=== PATIENT | male | born 1940 | race Caucasian/White ===

== ENCOUNTER → 2016-11-21 | Outpatient (CLI) | payer MEDICARE ==
--- NOTE | 2016-11-21 15:37 | NM ---
EXAMINATION TYPE: NM DatScan Brain SPECT DATE OF EXAM: 11/21/2016 2:51 PM COMPARISON: NONE HISTORY: 76-year-old male with tremors TECHNIQUE: 10 drops of Lugol's solution was administered 1 hour prior to injection as a thyroid bloc terri agent. After the administration of 4.57 mCi I-123 Ioflupane DaTscan. Images obtained 3 hours p ost injection. SPECT images of the brain were acquired with axial and coronal reconstructions. FINDINGS: The axial SPECT images show symmetrical striatal uptake and no significant increase in background act ivity. IMPRESSION: Normal appearance which argues against idiopathic Parkinson's disease or a parkinsonian syndrome.
== END | disposition home or self-care (01) ==
LOC: RADNMMAIN 09:45
PROVIDERS: ATTEND Psychiatry & Neurology Neurology
DX: R25.1 Tremor, unspecified (principal)
CPT/HCPCS: 78607; A9584

== ENCOUNTER 2017-03-24 00:17 | Emergency (ER) | payer MEDICARE ==
[2017-03-24 00:28] VITALS: RESP 18; TEMP 97.4
[2017-03-24] MEDS ORDERED: cloNIDine HCL 0.1 MG TAB PO STA (00:44)
--- NOTE | 2017-03-24 01:10 | ED ---
Recheck HPI - General Chief Complaint: Recheck/Abnormal Lab/Rx Stated Complaint: chest pain Time Seen by Provider: 03/24/17 00:31 Source: patient Mode of arrival: wheelchair Limitations: no limitations - History of Present Illness Initial Comments: This patient is a 77-year-old man with history of hypertension who presents because his blood pressure has been 170/110. The patient states that he was feeling a little shaky at home this evening so he took his blood pressure was 140/95. He states that he took 12.5 mg of metoprolol, and then began rechecking his blood pressure. He checked a number of times and had gone up to 170/110 so he comes in to be evaluated. Patient denies any other symptoms. He is not having chest pain, dyspnea, abdominal pain, back pain, nausea or vomiting , change in urination or bowel movements. MD Complaint: other (Hypertension) -: hour(s) Symptoms Since Prior Visit: no new symptoms Associated Symptoms: none Treatments Prior to Arrival: other medications - Related Data Home Medications Medication Instructions Recorded Confirmed Atenolol [Tenormin] 25 mg PO DAILY 06/04/14 02/04/17 Atorvastatin [Lipitor] 80 mg PO DAILY 06/04/14 02/04/17 Butalb/Acetaminophen/Caffeine 1 each PO Q6HR PRN 06/04/14 02/04/17 [Fioricet 50-325-40] Cyclobenzaprine [Flexeril] 10 mg PO TID 06/04/14 02/04/17 Finasteride [Proscar] 5 mg PO DAILY 06/04/14 02/04/17 Gabapentin [Neurontin] 300 mg PO TID 06/04/14 02/04/17 Halfprin 162 mg PO DAILY 06/04/14 02/04/17 Loratadine [Claritin] 10 mg PO DAILY PRN 06/04/14 02/04/17 Baggs-3 Fatty Acids/Fish Oil [Fish 1 each PO DAILY 06/04/14 02/04/17 Oil 1,000 mg Softgel] Terazosin [Hytrin] 10 mg PO HS 06/04/14 02/04/17 clonazePAM [KlonoPIN] 0.5 mg PO HS PRN 06/04/14 02/04/17 oxyCODONE HCL/ACETAMINOPHEN 1 each PO Q6HR PRN 06/04/14 02/04/17 [Endocet 10-325 mg] Albuterol Sulfate [Proair Hfa] 1 - 2 puff INHALATION Q6HR PRN 10/28/14 02/04/17 Furosemide [Lasix] 20 mg PO DAILY 10/28/14 02/04/17 Mometasone/Formoterol [Dulera 200 2 puff INHALATION BID 10/28/14 02/04/17 Mcg/5 Mcg Inhaler] Aspirin [Adult Low Dose Aspirin EC] 2 tab PO DAILY 01/30/17 02/04/17 Budesonide-Formot 160-4.5 Mcg 2 puff INHALATION BID 01/30/17 02/04/17 [Symbicort 160-4.5 Mcg Inhaler] Lisinopril [Prinivil] 5 mg PO DAILY 01/30/17 02/04/17 Meloxicam 15 mg PO DAILY 01/30/17 02/04/17 Metoprolol Succinate [Toprol XL] 25 mg PO DAILY 01/30/17 02/04/17 Potassium Gluconate 99 mg PO HS 01/30/17 02/04/17 Primidone [Mysoline] 50 mg PO DAILY 01/30/17 02/04/17 Sertraline [Zoloft] 100 mg PO DAILY 01/30/17 02/04/17 Terazosin [Hytrin] 10 mg PO HS 01/30/17 02/04/17 fentaNYL 25MCG/HR PATCH [Duragesic 25 mcg TRANSDERM Q72H 01/30/17 02/04/17 25MCG/HR] predniSONE 0 mg PO DIRECTED 01/30/17 02/04/17 Allergies Allergy/AdvReac Type Severity Reaction Status Date / Time morphine Allergy Rash/Hives Verified 03/24/17 00:27 Review of Systems ROS Statement: Those systems with pertinent positive or pertinent negative responses have been documented in the HPI. ROS Other: All systems not noted in ROS Statement are negative. Respiratory: Denies: cough, dyspnea Cardiovascular: Denies: chest pain, palpitations, dyspnea on exertion, orthopnea , edema, syncope Gastrointestinal: Denies: abdominal pain, vomiting, diarrhea Genitourinary: Denies: dysuria Musculoskeletal: Denies: back pain Neurological: Denies: headache Psychiatric: Reports: anxiety Past Medical History Past Medical History: Chest Pain / Angina, Hyperlipidemia, Hypertension, Prostate Disorder History of Any Multi-Drug Resistant Organisms: None Reported Past Surgical History: Coronary Bypass/CABG Past Anesthesia/Blood Transfusion Reactions: No Reported Reaction Past Psychological History: No Psychological Hx Reported, Depression Smoking Status: Never smoker - Past Family History Mother Family Medical History: No Reported History Father Family Medical History: No Reported History General Exam Limitations: no limitations General appearance: alert, in no apparent distress Eye exam: Present: normal appearance. Absent: scleral icterus, conjunctival injection ENT exam: Present: normal oropharynx Neck exam: Present: normal inspection Respiratory exam: Present: normal lung sounds bilaterally. Absent: respiratory distress, wheezes, rales, rhonchi, stridor Cardiovascular Exam: Present: regular rate, normal rhythm, normal heart sounds. Absent: systolic murmur, diastolic murmur, rubs, gallop GI/Abdominal exam: Present: soft. Absent: distended, tenderness, guarding, rebound, mass Extremities exam: Present: normal inspection, normal capillary refill. Absent: pedal edema, calf tenderness Back exam: Present: normal inspection. Absent: CVA tenderness (R), CVA tenderness (L) Neurological exam: Present: alert Psychiatric exam: Present: anxious Skin exam: Present: warm, dry, intact, normal color. Absent: rash Course Vital Signs 03/24/17 03/24/17 03/24/17 00:25 01:00 01:32 Temperature 97.4 F L Pulse Rate 66 96 68 Respiratory 18 18 Rate Blood Pressure 177/105 176/111 150/98 O2 Sat by Pulse 98 Oximetry Medical Decision Making - EKG Data -: EKG Interpreted by Sc EKG shows normal: sinus rhythm (Rate 70 bpm), axis (Right axis), intervals (The MD interval is prolonged at 228 ms, the QTC is prolonged at 505 ms QRS duration is normal at 96 months), QRS complexes (There is an incomplete right bundle branch block pattern.) Rate: normal When compared to previous EKG there are: no significant change (Comparison EKG 10/28/2014) Interpretation: nonspecific ST-T wave changes, other Disposition Clinical Impression: HTN (hypertension) Disposition: HOME SELF-CARE Condition: Good Instructions: Hypertension (ED) Referrals: Burke Dubois MD [Primary Care Provider] - 1-2 days
[2017-03-24 02:37] VITALS: BP 121/81; PULSE 60
== END 2017-03-24 02:00 | disposition home or self-care (01) ==
LOC: EC 00:17
DX: I10 Essential (primary) hypertension (principal); E78.5 Hyperlipidemia, unspecified; N42.9 Disorder of prostate, unspecified; F32.9 Major depressive disorder, single episode, unspecified; Z95.5 Presence of coronary angioplasty implant and graft; Z79.51 Long term (current) use of inhaled steroids; Z79.52 Long term (current) use of systemic steroids; Z79.891 Long term (current) use of opiate analgesic; Z79.899 Other long term (current) drug therapy; Z88.5 Allergy status to narcotic agent
CPT/HCPCS: 93005; 99284

== ENCOUNTER 2017-03-24 12:45 | Emergency (ER) | payer MEDICARE ==
[2017-03-24] MEDS ORDERED: SODIUM CHLORIDE 0.9% 500 ML IV STA (13:30)
--- NOTE | 2017-03-24 13:48 | ED ---
General Adult HPI - General Chief complaint: Recheck/Abnormal Lab/Rx Stated complaint: Low BP Time Seen by Provider: 03/24/17 12:52 Source: patient, RN notes reviewed Mode of arrival: wheelchair Limitations: no limitations - History of Present Illness Initial comments: Patient 77-year-old male who presents emergency room today with chief complaint of low blood pressure. He does admit that he's felt a little lightheaded and dizzy today he checked his blood pressure noticed that it was low. States still feeling lightheaded at this time. Patient does note that he was seen here in the emergency room last night given 2 pills. He states he does not note today were. He states he was here because his blood pressure was elevated time. He currently denies any other complaints or associated symptoms. Patient denies any recent fever, chills, shortness of breath, chest pain, back pain, abdominal pain, nausea or vomiting, numbness or tingling, dysuria or hematuria, constipation or diarrhea, headaches or visual changes, or any other complaints. - Related Data Home Medications Medication Instructions Recorded Confirmed Atorvastatin [Lipitor] 80 mg PO DAILY 06/04/14 03/24/17 Finasteride [Proscar] 5 mg PO DAILY 06/04/14 03/24/17 Gabapentin [Neurontin] 300 mg PO TID 06/04/14 03/24/17 Loratadine [Claritin] 10 mg PO DAILY PRN 06/04/14 03/24/17 clonazePAM [KlonoPIN] 0.5 mg PO HS PRN 06/04/14 03/24/17 Furosemide [Lasix] 20 mg PO DAILY 10/28/14 03/24/17 Aspirin [Adult Low Dose Aspirin EC] 2 tab PO DAILY 01/30/17 03/24/17 Budesonide-Formot 160-4.5 Mcg 2 puff INHALATION BID 01/30/17 03/24/17 [Symbicort 160-4.5 Mcg Inhaler] Lisinopril [Prinivil] 5 mg PO DAILY 01/30/17 03/24/17 Meloxicam 15 mg PO DAILY 01/30/17 03/24/17 Metoprolol Succinate [Toprol XL] 12.5 mg PO DAILY 01/30/17 03/24/17 Potassium Gluconate 99 mg PO HS 01/30/17 03/24/17 Primidone [Mysoline] 50 mg PO HS 01/30/17 03/24/17 Sertraline [Zoloft] 100 mg PO DAILY 01/30/17 03/24/17 Terazosin [Hytrin] 10 mg PO DAILY 01/30/17 03/24/17 fentaNYL 25MCG/HR PATCH [Duragesic 25 mcg TRANSDERM Q72H 01/30/17 03/24/17 25MCG/HR] Albuterol Sulfate [Proventil Hfa] 2 puff INHALATION RT-QID PRN 03/24/17 03/24/17 Allergies Allergy/AdvReac Type Severity Reaction Status Date / Time morphine Allergy Rash/Hives Verified 03/24/17 14:09 Review of Systems ROS Statement: Those systems with pertinent positive or pertinent negative responses have been documented in the HPI. ROS Other: All systems not noted in ROS Statement are negative. Past Medical History Past Medical History: Chest Pain / Angina, Hyperlipidemia, Hypertension, Prostate Disorder History of Any Multi-Drug Resistant Organisms: None Reported Past Surgical History: Coronary Bypass/CABG Past Anesthesia/Blood Transfusion Reactions: No Reported Reaction Past Psychological History: No Psychological Hx Reported, Depression Smoking Status: Never smoker Past Alcohol Use History: None Reported Past Drug Use History: None Reported - Past Family History Mother Family Medical History: No Reported History Father Family Medical History: No Reported History General Exam - General Exam Comments Initial Comments: General: The patient is awake and alert, in no distress, and does not appear acutely ill. Eye: Pupils are equal, round and reactive to light, extra-ocular movements are intact. No nystagmus. There is normal conjunctiva bilaterally. No signs of icterus. Ears, nose, mouth and throat: There are moist mucous membranes and no oral lesions. Neck: The neck is supple, there is no tenderness or JVD. Cardiovascular: There is a regular rate and rhythm. No murmur, rub or gallop is appreciated. Respiratory: Lungs are clear to auscultation, respirations are non-labored, breath sounds are equal. No wheezes, stridor, rales, or rhonchi. Gastrointestinal: Soft, non-distended, non-tender abdomen without masses or organomegaly noted. There is no rebound or guarding present. No CVA tenderness. Bowel sounds are unremarkable. Musculoskeletal: Normal ROM, no tenderness. Strength 5/5. Sensation intact. Pulses equal bilaterally 2+. Neurological: A&O x 3. CN II-XII intact, There are no obvious motor or sensory deficits. Coordination appears grossly intact. Speech is normal. Skin: Skin is warm and dry and no rashes or lesions are noted. Psychiatric: Cooperative, appropriate mood & affect, normal judgment. Limitations: no limitations Course Vital Signs 03/24/17 03/24/17 03/24/17 12:48 14:11 15:13 Temperature 97.8 F Pulse Rate 54 L 53 L 51 L Respiratory 20 20 18 Rate Blood Pressure 94/65 111/73 103/69 O2 Sat by Pulse 99 98 95 Oximetry 03/24/17 15:38 Temperature 97 F L Pulse Rate 58 L Respiratory 16 Rate Blood Pressure 106/67 O2 Sat by Pulse 98 Oximetry Medical Decision Making - Medical Decision Making Case discussed in detail with attending physician Patient reexamined at this time shows no signs of distress resting comfortably. patient's labs been reviewed. Patient was given Catapres approximate 1 AM this morning. He is given 0.2 mg. There is a 6010 hour duration. I believe that he is Still working this morning when he woke up and had a low blood pressure. At this times blood pressures returned normal as been greater than 10 hours since receiving this medication. He is feeling better. He denies any lightheadedness dizziness. He's been walked up and down the hallway with no problems and no complaints. Patient's labs been reviewed. EKG reviewed. Results were discussed with this patient. At this time he feels comfortable being discharged home. He states he will keep an eye on his blood pressure. He states he plans follow-up the family doctor in the next 1-2 days. Patient is advised return to emergency room if any symptoms increase or worsen or for any other concerns. - Lab Data Result diagrams: 03/24/17 14:15 03/24/17 14:15 Lab Results 03/24/17 03/24/17 03/24/17 Range/Units 14:15 14:15 14:15 WBC 3.6 L (3.8-10.6) k/uL RBC 4.02 L (4.30-5.90) m/uL Hgb 13.0 (13.0-17.5) gm/dL Hct 38.9 L (39.0-53.0) % MCV 96.7 (80.0-100.0) fL MCH 32.4 (25.0-35.0) pg MCHC 33.5 (31.0-37.0) g/dL RDW 13.4 (11.5-15.5) % Plt Count 89 L (150-450) k/uL Neutrophils % 64 % Lymphocytes % 21 % Monocytes % 9 % Eosinophils % 3 % Basophils % 1 % Neutrophils # 2.3 (1.3-7.7) k/uL Lymphocytes # 0.7 L (1.0-4.8) k/uL Monocytes # 0.3 (0-1.0) k/uL Eosinophils # 0.1 (0-0.7) k/uL Basophils # 0.0 (0-0.2) k/uL PT (9.0-12.0) sec INR (<1.2) APTT (22.0-30.0) sec Sodium 139 (137-145) mmol/L Potassium 4.0 (3.5-5.1) mmol/L Chloride 105 (98-107) mmol/L Carbon Dioxide 25 (22-30) mmol/L Anion Gap 9 mmol/L BUN 27 H (9-20) mg/dL Creatinine 0.95 (0.66-1.25) mg/dL Est GFR (MDRD) Af Amer >60 (>60 ml/min/1.73 sqM) Est GFR (MDRD) Non-Af >60 (>60 ml/min/1.73 sqM) Glucose 74 (74-99) mg/dL Calcium 8.9 (8.4-10.2) mg/dL Total Bilirubin 0.8 (0.2-1.3) mg/dL AST 25 (17-59) U/L ALT 33 (21-72) U/L Alkaline Phosphatase 62 (38-126) U/L Total Creatine Kinase 146 (55-170) U/L CK-MB (CK-2) 3.0 H* (0.0-2.4) ng/mL CK-MB (CK-2) Rel Index 2.1 Troponin I <0.012 (0.000-0.034) ng/mL Total Protein 6.4 (6.3-8.2) g/dL Albumin 4.1 (3.5-5.0) g/dL Urine Color Urine Appearance (Clear) Urine pH (5.0-8.0) Ur Specific [place] (1.001-1.035) Urine Protein (Negative) Urine Glucose (UA) (Negative) Urine Ketones (Negative) Urine Blood (Negative) Urine Nitrite (Negative) Urine Bilirubin (Negative) Urine Urobilinogen (<2.0) mg/dL Ur Leukocyte Esterase (Negative) 03/24/17 03/24/17 Range/Units 14:15 15:37 WBC (3.8-10.6) k/uL RBC (4.30-5.90) m/uL Hgb (13.0-17.5) gm/dL Hct (39.0-53.0) % MCV (80.0-100.0) fL MCH (25.0-35.0) pg MCHC (31.0-37.0) g/dL RDW (11.5-15.5) % Plt Count (150-450) k/uL Neutrophils % % Lymphocytes % % Monocytes % % Eosinophils % % Basophils % % Neutrophils # (1.3-7.7) k/uL Lymphocytes # (1.0-4.8) k/uL Monocytes # (0-1.0) k/uL Eosinophils # (0-0.7) k/uL Basophils # (0-0.2) k/uL PT 12.2 H (9.0-12.0) sec INR 1.2 H (<1.2) APTT 25.9 (22.0-30.0) sec Sodium (137-145) mmol/L Potassium (3.5-5.1) mmol/L Chloride (98-107) mmol/L Carbon Dioxide (22-30) mmol/L Anion Gap mmol/L BUN (9-20) mg/dL Creatinine (0.66-1.25) mg/dL Est GFR (MDRD) Af Amer (>60 ml/min/1.73 sqM) Est GFR (MDRD) Non-Af (>60 ml/min/1.73 sqM) Glucose (74-99) mg/dL Calcium (8.4-10.2) mg/dL Total Bilirubin (0.2-1.3) mg/dL AST (17-59) U/L ALT (21-72) U/L Alkaline Phosphatase (38-126) U/L Total Creatine Kinase (55-170) U/L CK-MB (CK-2) (0.0-2.4) ng/mL CK-MB (CK-2) Rel Index Troponin I (0.000-0.034) ng/mL Total Protein (6.3-8.2) g/dL Albumin (3.5-5.0) g/dL Urine Color Yellow Urine Appearance Clear (Clear) Urine pH 5.5 (5.0-8.0) Ur Specific [place] 1.017 (1.001-1.035) Urine Protein Trace H (Negative) Urine Glucose (UA) Negative (Negative) Urine Ketones Negative (Negative) Urine Blood Negative (Negative) Urine Nitrite Negative (Negative) Urine Bilirubin Negative (Negative) Urine Urobilinogen <2.0 (<2.0) mg/dL Ur Leukocyte Esterase Negative (Negative) Disposition Clinical Impression: Lightheaded Disposition: HOME SELF-CARE Condition: Good Instructions: Lightheadedness (ED) Additional Instructions: Please follow-up with family doctor in the next 2 days. Please return to emergency room if the symptoms increase or worsen or for any other concerns. Referrals: Burke Dubois MD [Primary Care Provider] - 1-2 days Time of Disposition: 16:00
[2017-03-24 14:29] LABS: Basophils % (A) 1 %; CHCM 33.3; Eosinophils # (A) 0.1 k/uL (0-0.7); Eosinophils % (A) 3 %; HCT 38.9 % (39.0-53.0); HDW 2.22; Luc % (Auto) 3; Lymphocytes # (A) 0.7 k/uL (1.0-4.8); Lymphocytes % (A) 21 %; MCH 32.4 pg (25.0-35.0); MCHC 33.5 g/dL (31.0-37.0); MCV 96.7 fL (80.0-100.0); Mean Platelet Volume 8.3; Monocytes # (A) 0.3 k/uL (0-1.0); Monocytes % (A) 9 %; Neutrophils # (A) 2.3 k/uL (1.3-7.7); Neutrophils % (A) 64 %; RBC 4.02 m/uL (4.30-5.90); RDW 13.4 % (11.5-15.5); WBC 3.6 k/uL (3.8-10.6); WBC (Perox) 3.62
[2017-03-24 14:42] LABS: ALT 33 U/L (21-72); AST 25 U/L (17-59); Alkaline Phosphatase 62 U/L (38-126); Anion Gap 9 mmol/L; Blood Urea Nitrogen 27 mg/dL (9-20); Calcium 8.9 mg/dL (8.4-10.2); Carbon Dioxide 25 mmol/L (22-30); Chloride 105 mmol/L (98-107); Glucose 74 mg/dL (74-99); Non-African American GFR(MDRD) >60 (>60 ml/min/1.73 sqM); Sodium 139 mmol/L (137-145); Total Bilirubin 0.8 mg/dL (0.2-1.3); Total Protein 6.4 g/dL (6.3-8.2)
[2017-03-24 14:54] LABS: INR 1.2 (<1.2)
[2017-03-24 14:55] LABS: Partial Thromboplastin Time 25.9 sec (22.0-30.0); Prothrombin Time 12.2 sec (9.0-12.0)
[2017-03-24 14:57] LABS: Creatine Kinase 146 U/L (55-170)
[2017-03-24 15:10] LABS: Troponin I <0.012 ng/mL (0.000-0.034)
--- NOTE | 2017-03-24 15:15 | XR ---
EXAMINATION TYPE: XR chest 2V DATE OF EXAM: 03/24/2017 COMPARISON: October 27, 2015 HISTORY: Shortness of breath TECHNIQUE: Frontal and lateral views of the chest are obtained. FINDINGS: There is no focal air space opacity, pleural effusion, or pneumothorax seen. The cardiac silhouette size is within normal limits. The osseous structures are intact. Postoperative changes f rom sternotomy and likely CABG procedure again noted. IMPRESSION: No acute cardiopulmonary process.
[2017-03-24 15:39] VITALS: RESP 16; TEMP 97
[2017-03-24 15:45] LABS: Appearance,Urine Clear (Clear); Bilirubin,Urine Negative (Negative); Glucose,Urine (UA) Negative (Negative); Ketones,Urine Negative (Negative); Leukocyte Esterase,Urine Negative (Negative); Nitrite,Urine Negative (Negative); PH, Urine 5.5 (5.0-8.0); Protein,Urine Trace (Negative); Specific Gravity,Urine 1.017 (1.001-1.035); UA Billing (MACRO vs. MICRO) CHEM; Urobilinogen,Urine <2.0 mg/dL (<2.0)
[2017-03-24 16:45] VITALS: BP 104/68; PULSE 55
== END 2017-03-24 16:44 | disposition home or self-care (01) ==
LOC: EC 12:45
DX: R42 Dizziness and giddiness (principal); R00.1 Bradycardia, unspecified; E78.5 Hyperlipidemia, unspecified; I10 Essential (primary) hypertension; N42.9 Disorder of prostate, unspecified; F32.9 Major depressive disorder, single episode, unspecified; Z79.1 Long term (current) use of non-steroidal anti-inflammatories (NSAID); Z79.82 Long term (current) use of aspirin; Z79.51 Long term (current) use of inhaled steroids; Z79.899 Other long term (current) drug therapy; Z88.5 Allergy status to narcotic agent; Z95.1 Presence of aortocoronary bypass graft
CPT/HCPCS: 36415; 71020; 80053; 81003; 82550; 82553; 84484; 85025; 85610; 85730; 93005; 99284; 99285

== ENCOUNTER → 2017-05-11 | Outpatient (CLI) | payer MEDICARE ==
[2017-05-11 14:08] LABS: Non-African American GFR(MDRD) >60 (>60 ml/min/1.73 sqM)
[2017-05-12 07:29] LABS: Blood Urea Nitrogen 26 mg/dL (9-20)
--- NOTE | 2017-05-12 12:43 | MR ---
EXAMINATION TYPE: MR brain wo con DATE OF EXAM: 05/11/2017 COMPARISON: NONE HISTORY: TIA CONTRAST: Performed utilizing 0 mL intravenous Gadavist gadolinium contrast. IV access could not be obtained at this time. TECHNIQUE: Multiplanar, multiecho imaging on a 3.0 Carina magnet is performed through the brain. Stud y is performed within 24 hours of arrival to the hospital. The craniovertebral junction is normal. The pituitary is normal. Diffusion-weighted imaging is performed. No abnormal hyperintensity is present to suggest an acute i ntracranial infarct or acute ischemic change. Periventricular white matter hyperintensity is present, likely on the basis of chronic white matter i schemic change. There appears to be a lacunar infarct within the subcortical parietal occipital junct ion white matter. Ventricles and sulci are prominent for the patient age. Temporal lobes appear symmetrical. IMPRESSIONS: 1. Periventricular white matter ischemic type changes and atrophy.
== END | disposition home or self-care (01) ==
LOC: RADMRIMAIN 13:35
PROVIDERS: ATTEND Psychiatry & Neurology Pain Medicine
DX: G31.9 Degenerative disease of nervous system, unspecified (principal); I67.82 Cerebral ischemia; R90.82 White matter disease, unspecified
CPT/HCPCS: 70551; 82565; 84520

== ENCOUNTER → 2018-06-03 | Outpatient (CLI) | payer MEDICARE ==
--- NOTE | 2018-06-03 13:30 | US ---
EXAMINATION TYPE: US kidneys/renal and bladder DATE OF EXAM: 06/03/2018 COMPARISON: NONE CLINICAL HISTORY: N28.1 Cyst of the Kidney; per patient history; left flank pain in LLD position EXAM MEASUREMENTS: Right Kidney: 12.0 x 5.8 x 6.0 cm Left Kidney: 10.9 x 5.3 x 5.4 cm Post Void Residual Volume: 6.9 mL Right Kidney: multiple, simple renal cysts with largest at inferior pole = 4.8 x 5.8 x 5.9cm Left Kidney: oval simple fluid area inferior pole may be renal cyst; posterior mid pole renal cyst se en = 0.5 x 0.6 x 0.6cm Bladder: wnl; prominent prostate noted inferiorly Bilateral Jets seen: Yes Normal Post Void Residual: Yes There is bilateral cortical renal thinning. There is no evidence for hydronephrosis at this point in time. No nephrolithiasis is seen. The urinary bladder is anechoic. Bilateral ureteral jets are seen . IMPRESSION: Sonographic sequela of medical renal disease with multiple bilateral benign-appearing simple renal cy sts.
== END | disposition home or self-care (01) ==
LOC: RADUSWWP 12:08
PROVIDERS: ATTEND Family Medicine
DX: N28.1 Cyst of kidney, acquired (principal); N28.89 Other specified disorders of kidney and ureter; Z88.5 Allergy status to narcotic agent
CPT/HCPCS: 76770

== ENCOUNTER → 2018-08-22 | Outpatient (CLI) | payer MEDICARE ==
[2018-08-22 16:49] LABS: T4, Free (Free Thyroxine) 1.1 ng/dL (0.80-1.80)
[2018-08-22 17:38] LABS: Iron Saturation 24.28 (15.00-50.00)
[2018-08-22 18:36] LABS: Folate, Serum >24.0 ng/mL
[2018-08-26 10:04] LABS: Vitamin B1 97 ug/L (38-122)
== END | disposition home or self-care (01) ==
LOC: LABWHC1 11:27
PROVIDERS: ATTEND Psychiatry & Neurology Pain Medicine
DX: R53.83 Other fatigue (principal)
CPT/HCPCS: 36415; 82607; 82728; 82746; 83540; 83550; 84207; 84425; 84439; 84443; 84466; 84481; 84591

== ENCOUNTER 2018-12-01 18:10 | Emergency (ER) | payer MEDICARE ==
[2018-12-01] MEDS ORDERED: FAMOTIDINE 20 MG TAB PO STA (19:27)
--- NOTE | 2018-12-01 19:31 | ED ---
Male Urogenital HPI - General Chief complaint: Urogenital Stated complaint: male gu, swollen testicles, hematuria Time Seen by Provider: 12/01/18 18:56 Source: patient Mode of arrival: ambulatory Limitations: no limitations - History of Present Illness Initial comments: 78-year-old male patient presents to the emergency department today for evaluation of scrotal swelling, redness, and itching. Patient states symptoms started about a month ago with urinary incontinence and hematuria. Patient states he was seen by his primary care physician and started on Flomax. Patient states he did a trial of one month which did not improve his symptoms is going to see a urologist on December 17. Patient states that over the last couple of days as well and the redness and itching started. Patient states he noticed swelling of the scrotum today. He denies any rash to the area. Denies any wounds. Denies any abdominal pain, shortness of breath, or leg swelling. Denies any fever or chills. Denies any dysuria. He is wearing depends briefs since the incontinence started. Patient denies any recent rash, chest pain, nausea, vomiting, diarrhea, constipation, back pain, numbness, tingling, dizziness, weakness, headache, visual changes, or any other complaints. - Related Data Home Medications Medication Instructions Recorded Confirmed Atorvastatin [Lipitor] 80 mg PO DAILY 06/04/14 12/01/18 Gabapentin [Neurontin] 300 mg PO TID 06/04/14 12/01/18 Furosemide [Lasix] 20 mg PO DAILY 10/28/14 12/01/18 Budesonide-Formot 160-4.5 Mcg 2 puff INHALATION RT-BID 01/30/17 12/01/18 [Symbicort 160-4.5 Mcg Inhaler] Lisinopril [Prinivil] 5 mg PO DAILY 01/30/17 12/01/18 Meloxicam 15 mg PO DAILY 01/30/17 12/01/18 Metoprolol Succinate [Toprol XL] 12.5 mg PO DAILY 01/30/17 12/01/18 Sertraline [Zoloft] 100 mg PO DAILY 01/30/17 12/01/18 fentaNYL 25MCG/HR PATCH [Duragesic 25 mcg TRANSDERM Q72H 01/30/17 12/01/18 25MCG/HR] Albuterol Sulfate [Proventil Hfa] 2 puff INHALATION RT-QID PRN 03/24/17 12/01/18 Nitroglycerin Sl Tabs [Nitrostat] 0.4 tab SL Q5M 12/01/18 12/01/18 Oxybutynin [Oxytrol Patch] 3.9 mg TRANSDERM Q72H 12/01/18 12/01/18 Primidone [Mysoline] 150 mg PO HS 12/01/18 12/01/18 Tamsulosin HCl [Flomax] 0.4 mg PO DAILY 12/01/18 12/01/18 clonazePAM [KlonoPIN] 1 mg PO TID 12/01/18 12/01/18 Previous Rx's Medication Instructions Recorded Nystatin 100,000Unit/gm Cream 1 applic TOPICAL BID #15 gm 12/01/18 [Mycostatin Cream] Allergies Allergy/AdvReac Type Severity Reaction Status Date / Time morphine Allergy Rash/Hives Verified 12/01/18 19:07 Review of Systems ROS Statement: Those systems with pertinent positive or pertinent negative responses have been documented in the HPI. ROS Other: All systems not noted in ROS Statement are negative. Past Medical History Past Medical History: Chest Pain / Angina, Hyperlipidemia, Hypertension, Prostate Disorder History of Any Multi-Drug Resistant Organisms: None Reported Past Surgical History: Coronary Bypass/CABG Past Anesthesia/Blood Transfusion Reactions: No Reported Reaction Past Psychological History: No Psychological Hx Reported, Depression Smoking Status: Never smoker Past Alcohol Use History: None Reported Past Drug Use History: None Reported - Past Family History Mother Family Medical History: No Reported History Father Family Medical History: No Reported History General Exam Limitations: no limitations General appearance: alert, in no apparent distress, other (Physical well- developed, well-nourished elderly male patient in no acute distress. Vital signs upon presentation are temperature 98.3F, pulse 77, respirations 18, blood pressure 125/80, pulse ox 96% on room air.) Eye exam: Present: normal appearance, PERRL, EOMI. Absent: scleral icterus, conjunctival injection, periorbital swelling ENT exam: Present: normal exam, normal oropharynx, mucous membranes moist Respiratory exam: Present: normal lung sounds bilaterally. Absent: respiratory distress, wheezes, rales, rhonchi, stridor Cardiovascular Exam: Present: regular rate, normal rhythm, normal heart sounds. Absent: systolic murmur, diastolic murmur, rubs, gallop, clicks GI/Abdominal exam: Present: soft, normal bowel sounds. Absent: distended, tenderness, guarding, rebound, rigid exam: Present: scrotal swelling, other (Generalized erythema). Absent: testicular tenderness Neurological exam: Present: alert, oriented X3, CN II-XII intact Psychiatric exam: Present: normal affect, normal mood Skin exam: Present: warm, dry, intact, normal color. Absent: rash Course Vital Signs 12/01/18 12/01/18 18:22 21:30 Temperature 98.3 F 97.9 F Pulse Rate 77 67 Respiratory 18 16 Rate Blood Pressure 125/80 144/93 O2 Sat by Pulse 96 96 Oximetry Medical Decision Making - Medical Decision Making 78-year-old male patient presented to the emergency department today for evaluation of scrotal swelling, redness, and itching. Physical examination did reveal some erythema to the scrotum. No significant swelling noted. No tenderness. Ultrasound was obtained and showed scrotal wall thickening but no other abnormalities. Patient will be given prescription for nystatin cream for cutaneous candidiasis. He did recently start wearing depends briefs which I feel could be causing irritation. He is instructed to follow-up with his primary care physician for a recheck in 1-2 days. He does have an appointment with his urologist on December 17, he is urged to keep this appointment. Return parameters were discussed in detail. He verbalizes understanding and agrees with this plan for - Lab Data Lab Results 12/01/18 Range/Units 19:21 Urine Color Yellow Urine Appearance Clear (Clear) Urine pH 7.0 (5.0-8.0) Ur Specific [place] 1.024 (1.001-1.035) Urine Protein Negative (Negative) Urine Glucose (UA) Negative (Negative) Urine Ketones Negative (Negative) Urine Blood Negative (Negative) Urine Nitrite Negative (Negative) Urine Bilirubin Negative (Negative) Urine Urobilinogen <2.0 (<2.0) mg/dL Ur Leukocyte Esterase Negative (Negative) - Radiology Data Radiology results: report reviewed Ultrasound of the scrotum with Doppler was obtained. Report was reviewed in its entirety. Impression by Dr. Chaves shows no testicular torsion or mass. No free fluid. There is mild wall thickening. To 1.2 cm. Disposition Clinical Impression: Cutaneous candidiasis Disposition: HOME SELF-CARE Condition: Good Instructions (If sedation given, give patient instructions): Yeast Infection (ED) Additional Instructions: Apply nystatin cream twice daily as directed. Follow-up with your primary care physician for recheck in 1-2 days. Follow-up with the urologist for recheck on December 17 as you have planned. Return to the emergency department immediately for any new, worsening, or concerning symptoms. Prescriptions: Nystatin 100,000Unit/gm Cream [Mycostatin Cream] 1 applic TOPICAL BID #15 gm Is patient prescribed a controlled substance at d/c from ED?: No Referrals: Cullen Castellanos MD [Primary Care Provider] - 1-2 days Time of Disposition: 21:31
[2018-12-01 19:57] LABS: Appearance,Urine Clear (Clear); Bilirubin,Urine Negative (Negative); Blood,Urine Negative (Negative); Color,Urine Yellow; Glucose,Urine (UA) Negative (Negative); Ketones,Urine Negative (Negative); Leukocyte Esterase,Urine Negative (Negative); Nitrite,Urine Negative (Negative); Protein,Urine Negative (Negative); Specific Gravity,Urine 1.024 (1.001-1.035); Urobilinogen,Urine <2.0 mg/dL (<2.0)
--- NOTE | 2018-12-01 20:59 | US ---
EXAMINATION TYPE: US scrotum with doppler. Grayscale and color Doppler Duplex imaging performed of shar valdez scrotum. DATE OF EXAM: 12/01/2018 COMPARISON: NONE CLINICAL HISTORY: Pain. Swelling. EXAM MEASUREMENTS: TESTICLES: Right Testicle: 4.5 x 3.1 x 2.9 cm Left Testicle: 4.5 x 2.7 x 2.8 cm EPIDIDYMIS HEAD: Right Epididymis: .9 x .7 x 1.5 cm Left Epididymis: 1.1 x .7 x 1.1 cm Doppler performed to assess for testicular vascularity; good bilateral color flow and waveforms are s een. There is no evidence of testicular torsion. Presence of hydroceles: No Presence of varicoceles: No Scrotal wall thickening 1.2cm. IMPRESSION: No testicular torsion or mass. No free fluid. Mild scrotal wall thickening.
[2018-12-01 21:42] VITALS: BP 144/93; PULSE 67; RESP 16; TEMP 97.9
== END 2018-12-01 21:30 | disposition home or self-care (01) ==
LOC: EC 18:10
DX: B37.2 Candidiasis of skin and nail (principal); N50.89 Other specified disorders of the male genital organs; R31.9 Hematuria, unspecified; E78.5 Hyperlipidemia, unspecified; I10 Essential (primary) hypertension; N42.9 Disorder of prostate, unspecified; F32.9 Major depressive disorder, single episode, unspecified; Z79.51 Long term (current) use of inhaled steroids; Z79.891 Long term (current) use of opiate analgesic; Z79.1 Long term (current) use of non-steroidal anti-inflammatories (NSAID); Z79.899 Other long term (current) drug therapy; Z88.5 Allergy status to narcotic agent; Z95.1 Presence of aortocoronary bypass graft
CPT/HCPCS: 76870; 81003; 93975; 99284

== ENCOUNTER 2019-01-06 06:14 | Emergency (ER) | payer MEDICARE ==
[2019-01-06 06:34] VITALS: RESP 20
[2019-01-06] MEDS ORDERED: methylPREDNISolone SOD SUCCI 125 MG/2 ML VIAL IV STA (07:10)
[2019-01-06] MEDS ORDERED: IPRATROPIUM-ALBUTEROL 3 ML NEB INHALATION STA (07:10)
--- NOTE | 2019-01-06 07:19 | ED ---
SOB HPI - General Chief Complaint: Shortness of Breath Stated Complaint: SOB/COPD Time Seen by Provider: 01/06/19 07:00 Source: patient, family, RN notes reviewed Mode of arrival: wheelchair Limitations: no limitations - History of Present Illness Initial Comments: 78-year-old male presents emergency Department chief complaint of shortness breath for last 3-4 days. Patient states she seen at [facility] was given oral steroids. Patient states that he 7-50 with a COPD and ALLERGIES. Patient is requesting albuterol treatment and steroids. Patient CT does not want any house this time. Patient denies any chest pain, leg edema, bladder pain, fever, chills, nausea, vomiting diarrhea constipation. Patient states that his escort car driver is Dr. London. Patient has not taken any recent oral steroids, no albuterol treatment at home. - Related Data Previous Rx's Medication Instructions Recorded Albuterol Nebulized [Ventolin 2.5 mg INHALATION Q4H PRN #25 nebu 01/06/19 Nebulized] predniSONE 50 mg PO DAILY #4 tab 01/06/19 Allergies Allergy/AdvReac Type Severity Reaction Status Date / Time morphine Allergy Rash/Hives Verified 01/06/19 06:23 Review of Systems ROS Statement: Those systems with pertinent positive or pertinent negative responses have been documented in the HPI. ROS Other: All systems not noted in ROS Statement are negative. Past Medical History Past Medical History: COPD, Hypertension History of Any Multi-Drug Resistant Organisms: None Reported Past Surgical History: Back Surgery, Coronary Bypass/CABG, Joint Replacement, Orthopedic Surgery Past Psychological History: No Psychological Hx Reported Smoking Status: Never smoker Past Alcohol Use History: None Reported Past Drug Use History: None Reported General Exam Limitations: no limitations General appearance: alert, in no apparent distress Head exam: Present: atraumatic, normocephalic, normal inspection Eye exam: Present: normal appearance, PERRL, EOMI. Absent: scleral icterus, conjunctival injection, periorbital swelling ENT exam: Present: mucous membranes moist, TM's normal bilaterally, normal external ear exam. Absent: normal oropharynx (Postnasal drainage) Neck exam: Present: normal inspection. Absent: tenderness, meningismus, lymphadenopathy Respiratory exam: Present: wheezes (minimal expiratory). Absent: respiratory distress, rales, rhonchi, stridor Cardiovascular Exam: Present: regular rate, normal rhythm, normal heart sounds. Absent: systolic murmur, diastolic murmur, rubs, gallop, clicks Neurological exam: Present: alert, oriented X3, CN II-XII intact Skin exam: Present: warm, dry, intact, normal color. Absent: rash Course Vital Signs 01/06/19 01/06/19 01/06/19 06:18 06:32 07:27 Temperature 98.2 F Pulse Rate 60 63 Respiratory 24 20 Rate Blood Pressure 150/91 O2 Sat by Pulse 98 Oximetry 01/06/19 07:39 Temperature Pulse Rate 58 L Respiratory Rate Blood Pressure O2 Sat by Pulse Oximetry - Reevaluation(s) Reevaluation #1: 01/06/19 07:19 Patient is refusing multiple tests, patient was commenced at form one view chest x-ray as he did not want any x-ray at all. Medical Decision Making - Medical Decision Making 78-year-old male presented for ALLERGIES, COPD issues. Patient is improved after albuterol treatment labs, EKG and chest x-ray unremarkable. Patient be discharged with prednisone and albuterol. Patient will follow-up PCP tomorrow return for any worsening symptoms. Patient is stable - Lab Data Result diagrams: 01/06/19 06:35 01/06/19 06:35 Lab Results 01/06/19 01/06/19 01/06/19 Range/Units 06:35 06:35 06:35 WBC 6.2 (3.8-10.6) k/uL RBC 4.63 (4.30-5.90) m/uL Hgb 14.3 (13.0-17.5) gm/dL Hct 44.0 (39.0-53.0) % MCV 95.2 (80.0-100.0) fL MCH 30.9 (25.0-35.0) pg MCHC 32.5 (31.0-37.0) g/dL RDW 13.6 (11.5-15.5) % Plt Count 179 (150-450) k/uL Neutrophils % 58 % Lymphocytes % 23 % Monocytes % 7 % Eosinophils % 9 % Basophils % 1 % Neutrophils # 3.6 (1.3-7.7) k/uL Lymphocytes # 1.4 (1.0-4.8) k/uL Monocytes # 0.4 (0-1.0) k/uL Eosinophils # 0.6 (0-0.7) k/uL Basophils # 0.1 (0-0.2) k/uL PT 10.8 (9.0-12.0) sec INR 1.0 (<1.2) APTT 26.5 (22.0-30.0) sec Sodium 139 (137-145) mmol/L Potassium 4.7 (3.5-5.1) mmol/L Chloride 101 (98-107) mmol/L Carbon Dioxide 29 (22-30) mmol/L Anion Gap 9 mmol/L BUN 26 H (9-20) mg/dL Creatinine 0.81 (0.66-1.25) mg/dL Est GFR (CKD-EPI)AfAm >90 (>60 ml/min/1.73 sqM) Est GFR (CKD-EPI)NonAf 85 (>60 ml/min/1.73 sqM) Glucose 91 (74-99) mg/dL Calcium 9.3 (8.4-10.2) mg/dL Magnesium 1.9 (1.6-2.3) mg/dL Total Bilirubin 0.9 (0.2-1.3) mg/dL AST 41 (17-59) U/L ALT 22 (21-72) U/L Alkaline Phosphatase 57 (38-126) U/L Troponin I (0.000-0.034) ng/mL Total Protein 7.4 (6.3-8.2) g/dL Albumin 4.5 (3.5-5.0) g/dL 01/06/19 Range/Units 06:35 WBC (3.8-10.6) k/uL RBC (4.30-5.90) m/uL Hgb (13.0-17.5) gm/dL Hct (39.0-53.0) % MCV (80.0-100.0) fL MCH (25.0-35.0) pg MCHC (31.0-37.0) g/dL RDW (11.5-15.5) % Plt Count (150-450) k/uL Neutrophils % % Lymphocytes % % Monocytes % % Eosinophils % % Basophils % % Neutrophils # (1.3-7.7) k/uL Lymphocytes # (1.0-4.8) k/uL Monocytes # (0-1.0) k/uL Eosinophils # (0-0.7) k/uL Basophils # (0-0.2) k/uL PT (9.0-12.0) sec INR (<1.2) APTT (22.0-30.0) sec Sodium (137-145) mmol/L Potassium (3.5-5.1) mmol/L Chloride (98-107) mmol/L Carbon Dioxide (22-30) mmol/L Anion Gap mmol/L BUN (9-20) mg/dL Creatinine (0.66-1.25) mg/dL Est GFR (CKD-EPI)AfAm (>60 ml/min/1.73 sqM) Est GFR (CKD-EPI)NonAf (>60 ml/min/1.73 sqM) Glucose (74-99) mg/dL Calcium (8.4-10.2) mg/dL Magnesium (1.6-2.3) mg/dL Total Bilirubin (0.2-1.3) mg/dL AST (17-59) U/L ALT (21-72) U/L Alkaline Phosphatase (38-126) U/L Troponin I <0.012 (0.000-0.034) ng/mL Total Protein (6.3-8.2) g/dL Albumin (3.5-5.0) g/dL - EKG Data EKG Comments: EKG performed at 6:32 normal sinus rhythm with left anterior fascicular block with a rate of 61 IN 192 QRS 100 QTC is QTC 422/420 4T elevation or depression. Nonspecific T-wave abnormality Disposition Clinical Impression: COPD exacerbation, Seasonal allergies Disposition: HOME SELF-CARE Condition: Stable Instructions (If sedation given, give patient instructions): Bronchospasm (ED) Additional Instructions: Please return to the Emergency Department if symptoms worsen or any other concerns. Prescriptions: predniSONE 50 mg PO DAILY #4 tab Albuterol Nebulized [Ventolin Nebulized] 2.5 mg INHALATION Q4H PRN #25 nebu PRN Reason: difficulty in breathing Is patient prescribed a controlled substance at d/c from ED?: No Referrals: Cullen Castellanos MD [Primary Care Provider] - 1-2 days Time of Disposition: 08:59
[2019-01-06 08:03] LABS: Basophils # (A) 0.1 k/uL (0-0.2); Basophils % (A) 1 %; Eosinophils # (A) 0.6 k/uL (0-0.7); Eosinophils % (A) 9 %; HGB 14.3 gm/dL (13.0-17.5); Lymphocytes # (A) 1.4 k/uL (1.0-4.8); Lymphocytes % (A) 23 %; MCH 30.9 pg (25.0-35.0); MCHC 32.5 g/dL (31.0-37.0); MCV 95.2 fL (80.0-100.0); Mean Platelet Volume 7.6; Monocytes # (A) 0.4 k/uL (0-1.0); Monocytes % (A) 7 %; Neutrophils # (A) 3.6 k/uL (1.3-7.7); Neutrophils % (A) 58 %; Platelet Count 179 k/uL (150-450); RBC 4.63 m/uL (4.30-5.90); RDW 13.6 % (11.5-15.5); WBC 6.2 k/uL (3.8-10.6)
--- NOTE | 2019-01-06 08:07 | XR ---
EXAMINATION TYPE: XR chest 1V portable DATE OF EXAM: 01/06/2019 COMPARISON: Prior chest x-ray 03/24/2017 HISTORY: Shortness of breath and dyspnea TECHNIQUE: Single frontal view of the chest is obtained. FINDINGS: There is no focal air space opacity, pleural effusion, or pneumothorax seen. The cardiac silhouette size is stable, enlarged. Patient is post median sternotomy and there are overlying cardia c leads. Patient is rotated. The osseous structures are intact. IMPRESSION: No acute process.
[2019-01-06 08:11] LABS: Partial Thromboplastin Time 26.5 sec (22.0-30.0); Prothrombin Time 10.8 sec (9.0-12.0)
[2019-01-06 08:25] LABS: Anion Gap 9 mmol/L; Blood Urea Nitrogen 26 mg/dL (9-20); Calcium 9.3 mg/dL (8.4-10.2); Carbon Dioxide 29 mmol/L (22-30); Chloride 101 mmol/L (98-107); Glucose 91 mg/dL (74-99); Sodium 139 mmol/L (137-145); Total Bilirubin 0.9 mg/dL (0.2-1.3)
[2019-01-06 08:29] LABS: Potassium 4.7 mmol/L (3.5-5.1)
[2019-01-06 08:30] LABS: Albumin 4.5 g/dL (3.5-5.0); Magnesium 1.9 mg/dL (1.6-2.3); Total Protein 7.4 g/dL (6.3-8.2)
[2019-01-06 08:31] LABS: ALT 22 U/L (21-72); AST 41 U/L (17-59); Alkaline Phosphatase 57 U/L (38-126)
[2019-01-06 09:49] VITALS: BP 138/81; PULSE 61; TEMP 97.7
== END 2019-01-06 09:25 | disposition home or self-care (01) ==
LOC: MERGE 06:14 → EC 06:14
DX: J44.1 Chronic obstructive pulmonary disease with (acute) exacerbation (principal); J30.2 Other seasonal allergic rhinitis; Z95.1 Presence of aortocoronary bypass graft; Z88.5 Allergy status to narcotic agent
CPT/HCPCS: 36415; 94640; 80053; 83735; 84484; 85025; 85610; 85730; 71045; 99285; 96374; J2930

== ENCOUNTER 2019-02-24 05:36 | Inpatient (IN) | payer MEDICARE ==
[2019-02-24] MEDS ORDERED: IPRATROPIUM-ALBUTEROL 3 ML NEB INHALATION STA (05:51)
[2019-02-24] MEDS ORDERED: methylPREDNISolone SOD SUCCI 125 MG/2 ML VIAL IV STA (05:51)
--- NOTE | 2019-02-24 06:20 | XR ---
EXAM: XR Chest, 2 Views CLINICAL HISTORY: ITS.REASON XR Reason: cough, COPD TECHNIQUE: Frontal and lateral views of the chest. COMPARISON: 01/06/2019. FINDINGS: Lungs: Mild basilar atelectasis or developing infiltrate. Pleural space: No significant pleural effusion or pneumothorax. Heart: Stable cardiomediastinal silhouette. Mediastinum: See above. Bones/joints: No acute fracture. IMPRESSION: Mild basilar atelectasis or developing infiltrate.
[2019-02-24 06:24] LABS: Basophils % (A) 1 %; Eosinophils # (A) 0.4 k/uL (0-0.7); Eosinophils % (A) 6 %; HCT 44.8 % (39.0-53.0); HGB 14.4 gm/dL (13.0-17.5); Lymphocytes # (A) 1.7 k/uL (1.0-4.8); Lymphocytes % (A) 27 %; MCH 30.7 pg (25.0-35.0); MCHC 32.1 g/dL (31.0-37.0); MCV 95.6 fL (80.0-100.0); Mean Platelet Volume 7.1; Monocytes # (A) 0.5 k/uL (0-1.0); Monocytes % (A) 7 %; Neutrophils # (A) 3.6 k/uL (1.3-7.7); Neutrophils % (A) 57 %; Platelet Count 192 k/uL (150-450); RBC 4.69 m/uL (4.30-5.90); RDW 12.6 % (11.5-15.5); WBC 6.3 k/uL (3.8-10.6)
[2019-02-24 06:39] LABS: ALT 27 U/L (21-72); AST 31 U/L (17-59); African American GFR (CKD) >90 (>60 ml/min/1.73 sqM); Albumin 4.3 g/dL (3.5-5.0); Alkaline Phosphatase 63 U/L (38-126); Anion Gap 9 mmol/L; Blood Urea Nitrogen 25 mg/dL (9-20); Calcium 9.2 mg/dL (8.4-10.2); Carbon Dioxide 28 mmol/L (22-30); Chloride 102 mmol/L (98-107); Glucose 116 mg/dL (74-99); Potassium 3.8 mmol/L (3.5-5.1); Sodium 139 mmol/L (137-145); Total Bilirubin 0.4 mg/dL (0.2-1.3); Total Protein 7.1 g/dL (6.3-8.2)
[2019-02-24] MEDS ORDERED: cefTRIAXone IN SWFI 1,000 MG/10 ML SYRINGE IVP STA (07:10)
[2019-02-24] MEDS ORDERED: AZITHROMYCIN 500 MG in SODIUM CHLORIDE 0.9% 250 ML IVPB STA (07:10)
--- NOTE | 2019-02-24 07:19 | ED ---
SOB HPI - General Chief Complaint: Shortness of Breath Stated Complaint: GEORGES Time Seen by Provider: 02/24/19 05:50 Source: patient Mode of arrival: ambulatory Limitations: no limitations - History of Present Illness Initial Comments: Latrell is a 78-year-old man with a history of COPD who presents the emergency department today for evaluation of aggressively worsening shortness of breath. Patient reports that over the past week he feels that his shortness of breath has been worsening, he was evaluated by urgent care earlier in the week where he reports he was given a breathing treatment as well as a shot and was prescribed 2 different medications one which she takes 5 days and one which she takes for 10 days he is not sure what the medications are. Patient reports he has been compliant with these medications. Patient states that tonight he felt like he couldn't catch his breath at all which prompted him coming to the ER for evaluation. Patient reports he has a minimally productive cough, denies fevers chest pain palpitations. - Related Data Home Medications Medication Instructions Recorded Confirmed Atorvastatin [Lipitor] 80 mg PO DAILY 06/04/14 12/01/18 Gabapentin [Neurontin] 300 mg PO TID 06/04/14 12/01/18 Furosemide [Lasix] 20 mg PO DAILY 10/28/14 12/01/18 Budesonide-Formot 160-4.5 Mcg 2 puff INHALATION RT-BID 01/30/17 12/01/18 [Symbicort 160-4.5 Mcg Inhaler] Lisinopril [Prinivil] 5 mg PO DAILY 01/30/17 12/01/18 Meloxicam 15 mg PO DAILY 01/30/17 12/01/18 Metoprolol Succinate [Toprol XL] 12.5 mg PO DAILY 01/30/17 12/01/18 Sertraline [Zoloft] 100 mg PO DAILY 01/30/17 12/01/18 fentaNYL 25MCG/HR PATCH [Duragesic 25 mcg TRANSDERM Q72H 01/30/17 12/01/18 25MCG/HR] Albuterol Sulfate [Proventil Hfa] 2 puff INHALATION RT-QID PRN 03/24/17 12/01/18 Nitroglycerin Sl Tabs [Nitrostat] 0.4 tab SL Q5M 12/01/18 12/01/18 Oxybutynin [Oxytrol Patch] 3.9 mg TRANSDERM Q72H 12/01/18 12/01/18 Primidone [Mysoline] 150 mg PO HS 12/01/18 12/01/18 Tamsulosin HCl [Flomax] 0.4 mg PO DAILY 12/01/18 12/01/18 clonazePAM [KlonoPIN] 1 mg PO TID 12/01/18 12/01/18 ALPRAZolam [Xanax] 0.5 mg PO Q8H PRN 01/06/19 01/06/19 Aspirin EC [Ecotrin Low Dose] 81 mg PO DAILY 01/06/19 01/06/19 Atorvastatin Calcium [Lipitor] 80 mg PO DAILY 01/06/19 01/06/19 Budesonide/Formoterol Fumarate 2 puff INHALATION RT-BID 01/06/19 01/06/19 [Symbicort 160-4.5 Mcg Inhaler] Ferrous Sulfate [Feosol] 325 mg PO DAILY 01/06/19 01/06/19 Furosemide [Lasix] 20 mg PO DAILY 01/06/19 01/06/19 Gabapentin [Neurontin] 300 mg PO TID 01/06/19 01/06/19 Loratadine [Claritin] 10 mg PO DAILY 01/06/19 01/06/19 Meloxicam [Mobic] 15 mg PO DAILY 01/06/19 01/06/19 Metoprolol Succinate [Toprol XL] 25 mg PO DAILY 01/06/19 01/06/19 Oxybutynin Chloride [Ditropan] 5 mg PO BID 01/06/19 01/06/19 Potassium 99 mg PO DAILY 01/06/19 01/06/19 Primidone [Mysoline] 50 mg PO DAILY 01/06/19 01/06/19 Sertraline [Zoloft] 100 mg PO DAILY 01/06/19 01/06/19 Tamsulosin HCl [Flomax] 0.4 mg PO DAILY 01/06/19 01/06/19 clonazePAM [KlonoPIN] 1 mg PO DAILY 01/06/19 01/06/19 fentaNYL 25MCG/HR PATCH [Duragesic 1 patch TRANSDERM Q72H 01/06/19 01/06/19 25MCG/HR] Previous Rx's Medication Instructions Recorded Nystatin 100,000Unit/gm Cream 1 applic TOPICAL BID #15 gm 12/01/18 [Mycostatin Cream] Albuterol Nebulized [Ventolin 2.5 mg INHALATION Q4H PRN #25 nebu 01/06/19 Nebulized] predniSONE 50 mg PO DAILY #4 tab 01/06/19 Allergies Allergy/AdvReac Type Severity Reaction Status Date / Time morphine Allergy Rash/Hives Verified 01/06/19 14:14 Review of Systems ROS Statement: Those systems with pertinent positive or pertinent negative responses have been documented in the HPI. ROS Other: All systems not noted in ROS Statement are negative. Past Medical History Past Medical History: Chest Pain / Angina, COPD, Hyperlipidemia, Hypertension, Prostate Disorder History of Any Multi-Drug Resistant Organisms: None Reported Past Surgical History: Back Surgery, Coronary Bypass/CABG, Joint Replacement, Orthopedic Surgery Past Anesthesia/Blood Transfusion Reactions: No Reported Reaction Past Psychological History: Depression, No Psychological Hx Reported Smoking Status: Never smoker Past Alcohol Use History: None Reported Past Drug Use History: None Reported - Past Family History Mother Family Medical History: No Reported History Father Family Medical History: No Reported History General Exam - General Exam Comments Initial Comments: Physical Exam GENERAL: Chronically ill appearing HENT: Normocephalic, Atraumatic. Poor dentition EYES: PERRL, EOMI PULMONARY: Expiratory wheezing in all lung meeks Crackles at bases CARDIOVASCULAR: RRR ABDOMEN: Soft and nontender with normal bowel sounds. SKIN: Skin is clear with no lesions or rashes and otherwise unremarkable. : Deferred NEUROLOGIC: Patient is alert and oriented x3. Moving all extremities spontaneously Poor pediatrician/medical doctor MUSCULOSKELETAL: Normal extremities with adequate strength and full range of motion. No lower extremity swelling or edema. No calf tenderness. PSYCHIATRIC: Normal psychiatric evaluation Limitations: no limitations Course Vital Signs 02/24/19 02/24/19 02/24/19 05:41 06:17 06:18 Temperature 98.0 F Pulse Rate 63 63 Respiratory 16 20 Rate Blood Pressure 145/91 O2 Sat by Pulse 97 Oximetry 02/24/19 02/24/19 06:24 06:50 Temperature Pulse Rate 63 92 Respiratory 18 Rate Blood Pressure 142/96 O2 Sat by Pulse 98 Oximetry Medical Decision Making - Medical Decision Making The patient was seen and evaluated, history was obtained from the patient and signed patient with a history of COPD which seems to be exacerbated by the hot humid weather sign patient was arty seen in urgent care earlier in the week where he received breathing treatment, a shot which I believe to be steroids as well as prescription for 2 medications patient is uncertain what the medications are based on his description I suspect he is taking azithromycin and steroids On arrival patient's having wheezing in all lung meeks with increased work of breathing Labs imaging, DuoNeb and Solu-Medrol were ordered Chest x-ray is concerning for bilateral lower lobe infiltrate, given that the patient is arty on azithromycin presumably I will treat with Rocephin and IV azithromycin Patient care was discussed with the patient's primary care physician Dr. Castellanos who is familiar with the patient agrees with plan for admission for COPD exacerbation, possible pneumonia. Recommends consult to patient's ceramic design engineer Dr. London - Lab Data Result diagrams: 02/24/19 06:06 02/24/19 06:06 Lab Results 02/24/19 02/24/19 Range/Units 06:06 06:06 WBC 6.3 (3.8-10.6) k/uL RBC 4.69 (4.30-5.90) m/uL Hgb 14.4 (13.0-17.5) gm/dL Hct 44.8 (39.0-53.0) % MCV 95.6 (80.0-100.0) fL MCH 30.7 (25.0-35.0) pg MCHC 32.1 (31.0-37.0) g/dL RDW 12.6 (11.5-15.5) % Plt Count 192 (150-450) k/uL Neutrophils % 57 % Lymphocytes % 27 % Monocytes % 7 % Eosinophils % 6 % Basophils % 1 % Neutrophils # 3.6 (1.3-7.7) k/uL Lymphocytes # 1.7 (1.0-4.8) k/uL Monocytes # 0.5 (0-1.0) k/uL Eosinophils # 0.4 (0-0.7) k/uL Basophils # 0.0 (0-0.2) k/uL Sodium 139 (137-145) mmol/L Potassium 3.8 (3.5-5.1) mmol/L Chloride 102 (98-107) mmol/L Carbon Dioxide 28 (22-30) mmol/L Anion Gap 9 mmol/L BUN 25 H (9-20) mg/dL Creatinine 0.85 (0.66-1.25) mg/dL Est GFR (CKD-EPI)AfAm >90 (>60 ml/min/1.73 sqM) Est GFR (CKD-EPI)NonAf 83 (>60 ml/min/1.73 sqM) Glucose 116 H (74-99) mg/dL Calcium 9.2 (8.4-10.2) mg/dL Magnesium 2.0 (1.6-2.3) mg/dL Total Bilirubin 0.4 (0.2-1.3) mg/dL AST 31 (17-59) U/L ALT 27 (21-72) U/L Alkaline Phosphatase 63 (38-126) U/L Total Protein 7.1 (6.3-8.2) g/dL Albumin 4.3 (3.5-5.0) g/dL Disposition Clinical Impression: Acute exacerbation of chronic obstructive airways disease, Pneumonia Disposition: ADMITTED IP TO THIS HOSP Condition: Stable Referrals: Cullen Castellanos MD [Primary Care Provider] - 1-2 days
[2019-02-24] MEDS ORDERED: ALPRAZolam 0.5 MG TAB PO PRN (09:11)
[2019-02-24] MEDS ORDERED: NITROGLYCERIN SL TABS 0.4 MG TAB SUBLINGUAL PRN (09:30)
[2019-02-24] MEDS ORDERED: GABAPENTIN 300 MG CAP PO SCH (09:45)
[2019-02-24] MEDS ORDERED: clonazePAM 1 MG TAB PO SCH (09:45)
[2019-02-24] MEDS ORDERED: MELOXICAM 7.5 MG TAB PO SCH (09:45)
[2019-02-24] MEDS: ASPIRIN 81 MG PO SCH (10:19)
[2019-02-24] MEDS: FUROSEMIDE 20 MG TAB PO SCH (10:21)
[2019-02-24] MEDS: LISINOPRIL 5 MG TAB PO SCH (10:22)
[2019-02-24] MEDS: METOPROLOL SUCCINATE (ER) 25 MG TAB.ER.24H PO SCH (10:22)
[2019-02-24] MEDS: OXYBUTYNIN CHLORIDE 5 MG TAB PO SCH ×2 (10:23→21:11)
[2019-02-24] MEDS: SERTRALINE 100 MG TAB PO SCH (10:23)
[2019-02-24] MEDS: TAMSULOSIN 0.4 MG CAP.ER.24H PO SCH (10:23)
[2019-02-24] MEDS ORDERED: GABAPENTIN 300 MG CAP PO PRN (10:28)
[2019-02-24] MEDS: IPRATROPIUM-ALBUTEROL 3 ML NEB INHALATION SCH ×3 (10:40→20:01)
[2019-02-24 11:05] VITALS: BMI 27.2
--- NOTE | 2019-02-24 11:48 | CONS ---
CONSULTATION PULMONARY/CRITICAL CARE CONSULTATION: DATE OF SERVICE: 02/24/2019 This is a 78-year-old male known to me. He has a history of underlying COPD/asthma. For the last couple of days, he has been complaining of shortness of breath. The shortness of breath has been getting worse over the last number of days and probably 3 or 4 at least and maybe a bit longer. In addition, he was coughing and producing some phlegm. He had chest tightness and wheezing, lots of chest congestion. [facility] and was given various treatments, but on the third time, they were not interested in seeing him and they directed him to the emergency room. His chest x-ray really does not look too bad. Maybe some very minimal atelectasis or early infiltrate at the bases. The patient is not feeling much better today than yesterday when he first came into the hospital. The patient denies any fever, chills. There is no chest pain. No nausea, vomiting or diarrhea. No GI or genitourinary complaints. HOME MEDICATIONS: Include Lipitor, Neurontin, Lasix, Symbicort, lisinopril, meloxicam, Toprol, Zoloft, fentanyl patch, albuterol inhaler, nitroglycerin tablets, oxybutynin, primidone, Flomax, Klonopin, Xanax, and aspirin. Other medications included albuterol updrafts, prednisone with a burst and taper recently given his to him by the [facility] and nystatin cream. ALLERGIES: MORPHINE. MEDICAL HISTORY: Angina pectoris, COPD, hyperlipidemia, hypertension, and BPH. SURGICAL HISTORY: Back surgery, bypass grafting, joint replacement and some other orthopedic procedures. SOCIAL HISTORY: Negative for tobacco use. He denies any alcohol use or illicit drug use. FAMILY HISTORY: Unremarkable. Mother and father were both relatively healthy. His COPD actually is most consistent with chronic bronchial asthma. REVIEW OF SYSTEMS: CONSTITUTIONAL: Negative. NEUROLOGIC: Negative. HEENT: Negative. CARDIOVASCULAR: Negative. PULMONARY: Shortness of breath, chest tightness, wheezing, cough, minimal phlegm production, chest congestion. GI: Negative. : Negative. RHEUMATOLOGIC: Negative. IMMUNOLOGIC: Negative. ENDOCRINOLOGIC: Negative. DERMATOLOGIC: Negative. PHYSICAL EXAMINATION: Current vital signs are reviewed, temperature is 97.6, heart rate 72, respiratory rate 16, blood pressure 137/94 mean 108, room-air saturation 96%. He does not appear to be in any distress, whatsoever. HEENT: Examination is grossly unremarkable. Mucous membranes are moist. No oral lesions. Not receiving any supplemental oxygen. NECK: Supple. Full range of motion. No adenopathy, thyromegaly or neck vein distention. CARDIOVASCULAR: Examination reveals regular rhythm and rate. Heart rate 72 beats per minute. S1, S2 normal. There is no murmur. Heart sounds are distant. LUNGS: Reveal coarse inspiratory and expiratory wheezes and rhonchi. There is prolongation on forced maneuver. The patient coughs and wheezes on forced maneuver. Adventitious lung sounds are more prominent on forced maneuver. There are no crackles. ABDOMEN: Soft. Bowel sounds are heard. No masses or tenderness. EXTREMITIES: Intact. No cyanosis, clubbing, or edema. SKIN: Without rash. NEUROLOGIC: Examination is brief but nonfocal. LABS: Reviewed. White count 6.3, hemoglobin 14.4, hematocrit 44.8, platelet count normal. Sodium, potassium, chloride, CO2 all normal. Anion gap is 9. BUN and creatinine were 25 and 0.85. The rest of the labs look good. Chest x-ray in my opinion showed primarily normal chest x-ray with lower lobe atelectasis. This could represent a developing infiltrate, but it does not look like that at this point. MEDICATIONS: Reviewed. Currently, the patient is on Xanax, aspirin, Lipitor, Zithromax, Symbicort, Rocephin, Klonopin, fentanyl patch, Lasix, gabapentin, insulin, DuoNeb updrafts, lisinopril, meloxicam, Solu-Medrol, nitroglycerin tablets, Ditropan, Mysoline, Zoloft, and Flomax. ASSESSMENT: 1. Chronic obstructive pulmonary disease/asthma exacerbation, probably complicated by purulent tracheobronchitis and possible developing lower lobe pneumonia, community- acquired, a bit improved. 2. History of hyperlipidemia. 3. History of hypertension. 4. History of benign prostatic hypertrophy. 5. Angina pectoris. 6. Coronary artery disease, status post bypass grafting. 7. Multiple orthopedic procedures. PLAN: The patient is on appropriate medications including updrafts, Symbicort, steroids and antibiotics. The antibiotics could likely be deescalated. Additional recommendations and suggestions are forthcoming. Prognosis is guarded. The Zithromax could certainly be given orally. Additional recommendations and suggestions forthcoming. Will need to follow until discharge and will follow up with him in the office. MMODL / IJN: [id number] /
[2019-02-24] MEDS: methylPREDNISolone SOD SUCCI 125 MG/2 ML VIAL IV SCH ×2 (12:03→17:20)
[2019-02-24] MEDS: INSULIN ASPART (NovoLOG) 100 UNIT/ML VIAL SQ SCH ×3 (12:09→21:12)
[2019-02-24 12:10] LABS: Glucose,Whole Blood 108 mg/dL (75-99)
[2019-02-24 17:18] LABS: Glucose,Whole Blood 206 mg/dL (75-99)
[2019-02-24] MEDS: SYMBICORT 160-4.5 MCG INHALER INHALATION SCH (20:01)
[2019-02-24] MEDS: clonazePAM 1 MG TAB PO SCH (21:10)
[2019-02-24] MEDS: PRIMIDONE 50 MG TAB PO SCH (21:10)
[2019-02-24] MEDS: ATORVASTATIN 80 MG TAB PO SCH (21:11)
[2019-02-24] MEDS: MELOXICAM 7.5 MG TAB PO SCH (21:11)
[2019-02-24 21:18] LABS: Glucose,Whole Blood 129 mg/dL (75-99)
[2019-02-25] MEDS: methylPREDNISolone SOD SUCCI 125 MG/2 ML VIAL IV SCH ×4 (00:01→17:48)
[2019-02-25] MEDS: AZITHROMYCIN 500 MG TAB PO SCH (07:21)
[2019-02-25] MEDS: METOPROLOL SUCCINATE (ER) 25 MG TAB.ER.24H PO SCH (07:22)
[2019-02-25] MEDS: TAMSULOSIN 0.4 MG CAP.ER.24H PO SCH (07:22)
[2019-02-25] MEDS: LISINOPRIL 5 MG TAB PO SCH (07:22)
[2019-02-25] MEDS: SERTRALINE 100 MG TAB PO SCH (07:22)
[2019-02-25] MEDS: ASPIRIN 81 MG PO SCH (07:22)
[2019-02-25] MEDS: FUROSEMIDE 20 MG TAB PO SCH (07:22)
[2019-02-25] MEDS: OXYBUTYNIN CHLORIDE 5 MG TAB PO SCH ×2 (07:22→20:07)
[2019-02-25 07:23] LABS: Glucose,Whole Blood 120 mg/dL (75-99)
[2019-02-25] MEDS: INSULIN ASPART (NovoLOG) 100 UNIT/ML VIAL SQ SCH ×4 (07:25→20:18)
[2019-02-25] MEDS: SYMBICORT 160-4.5 MCG INHALER INHALATION SCH ×2 (07:29→21:14)
[2019-02-25] MEDS: IPRATROPIUM-ALBUTEROL 3 ML NEB INHALATION SCH ×4 (07:30→21:15)
[2019-02-25 12:31] LABS: Glucose,Whole Blood 91 mg/dL (75-99)
--- NOTE | 2019-02-25 12:58 | P.PN ---
Subjective Progress Note Date: 02/25/19 Principal diagnosis: Dyspnea cough and congestion On 02/25/2019 patient seen in follow-up on medical surgical floor. He states his breathing easier today, but still has significant exertional dyspnea, chest congestion and coughing, room air pulse ox is 93%, patient is afebrile, hemodynamically stable, lung sounds reveal diffuse rhonchi throughout the lung meeks, no new labs today, no new chest x-rays. No fever or chills. No hemoptysis, no chest pain, patient is on a combination of Zithromax and Rocephin, nebulized bronchodilators, and IV steroids Objective - Vital Signs Vital signs: Vital Signs Temp 97.9 F 02/25/19 06:21 Pulse 80 02/25/19 12:06 Resp 15 02/25/19 06:21 BP 119/76 02/25/19 06:21 Pulse Ox 119 H 02/25/19 06:21 Intake & Output 02/24/19 02/25/19 02/25/19 18:59 06:59 18:59 Intake Total 300 Balance 300 Weight 78.925 kg Intake: Oral 300 Other: # Voids 3 2 - Exam GENERAL EXAM: Alert, pleasant, 78-year-old white male, on room air, with pulse ox of 93%, comfortable in no apparent distress. HEAD: Normocephalic/atraumatic. EYES: Normal reaction of pupils, equal size. Conjunctiva pink, sclera white. NOSE: Clear with pink turbinates. THROAT: No erythema or exudates. NECK: No masses, no JVD, no thyroid enlargement, no adenopathy. CHEST: No chest wall deformity. Symmetrical expansion. LUNGS: Equal air entry with diffuse rhonchi CVS: Regular rate and rhythm, normal S1 and S2, no gallops, no murmurs, no rubs ABDOMEN: Soft, nontender. No hepatosplenomegaly, normal bowel sounds, no guardi ng or rigidity. EXTREMITIES: No clubbing, no edema, no cyanosis, 2+ pulses and upper and lower extremities. MUSCULOSKELETAL: Muscle strength and tone normal. SPINE: No scoliosis or deformity SKIN: No rashes CENTRAL NERVOUS SYSTEM: Alert and oriented -3. No focal deficits, tone is normal in all 4 extremities. PSYCHIATRIC: Alert and oriented -3. Appropriate affect. Intact judgment and insight. - Labs CBC & Chem 7: 02/24/19 06:06 02/24/19 06:06 Labs: Abnormal Lab Results - Last 24 Hours (Table) 02/24/19 02/24/19 02/25/19 Range/Units 17:16 20:58 07:21 POC Glucose (mg/dL) 206 H 129 H 120 H (75-99) mg/dL Assessment and Plan Plan: Assessment: #1. Acute exacerbation of chronic obstructive pulmonary disease/asthma, complicated by purulent tracheobronchitis, and possibly of lower lobe pneumonia is not excluded #2. History of hyperlipidemia #3. Hypertension #4. History of benign prostatic hypertrophy, #5. Coronary artery disease status post bypass grafting #6. Multiple orthopedic procedures Plan: We'll continue current antibiotic coverage, send the sputum for culture, continue nebulized bronchodilators and IV steroids, patient is improving, not quite back to baseline, probably will need another 48 hours of inpatient treatment, vital signs are stable. I performed a history & physical examination of the patient and discussed their management with my nurse practitioner, Hiwot Carrasquillo. I reviewed the nurse practitioner's note and agree with the documented findings and plan of care. Lung sounds are positive for diffuse rhonchi throughout the lung meeks. The findings and the impression was discussed with the patient. I attest to the documentation by the nurse practitioner. Time with Patient: Less than 30
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
[2019-02-25 17:24] LABS: Glucose,Whole Blood 129 mg/dL (75-99)
[2019-02-25] MEDS: clonazePAM 1 MG TAB PO SCH (20:06)
[2019-02-25] MEDS: PRIMIDONE 50 MG TAB PO SCH (20:07)
[2019-02-25] MEDS: ATORVASTATIN 80 MG TAB PO SCH (20:07)
[2019-02-25] MEDS: MELOXICAM 7.5 MG TAB PO SCH (20:08)
[2019-02-25 20:23] LABS: Glucose,Whole Blood 179 mg/dL (75-99)
[2019-02-26] MEDS: methylPREDNISolone SOD SUCCI 125 MG/2 ML VIAL IV SCH ×2 (00:04→05:17)
[2019-02-26] MEDS: IPRATROPIUM-ALBUTEROL 3 ML NEB INHALATION PRN (04:37)
[2019-02-26 07:06] LABS: Glucose,Whole Blood 124 mg/dL (75-99)
[2019-02-26] MEDS: ASPIRIN 81 MG PO SCH (07:25)
[2019-02-26] MEDS: FUROSEMIDE 20 MG TAB PO SCH (07:25)
[2019-02-26] MEDS: OXYBUTYNIN CHLORIDE 5 MG TAB PO SCH ×2 (07:25→20:15)
[2019-02-26] MEDS: LISINOPRIL 5 MG TAB PO SCH (07:25)
[2019-02-26] MEDS: INSULIN ASPART (NovoLOG) 100 UNIT/ML VIAL SQ SCH ×4 (07:25→20:28)
[2019-02-26] MEDS: METOPROLOL SUCCINATE (ER) 25 MG TAB.ER.24H PO SCH (07:25)
[2019-02-26] MEDS: SERTRALINE 100 MG TAB PO SCH (07:25)
[2019-02-26] MEDS: AZITHROMYCIN 500 MG TAB PO SCH (07:25)
[2019-02-26] MEDS: TAMSULOSIN 0.4 MG CAP.ER.24H PO SCH (07:25)
[2019-02-26] MEDS ORDERED: ALPRAZolam 0.5 MG TAB PO PRN (07:46)
--- NOTE | 2019-02-26 07:46 | P.PN ---
Subjective Progress Note Date: 02/26/19 Principal diagnosis: This is a continue present on a 78-year-old white male essentially admitted for exacerbation of COPD. The patient complains of insomnia. We will give him ext ra Xanax to take at night as requested. Otherwise restaurant status seems to improving with productive cough. No voiding symptoms. No overt fever stated. Insomnia as his primary complaint today. Objective - Vital Signs Vital signs: Vital Signs Temp 97.5 F L 02/26/19 05:00 Pulse 78 02/26/19 05:00 Resp 18 02/26/19 05:00 BP 145/87 02/26/19 05:00 Pulse Ox 96 02/26/19 05:00 Intake & Output 02/25/19 02/26/19 02/26/19 18:59 06:59 18:59 Intake Total 200 875 Balance 200 875 Intake: Oral 200 875 Other: # Voids 2 2 # Bowel Movements 0 - Constitutional General appearance: Present: average body habitus - EENT Eyes: Absent: abnormal pupil, anicteric sclerae - Neck Neck: Absent: lymphadenopathy - Respiratory Respiratory: bilateral: CTA - Cardiovascular Rhythm: regular Heart sounds: normal: S1, S2 Abnormal Heart Sounds: Absent: S3 Gallop - Gastrointestinal General gastrointestinal: Present: soft. Absent: tenderness - Integumentary Integumentary: Present: cellulitis - Neurologic Neurologic: Absent: CNII-XII intact, focal deficits - Labs CBC & Chem 7: 02/24/19 06:06 02/24/19 06:06 Labs: Abnormal Lab Results - Last 24 Hours (Table) 02/25/19 02/25/19 02/26/19 Range/Units 17:11 20:13 07:05 POC Glucose (mg/dL) 129 H 179 H 124 H (75-99) mg/dL Assessment and Plan (1) Acute exacerbation of chronic obstructive airways disease Current Visit: Yes Status: Acute Code(s): J44.1 - CHRONIC OBSTRUCTIVE PULMONARY DISEASE W (ACUTE) EXACERBATION SNOMED Code(s): 083588288 (2) Pneumonia Current Visit: Yes Status: Acute Code(s): J18.9 - PNEUMONIA, UNSPECIFIED ORGANISM SNOMED Code(s): 571365386 (3) Hyperlipemia Current Visit: No Status: Acute Code(s): E78.5 - HYPERLIPIDEMIA, UNSPECIFIED SNOMED Code(s): 74838922 Plan: Continue current regimen of treatment with slow reduction of steroid treatment. Check CMP in a.m. Anticipate discharge in next 24-48 hours. Time with Patient: Less than 30
[2019-02-26] MEDS: methylPREDNISolone SOD SUCCI 40 MG/ML 1 ML VIAL IV SCH ×2 (08:03→15:22)
[2019-02-26] MEDS: SYMBICORT 160-4.5 MCG INHALER INHALATION SCH ×3 (08:12→19:49)
[2019-02-26] MEDS: IPRATROPIUM-ALBUTEROL 3 ML NEB INHALATION SCH ×4 (08:14→19:49)
[2019-02-26 08:34] LABS: Creatine Kinase 64 U/L (55-170)
[2019-02-26 08:46] LABS: Creatine Kinase MB 1.4 ng/mL (0.0-2.4); Troponin I <0.012 ng/mL (0.000-0.034)
--- NOTE | 2019-02-26 11:21 | P.PN ---
Subjective Progress Note Date: 02/26/19 Principal diagnosis: Dyspnea cough and congestion On 02/25/2019 patient seen in follow-up on medical surgical floor. He states his breathing easier today, but still has significant exertional dyspnea, chest congestion and coughing, room air pulse ox is 93%, patient is afebrile, hemodynamically stable, lung sounds reveal diffuse rhonchi throughout the lung meeks, no new labs today, no new chest x-rays. No fever or chills. No hemoptysis, no chest pain, patient is on a combination of Zithromax and Rocephin, nebulized bronchodilators, and IV steroids On 02/26/2019 patient seen in follow-up on medical surgical floor. Doing better, breathing easier, still has some congestion and wheezing, but overall improving, he is ambulating in the room, no complaints of exertional dyspnea, vital signs are stable, room air pulse ox is 96%, afebrile, he is on Zithromax and Rocephin, IV steroids are being weaned. No acute events overnight, no sputum culture was sent, patient is receiving nebulized bronchodilators. Occasional cough, without phlegm production. Objective - Vital Signs Vital signs: Vital Signs Temp 97.5 F L 02/26/19 05:00 Pulse 78 02/26/19 05:00 Resp 18 02/26/19 05:00 BP 145/87 02/26/19 05:00 Pulse Ox 96 02/26/19 05:00 Intake & Output 02/25/19 02/26/19 02/26/19 18:59 06:59 18:59 Intake Total 200 875 Balance 200 875 Weight 78.925 kg Intake: Oral 200 875 Other: # Voids 2 2 3 # Bowel Movements 0 - Exam GENERAL EXAM: Alert, pleasant, 78-year-old white male, on room air, with pulse ox of 93%, comfortable in no apparent distress. HEAD: Normocephalic/atraumatic. EYES: Normal reaction of pupils, equal size. Conjunctiva pink, sclera white. NOSE: Clear with pink turbinates. THROAT: No erythema or exudates. NECK: No masses, no JVD, no thyroid enlargement, no adenopathy. CHEST: No chest wall deformity. Symmetrical expansion. LUNGS: Equal air entry with diffuse rhonchi CVS: Regular rate and rhythm, normal S1 and S2, no gallops, no murmurs, no rubs ABDOMEN: Soft, nontender. No hepatosplenomegaly, normal bowel sounds, no guarding or rigidity. EXTREMITIES: No clubbing, no edema, no cyanosis, 2+ pulses and upper and lower extremities. MUSCULOSKELETAL: Muscle strength and tone normal. SPINE: No scoliosis or deformity SKIN: No rashes CENTRAL NERVOUS SYSTEM: Alert and oriented -3. No focal deficits, tone is normal in all 4 extremities. PSYCHIATRIC: Alert and oriented -3. Appropriate affect. Intact judgment and insight. - Labs CBC & Chem 7: 02/24/19 06:06 02/24/19 06:06 Labs: Abnormal Lab Results - Last 24 Hours (Table) 02/25/19 02/25/19 02/26/19 Range/Units 17:11 20:13 07:05 POC Glucose (mg/dL) 129 H 179 H 124 H (75-99) mg/dL Assessment and Plan Plan: Assessment: #1. Acute exacerbation of chronic obstructive pulmonary disease/asthma, com plicated by purulent tracheobronchitis, and possibly of lower lobe pneumonia is not excluded #2. History of hyperlipidemia #3. Hypertension #4. History of benign prostatic hypertrophy, #5. Coronary artery disease status post bypass grafting #6. Multiple orthopedic procedures Plan: Continue current medical treatment, IV steroids, nebulized broncho-diagnosed, empiric antibiotics, vital signs are stable, patient is on room air, tolerating ambulation, no acute events overnight, still has some congestion and wheezing, but overall improving, anticipate further improvement, and possible discharge in the next 24 hours I performed a history & physical examination of the patient and discussed their management with my nurse practitioner, Hiwot Carrasquillo. I reviewed the nurse practitioner's note and agree with the documented findings and plan of care. Lung sounds are positive for diffuse rhonchi throughout the lung meeks. The findings and the impression was discussed with the patient. I attest to the documentation by the nurse practitioner. Time with Patient: Less than 30
[2019-02-26 11:57] LABS: Glucose,Whole Blood 104 mg/dL (75-99)
[2019-02-26 17:24] LABS: Glucose,Whole Blood 153 mg/dL (75-99)
[2019-02-26] MEDS: PRIMIDONE 50 MG TAB PO SCH (20:15)
[2019-02-26] MEDS: clonazePAM 1 MG TAB PO SCH (20:15)
[2019-02-26] MEDS: ATORVASTATIN 80 MG TAB PO SCH (20:16)
[2019-02-26] MEDS: MELOXICAM 7.5 MG TAB PO SCH (20:16)
[2019-02-26 20:33] LABS: Glucose,Whole Blood 168 mg/dL (75-99)
[2019-02-26 23:37] VITALS: RESP 18
[2019-02-27] MEDS: methylPREDNISolone SOD SUCCI 40 MG/ML 1 ML VIAL IV SCH ×2 (01:11→08:13)
[2019-02-27] MEDS: IPRATROPIUM-ALBUTEROL 3 ML NEB INHALATION PRN (04:40)
[2019-02-27 05:59] VITALS: BP 123/79; PULSE 71; TEMP 97
[2019-02-27 07:21] LABS: Glucose,Whole Blood 119 mg/dL (75-99)
[2019-02-27] MEDS: SYMBICORT 160-4.5 MCG INHALER INHALATION SCH (07:21)
[2019-02-27] MEDS: IPRATROPIUM-ALBUTEROL 3 ML NEB INHALATION SCH (07:25)
[2019-02-27] MEDS: INSULIN ASPART (NovoLOG) 100 UNIT/ML VIAL SQ SCH (07:43)
[2019-02-27] MEDS: OXYBUTYNIN CHLORIDE 5 MG TAB PO SCH (08:12)
[2019-02-27] MEDS: AZITHROMYCIN 500 MG TAB PO SCH (08:12)
[2019-02-27] MEDS: FUROSEMIDE 20 MG TAB PO SCH (08:13)
[2019-02-27] MEDS: SERTRALINE 100 MG TAB PO SCH (08:13)
[2019-02-27] MEDS: TAMSULOSIN 0.4 MG CAP.ER.24H PO SCH (08:13)
[2019-02-27] MEDS: METOPROLOL SUCCINATE (ER) 25 MG TAB.ER.24H PO SCH (08:13)
[2019-02-27] MEDS: LISINOPRIL 5 MG TAB PO SCH (08:13)
[2019-02-27] MEDS: ASPIRIN 81 MG PO SCH (08:13)
--- NOTE | 2019-02-27 08:18 | P.DS ---
Providers Date of admission: 02/24/19 07:19 Attending physician: Cullen Castellanos Consults: 02/24/19 07:19 Consult Physician Routine Consulting Provider: Manan London Reason/Comments: establsihed patient, COPD exacerbation Do you want consulting provider notified?: Yes, Notify in am Primary care physician: Cullen Castellanos - Discharge Diagnosis(es) (1) Acute exacerbation of chronic obstructive airways disease Current Visit: Yes Status: Acute (2) Pneumonia Current Visit: Yes Status: Acute (3) Hyperlipemia Current Visit: No Status: Acute Hospital Course: This discharge summary 78-year-old white male essentially admitted for pneumonia with COPD exacerbation. The patient was empirically treated with appropriate antibiotics and IV steroids. The patient stabilized walking halls tolerating diet and voiding without difficulty. Patient Condition at Discharge: Stable Plan - Discharge Summary Discharge Rx Participant: No New Discharge Prescriptions: New Azithromycin [Zithromax] 500 mg PO DAILY #3 tab Continue Metoprolol Succinate [Toprol XL] 12.5 mg PO DAILY Lisinopril [Prinivil] 5 mg PO DAILY Albuterol Sulfate [Proventil Hfa] 2 puff INHALATION RT-QID PRN PRN Reason: Shortness Of Breath Nitroglycerin Sl Tabs [Nitrostat] 0.4 mg SUBLINGUAL Q5M Primidone [Mysoline] 150 mg PO HS clonazePAM [KlonoPIN] 1 mg PO TID Albuterol Nebulized [Ventolin Nebulized] 2.5 mg INHALATION Q4H PRN #25 nebu PRN Reason: difficulty in breathing Budesonide/Formoterol Fumarate [Symbicort 160-4.5 Mcg Inhaler] 2 puff INHALATION RT-BID ALPRAZolam [Xanax] 0.5 mg PO Q8H PRN PRN Reason: Anxiety Sertraline [Zoloft] 100 mg PO DAILY Oxybutynin Chloride [Ditropan] 5 mg PO BID Meloxicam [Mobic] 15 mg PO DAILY Gabapentin [Neurontin] 300 mg PO TID fentaNYL 25MCG/HR PATCH [Duragesic 25MCG/HR] 1 patch TRANSDERM Q72H Tamsulosin HCl [Flomax] 0.4 mg PO DAILY Furosemide [Lasix] 20 mg PO DAILY Atorvastatin Calcium [Lipitor] 80 mg PO DAILY Aspirin EC [Ecotrin Low Dose] 81 mg PO DAILY Amoxicillin/Potassium Clav [Augmentin 875-125 Tablet] 1 tab PO Q12HR predniSONE 10 mg PO BID #0 Discharge Medication List Lisinopril [Prinivil] 5 mg PO DAILY 01/30/17 [History] Metoprolol Succinate [Toprol XL] 12.5 mg PO DAILY 01/30/17 [History] Albuterol Sulfate [Proventil Hfa] 2 puff INHALATION RT-QID PRN 03/24/17 [History] Nitroglycerin Sl Tabs [Nitrostat] 0.4 mg SUBLINGUAL Q5M 12/01/18 [History] Primidone [Mysoline] 150 mg PO HS 12/01/18 [History] clonazePAM [KlonoPIN] 1 mg PO TID 12/01/18 [History] ALPRAZolam [Xanax] 0.5 mg PO Q8H PRN 01/06/19 [History] Albuterol Nebulized [Ventolin Nebulized] 2.5 mg INHALATION Q4H PRN #25 nebu 01/06/19 [Rx] Aspirin EC [Ecotrin Low Dose] 81 mg PO DAILY 01/06/19 [History] Atorvastatin Calcium [Lipitor] 80 mg PO DAILY 01/06/19 [History] Budesonide/Formoterol Fumarate [Symbicort 160-4.5 Mcg Inhaler] 2 puff INHALATION RT-BID 01/06/19 [History] Furosemide [Lasix] 20 mg PO DAILY 01/06/19 [History] Gabapentin [Neurontin] 300 mg PO TID 01/06/19 [History] Meloxicam [Mobic] 15 mg PO DAILY 01/06/19 [History] Oxybutynin Chloride [Ditropan] 5 mg PO BID 01/06/19 [History] Sertraline [Zoloft] 100 mg PO DAILY 01/06/19 [History] Tamsulosin HCl [Flomax] 0.4 mg PO DAILY 01/06/19 [History] fentaNYL 25MCG/HR PATCH [Duragesic 25MCG/HR] 1 patch TRANSDERM Q72H 01/06/19 [History] Amoxicillin/Potassium Clav [Augmentin 875-125 Tablet] 1 tab PO Q12HR 02/24/19 [History] Azithromycin [Zithromax] 500 mg PO DAILY #3 tab 02/27/19 [Rx] predniSONE 10 mg PO BID #0 07/19/19 [Rx] Follow up Appointment(s)/Referral(s): Cullen Castellnaos MD [Primary Care Provider] - 3 Days
--- NOTE | 2019-02-27 10:56 | P.PN ---
Subjective Progress Note Date: 02/27/19 Principal diagnosis: Dyspnea cough and congestion On 02/25/2019 patient seen in follow-up on medical surgical floor. He states his breathing easier today, but still has significant exertional dyspnea, chest congestion and coughing, room air pulse ox is 93%, patient is afebrile, hemodynamically stable, lung sounds reveal diffuse rhonchi throughout the lung meeks, no new labs today, no new chest x-rays. No fever or chills. No hemoptysis, no chest pain, patient is on a combination of Zithromax and Rocephin, nebulized bronchodilators, and IV steroids On 02/26/2019 patient seen in follow-up on medical surgical floor. Doing better, breathing easier, still has some congestion and wheezing, but overall improving, he is ambulating in the room, no complaints of exertional dyspnea, vital signs are stable, room air pulse ox is 96%, afebrile, he is on Zithromax and Rocephin, IV steroids are being weaned. No acute events overnight, no sputum culture was sent, patient is receiving nebulized bronchodilators. Occasional cough, without phlegm production. On 02/27/2019 patient seen in follow-up on medical surgical floor. Patient is doing well in acute distress, patient is on room air, he has been ambulating in the hallway in the room, reading activity well, he is afebrile, pulse ox is 95% on room air, lung sounds reveal a few scattered rhonchi, overall less dyspneic and bronchospastic. Patient can be considered for discharge home today Objective - Vital Signs Vital signs: Vital Signs Temp 97.0 F L 02/27/19 05:00 Pulse 71 02/27/19 05:00 Resp 18 02/27/19 05:00 BP 123/79 02/27/19 05:00 Pulse Ox 95 02/27/19 05:00 Intake & Output 02/26/19 02/27/19 02/27/19 18:59 06:59 18:59 Intake Total 700 Balance 700 Weight 78.925 kg Intake: Oral 700 Other: # Voids 3 2 # Bowel Movements 0 - Exam GENERAL EXAM: Alert, pleasant, 78-year-old white male, on room air, with pulse ox of 93%, comfortable in no apparent distress. HEAD: Normocephalic/atraumatic. EYES: Normal reaction of pupils, equal size. Conjunctiva pink, sclera white. NOSE: Clear with pink turbinates. THROAT: No erythema or exudates. NECK: No masses, no JVD, no thyroid enlargement, no adenopathy. CHEST: No chest wall deformity. Symmetrical expansion. LUNGS: Equal air entry with diffuse rhonchi CVS: Regular rate and rhythm, normal S1 and S2, no gallops, no murmurs, no rubs ABDOMEN: Soft, nontender. No hepatosplenomegaly, normal bowel sounds, no guarding or rigidity. EXTREMITIES: No clubbing, no edema, no cyanosis, 2+ pulses and upper and lower extremities. MUSCULOSKELETAL: Muscle strength and tone normal. SPINE: No scoliosis or deformity SKIN: No rashes CENTRAL NERVOUS SYSTEM: Alert and oriented -3. No focal deficits, tone is normal in all 4 extremities. PSYCHIATRIC: Alert and oriented -3. Appropriate affect. Intact judgment and insight. - Labs CBC & Chem 7: 02/24/19 06:06 02/24/19 06:06 Labs: Abnormal Lab Results - Last 24 Hours (Table) 02/26/19 02/26/19 02/26/19 Range/Units 11:56 17:21 20:19 POC Glucose (mg/dL) 104 H 153 H 168 H (75-99) mg/dL 02/27/19 Range/Units 07:19 POC Glucose (mg/dL) 119 H (75-99) mg/dL Assessment and Plan Plan: Assessment: #1. Acute exacerbation of chronic obstructive pulmonary disease/asthma, complicated by purulent tracheobronchitis, and possibly of lower lobe pneumonia is not excluded #2. History of hyperlipidemia #3. Hypertension #4. History of benign prostatic hypertrophy, #5. Coronary artery disease status post bypass grafting #6. Multiple orthopedic procedures Plan: Patient continues to improve, clinically stable, tolerating ambulation, he is on room air, able for discharge home today, follow up with Dr. London in the office in one week. I performed a history & physical examination of the patient and discussed their management with my nurse practitioner, Hiwot Carrasquillo. I reviewed the nurse practitioner's note and agree with the documented findings and plan of care. Lung sounds are positive for diffuse rhonchi throughout the lung meeks. The findings and the impression was discussed with the patient. I attest to the documentation by the nurse practitioner. Time with Patient: Less than 30
== END 2019-02-27 10:58 | disposition home or self-care (01) | DRG 190 ==
LOC: EC 05:36 → 4MS4W 07:19
PROVIDERS: ADMIT Family Medicine; ATTEND Family Medicine
DX: J44.1 Chronic obstructive pulmonary disease with (acute) exacerbation (principal); J18.9 Pneumonia, unspecified organism; J45.901 Unspecified asthma with (acute) exacerbation; E78.5 Hyperlipidemia, unspecified; J44.0 Chronic obstructive pulmonary disease with (acute) lower respiratory infection; G47.33 Obstructive sleep apnea (adult) (pediatric); K21.9 Gastro-esophageal reflux disease without esophagitis; I50.9 Heart failure, unspecified; I11.0 Hypertensive heart disease with heart failure; J20.9 Acute bronchitis, unspecified; N40.0 Benign prostatic hyperplasia without lower urinary tract symptoms; I25.10 Atherosclerotic heart disease of native coronary artery without angina pectoris; Z96.1 Presence of intraocular lens; G47.00 Insomnia, unspecified; Z95.1 Presence of aortocoronary bypass graft; Z79.899 Other long term (current) drug therapy; Z79.51 Long term (current) use of inhaled steroids; Z79.1 Long term (current) use of non-steroidal anti-inflammatories (NSAID); Z88.5 Allergy status to narcotic agent; Z79.82 Long term (current) use of aspirin; Z82.5 Family history of asthma and other chronic lower respiratory diseases; Z86.73 Personal history of transient ischemic attack (TIA), and cerebral infarction without residual deficits; Z90.89 Acquired absence of other organs; Z98.42 Cataract extraction status, left eye; Z98.41 Cataract extraction status, right eye; Z98.890 Other specified postprocedural states; Z99.89 Dependence on other enabling machines and devices
CPT/HCPCS: 36415; 71046; 80053; 82550; 82553; 83735; 84484; 85025; 93005; 94640; 94760; 96365; 96375; 99285

== ENCOUNTER → 2019-04-11 | Outpatient (CLI) | payer MEDICARE ==
[2019-04-11 17:19] LABS: ALT 36 U/L (10-49); AST 40 U/L (14-35); African American GFR (CKD) 93.2 (60.0-200.0); BUN/Creat Ratio 26.67 Ratio (12.00-20.00); Calcium 9.3 mg/dL (8.7-10.3); Carbon Dioxide 31.3 mmol/L (21.6-31.8); Chloride 106 mmol/L (96-109); Chol/HDL Ratio 1.95; Cholesterol 125 mg/dL (0-200); Creatine Kinase 358 U/L (35-257); Glucose 97 mg/dL (70-110); Potassium 4.6 mmol/L (3.5-5.5); Sodium 144 mmol/L (135-145); Triglycerides <50.0 mg/dL (0.0-149.0); VLDL Calculation 9.98 mg/dL (5.00-40.00)
== END | disposition home or self-care (01) ==
LOC: LABWHC1 08:05
PROVIDERS: ATTEND Nurse Practitioner Adult Health
DX: E78.2 Mixed hyperlipidemia (principal)
CPT/HCPCS: 36415; 80048; 80061; 82550; 84450; 84460

== ENCOUNTER 2019-05-10 17:57 | Emergency (ER) | payer MEDICARE ==
[2019-05-10 18:20] VITALS: RESP 18; TEMP 99.9
[2019-05-10] MEDS ORDERED: ONDANSETRON 4 MG/2 ML VIAL IVP STA (18:37)
[2019-05-10] MEDS ORDERED: HYDROmorphone 0.5 MG/0.5 ML SYRINGE IVP STA (18:37)
[2019-05-10] MEDS ORDERED: DIPH,PERTUS(ACELL)TETVAC-LF 0.5 ML VIAL IM ONE (19:00)
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
[2019-05-10] MEDS ORDERED: KETOROLAC 30 MG/ML 1 ML VIAL IVP STA (19:17)
[2019-05-10] MEDS ORDERED: HYDROmorphone 1 MG/ML 1 ML SYRINGE IVP STA (19:17)
--- NOTE | 2019-05-10 19:39 | XR ---
EXAMINATION TYPE: XR knee complete LT DATE OF EXAM: 05/10/2019 COMPARISON: NONE HISTORY: Pain TECHNIQUE: 3 views FINDINGS: There is moderate narrowing of the medial joint space. There is soft tissue swelling anteri or to the patella. There is no sign of joint effusion. There is spurring of the patella. I see no fra cture. IMPRESSION: Hypertrophic osteoarthritis in the medial joint space. Prepatellar soft tissue swelling c onsistent with patella bursitis. No fracture.
--- NOTE | 2019-05-10 20:47 | CT ---
EXAMINATION TYPE: CT knee LT wo con DATE OF EXAM: 05/10/2019 COMPARISON: None HISTORY: Injury and pain CT DLP: mGycm Automated exposure control for dose reduction was used. FINDINGS: There is hypertrophic spurring at the patellofemoral femoral joint. There is hypertrophic osteoarthri tic changes in the medial and lateral joint spaces with some narrowing of the medial joint space. There is extensive subcutaneous edema around the knee. There is prepatellar soft tissue swelling. The re is anterior subcutaneous fluid collection that measures 5.5 x 2.5 cm. This has relatively high att enuation and is probably a hematoma. There is no definite knee joint effusion. IMPRESSION: Hypertrophic osteoarthritic changes. No fracture. Subcutaneous edema around the knee. There is prepatellar mass consistent with hematoma. IMPRESSION:
[2019-05-11 01:21] VITALS: BP 136/74; PULSE 70
== END 2019-05-10 22:16 | disposition home or self-care (01) ==
LOC: EC 17:57
DX: S80.02XA Contusion of left knee, initial encounter (principal); M54.5 Low back pain; I25.119 Atherosclerotic heart disease of native coronary artery with unspecified angina pectoris; I11.0 Hypertensive heart disease with heart failure; I50.9 Heart failure, unspecified; J44.9 Chronic obstructive pulmonary disease, unspecified; E78.5 Hyperlipidemia, unspecified; M19.90 Unspecified osteoarthritis, unspecified site; N40.0 Benign prostatic hyperplasia without lower urinary tract symptoms; F32.9 Major depressive disorder, single episode, unspecified; F41.9 Anxiety disorder, unspecified; Z88.5 Allergy status to narcotic agent; Z79.1 Long term (current) use of non-steroidal anti-inflammatories (NSAID); Z79.51 Long term (current) use of inhaled steroids; Z79.82 Long term (current) use of aspirin; Z79.891 Long term (current) use of opiate analgesic; Z79.899 Other long term (current) drug therapy; Z95.1 Presence of aortocoronary bypass graft; Z96.651 Presence of right artificial knee joint; W01.0XXA Fall on same level from slipping, tripping and stumbling without subsequent striking against object, initial encounter; Y93.89 Activity, other specified; Y92.511 Restaurant or cafe as the place of occurrence of the external cause
CPT/HCPCS: 73562; 73700; 99284; 96374; 96375 ×2; 96376; J2405; J1885; J1170 ×2

== ENCOUNTER → 2019-07-11 | Outpatient (CLI) | payer MEDICARE ==
[2019-07-11 17:14] LABS: Chol/HDL Ratio 2.3; LDL Cholesterol,Calculated 54.6 mg/dL (0.0-131.0); VLDL Calculation 14.4 mg/dL (5.00-40.00)
== END | disposition home or self-care (01) ==
LOC: LABWHC1 09:24
PROVIDERS: ATTEND Nurse Practitioner Adult Health
DX: E78.2 Mixed hyperlipidemia (principal)
CPT/HCPCS: 36415; 80061; 84450; 84460

== ENCOUNTER 2019-08-15 15:50 | Emergency (ER) | payer MEDICARE ==
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
[2019-08-15 17:05] LABS: Basophils % (A) 0 %; Eosinophils # (A) 0.1 k/uL (0-0.7); Eosinophils % (A) 0 %; HCT 42.5 % (39.0-53.0); Lymphocytes # (A) 0.5 k/uL (1.0-4.8); Lymphocytes % (A) 4 %; MCH 31.5 pg (25.0-35.0); MCV 95.4 fL (80.0-100.0); Mean Platelet Volume 7.8; Monocytes # (A) 0.7 k/uL (0-1.0); Monocytes % (A) 6 %; Neutrophils # (A) 10.5 k/uL (1.3-7.7); Neutrophils % (A) 89 %; Platelet Count 146 k/uL (150-450); RBC 4.46 m/uL (4.30-5.90); RDW 11.6 % (11.5-15.5); WBC 11.8 k/uL (3.8-10.6)
[2019-08-15] MEDS ORDERED: SODIUM CHLORIDE 0.9% 1,000 ML IV STA ×2 (17:20)
[2019-08-15 17:33] LABS: ALT 20 U/L (4-49); AST 37 U/L (17-59); African American GFR (CKD) >90 (>60 ml/min/1.73 sqM); Albumin 4.1 g/dL (3.5-5.0); Alkaline Phosphatase 66 U/L (38-126); Anion Gap 10 mmol/L; Blood Urea Nitrogen 19 mg/dL (9-20); Calcium 9.1 mg/dL (8.4-10.2); Carbon Dioxide 26 mmol/L (22-30); Chloride 102 mmol/L (98-107); Creatine Kinase 142 U/L (55-170); Glucose 126 mg/dL (74-99); Magnesium 1.7 mg/dL (1.6-2.3); Non-African American GFR(CKD) 87 (>60 ml/min/1.73 sqM); Sodium 138 mmol/L (137-145); Total Bilirubin 0.9 mg/dL (0.2-1.3)
--- NOTE | 2019-08-15 17:33 | CT ---
EXAMINATION TYPE: CT brain cspine wo con DATE OF EXAM: 08/15/2019 COMPARISON: MR scan 06/12/2011 HISTORY: Fall injury today CT DLP: 1430.5 mGycm Automated exposure control for dose reduction was used. Exam performed without contrast. There is diffuse cerebral cortical atrophy. There is no mass effect nor midline shift. There is no si gn of intracranial hemorrhage. Calvarium is intact. There is no evidence of cerebral edema. There is mild cervical thoracic kyphotic curvature. There is degenerative disc space narrowing the lo wer cervical spine. Posterior elements are intact. There is multilevel cervical facet arthropathy. Th e skull base is intact. IMPRESSION: Cerebral atrophy. No acute intracranial abnormality. Atrophy unchanged compared to previous exam. Cervical multilevel spondylotic changes. No fracture.
[2019-08-15 17:40] LABS: Potassium 4.1 mmol/L (3.5-5.1)
--- NOTE | 2019-08-15 17:41 | XR ---
EXAMINATION TYPE: XR lumbosacral spine min 4V DATE OF EXAM: 08/15/2019 COMPARISON: NONE HISTORY: Back pain TECHNIQUE: 5 views FINDINGS: There is 1 cm anterior subluxation of L5 in relation S1. There is bilateral L5 spondylolysi s. There is disc space narrowing throughout the lumbar spine. There is no compression fracture. Sacro iliac joints appear intact. IMPRESSION: No acute bony abnormality. Spondylotic changes. Spondylolysis of L5 with first-degree L5- S1 spondylolisthesis.
--- NOTE | 2019-08-15 17:46 | XR ---
EXAMINATION TYPE: XR KUB DATE OF EXAM: 08/15/2019 COMPARISON: NONE HISTORY: Flank pain TECHNIQUE: 2 views FINDINGS: 2 views supine were obtained and show no sign of intestinal obstruction or pneumoperitoneum . Fecal pattern is normal. There is no evidence of a mass. Lung bases are clear. There are no patholo gic calcifications over the kidneys. IMPRESSION: Nonacute abdomen.
--- NOTE | 2019-08-15 17:49 | XR ---
EXAMINATION TYPE: XR chest 2V DATE OF EXAM: 08/15/2019 COMPARISON: 02/24/2019 HISTORY: Fever TECHNIQUE: FINDINGS: Heart and mediastinum are normal. There are sternal wires. Costophrenic angles are clear. T here are no hilar masses. There is no heart failure. There are chest leads. Bony thorax appears intac t IMPRESSION: No active cardiopulmonary disease. No change.
[2019-08-15 18:21] LABS: Appearance,Urine Clear (Clear); Bacteria,Urine Rare /hpf; Bilirubin,Urine Negative (Negative); Blood,Urine Negative (Negative); Color,Urine Yellow; Glucose,Urine (UA) Negative (Negative); Ketones,Urine Negative (Negative); Leukocyte Esterase,Urine Small (Negative); Mucus,Urine Many /hpf; Nitrite,Urine Negative (Negative); PH, Urine 8.5 (5.0-8.0); Protein,Urine Trace (Negative); RBC,Urine 2 /hpf (0-5); Specific Gravity,Urine 1.019 (1.001-1.035); Squamous Epithelial Cell,Urine 2 /hpf (0-4); Urobilinogen,Urine <2.0 mg/dL (<2.0); WBC,Urine 3 /hpf (0-5)
[2019-08-15] MEDS ORDERED: KETOROLAC 30 MG/ML 1 ML VIAL IVP STA (18:33)
[2019-08-15] MEDS ORDERED: CEPHALEXIN 500 MG CAP PO STA (19:47)
[2019-08-15 20:14] VITALS: BP 128/89; PULSE 87; RESP 16; TEMP 97.5
== END 2019-08-15 20:14 | disposition home or self-care (01) ==
LOC: EC 15:50
DX: N39.0 Urinary tract infection, site not specified (principal); S30.0XXA Contusion of lower back and pelvis, initial encounter; I25.119 Atherosclerotic heart disease of native coronary artery with unspecified angina pectoris; I11.0 Hypertensive heart disease with heart failure; I50.9 Heart failure, unspecified; J44.9 Chronic obstructive pulmonary disease, unspecified; E78.5 Hyperlipidemia, unspecified; M19.90 Unspecified osteoarthritis, unspecified site; N40.0 Benign prostatic hyperplasia without lower urinary tract symptoms; G20 Parkinson's disease; F32.9 Major depressive disorder, single episode, unspecified; F41.9 Anxiety disorder, unspecified; Z88.5 Allergy status to narcotic agent; Z79.1 Long term (current) use of non-steroidal anti-inflammatories (NSAID); Z79.51 Long term (current) use of inhaled steroids; Z79.82 Long term (current) use of aspirin; Z79.891 Long term (current) use of opiate analgesic; Z79.899 Other long term (current) drug therapy; Z86.73 Personal history of transient ischemic attack (TIA), and cerebral infarction without residual deficits; Z95.1 Presence of aortocoronary bypass graft; Z96.651 Presence of right artificial knee joint; Z98.890 Other specified postprocedural states; W01.0XXA Fall on same level from slipping, tripping and stumbling without subsequent striking against object, initial encounter; Y93.89 Activity, other specified; Y92.009 Unspecified place in unspecified non-institutional (private) residence as the place of occurrence of the external cause
CPT/HCPCS: 36415; 93005; 80053; 82550; 83690; 83735; 84484; 85025; 81001; 87040; 72110; 71046; 74018; 72125; 70450; 99284; 96374; 96361 ×2; J1885

== ENCOUNTER 2019-09-26 17:47 | Inpatient (IN) | payer MEDICARE ==
[2019-09-26] MEDS ORDERED: ACETAMINOPHEN TAB 325 MG TAB PO STA (18:08)
[2019-09-26] MEDS ORDERED: IPRATROPIUM-ALBUTEROL 3 ML NEB INHALATION STA ×2 (18:08→19:52)
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
--- NOTE | 2019-09-26 19:21 | XR ---
EXAMINATION TYPE: XR chest 2V DATE OF EXAM: 09/26/2019 COMPARISON: 08/15/2019 HISTORY: Difficulty breathing TECHNIQUE: FINDINGS: There is some patchy airspace consolidation in the left lower lobe. The right lung is clear . There is no heart failure. There are sternal wires. Costophrenic angles are clear. IMPRESSION: There is left lower lobe pneumonia that is new compared to last exam. No heart failure.
[2019-09-26] MEDS ORDERED: cefTRIAXone IN SWFI 1,000 MG/10 ML SYRINGE IVP STA (19:52)
[2019-09-26] MEDS ORDERED: AZITHROMYCIN 500 MG in SODIUM CHLORIDE 0.9% 250 ML IVPB STA (19:52)
[2019-09-26 20:52] LABS: ALT 23 U/L (4-49); AST 38 U/L (17-59); African American GFR (CKD) >90 (>60 ml/min/1.73 sqM); Albumin 4.2 g/dL (3.5-5.0); Alkaline Phosphatase 65 U/L (38-126); Anion Gap 11 mmol/L; Blood Urea Nitrogen 21 mg/dL (9-20); Calcium 9.1 mg/dL (8.4-10.2); Carbon Dioxide 27 mmol/L (22-30); Chloride 101 mmol/L (98-107); Glucose 151 mg/dL (74-99); Magnesium 1.7 mg/dL (1.6-2.3); Non-African American GFR(CKD) >90 (>60 ml/min/1.73 sqM); Potassium 3.4 mmol/L (3.5-5.1); Sodium 139 mmol/L (137-145)
[2019-09-26] MEDS ORDERED: SODIUM CHLORIDE 0.9% 1,000 ML IV STA (21:19)
[2019-09-26 21:23] LABS: INR 1.1 (<1.2); Prothrombin Time 11.3 sec (9.0-12.0)
[2019-09-26 21:26] LABS: Basophils % (A) 0 %; Eosinophils # (A) 0.1 k/uL (0-0.7); Eosinophils % (A) 2 %; HCT 40.7 % (39.0-53.0); HGB 13.5 gm/dL (13.0-17.5); Lymphocytes # (A) 0.5 k/uL (1.0-4.8); Lymphocytes % (A) 8 %; MCH 31.5 pg (25.0-35.0); MCHC 33.1 g/dL (31.0-37.0); MCV 95.2 fL (80.0-100.0); Mean Platelet Volume 7.6; Monocytes # (A) 0.5 k/uL (0-1.0); Monocytes % (A) 7 %; Neutrophils % (A) 82 %; Platelet Count 133 k/uL (150-450); RBC 4.28 m/uL (4.30-5.90); RDW 12.2 % (11.5-15.5); WBC 6.1 k/uL (3.8-10.6)
[2019-09-26 21:27] LABS: Partial Thromboplastin Time 21.2 sec (22.0-30.0)
[2019-09-26] MEDS ORDERED: PNEUMONIA PROTOCOL UTILIZED 1 EACH MISC PO PRN (21:37)
[2019-09-26] MEDS: SODIUM CHLORIDE 0.9% 1,000 ML IV SCH (23:02)
[2019-09-26] MEDS ORDERED: ASPIRIN 81 MG PO SCH (23:45)
[2019-09-26] MEDS ORDERED: clonazePAM 0.5 MG TAB PO STA (23:46)
[2019-09-27] MEDS: NITROGLYCERIN SL TABS 0.4 MG TAB SUBLINGUAL SCH ×4 (01:55→02:00)
[2019-09-27 06:02] LABS: Basophils # (A) 0.1 k/uL (0-0.2); Basophils % (A) 2 %; Eosinophils # (A) 0.2 k/uL (0-0.7); Eosinophils % (A) 2 %; HCT 39.9 % (39.0-53.0); HGB 13.1 gm/dL (13.0-17.5); Lymphocytes # (A) 0.6 k/uL (1.0-4.8); Lymphocytes % (A) 6 %; MCH 31.5 pg (25.0-35.0); MCHC 32.9 g/dL (31.0-37.0); MCV 95.6 fL (80.0-100.0); Mean Platelet Volume 7.6; Monocytes # (A) 0.5 k/uL (0-1.0); Monocytes % (A) 5 %; Neutrophils % (A) 85 %; Platelet Count 154 k/uL (150-450); RBC 4.17 m/uL (4.30-5.90); RDW 12.1 % (11.5-15.5); WBC 9.4 k/uL (3.8-10.6)
[2019-09-27] MEDS: IPRATROPIUM-ALBUTEROL 3 ML NEB INHALATION PRN ×2 (06:03→11:38)
[2019-09-27 06:09] LABS: African American GFR (CKD) >90 (>60 ml/min/1.73 sqM); Anion Gap 7 mmol/L; Blood Urea Nitrogen 20 mg/dL (9-20); Calcium 8.2 mg/dL (8.4-10.2); Carbon Dioxide 27 mmol/L (22-30); Chloride 103 mmol/L (98-107); Glucose 117 mg/dL (74-99); Non-African American GFR(CKD) >90 (>60 ml/min/1.73 sqM); Potassium 3.6 mmol/L (3.5-5.1); Sodium 137 mmol/L (137-145)
--- NOTE | 2019-09-27 06:25 | XR ---
EXAMINATION TYPE: XR chest 2V DATE OF EXAM: 09/27/2019 HISTORY: pneumonia. REFERENCE: Previous study dated 09/26/2019. FINDINGS: There has been a midline sternotomy. The heart is enlarged. There is left-sided airspace disease likely representing pneumonia. This is im proved from previous. There is a small, associated left effusion IMPRESSION: IMPROVED AERATION, LEFT LUNG.
[2019-09-27] MEDS ORDERED: POTASSIUM CHLORIDE ER 20 MEQ TAB.ER PO STA (09:53)
[2019-09-27] MEDS ORDERED: ALPRAZolam 1 MG TAB PO PRN (09:54)
[2019-09-27] MEDS ORDERED: ALBUTEROL NEBULIZED 2.5 MG/3 ML INHALATION PRN (09:54)
[2019-09-27] MEDS: IBUPROFEN 600 MG TAB PO PRN (10:44)
[2019-09-27] MEDS: ATORVASTATIN 80 MG TAB PO SCH (10:45)
[2019-09-27] MEDS: GABAPENTIN 300 MG CAP PO SCH ×3 (10:45→19:42)
[2019-09-27] MEDS: LISINOPRIL 5 MG TAB PO SCH (10:45)
[2019-09-27] MEDS: FUROSEMIDE 20 MG TAB PO SCH (10:45)
[2019-09-27] MEDS: PRIMIDONE 50 MG TAB PO SCH ×2 (10:46→19:42)
[2019-09-27] MEDS: METOPROLOL SUCCINATE (ER) 25 MG TAB.ER.24H PO SCH (10:46)
[2019-09-27] MEDS: OXYBUTYNIN CHLORIDE 5 MG TAB PO SCH ×2 (10:46→19:42)
[2019-09-27] MEDS: MELOXICAM 7.5 MG TAB PO SCH (10:46)
[2019-09-27] MEDS ORDERED: guaiFENesin SYRUP 100MG/5ML 200 MG/10 ML CUP PO PRN (12:34)
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
--- NOTE | 2019-09-27 12:38 | CONS ---
CONSULTATION PULMONARY/CRITICAL CARE CONSULTATION: DATE OF SERVICE: September 27, 2019 REASON FOR CONSULTATION: Shortness of breath HISTORY OF PRESENT ILLNESS: 79-year-old gentleman with a history of underlying COPD, CAD, heart failure, hypertension, and other medical problems who presents to the emergency department with complaints of cough, shortness of breath, chest tightness, wheezing and phlegm production. The patient has also had possible chills and maybe fever. His breathing has worsened over the last couple of days and for that reason, he came in to be evaluated. His primary care physician is Dr. Castellanos. I also see him in the office for his COPD. He denies any chest pain or chest pressure. No palpitations. No nausea, vomiting or diarrhea. No genitourinary complaints. His chest x-ray showed what appears to be a left-sided pneumonia. Currently, the patient is lying flat in bed. Nasal O2 in place. The patient has a chest x-ray on repeat actually looks a bit better than his initial chest x-ray. CURRENT HOME MEDICATIONS: Include lisinopril, metoprolol albuterol nitroglycerin, Mysoline, Klonopin, Xanax, aspirin, Lipitor, Symbicort, Lasix, Neurontin, Mobic, Ditropan, Zoloft, Flomax, fentanyl patch, and Augmentin. His other medications are listed. ALLERGIES: MORPHINE. PAST MEDICAL HISTORY: CAD, angina, heart failure, COPD, CVA, gastroesophageal reflux disease, hyperlipidemia, hypertension, neuropathy, osteoarthritis, BPH, and sleep apnea syndrome. He does have a history of pericardial effusion, and Parkinson disease. SURGICAL HISTORY: Includes back surgery, bypass grafting, heart catheterization, joint replacement, tonsillectomy, left knee arthroscopy, right total knee replacement, cervical laminectomy, bilateral cataract surgery with lens implant, and colonoscopy. SOCIAL HISTORY: Positive for occasional and social alcohol use. He denies previous tobacco use. Denies any illicit drug use. FAMILY HISTORY: Positive for a mother with alcohol abuse and a father with a history of dying at a young age from an accident. REVIEW OF SYSTEMS: CONSTITUTIONAL: No chills. No fever. NEUROLOGIC negative. HEENT negative. CARDIOVASCULAR negative. PULMONARY shortness of breath, chest tightness, wheezing, cough, chest congestion, phlegm production. GI negative. negative. RHEUMATOLOGIC negative. IMMUNOLOGIC negative. ENDOCRINOLOGIC negative. DERMATOLOGIC negative. PHYSICAL EXAMINATION: VITAL SIGNS: Current vital signs are reviewed. Temperature is 98.7, heart rate 80, respiratory rate 18, blood pressure 108/55, mean 72, 2 L saturation is 95%. T-max is 100.8. GENERAL: He appears in no acute distress. There is no audible wheezing, use of accessory muscles or conversational dyspnea. He does have a very wet and congested cough and actually his cough sounds like somebody with tracheobronchomalacia. HEENT: Examination is grossly unremarkable. Nasal O2 noted. NECK: Supple. Full range of motion. No adenopathy. Neck veins are flat. CARDIOVASCULAR: Examination reveals regular rhythm and rate. Heart rate 88 beats per minute. S1, S2 normal. LUNGS: Reveal diffuse coarse bilateral rhonchi and wheezes. Breath sounds are equal. There is prolongation. No crackles. ABDOMEN: Soft. Bowel sounds are heard. EXTREMITIES are intact. No cyanosis, clubbing, or edema. SKIN: Without rash. NEUROLOGIC: Examination is nonfocal. CHEST X-RAY: From the shows a left lower lobe pneumonia. A subsequent chest x-ray on the shows improved left lower lobe pneumonia. Microbiologic studies are thus far negative. LABS: Reviewed. White count 9.4, hemoglobin 13.1, hematocrit 39.9, platelet count 154,000. PT/INR and PTT all normal. Electrolytes look good. Sodium 137, potassium 3.6, chloride 103, CO2 is 27, anion gap is 7. BUN and creatinine were 20 and 0.67. Troponins were 0.037 0.049. N-terminal proBNP 757. Influenza studies were negative. Lactic acid was 2.8 and came down to 1.1. MEDICATIONS: Current medications are reviewed. He is on albuterol updrafts, Xanax, aspirin, Lipitor, Zithromax, Symbicort, Rocephin, Klonopin, Aricept, fentanyl patch, Lasix, gabapentin, Motrin, albuterol and Atrovent updrafts, lisinopril, Mobic, metoprolol, oxybutynin, potassium, Mysoline, Zoloft, and a basic IV. ASSESSMENT: 1. Chronic obstructive pulmonary disease exacerbation/asthma, complicated by left lower lobe pneumonia. 2. History of coronary artery disease, status post bypass grafting. 3. History of angina. 4. Congestive heart failure by history. 5. History of cerebrovascular accident. 6. History of gastroesophageal reflux disease. 7. Hyperlipidemia. 8. Benign essential hypertension. 9. Parkinson disease. 10.Osteoarthritis. 11.Benign prostatic hypertrophy. 12.Sleep apnea syndrome, not maintained on CPAP. 13.History of pericardial effusion. 14.Multiple previous surgeries as listed. PLAN: Please see my orders. Additional recommendations and suggestions are forthcoming. The patient is on appropriate medications. He is on good antibiotics. He does not need any steroids at this time. The patient's albuterol will be DC'd in favor of the [facility]erol [facility]. Additional recommendations and suggestions are forthcoming. Prognosis is guarded. MMODL / IJN: [id number] /
[2019-09-27] MEDS: SODIUM CHLORIDE 0.9% 1,000 ML IV SCH ×2 (12:44→12:48)
[2019-09-27] MEDS: IPRATROPIUM-ALBUTEROL 3 ML NEB INHALATION SCH ×2 (16:32→19:30)
[2019-09-27] MEDS ORDERED: AZITHROMYCIN 500 MG in SODIUM CHLORIDE 0.9% 250 ML IVPB SCH (19:00)
[2019-09-27] MEDS: SYMBICORT 160-4.5 MCG INHALER INHALATION SCH (19:30)
[2019-09-27] MEDS: DONEPEZIL 10 MG TAB PO SCH (19:42)
[2019-09-27] MEDS: clonazePAM 1 MG TAB PO SCH (19:42)
[2019-09-27] MEDS: SERTRALINE 50 MG TAB PO SCH (19:42)
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
[2019-09-28] MEDS: IPRATROPIUM-ALBUTEROL 3 ML NEB INHALATION SCH ×5 (00:54→20:04)
[2019-09-28] MEDS: IBUPROFEN 600 MG TAB PO PRN ×2 (04:30→12:45)
[2019-09-28] MEDS: SODIUM CHLORIDE 0.9% 1,000 ML IV SCH ×2 (05:26→19:37)
[2019-09-28 06:48] LABS: Basophils % (A) 0 %; Eosinophils # (A) 0.2 k/uL (0-0.7); Eosinophils % (A) 3 %; HCT 37.6 % (39.0-53.0); HGB 12.3 gm/dL (13.0-17.5); Lymphocytes # (A) 0.7 k/uL (1.0-4.8); Lymphocytes % (A) 11 %; MCH 31.7 pg (25.0-35.0); MCHC 32.7 g/dL (31.0-37.0); MCV 97.1 fL (80.0-100.0); Mean Platelet Volume 7.7; Monocytes # (A) 0.4 k/uL (0-1.0); Monocytes % (A) 6 %; Neutrophils # (A) 4.6 k/uL (1.3-7.7); Neutrophils % (A) 77 %; Platelet Count 131 k/uL (150-450); RBC 3.87 m/uL (4.30-5.90); RDW 12.3 % (11.5-15.5)
[2019-09-28 07:02] LABS: African American GFR (CKD) >90 (>60 ml/min/1.73 sqM); Anion Gap 6 mmol/L; Blood Urea Nitrogen 21 mg/dL (9-20); Calcium 8.2 mg/dL (8.4-10.2); Carbon Dioxide 26 mmol/L (22-30); Chloride 106 mmol/L (98-107); Glucose 110 mg/dL (74-99); Non-African American GFR(CKD) 90 (>60 ml/min/1.73 sqM); Potassium 3.6 mmol/L (3.5-5.1); Sodium 138 mmol/L (137-145)
[2019-09-28] MEDS: SYMBICORT 160-4.5 MCG INHALER INHALATION SCH ×2 (08:36→20:06)
[2019-09-28] MEDS: OXYBUTYNIN CHLORIDE 5 MG TAB PO SCH ×2 (09:25→19:34)
[2019-09-28] MEDS: PRIMIDONE 50 MG TAB PO SCH ×2 (09:25→19:34)
[2019-09-28] MEDS: ATORVASTATIN 80 MG TAB PO SCH (09:25)
[2019-09-28] MEDS: MELOXICAM 7.5 MG TAB PO SCH (09:26)
[2019-09-28] MEDS: FUROSEMIDE 20 MG TAB PO SCH (09:26)
[2019-09-28] MEDS: ASPIRIN 81 MG PO SCH (09:26)
[2019-09-28] MEDS: GABAPENTIN 300 MG CAP PO SCH ×3 (09:27→19:34)
[2019-09-28] MEDS: METOPROLOL SUCCINATE (ER) 25 MG TAB.ER.24H PO SCH (09:27)
--- NOTE | 2019-09-28 11:01 | ECHOF ---
Referral Reason:hx of chf MEASUREMENTS -------- HEIGHT: 167.6 cm WEIGHT: 76.7 kg BP: 130/62 RVIDd: 3.5 cm (< 3.3) IVSd: 1.1 cm (0.6 - 1.1) LVIDd: 5.1 cm (3.9 - 5.3) LVPWd: 1.2 cm (0.6 - 1.1) IVSs: 1.2 cm LVIDs: 3.8 cm LVPWs: 1.8 cm LA Diam: 4.4 cm (2.7 - 3.8) LAESV Index (A-L): 28.56 ml/m Ao Diam: 3.3 cm (2.0 - 3.7) AV Cusp: 1.6 cm (1.5 - 2.6) MV EXCURSION: 26.030 mm (> 18.000) MV EF SLOPE: 132 mm/s (70 - 150) EPSS: 0.8 cm MV E Eric: 0.62 m/s MV DecT: 134 ms MV A Eric: 0.67 m/s MV E/A Ratio: 0.92 RAP: 15.00 mmHg RVSP: 46.66 mmHg FINDINGS -------- Sinus rhythm. This was a technically adequate study. The left ventricular size is normal. There is borderline concentric left ventricular hypertrophy. Overall left ventricular systolic function is normal with, an EF between 55 - 60 %. The right ventricle is mildly enlarged. The left atrium is mildly dilated. The right atrium is normal in size. Interatrial and interventricular septum intact. There is mild aortic valve sclerosis. The mitral valve leaflets are mildly thickened. Mild mitral annular calcification present. Mild m itral regurgitation is present. Mild tricuspid regurgitation present. There is mild to moderate pulmonary hypertension. The right ventricular systolic pressure, as measured by Doppler, is 46.66mmHg. Trace/mild (physiologic) pulmonic regurgitation. The aortic root size is normal. The inferior vena cava is dilated with poor inspiratory collapse which is consistent with estimated r ight atrial pressure of 15 mmHg. There is no pericardial effusion. CONCLUSIONS -------- 1. Sinus rhythm. 2. This was a technically adequate study. 3. The left ventricular size is normal. 4. There is borderline concentric left ventricular hypertrophy. 5. Overall left ventricular systolic function is normal with, an EF between 55 - 60 %. 6. The right ventricle is mildly enlarged. 7. The left atrium is mildly dilated. 8. The right atrium is normal in size. 9. Interatrial and interventricular septum intact. 10. There is mild aortic valve sclerosis. 11. The mitral valve leaflets are mildly thickened. 12. Mild mitral annular calcification present. 13. Mild mitral regurgitation is present. 14. Mild tricuspid regurgitation present. 15. There is mild to moderate pulmonary hypertension. 16. The right ventricular systolic pressure, as measured by Doppler, is 46.66mmHg. 17. Trace/mild (physiologic) pulmonic regurgitation. 18. The aortic root size is normal. 19. The inferior vena cava is dilated with poor inspiratory collapse which is consistent with estimat ed right atrial pressure of 15 mmHg. 20. There is no pericardial effusion. MEDICAL STAFF COORDINATOR: Molly Armas RDCS
[2019-09-28] MEDS: LISINOPRIL 5 MG TAB PO SCH (12:45)
--- NOTE | 2019-09-28 15:21 | P.PN ---
Subjective Progress Note Date: 09/28/19 This is a 79-year-old male with history of asthma, COPD, CVA/TIA, GERD, hyperlipidemia, hypertension, sleep apnea with CPAP, CAD s/p CABG and chronic diastolic congestive heart failure, presented to the hospital with symptoms of progressively worsening shortness of breath. Is currently receiving treatment for pneumonia as well as exacerbation of COPD. Patient was seen and examined today, he states that today he actually feels somewhat worse than yesterday, his cough seems to be more persistent today, still feel short of breath. Blood pressure 124/80 with a heart rate in the 80s, 92% on room air. White blood cell count 6.0, hemoglobin 12.3, platelet count 131. Sodium 138, potassium 3.6, BUN 21, creatinine 0.6. Objective - Vital Signs Vital signs: Vital Signs Temp 97.5 F L 09/28/19 12:00 Pulse 80 09/28/19 12:08 Resp 20 09/28/19 12:00 BP 124/80 09/28/19 12:00 Pulse Ox 92 L 09/28/19 12:00 Intake & Output 09/27/19 09/28/19 09/28/19 18:59 06:59 18:59 Intake Total 480 Output Total 200 Balance -200 480 Weight 77 kg Intake: Oral 480 Output: Urine 200 Other: # Voids 3 1 - Exam GENERAL: Well developed, in mild distress. HEENT: Head is atraumatic, normocephalic. Pupils are equal, round. Extra ocular movements intact. Mucous membranes moist. Neck supple. No JVD. No carotid bruit. No thyromegaly. LUNGS: Bilateral course rhonchi and wheeze. No chest wall tenderness on palpation or with deep breathing. HEART: Regular rate and rhythm, no rubs or gallops. S1 and S2 heard. No murmur. ABDOMEN: Abdominal exam, WNL. Bowel sounds x4 quads. Soft, non-tender, without masses, organomegaly, or abdominal aorta enlargement. EXTREMITIES/VASCULAR: Extremities have easily palpable radial, femoral, dorsalis pedis and posterior tibial pulses. No cyanosis, calf tenderness. No BLE edema. NEUROLOGIC: Patient is awake, alert and oriented x3. No focal neurologic abnormalities. - Labs CBC & Chem 7: 09/28/19 06:17 09/28/19 06:17 Labs: Abnormal Lab Results - Last 24 Hours (Table) 09/28/19 09/28/19 Range/Units 06:17 06:17 RBC 3.87 L (4.30-5.90) m/uL Hgb 12.3 L (13.0-17.5) gm/dL Hct 37.6 L (39.0-53.0) % Plt Count 131 L (150-450) k/uL Lymphocytes # 0.7 L (1.0-4.8) k/uL BUN 21 H (9-20) mg/dL Glucose 110 H (74-99) mg/dL Calcium 8.2 L (8.4-10.2) mg/dL Microbiology - Last 24 Hours (Table) 09/26/19 20:15 Blood Culture - Preliminary Blood No Growth after 24 hours Assessment and Plan Plan: Assessment and plan #1 exacerbation of COPD complicated by left lower lobe pneumonia #2 coronary artery disease with prior bypass surgery #3 chronic diastolic congestive heart failure #4 GERD #5 history of CVA #6 hyperlipidemia #7 hypertension #8 Parkinson's #9 sleep apnea Plan Echocardiogram with Doppler study revealed a normal left ventricular systolic function. From cardiology's perspective, we'll follow this patient along with you now on an as-needed basis only, please don't hesitate to call with any questions. DNP note has been reviewed, I agree with a documented findings and plan of care. Patient was seen and examined.
[2019-09-28] MEDS ORDERED: IPRATROPIUM-ALBUTEROL 3 ML NEB INHALATION PRN (16:01)
--- NOTE | 2019-09-28 16:02 | P.PN ---
Subjective 79-year-old male patient with known history of COPD, CAD, along with previous history of coronary artery bypass surgery, came in to ED because of worsening shortness of breath and chest tightness and wheezing. The patient was seen by my partner yesterday and I'm seeing him today in follow-up. Patient was diagnosed having an acute COPD exacerbation and a left lower lobe pneumonia. He has previous history of CVA also along with GERD and acid reflux. The patient is on the commerce of [employer]. Chest x-ray was reviewed from the time of admission showed a left lower lobe/possible lingular pulmonary infiltration. The echocardiogram was done yesterday was within normal limits. The patient was febrile with a temperature 100.8 at a time of admission. His influenza screen was negative. On today's evaluation he remains congested bronchospastic and wheezy and he has diffuse rhonchi bilaterally. Unable to collect a sputum sample yet. Blood cultures been negative. His fever has broke. Objective - Vital Signs Vital signs: Vital Signs Temp 97.5 F L 09/28/19 12:00 Pulse 80 09/28/19 12:08 Resp 20 09/28/19 12:00 BP 124/80 09/28/19 12:00 Pulse Ox 92 L 09/28/19 12:00 Intake & Output 09/27/19 09/28/19 09/28/19 18:59 06:59 18:59 Intake Total 640 Output Total 200 Balance -200 640 Weight 77 kg Intake: IV 160 Sodium Chloride 0.9% 1, 160 000 ml @ 75 mls/hr IV . [id number] [facility] Rx#:[id number] Oral 480 Output: Urine 200 Other: Voiding Method Toilet Urinal # Voids 3 1 - Exam GENERAL: Well developed, in mild distress. And the patient is having frequent coughing spells Head exam was generally normal. There was no scleral icterus or corneal arcus. Mucous membranes were moist. Neck was supple and without jugular venous distension, thyromegaly, or carotid bruits. Carotids were easily palpable bilaterally. There was no adenopathy LUNGS: Bilateral course rhonchi and wheeze. No chest wall tenderness on palpation or with deep breathing. HEART: Regular rate and rhythm, no rubs or gallops. S1 and S2 heard. No murmur. The patient has a sternotomy scar over the anterior chest area which is dry clean and intact ABDOMEN: Abdominal exam, WNL. Bowel sounds x4 quads. Soft, non-tender, without masses, organomegaly, or abdominal aorta enlargement. EXTREMITIES/VASCULAR: Extremities have easily palpable radial, femoral, dorsalis pedis and posterior tibial pulses. No cyanosis, calf tenderness. No BLE edema. NEUROLOGIC: Patient is awake, alert and oriented x3. No focal neurologic abnormalities. - Labs CBC & Chem 7: 09/28/19 06:17 09/28/19 06:17 Labs: Abnormal Lab Results - Last 24 Hours (Table) 09/28/19 09/28/19 Range/Units 06:17 06:17 RBC 3.87 L (4.30-5.90) m/uL Hgb 12.3 L (13.0-17.5) gm/dL Hct 37.6 L (39.0-53.0) % Plt Count 131 L (150-450) k/uL Lymphocytes # 0.7 L (1.0-4.8) k/uL BUN 21 H (9-20) mg/dL Glucose 110 H (74-99) mg/dL Calcium 8.2 L (8.4-10.2) mg/dL Microbiology - Last 24 Hours (Table) 09/26/19 20:15 Blood Culture - Preliminary Blood No Growth after 24 hours Assessment and Plan Plan: #1 exacerbation of COPD complicated by left lower lobe pneumonia. On today's evaluation the patient remains symptomatic. He still has a cough and congestion unable to bring up much sputum. Nevertheless he is hemodynamically stable and afebrile. He is on a combination of Rocephin and Zithromax. Echo has been within normal limits. #2 coronary artery disease with prior bypass surgery #3 chronic diastolic congestive heart failure #4 GERD #5 history of CVA #6 hyperlipidemia #7 hypertension #8 Parkinson's #9 sleep apnea Plan Continue Rocephin and Zithromax Repeat chest x-ray in the morning Add IV Solu-Medrol 60 mg every 6 hours Admission history and twice a day for cough and congestion Continue the bronchodilators [id number] Echo was noted Cardiology follow-up We'll continue to follow
[2019-09-28] MEDS: AZITHROMYCIN 500 MG TAB PO SCH (17:11)
[2019-09-28] MEDS: SODIUM CHLORIDE 0.9% 500 ML 500 ML IV SCH (17:12)
[2019-09-28] MEDS: methylPREDNISolone SOD SUCCI 125 MG/2 ML VIAL IV SCH ×2 (17:37→22:52)
[2019-09-28] MEDS: SERTRALINE 50 MG TAB PO SCH (19:34)
[2019-09-28] MEDS: clonazePAM 1 MG TAB PO SCH (19:34)
[2019-09-28] MEDS: DONEPEZIL 10 MG TAB PO SCH (19:34)
[2019-09-28] MEDS: guaiFENesin-DM 600/30MG 1 EACH TAB.ER.12H PO SCH (19:39)
[2019-09-28 19:43] LABS: Glucose,Whole Blood 150 mg/dL (75-99)
--- NOTE | 2019-09-28 20:28 | P.PN ---
Subjective Progress Note Date: 09/28/19 Principal diagnosis: Pneumonia. The patient is here essentially for pneumonia. The patient states feeling much better today. Although significantly tired. We had a long discussion regarding the family stress of him wanting to move to [place] but his not really wanting to. Objective - Vital Signs Vital signs: Vital Signs Temp 98.5 F 09/28/19 16:30 Pulse 80 09/28/19 20:14 Resp 20 09/28/19 19:36 BP 114/72 09/28/19 16:30 Pulse Ox 95 09/28/19 20:06 Intake & Output 09/28/19 09/28/19 09/29/19 06:59 18:59 06:59 Intake Total 880 Output Total 200 Balance -200 880 Weight 77 kg Intake: IV 160 Sodium Chloride 0.9% 1, 160 000 ml @ 75 mls/hr IV . [id number] [facility] Rx#:[id number] Oral 720 Output: Urine 200 Other: Voiding Method Toilet Urinal # Voids 1 2 - Constitutional General appearance: Present: average body habitus - EENT Eyes: Absent: abnormal pupil - Neck Neck: Present: lymphadenopathy - Respiratory Respiratory: bilateral: diminished - Cardiovascular Rhythm: regular - Gastrointestinal General gastrointestinal: Present: soft. Absent: tenderness - Integumentary Integumentary: Present: normal. Absent: calor, cellulitis - Psychiatric Psychiatric: Present: A&O x's 3 - Labs CBC & Chem 7: 09/28/19 06:17 09/28/19 06:17 Labs: Abnormal Lab Results - Last 24 Hours (Table) 09/28/19 09/28/19 09/28/19 Range/Units 06:17 06:17 19:31 RBC 3.87 L (4.30-5.90) m/uL Hgb 12.3 L (13.0-17.5) gm/dL Hct 37.6 L (39.0-53.0) % Plt Count 131 L (150-450) k/uL Lymphocytes # 0.7 L (1.0-4.8) k/uL BUN 21 H (9-20) mg/dL Glucose 110 H (74-99) mg/dL POC Glucose (mg/dL) 150 H (75-99) mg/dL Calcium 8.2 L (8.4-10.2) mg/dL Microbiology - Last 24 Hours (Table) 09/26/19 20:15 Blood Culture - Preliminary Blood No Growth after 24 hours Assessment and Plan (1) Pneumonia Current Visit: Yes Status: Acute Code(s): J18.9 - PNEUMONIA, UNSPECIFIED ORGANISM SNOMED Code(s): 833673065 (2) CAD (coronary artery disease) Current Visit: No Status: Acute Code(s): I25.10 - ATHSCL HEART DISEASE OF [place] CORONARY ARTERY W/O ANG PCTRS SNOMED Code(s): 99643156 (3) Chest pain Current Visit: No Status: Acute Code(s): R07.9 - CHEST PAIN, UNSPECIFIED SNOMED Code(s): 83610802 Time with Patient: Less than 30
[2019-09-28] MEDS: NITROGLYCERIN SL TABS 0.4 MG TAB SUBLINGUAL SCH (21:43)
[2019-09-29 06:19] LABS: Glucose,Whole Blood 137 mg/dL (75-99)
[2019-09-29] MEDS: methylPREDNISolone SOD SUCCI 125 MG/2 ML VIAL IV SCH ×2 (06:24→12:43)
[2019-09-29] MEDS: INSULIN ASPART (NovoLOG) 100 UNIT/ML VIAL SQ SCH ×4 (06:24→20:22)
[2019-09-29] MEDS: SYMBICORT 160-4.5 MCG INHALER INHALATION SCH ×2 (07:59→19:43)
[2019-09-29] MEDS: IPRATROPIUM-ALBUTEROL 3 ML NEB INHALATION SCH ×4 (07:59→19:43)
[2019-09-29] MEDS: FUROSEMIDE 20 MG TAB PO SCH (09:29)
[2019-09-29] MEDS: ATORVASTATIN 80 MG TAB PO SCH (09:29)
[2019-09-29] MEDS: OXYBUTYNIN CHLORIDE 5 MG TAB PO SCH ×2 (09:29→20:32)
[2019-09-29] MEDS: METOPROLOL SUCCINATE (ER) 25 MG TAB.ER.24H PO SCH (09:29)
[2019-09-29] MEDS: PRIMIDONE 50 MG TAB PO SCH ×2 (09:29→20:31)
[2019-09-29] MEDS: GABAPENTIN 300 MG CAP PO SCH ×3 (09:29→20:31)
[2019-09-29] MEDS: guaiFENesin-DM 600/30MG 1 EACH TAB.ER.12H PO SCH ×2 (09:29→20:31)
[2019-09-29] MEDS: MELOXICAM 7.5 MG TAB PO SCH (09:30)
[2019-09-29] MEDS: LISINOPRIL 5 MG TAB PO SCH (09:30)
[2019-09-29] MEDS: ASPIRIN 81 MG PO SCH (09:30)
--- NOTE | 2019-09-29 10:22 | XR ---
EXAMINATION TYPE: XR chest 2V DATE OF EXAM: 09/29/2019 COMPARISON: 09/27/2019 HISTORY: 79-year-old male follow-up lingular pneumonia TECHNIQUE: PA and lateral views FINDINGS: Median sternotomy wires are present with post-CABG clips in the mediastinum. Heart remains upper limi ts of normal in size. There is residual patchy opacity within the lingula though improved from 020. No pleural effusion. IMPRESSION: Some residual lingular infiltrate, improving from 09/27/2019.
[2019-09-29 11:56] LABS: Glucose,Whole Blood 116 mg/dL (75-99)
--- NOTE | 2019-09-29 12:35 | P.PN ---
Subjective Progress Note Date: 09/29/19 Principal diagnosis: lingular pneumonia On 09/29/2019 patient seen in follow-up on selective care unit, he is awake and alert, oriented 3, he is currently on 2 L of oxygen the pulse ox 93%, his been afebrile, he is being treated with combination of Rocephin and Zithromax, IV st eroids and breathing treatments, today's chest x-ray shows improvement in the appearance of lingular pneumonia with some residual infiltration. No fever or chills, no chest pain, no hemoptysis, lung sounds reveal some diffuse rhonchi. Objective - Vital Signs Vital signs: Vital Signs Temp 97.3 F L 09/29/19 11:30 Pulse 84 09/29/19 11:30 Resp 20 09/29/19 11:30 BP 113/71 09/29/19 11:30 Pulse Ox 93 L 09/29/19 11:30 Intake & Output 09/28/19 09/29/19 09/29/19 18:59 06:59 18:59 Intake Total 880 240 Balance 880 240 Weight 76.9 kg Intake: IV 160 Sodium Chloride 0.9% 1, 160 000 ml @ 75 mls/hr IV . [id number] [facility] Rx#:[id number] Oral 720 240 Other: Voiding Method Toilet Toilet Urinal Urinal # Voids 2 1 - Exam GENERAL EXAM: Alert, very pleasant, 79-year-old white male, and 2 L of oxygen the pulse ox of 93%comfortable in no apparent distress. HEAD: Normocephalic/atraumatic. EYES: Normal reaction of pupils, equal size. Conjunctiva pink, sclera white. NOSE: Clear with pink turbinates. THROAT: No erythema or exudates. NECK: No masses, no JVD, no thyroid enlargement, no adenopathy. CHEST: No chest wall deformity. Symmetrical expansion. LUNGS: Equal air entry with diffuse rhonchi, but no wheeze, rhonchi or dullness. CVS: Regular rate and rhythm, normal S1 and S2, no gallops, no murmurs, no rubs ABDOMEN: Soft, nontender. No hepatosplenomegaly, normal bowel sounds, no guarding or rigidity. EXTREMITIES: No clubbing, no edema, no cyanosis, 2+ pulses and upper and lower extremities. MUSCULOSKELETAL: Muscle strength and tone normal. SPINE: No scoliosis or deformity SKIN: No rashes CENTRAL NERVOUS SYSTEM: Alert and oriented -3. No focal deficits, tone is normal in all 4 extremities. PSYCHIATRIC: Alert and oriented -3. Appropriate affect. Intact judgment and insight. - Labs CBC & Chem 7: 09/28/19 06:17 09/28/19 06:17 Labs: Abnormal Lab Results - Last 24 Hours (Table) 09/28/19 09/29/19 09/29/19 Range/Units 19:31 06:18 11:43 POC Glucose (mg/dL) 150 H 137 H 116 H (75-99) mg/dL Microbiology - Last 24 Hours (Table) 09/26/19 20:15 Blood Culture - Preliminary Blood No Growth after 48 hours Assessment and Plan Plan: Assessment: #1 exacerbation of COPD complicated by left lower lobe pneumonia. On today's evaluation the patient remains symptomatic. He still has a cough and congestion unable to bring up much sputum. Nevertheless he is hemodynamically stable and afebrile. He is on a combination of Rocephin and Zithromax. Echo has been within normal limits. Today's chest x-ray on 09/29/2019 shows improvement in the appearance of lingular pneumonia with some residual infiltration left upper lobe #2 coronary artery disease with prior bypass surgery #3 chronic diastolic congestive heart failure #4 GERD #5 history of CVA #6 hyperlipidemia #7 hypertension #8 Parkinson's #9 sleep apnea Plan: Continue current antibiotics, clinically and radiographically patient is improving, vital signs are stable, no acute events overnight, no fever or chills, continue nebulized bronchodilators, IV steroids, still has some chest congestion. Increase activity as tolerated. We'll continue to follow I performed a history & physical examination of the patient and discussed their management with my nurse practitioner, Hiwot Carrasquillo. I reviewed the nurse practitioner's note and agree with the documented findings and plan of care. Lung sounds are positive for bibasilar crackles. The findings and the impression was discussed with the patient. I attest to the documentation by the nurse practitioner. Time with Patient: Less than 30
--- NOTE | 2019-09-29 12:45 | P.PN ---
Subjective Principal diagnosis: Pneumonia. The patient is here essentially for pneumonia. The patient states feeling much better today. Although significantly tired. We had a long discussion regarding the family stress of him wanting to move to [place] but his not really wanting to. Symptomatically improved. We will wean steroids today. Objective - Vital Signs Vital signs: Vital Signs Temp 97.3 F L 09/29/19 11:30 Pulse 84 09/29/19 11:30 Resp 20 09/29/19 11:30 BP 113/71 09/29/19 11:30 Pulse Ox 93 L 09/29/19 11:30 Intake & Output 09/28/19 09/29/19 09/29/19 18:59 06:59 18:59 Intake Total 880 240 Balance 880 240 Weight 76.9 kg Intake: IV 160 Sodium Chloride 0.9% 1, 160 000 ml @ 75 mls/hr IV . [id number] [facility] Rx#:[id number] Oral 720 240 Other: Voiding Method Toilet Toilet Urinal Urinal # Voids 2 1 - Constitutional General appearance: Present: average body habitus - EENT Eyes: Absent: abnormal pupil - Neck Neck: Absent: lymphadenopathy - Respiratory Respiratory: bilateral: diminished - Cardiovascular Rhythm: regular Heart sounds: normal: S1, S2 Abnormal Heart Sounds: Absent: S3 Gallop - Gastrointestinal General gastrointestinal: Present: soft. Absent: tenderness - Integumentary Integumentary: Absent: cellulitis, rash - Labs CBC & Chem 7: 09/28/19 06:17 09/28/19 06:17 Labs: Abnormal Lab Results - Last 24 Hours (Table) 09/28/19 09/29/19 09/29/19 Range/Units 19:31 06:18 11:43 POC Glucose (mg/dL) 150 H 137 H 116 H (75-99) mg/dL Microbiology - Last 24 Hours (Table) 09/26/19 20:15 Blood Culture - Preliminary Blood No Growth after 48 hours Assessment and Plan (1) Pneumonia Current Visit: Yes Status: Acute Code(s): J18.9 - PNEUMONIA, UNSPECIFIED ORGANISM SNOMED Code(s): 282407380 (2) CAD (coronary artery disease) Current Visit: No Status: Acute Code(s): I25.10 - ATHSCL HEART DISEASE OF [place] CORONARY ARTERY W/O ANG PCTRS SNOMED Code(s): 73590371 (3) Chest pain Current Visit: No Status: Acute Code(s): R07.9 - CHEST PAIN, UNSPECIFIED SNOMED Code(s): 44438363 Plan: Otherwise, continue current regimen of treatment. Check CBC and CMP in a.m. Anticipate discharge in next 24-48 hours
--- NOTE | 2019-09-29 13:26 | CDI ---
Documentation Clarification Form Date: 09/29/2019 12:59:59 PM From: Elysia Sen RN, CCDS Admit Date: 09/26/2019 10:34:00 PM Patient Name: Latrell Gallo Visit Number: [id number] Discharge Date: ATTENTION: The Clinical Documentation Specialists (CDI) and [facility] Coding Staff appreciate your assistance in clarifying documentation. Please respond to the clarification below the line at the bottom and electronically sign. The CDI & [facility] Coding staff will review the response and follow-up if needed. Please note: Queries are made part of the Legal Health Record. If you have any questions, please contact the author of this message via ITS. Dr. Cullen Castellanos The diagnosis sepsis secondary to left lower lobe pneumonia was documented in the H&P on 09/27/ by Dr. Curtis, but is not noted in subsequent documentation. History/Risk Factors: COPD, Pneumonia, Chronic CHF, Diastolic, Clinical Indicators: 88-year-old male came to ER with complaints of worsening shortness of breath, cough and generalized weakness. Chest x-ray on 09/27 showed left lower lobe pneumonia and left-sided pleural effusion 09/27 Labs: Lactic acid 2.8, WBC 6.1 09/26 per H/P VS: 131/78 102 18 100.8 88 % RA Treatment: Rocephin 1 gm IV Q 24 HRS Azithromycin 500mg IV Q 24 HRS Solu-medrol 40 mg IV Q 8 HRS (titrate per orders) Duoneb 0.5 mg-gmg/3ms solution Q2 prn Monitor CBC Please clarify if the sepsis was Present/active this admission-this is the correct choice for this patient Treated and resolved this admission Ruled out Other, please specify Clinically unable to determine (Last Query Form Revision: April 2019) MTDD
[2019-09-29 17:09] LABS: Glucose,Whole Blood 205 mg/dL (75-99)
[2019-09-29] MEDS: AZITHROMYCIN 500 MG TAB PO SCH (17:16)
[2019-09-29] MEDS: SODIUM CHLORIDE 0.9% 500 ML 500 ML IV SCH (17:18)
[2019-09-29] MEDS: methylPREDNISolone SOD SUCCI 40 MG/ML 1 ML VIAL IV SCH ×2 (17:19→22:55)
[2019-09-29 20:04] LABS: Glucose,Whole Blood 131 mg/dL (75-99)
[2019-09-29] MEDS: clonazePAM 1 MG TAB PO SCH (20:31)
[2019-09-29] MEDS: SERTRALINE 50 MG TAB PO SCH (20:31)
[2019-09-29] MEDS: DONEPEZIL 10 MG TAB PO SCH (20:32)
[2019-09-30] MEDS: INSULIN ASPART (NovoLOG) 100 UNIT/ML VIAL SQ SCH ×4 (06:10→21:42)
[2019-09-30 06:11] LABS: Glucose,Whole Blood 127 mg/dL (75-99)
[2019-09-30 06:48] LABS: HCT 37.3 % (39.0-53.0); HGB 12.3 gm/dL (13.0-17.5); MCH 31.6 pg (25.0-35.0); MCHC 32.9 g/dL (31.0-37.0); MCV 95.9 fL (80.0-100.0); Platelet Count 164 k/uL (150-450); RBC 3.89 m/uL (4.30-5.90); RDW 12.2 % (11.5-15.5); WBC 12.3 k/uL (3.8-10.6)
[2019-09-30 06:57] LABS: ALT 20 U/L (4-49); AST 25 U/L (17-59); African American GFR (CKD) >90 (>60 ml/min/1.73 sqM); Albumin 3.7 g/dL (3.5-5.0); Alkaline Phosphatase 57 U/L (38-126); Anion Gap 5 mmol/L; Blood Urea Nitrogen 25 mg/dL (9-20); Carbon Dioxide 29 mmol/L (22-30); Chloride 102 mmol/L (98-107); Glucose 129 mg/dL (74-99); Non-African American GFR(CKD) 88 (>60 ml/min/1.73 sqM); Potassium 4.9 mmol/L (3.5-5.1); Sodium 136 mmol/L (137-145); Total Bilirubin 0.5 mg/dL (0.2-1.3); Total Protein 6.4 g/dL (6.3-8.2)
[2019-09-30] MEDS: ATORVASTATIN 80 MG TAB PO SCH (08:08)
[2019-09-30] MEDS: GABAPENTIN 300 MG CAP PO SCH ×3 (08:08→21:22)
[2019-09-30] MEDS: OXYBUTYNIN CHLORIDE 5 MG TAB PO SCH ×2 (08:08→21:22)
[2019-09-30] MEDS: LISINOPRIL 5 MG TAB PO SCH (08:08)
[2019-09-30] MEDS: FUROSEMIDE 20 MG TAB PO SCH (08:08)
[2019-09-30] MEDS: MELOXICAM 7.5 MG TAB PO SCH (08:08)
[2019-09-30] MEDS: PRIMIDONE 50 MG TAB PO SCH ×2 (08:09→21:22)
[2019-09-30] MEDS: METOPROLOL SUCCINATE (ER) 25 MG TAB.ER.24H PO SCH (08:09)
[2019-09-30] MEDS: methylPREDNISolone SOD SUCCI 40 MG/ML 1 ML VIAL IV SCH (08:10)
[2019-09-30] MEDS: ASPIRIN 81 MG PO SCH (08:10)
[2019-09-30] MEDS: guaiFENesin-DM 600/30MG 1 EACH TAB.ER.12H PO SCH ×2 (08:13→22:28)
--- NOTE | 2019-09-30 08:14 | P.PN ---
Subjective Principal diagnosis: Pneumonia. The patient is here essentially for pneumonia. The patient states feeling much better today. Although significantly tired. We had a long discussion regarding the family stress of him wanting to move to [place] but his not really wanting to. Symptomatically improved. Continue Solumedrol Objective - Vital Signs Vital signs: Vital Signs Temp 97.5 F L 09/29/19 20:00 Pulse 88 09/29/19 20:00 Resp 20 09/29/19 20:00 BP 122/74 09/30/19 00:00 Pulse Ox 94 L 09/29/19 20:00 Intake & Output 09/29/19 09/30/19 09/30/19 18:59 06:59 18:59 Intake Total 730 Balance 730 Weight 77.4 kg Intake: Intake, IV Titration 50 Amount cefTRIAXone 1 gm In 50 Sodium Chloride 0.9% 50 ml @ 100 mls/hr IVPB Q24H [facility] Rx#:[id number] Oral 680 Other: Voiding Method Toilet Toilet Urinal Urinal # Voids 2 - Constitutional General appearance: Present: average body habitus - EENT Eyes: Absent: abnormal pupil Ears: bilateral: normal - Respiratory Respiratory: left: wheezing - Cardiovascular Rhythm: regular Heart sounds: normal: S1, S2 Abnormal Heart Sounds: Absent: S3 Gallop - Gastrointestinal General gastrointestinal: Present: soft. Absent: tenderness, umbilical hernia - Integumentary Integumentary: Absent: cellulitis - Neurologic Neurologic: Present: CNII-XII intact - Labs CBC & Chem 7: 09/30/19 05:52 09/30/19 05:52 Labs: Abnormal Lab Results - Last 24 Hours (Table) 09/29/19 09/29/19 09/29/19 Range/Units 11:43 17:02 20:02 WBC (3.8-10.6) k/uL RBC (4.30-5.90) m/uL Hgb (13.0-17.5) gm/dL Hct (39.0-53.0) % Sodium (137-145) mmol/L BUN (9-20) mg/dL Glucose (74-99) mg/dL POC Glucose (mg/dL) 116 H 205 H 131 H (75-99) mg/dL 02/19/20 02/19/20 02/19/20 Range/Units 05:52 05:52 06:09 WBC 12.3 H (3.8-10.6) k/uL RBC 3.89 L (4.30-5.90) m/uL Hgb 12.3 L (13.0-17.5) gm/dL Hct 37.3 L (39.0-53.0) % Sodium 136 L (137-145) mmol/L BUN 25 H (9-20) mg/dL Glucose 129 H (74-99) mg/dL POC Glucose (mg/dL) 127 H (75-99) mg/dL Microbiology - Last 24 Hours (Table) 09/26/19 20:15 Blood Culture - Preliminary Blood No Growth after 72 hours Assessment and Plan (1) Pneumonia Current Visit: Yes Status: Acute Code(s): J18.9 - PNEUMONIA, UNSPECIFIED ORGANISM SNOMED Code(s): 903683097 (2) CAD (coronary artery disease) Current Visit: No Status: Acute Code(s): I25.10 - ATHSCL HEART DISEASE OF [place] CORONARY ARTERY W/O ANG PCTRS SNOMED Code(s): 72106041 (3) Chest pain Current Visit: No Status: Acute Code(s): R07.9 - CHEST PAIN, UNSPECIFIED SNOMED Code(s): 66754092 Plan: Otherwise, continue current regimen of treatment. Check CBC and CMP in a.m. Anticipate discharge in next 24-48 hours
[2019-09-30] MEDS: SYMBICORT 160-4.5 MCG INHALER INHALATION SCH (08:58)
[2019-09-30] MEDS: NITROGLYCERIN SL TABS 0.4 MG TAB SUBLINGUAL SCH ×3 (08:58→22:47)
[2019-09-30] MEDS: IPRATROPIUM-ALBUTEROL 3 ML NEB INHALATION SCH ×4 (08:58→21:41)
[2019-09-30 11:44] LABS: Glucose,Whole Blood 117 mg/dL (75-99)
[2019-09-30] MEDS ORDERED: guaiFENesin-DM 100-10MG/5ML 10 ML CUP PO PRN (14:47)
--- NOTE | 2019-09-30 14:58 | P.PN ---
Subjective Progress Note Date: 09/30/19 Principal diagnosis: lingular pneumonia On 09/29/2019 patient seen in follow-up on selective care unit, he is awake and alert, oriented 3, he is currently on 2 L of oxygen the pulse ox 93%, his been afebrile, he is being treated with combination of Rocephin and Zithromax, IV st eroids and breathing treatments, today's chest x-ray shows improvement in the appearance of lingular pneumonia with some residual infiltration. No fever or chills, no chest pain, no hemoptysis, lung sounds reveal some diffuse rhonchi. On 09/30/2019 patient is seen in follow-up on selective care unit, today she states she is having more trouble breathing, and coughing his cough is dry and nonproductive. On sounds reveal diffuse expiratory wheezes, she has been afebrile, he has been treated with the empiric antibiotics, IV steroids, his latest chest x-ray was showing improvement in the appearance of lingular pneumonia. Blood cultures Show no growth, patient has been unable to give us a sputum culture, his lab work has been reviewed showing white blood cell count of 12.3, hemoglobin of 12.3, electrolytes and renal profile were unremarkable. Objective - Vital Signs Vital signs: Vital Signs Temp 97.8 F 09/30/19 12:52 Pulse 79 09/30/19 12:52 Resp 16 09/30/19 12:52 BP 128/71 09/30/19 12:52 Pulse Ox 99 09/30/19 12:52 Intake & Output 09/29/19 09/30/19 09/30/19 18:59 06:59 18:59 Intake Total 730 598 Balance 730 598 Weight 77.4 kg Intake: Intake, IV Titration 50 Amount cefTRIAXone 1 gm In 50 Sodium Chloride 0.9% 50 ml @ 100 mls/hr IVPB Q24H [facility] Rx#:[id number] Oral 680 598 Other: Voiding Method Toilet Toilet Toilet Urinal Urinal Urinal # Voids 2 - Exam GENERAL EXAM: Alert, very pleasant, 79-year-old white male, and 2 L of oxygen the pulse ox of 93% frequent episodes of dry and nonproductive coughing HEAD: Normocephalic/atraumatic. EYES: Normal reaction of pupils, equal size. Conjunctiva pink, sclera white. NOSE: Clear with pink turbinates. THROAT: No erythema or exudates. NECK: No masses, no JVD, no thyroid enlargement, no adenopathy. CHEST: No chest wall deformity. Symmetrical expansion. LUNGS: Equal air entry with diffuse wheeze, no rhonchi or dullness. CVS: Regular rate and rhythm, normal S1 and S2, no gallops, no murmurs, no rubs ABDOMEN: Soft, nontender. No hepatosplenomegaly, normal bowel sounds, no guarding or rigidity. EXTREMITIES: No clubbing, no edema, no cyanosis, 2+ pulses and upper and lower extremities. MUSCULOSKELETAL: Muscle strength and tone normal. SPINE: No scoliosis or deformity SKIN: No rashes CENTRAL NERVOUS SYSTEM: Alert and oriented -3. No focal deficits, tone is normal in all 4 extremities. PSYCHIATRIC: Alert and oriented -3. Appropriate affect. Intact judgment and insight. - Labs CBC & Chem 7: 09/30/19 05:52 09/30/19 05:52 Labs: Abnormal Lab Results - Last 24 Hours (Table) 09/29/19 09/29/19 09/30/19 Range/Units 17:02 20:02 05:52 WBC 12.3 H (3.8-10.6) k/uL RBC 3.89 L (4.30-5.90) m/uL Hgb 12.3 L (13.0-17.5) gm/dL Hct 37.3 L (39.0-53.0) % Sodium (137-145) mmol/L BUN (9-20) mg/dL Glucose (74-99) mg/dL POC Glucose (mg/dL) 205 H 131 H (75-99) mg/dL 09/30/19 09/30/19 09/30/19 Range/Units 05:52 06:09 11:42 WBC (3.8-10.6) k/uL RBC (4.30-5.90) m/uL Hgb (13.0-17.5) gm/dL Hct (39.0-53.0) % Sodium 136 L (137-145) mmol/L BUN 25 H (9-20) mg/dL Glucose 129 H (74-99) mg/dL POC Glucose (mg/dL) 127 H 117 H (75-99) mg/dL Microbiology - Last 24 Hours (Table) 09/26/19 20:15 Blood Culture - Preliminary Blood No Growth after 72 hours Assessment and Plan Plan: Assessment: #1 exacerbation of COPD complicated by left lower lobe pneumonia. On today's evaluation the patient remains symptomatic. He still has a cough and congestion unable to bring up much sputum. Nevertheless he is hemodynamically stable and afebrile. He is on a combination of Rocephin and Zithromax. Echo has been within normal limits. Today's chest x-ray on 09/29/2019 shows improvement in the appearance of lingular pneumonia with some residual infiltration left upper lobe #2 coronary artery disease with prior bypass surgery #3 chronic diastolic congestive heart failure #4 GERD #5 history of CVA #6 hyperlipidemia #7 hypertension #8 Parkinson's #9 sleep apnea Plan: Continue current antibiotics, patient COPD is active, we will increase the IV steroids, we'll give the patient cough syrup [id number], we will stop the Symbicort. We will continue to follow, patient's lingular pneumonia has shown improvement based on the latest chest x-ray. I performed a history & physical examination of the patient and discussed their management with my nurse practitioner, Hiwot Carrasquillo. I reviewed the nurse practitioner's note and agree with the documented findings and plan of care. Lung sounds are positive for bibasilar crackles. The findings and the impr ession was discussed with the patient. I attest to the documentation by the nurse practitioner. Time with Patient: Less than 30
[2019-09-30] MEDS: SODIUM CHLORIDE 0.9% 500 ML 500 ML IV SCH (16:42)
[2019-09-30 17:06] LABS: Glucose,Whole Blood 207 mg/dL (75-99)
[2019-09-30] MEDS: AZITHROMYCIN 500 MG TAB PO SCH (17:11)
[2019-09-30] MEDS: methylPREDNISolone SOD SUCCI 125 MG/2 ML VIAL IV SCH ×2 (17:11→23:13)
[2019-09-30] MEDS: DONEPEZIL 10 MG TAB PO SCH (21:22)
[2019-09-30] MEDS: clonazePAM 1 MG TAB PO SCH (21:22)
[2019-09-30] MEDS: SERTRALINE 50 MG TAB PO SCH (21:22)
[2019-09-30 21:33] LABS: Glucose,Whole Blood 112 mg/dL (75-99)
[2019-10-01] MEDS: NITROGLYCERIN SL TABS 0.4 MG TAB SUBLINGUAL SCH ×6 (01:10→01:15)
[2019-10-01] MEDS: methylPREDNISolone SOD SUCCI 125 MG/2 ML VIAL IV SCH ×3 (06:04→17:44)
[2019-10-01 07:02] LABS: Glucose,Whole Blood 141 mg/dL (75-99)
--- NOTE | 2019-10-01 07:41 | P.PN ---
Subjective Principal diagnosis: Pneumonia. The patient is here essentially for pneumonia. The patient states feeling much better today. Although significantly tired. We had a long discussion regarding the family stress of him wanting to move to [place] but his not really wanting to. Symptomatically improved. Continue Solumedrol, Wean O2 today. Increase ambulation Objective - Vital Signs Vital signs: Vital Signs Temp 97.4 F L 10/01/19 05:00 Pulse 59 L 10/01/19 05:00 Resp 20 10/01/19 05:00 BP 129/90 10/01/19 05:00 Pulse Ox 96 10/01/19 05:00 Intake & Output 09/30/19 10/01/19 10/01/19 18:59 06:59 18:59 Intake Total 598 300 Balance 598 300 Intake: Oral 598 300 Other: Voiding Method Toilet Urinal # Voids 2 - Constitutional General appearance: Present: average body habitus - EENT Eyes: Absent: abnormal pupil - Neck Neck: Absent: lymphadenopathy - Respiratory Respiratory: left: rhonchi - Cardiovascular Rhythm: regular Heart sounds: normal: S1, S2 Abnormal Heart Sounds: Absent: S3 Gallop - Gastrointestinal General gastrointestinal: Present: soft. Absent: tenderness - Integumentary Integumentary: Absent: cellulitis - Neurologic Neurologic: Present: CNII-XII intact - Labs CBC & Chem 7: 09/30/19 05:52 09/30/19 05:52 Labs: Abnormal Lab Results - Last 24 Hours (Table) 09/30/19 09/30/19 09/30/19 Range/Units 11:42 17:01 21:30 POC Glucose (mg/dL) 117 H 207 H 112 H (75-99) mg/dL 10/01/19 Range/Units 06:59 POC Glucose (mg/dL) 141 H (75-99) mg/dL Microbiology - Last 24 Hours (Table) 09/26/19 20:15 Blood Culture - Preliminary Blood No Growth after 96 hours Assessment and Plan (1) Pneumonia Current Visit: Yes Status: Acute Code(s): J18.9 - PNEUMONIA, UNSPECIFIED ORGANISM SNOMED Code(s): 732444790 (2) CAD (coronary artery disease) Current Visit: No Status: Acute Code(s): I25.10 - ATHSCL HEART DISEASE OF [place] CORONARY ARTERY W/O ANG PCTRS SNOMED Code(s): 65964227 (3) Chest pain Current Visit: No Status: Acute Code(s): R07.9 - CHEST PAIN, UNSPECIFIED SNOMED Code(s): 52108926 Plan: Otherwise, continue current regimen of treatment. Hopefully discharge in a.m. Appreciate pulmonology input. Increase ambulation. And wean off O2
[2019-10-01] MEDS: ATORVASTATIN 80 MG TAB PO SCH (08:03)
[2019-10-01] MEDS: FUROSEMIDE 20 MG TAB PO SCH (08:03)
[2019-10-01] MEDS: METOPROLOL SUCCINATE (ER) 25 MG TAB.ER.24H PO SCH (08:03)
[2019-10-01] MEDS: LISINOPRIL 5 MG TAB PO SCH (08:03)
[2019-10-01] MEDS: OXYBUTYNIN CHLORIDE 5 MG TAB PO SCH ×2 (08:03→22:00)
[2019-10-01] MEDS: PRIMIDONE 50 MG TAB PO SCH ×2 (08:03→22:00)
[2019-10-01] MEDS: MELOXICAM 7.5 MG TAB PO SCH (08:03)
[2019-10-01] MEDS: ASPIRIN 81 MG PO SCH (08:03)
[2019-10-01] MEDS: guaiFENesin-DM 600/30MG 1 EACH TAB.ER.12H PO SCH ×2 (08:04→22:00)
[2019-10-01] MEDS: GABAPENTIN 300 MG CAP PO SCH ×3 (08:09→22:00)
[2019-10-01] MEDS: INSULIN ASPART (NovoLOG) 100 UNIT/ML VIAL SQ SCH ×4 (08:09→22:00)
[2019-10-01] MEDS: IPRATROPIUM-ALBUTEROL 3 ML NEB INHALATION SCH ×4 (08:22→21:07)
[2019-10-01 08:48] LABS: HCT 41.4 % (39.0-53.0); HGB 13.4 gm/dL (13.0-17.5); MCH 31.2 pg (25.0-35.0); MCHC 32.4 g/dL (31.0-37.0); MCV 96.1 fL (80.0-100.0); Mean Platelet Volume 8.3; Platelet Count 166 k/uL (150-450); RBC 4.31 m/uL (4.30-5.90); RDW 12.3 % (11.5-15.5); WBC 9.5 k/uL (3.8-10.6)
[2019-10-01 08:49] LABS: ALT 48 U/L (4-49); African American GFR (CKD) >90 (>60 ml/min/1.73 sqM); Albumin 3.9 g/dL (3.5-5.0); Anion Gap 12 mmol/L; Blood Urea Nitrogen 28 mg/dL (9-20); Calcium 8.9 mg/dL (8.4-10.2); Carbon Dioxide 22 mmol/L (22-30); Chloride 102 mmol/L (98-107); Glucose 121 mg/dL (74-99); Non-African American GFR(CKD) >90 (>60 ml/min/1.73 sqM); Sodium 136 mmol/L (137-145); Total Bilirubin 0.7 mg/dL (0.2-1.3); Total Protein 6.9 g/dL (6.3-8.2)
[2019-10-01 08:50] LABS: AST 56 U/L (17-59); Alkaline Phosphatase 44 U/L (38-126); Potassium 4.6 mmol/L (3.5-5.1)
[2019-10-01 12:20] LABS: Glucose,Whole Blood 91 mg/dL (75-99)
--- NOTE | 2019-10-01 12:26 | P.PN ---
Subjective Progress Note Date: 10/01/19 Principal diagnosis: lingular pneumonia On 09/29/2019 patient seen in follow-up on selective care unit, he is awake and alert, oriented 3, he is currently on 2 L of oxygen the pulse ox 93%, his been afebrile, he is being treated with combination of Rocephin and Zithromax, IV st eroids and breathing treatments, today's chest x-ray shows improvement in the appearance of lingular pneumonia with some residual infiltration. No fever or chills, no chest pain, no hemoptysis, lung sounds reveal some diffuse rhonchi. On 09/30/2019 patient is seen in follow-up on selective care unit, today she states she is having more trouble breathing, and coughing his cough is dry and nonproductive. On sounds reveal diffuse expiratory wheezes, she has been afebrile, he has been treated with the empiric antibiotics, IV steroids, his latest chest x-ray was showing improvement in the appearance of lingular pneumonia. Blood cultures Show no growth, patient has been unable to give us a sputum culture, his lab work has been reviewed showing white blood cell count of 12.3, hemoglobin of 12.3, electrolytes and renal profile were unremarkable. On 10/01/2019 patient seen in follow-up on the general medical surgical floor. Doing well, still coughing but less congestion, no wheezing on today's exam, lung sounds reveal some scattered rhonchi, which is to have improved since yesterday, yesterday we increased patient's IV steroids, she remains on Rocephin and Zithromax for a lingular pneumonia which has been improving. The patient is on room air pulse ox of 93%, afebrile, tolerating ambulation. His labs have been reviewed, CBC is within normal limits, electrolytes and renal profile are unremarkable. Objective - Vital Signs Vital signs: Vital Signs Temp 97.4 F L 10/01/19 05:00 Pulse 68 10/01/19 12:02 Resp 20 10/01/19 05:00 BP 129/90 10/01/19 05:00 Pulse Ox 93 L 10/01/19 08:22 Intake & Output 09/30/19 10/01/19 10/01/19 18:59 06:59 18:59 Intake Total 598 300 300 Balance 598 300 300 Intake: Oral 598 300 300 Other: Voiding Method Toilet Toilet Urinal Urinal # Voids 2 - Exam GENERAL EXAM: Alert, very pleasant, 79-year-old white male on room air HEAD: Normocephalic/atraumatic. EYES: Normal reaction of pupils, equal size. Conjunctiva pink, sclera white. NOSE: Clear with pink turbinates. THROAT: No erythema or exudates. NECK: No masses, no JVD, no thyroid enlargement, no adenopathy. CHEST: No chest wall deformity. Symmetrical expansion. LUNGS: Equal air entry with diffuse wheeze, no rhonchi or dullness. CVS: Regular rate and rhythm, normal S1 and S2, no gallops, no murmurs, no rubs ABDOMEN: Soft, nontender. No hepatosplenomegaly, normal bowel sounds, no guarding or rigidity. EXTREMITIES: No clubbing, no edema, no cyanosis, 2+ pulses and upper and lower extremities. MUSCULOSKELETAL: Muscle strength and tone normal. SPINE: No scoliosis or deformity SKIN: No rashes CENTRAL NERVOUS SYSTEM: Alert and oriented -3. No focal deficits, tone is normal in all 4 extremities. PSYCHIATRIC: Alert and oriented -3. Appropriate affect. Intact judgment and insight. - Labs CBC & Chem 7: 10/01/19 07:49 10/01/19 07:49 Labs: Abnormal Lab Results - Last 24 Hours (Table) 09/30/19 09/30/19 10/01/19 Range/Units 17:01 21:30 06:59 Sodium (137-145) mmol/L BUN (9-20) mg/dL Creatinine (0.66-1.25) mg/dL Glucose (74-99) mg/dL POC Glucose (mg/dL) 207 H 112 H 141 H (75-99) mg/dL 10/01/19 Range/Units 07:49 Sodium 136 L (137-145) mmol/L BUN 28 H (9-20) mg/dL Creatinine 0.57 L (0.66-1.25) mg/dL Glucose 121 H (74-99) mg/dL POC Glucose (mg/dL) (75-99) mg/dL Microbiology - Last 24 Hours (Table) 09/26/19 20:15 Blood Culture - Preliminary Blood No Growth after 96 hours Assessment and Plan Plan: Assessment: #1 exacerbation of COPD complicated by left lower lobe pneumonia. On today's ev aluation the patient remains symptomatic. He still has a cough and congestion unable to bring up much sputum. Nevertheless he is hemodynamically stable and afebrile. He is on a combination of Rocephin and Zithromax. Echo has been within normal limits. Today's chest x-ray on 09/29/2019 shows improvement in the appearance of lingular pneumonia with some residual infiltration left upper lobe #2 coronary artery disease with prior bypass surgery #3 chronic diastolic congestive heart failure #4 GERD #5 history of CVA #6 hyperlipidemia #7 hypertension #8 Parkinson's #9 sleep apnea Plan: Patient is less congested and breathing easier today, he is on room air, his pulse ox is 93%, he is tolerating ambulation, no fever or chills, continue same antibiotics for lingular pneumonia. Continue same medical treatment, anticipate further improvements and discharged home in the next 24 hours will need outpatient follow-up in regards to the lingular pneumonia I performed a history & physical examination of the patient and discussed their management with my nurse practitioner, Hiwot Carrasquillo. I reviewed the nurse practitioner's note and agree with the documented findings and plan of care. Lung sounds are positive for bibasilar crackles. The findings and the impression was discussed with the patient. I attest to the documentation by the nurse practitioner. Time with Patient: Less than 30
[2019-10-01] MEDS: SODIUM CHLORIDE 0.9% 500 ML 500 ML IV SCH (17:09)
[2019-10-01] MEDS: AZITHROMYCIN 500 MG TAB PO SCH (17:23)
[2019-10-01 17:25] LABS: Glucose,Whole Blood 126 mg/dL (75-99)
[2019-10-01 20:06] LABS: Glucose,Whole Blood 155 mg/dL (75-99)
[2019-10-01] MEDS: clonazePAM 1 MG TAB PO SCH (22:00)
[2019-10-01] MEDS: DONEPEZIL 10 MG TAB PO SCH (22:00)
[2019-10-01] MEDS: SERTRALINE 50 MG TAB PO SCH (22:16)
[2019-10-02] MEDS: methylPREDNISolone SOD SUCCI 125 MG/2 ML VIAL IV SCH ×3 (00:19→11:07)
[2019-10-02 05:12] VITALS: RESP 18; TEMP 97.6
[2019-10-02 07:16] LABS: Glucose,Whole Blood 119 mg/dL (75-99)
[2019-10-02 07:20] VITALS: BP 125/79
[2019-10-02] MEDS: INSULIN ASPART (NovoLOG) 100 UNIT/ML VIAL SQ SCH (07:43)
--- NOTE | 2019-10-02 07:48 | P.DS ---
Providers Date of admission: 09/26/19 22:34 Attending physician: Cullen Castellanos Consults: 09/26/19 21:37 Consult Physician Routine Consulting Provider: [facility] Consult Reason/Comments: elevated troponin, h/o HF Do you want consulting provider notified?: Yes 09/26/19 23:47 Consult Physician Routine Consulting Provider: Manan London Reason/Comments: pna Do you want consulting provider notified?: Yes Primary care physician: Cullen Castellanos - Discharge Diagnosis(es) (1) Pneumonia Current Visit: Yes Status: Acute (2) CAD (coronary artery disease) Current Visit: No Status: Acute (3) Chest pain Current Visit: No Status: Acute Hospital Course: This is a discharge summary an 79-year-old white male centimeter for pneumonia and restaurant distress. The patient also had atypical chest pain. Myocardial infraction was ruled out. The patient did quite well with appropriate medication management. Significant personality could be starting. A long discussion with his . The patient ruminates on moving to [place] for some reason. The patient will be discharged in stable but guarded condition to follow-up with me in about 3 days. Patient Condition at Discharge: Good Plan - Discharge Summary Discharge Rx Participant: Yes New Discharge Prescriptions: New predniSONE [Deltasone] 0 mg PO DIRECTED #15 tab Azithromycin [Zithromax Tri-Osmin] 500 mg PO DAILY 3 Days #3 tab Continue Metoprolol Succinate [Toprol XL] 12.5 mg PO DAILY Lisinopril [Prinivil] 5 mg PO DAILY Albuterol Sulfate [Proventil Hfa] 2 puff INHALATION RT-QID PRN PRN Reason: Shortness Of Breath Nitroglycerin Sl Tabs [Nitrostat] 0.4 mg SUBLINGUAL Q5M Primidone [Mysoline] 100 mg PO BID clonazePAM [KlonoPIN] 1 mg PO HS Budesonide/Formoterol Fumarate [Symbicort 160-4.5 Mcg Inhaler] 2 puff INHALATION RT-BID Sertraline [Zoloft] 50 mg PO HS Oxybutynin Chloride [Ditropan] 5 mg PO BID Meloxicam [Mobic] 15 mg PO DAILY Gabapentin [Neurontin] 300 mg PO TID fentaNYL 25MCG/HR PATCH [Duragesic 25MCG/HR] 1 patch TRANSDERM Q72H Furosemide [Lasix] 20 mg PO DAILY Atorvastatin Calcium [Lipitor] 80 mg PO DAILY Aspirin EC [Ecotrin Low Dose] 162 mg PO HS ALPRAZolam [Xanax] 1 mg PO BID PRN PRN Reason: Anxiety Donepezil [Aricept] 10 mg PO HS Albuterol Nebulized [Ventolin Nebulized] 2.5 mg INHALATION RT-QID PRN PRN Reason: Shortness Of Breath Ibuprofen [Motrin] 600 mg PO TID PRN PRN Reason: Pain buPROPion [Wellbutrin] 100 mg PO DAILY Discharge Medication List Lisinopril [Prinivil] 5 mg PO DAILY 01/30/17 [History] Metoprolol Succinate [Toprol XL] 12.5 mg PO DAILY 01/30/17 [History] Albuterol Sulfate [Proventil Hfa] 2 puff INHALATION RT-QID PRN 03/24/17 [History] Nitroglycerin Sl Tabs [Nitrostat] 0.4 mg SUBLINGUAL Q5M 12/01/18 [History] Primidone [Mysoline] 100 mg PO BID 12/01/18 [History] clonazePAM [KlonoPIN] 1 mg PO HS 12/01/18 [History] Aspirin EC [Ecotrin Low Dose] 162 mg PO HS 01/06/19 [History] Atorvastatin Calcium [Lipitor] 80 mg PO DAILY 01/06/19 [History] Budesonide/Formoterol Fumarate [Symbicort 160-4.5 Mcg Inhaler] 2 puff INHALATION RT-BID 01/06/19 [History] Furosemide [Lasix] 20 mg PO DAILY 01/06/19 [History] Gabapentin [Neurontin] 300 mg PO TID 01/06/19 [History] Meloxicam [Mobic] 15 mg PO DAILY 01/06/19 [History] Oxybutynin Chloride [Ditropan] 5 mg PO BID 01/06/19 [History] Sertraline [Zoloft] 50 mg PO HS 01/06/19 [History] fentaNYL 25MCG/HR PATCH [Duragesic 25MCG/HR] 1 patch TRANSDERM Q72H 01/06/19 [History] ALPRAZolam [Xanax] 1 mg PO BID PRN 09/26/19 [History] Albuterol Nebulized [Ventolin Nebulized] 2.5 mg INHALATION RT-QID PRN 09/26/19 [History] Donepezil [Aricept] 10 mg PO HS 09/26/19 [History] Ibuprofen [Motrin] 600 mg PO TID PRN 09/26/19 [History] buPROPion [Wellbutrin] 100 mg PO DAILY 09/27/19 [History] Azithromycin [Zithromax Tri-Osmin] 500 mg PO DAILY 3 Days #3 tab 10/02/19 [Rx] predniSONE [Deltasone] 0 mg PO DIRECTED #15 tab 10/02/19 [Rx] Follow up Appointment(s)/Referral(s): Cullen Castellanos MD [Primary Care Provider] - 1-2 days Discharge Disposition: HOME SELF-CARE
[2019-10-02] MEDS: IPRATROPIUM-ALBUTEROL 3 ML NEB INHALATION SCH (08:45)
[2019-10-02] MEDS: guaiFENesin-DM 600/30MG 1 EACH TAB.ER.12H PO SCH (09:08)
[2019-10-02] MEDS: MELOXICAM 7.5 MG TAB PO SCH (09:08)
[2019-10-02] MEDS: METOPROLOL SUCCINATE (ER) 25 MG TAB.ER.24H PO SCH (09:09)
[2019-10-02] MEDS: ATORVASTATIN 80 MG TAB PO SCH (09:09)
[2019-10-02] MEDS: GABAPENTIN 300 MG CAP PO SCH (09:10)
[2019-10-02] MEDS: PRIMIDONE 50 MG TAB PO SCH (09:11)
[2019-10-02] MEDS: ASPIRIN 81 MG PO SCH (09:12)
[2019-10-02] MEDS: LISINOPRIL 5 MG TAB PO SCH (09:12)
[2019-10-02] MEDS: FUROSEMIDE 20 MG TAB PO SCH (09:12)
[2019-10-02] MEDS: OXYBUTYNIN CHLORIDE 5 MG TAB PO SCH (09:12)
[2019-10-02 09:32] VITALS: PULSE 81
--- NOTE | 2019-10-02 11:50 | P.PN ---
Subjective Progress Note Date: 10/02/19 On today's evaluation of 10/02/2019 the patient is feeling better. The patient is on room air oxygen. No significant cough sputum production chest tightness or wheezing. He has a lingular pneumonia which ultimately recovered and the patient will be discharged home today. He is afebrile. His not bronchospastic or wheezing. He is on IV Solu-Medrol. No chest pain. No pleurisy. He is known to have COPD and he has been maintained on Symbicort on outpatient basis. He also has a home nebulizer. Other comorbidities include coronary artery disease, previous bypass surgery. Objective - Vital Signs Vital signs: Vital Signs Temp 97.6 F 10/02/19 05:09 Pulse 81 10/02/19 09:20 Resp 18 10/02/19 09:20 BP 125/79 10/02/19 07:18 Pulse Ox 95 10/02/19 07:18 Intake & Output 10/01/19 10/02/19 10/02/19 18:59 06:59 18:59 Intake Total 500 Output Total 200 Balance 300 Intake: Oral 500 Output: Urine 200 Other: Voiding Method Toilet Toilet Toilet Urinal Urinal Urinal # Voids 2 2 1 - Exam GENERAL: Well developed, in mild distress. And the patient is having frequent coughing spells Head exam was generally normal. There was no scleral icterus or corneal arcus. Mucous membranes were moist. Neck was supple and without jugular venous distension, thyromegaly, or carotid bruits. Carotids were easily palpable bilaterally. There was no adenopathy LUNGS: No significant rhonchi early wheeze. No chest wall tenderness on palpatio n or with deep breathing. HEART: Regular rate and rhythm, no rubs or gallops. S1 and S2 heard. No murmur. The patient has a sternotomy scar over the anterior chest area which is dry clean and intact ABDOMEN: Abdominal exam, WNL. Bowel sounds x4 quads. Soft, non-tender, without masses, organomegaly, or abdominal aorta enlargement. EXTREMITIES/VASCULAR: Extremities have easily palpable radial, femoral, dorsalis pedis and posterior tibial pulses. No cyanosis, calf tenderness. No BLE edema. NEUROLOGIC: Patient is awake, alert and oriented x3. No focal neurologic abnormalities. - Labs CBC & Chem 7: 10/01/19 07:49 02/20/20 07:49 Labs: Abnormal Lab Results - Last 24 Hours (Table) 10/01/19 10/01/19 10/02/19 Range/Units 17:12 19:49 07:11 POC Glucose (mg/dL) 126 H 155 H 119 H (75-99) mg/dL Microbiology - Last 24 Hours (Table) 09/26/19 20:15 Blood Culture - Preliminary Blood No Growth after 120 hours Assessment and Plan Plan: #1 exacerbation of COPD complicated by left lower lobe pneumonia. This subsequent chest x-ray showed improvement and clearing of the left lung pneumonia maintaining left upper lobe/lingular segment. The patient is hemodynamically stable and afebrile. He is on a combination of Rocephin and Zithromax. Echo has been within normal limits. Furthermore, and COPD exacerbation is recovered. Clinically much improved. #2 coronary artery disease with prior bypass surgery #3 chronic diastolic congestive heart failure #4 GERD #5 history of CVA #6 hyperlipidemia #7 hypertension #8 Parkinson's #9 sleep apnea Plan The patient can be discharged home on oral antibiotics probably combination of Vantin and Zithromax in addition to a prednisone burst taper. The patient will continue using his Symbicort at home. Outpatient medication will resume. Follow-up in our office regarding his pneumonia and COPD.
== END 2019-10-02 12:13 | disposition home health service (06) | DRG 871 ==
LOC: EC 17:47 → 3SCARD 22:34 → 6NMEDSUR 09-30 19:59
PROVIDERS: ADMIT Family Medicine; ATTEND Family Medicine
PROC: 05HD33Z Insertion of Infusion Device into Right Cephalic Vein, Percutaneous Approach (ICD-10-PCS; principal; 2019-10-01 09:00)
DX: A41.9 Sepsis, unspecified organism (principal); J18.9 Pneumonia, unspecified organism; I50.32 Chronic diastolic (congestive) heart failure; J44.0 Chronic obstructive pulmonary disease with (acute) lower respiratory infection; J44.1 Chronic obstructive pulmonary disease with (acute) exacerbation; E87.2 Acidosis; E78.5 Hyperlipidemia, unspecified; E86.0 Dehydration; F32.9 Major depressive disorder, single episode, unspecified; F41.9 Anxiety disorder, unspecified; G20 Parkinson's disease; G47.33 Obstructive sleep apnea (adult) (pediatric); I11.0 Hypertensive heart disease with heart failure; I25.10 Atherosclerotic heart disease of native coronary artery without angina pectoris; K21.9 Gastro-esophageal reflux disease without esophagitis; M19.90 Unspecified osteoarthritis, unspecified site; N40.0 Benign prostatic hyperplasia without lower urinary tract symptoms; R79.89 Other specified abnormal findings of blood chemistry; Z79.82 Long term (current) use of aspirin; Z79.891 Long term (current) use of opiate analgesic; Z79.899 Other long term (current) drug therapy; Z88.5 Allergy status to narcotic agent; Z98.42 Cataract extraction status, left eye; Z98.41 Cataract extraction status, right eye; Z96.1 Presence of intraocular lens; Z79.1 Long term (current) use of non-steroidal anti-inflammatories (NSAID); Z79.51 Long term (current) use of inhaled steroids; Z86.73 Personal history of transient ischemic attack (TIA), and cerebral infarction without residual deficits; Z87.01 Personal history of pneumonia (recurrent); Z95.1 Presence of aortocoronary bypass graft; Z96.651 Presence of right artificial knee joint
CPT/HCPCS: 36410; 36415; 71046; 76937; 80048; 80053; 83605; 83735; 83880; 84484; 85025; 85027; 85610; 85730; 87040; 87502; 93005; 93306; 94640; 94760; 96361; 96374; 96375; 99285

== ENCOUNTER 2020-01-11 09:53 | Emergency (ER) | payer MEDICARE ==
[2020-01-11] MEDS ORDERED: SODIUM CHLORIDE 0.9% 500 ML 500 ML IV ONE (11:10)
--- NOTE | 2020-01-11 12:09 | XR ---
EXAMINATION TYPE: XR chest 2V DATE OF EXAM: 01/11/2020 COMPARISON: Chest x-ray September 29, 2019. CTA chest June 05, 2014 HISTORY: Drug withdrawal with weakness and altered mental status. History of pneumonia. TECHNIQUE: Frontal and lateral views of the chest are obtained. FINDINGS: Overlying sternal wires and mediastinal clips redemonstrated. There is chronic parenchymal fibrotic change left mid lung. No new focal airspace opacity, pleural effusion, or pneumothorax seen bilaterally. The cardiac silhouette size is is stable and upper limits of normal. The osseous stru ctures are demineralized. Underlying scoliotic curvature is present. IMPRESSION: Chronic changes without new acute pulmonary process.
[2020-01-11 12:15] LABS: Appearance,Urine Clear (Clear); Bilirubin,Urine Negative (Negative); Blood,Urine Negative (Negative); Color,Urine Yellow; Glucose,Urine (UA) Negative (Negative); Ketones,Urine Negative (Negative); Leukocyte Esterase,Urine Negative (Negative); Nitrite,Urine Negative (Negative); PH, Urine 6.5 (5.0-8.0); Protein,Urine Negative (Negative); Specific Gravity,Urine 1.015 (1.001-1.035); Urobilinogen,Urine <2.0 mg/dL (<2.0)
[2020-01-11 12:32] LABS: Amphetamine Screen,Urine Not Detected (NotDetected); Benzodiazepines Screen,Urine Detected (NotDetected); Cocaine Screen,Urine Not Detected (NotDetected); Methadone Screen, Urine Not Detected (NotDetected); Opiate Screen,Urine Not Detected (NotDetected); Phencyclidine Screen,Urine Not Detected (NotDetected); Tricyclic Antidepressant,Urine Not Detected (NotDetected); Urn Cannabinoid Scrn Not Detected (NotDetected)
[2020-01-11 12:33] LABS: Barbiturate Screen,Urine Detected (NotDetected); Oxycodone Screen, Urine Not Detected (NotDetected)
[2020-01-11 12:33] LABS: ALT 21 U/L (4-49); African American GFR (CKD) >90 (>60 ml/min/1.73 sqM); Anion Gap 12 mmol/L; Blood Urea Nitrogen 10 mg/dL (9-20); Calcium 9.7 mg/dL (8.4-10.2); Carbon Dioxide 27 mmol/L (22-30); Chloride 99 mmol/L (98-107); Glucose 102 mg/dL (74-99); Non-African American GFR(CKD) >90 (>60 ml/min/1.73 sqM); Sodium 138 mmol/L (137-145); Total Bilirubin 1.1 mg/dL (0.2-1.3)
[2020-01-11 12:42] LABS: Potassium 4.7 mmol/L (3.5-5.1)
[2020-01-11 12:43] LABS: AST 42 U/L (17-59); Albumin 4.8 g/dL (3.5-5.0); Alkaline Phosphatase 67 U/L (38-126); Total Protein 8.1 g/dL (6.3-8.2)
--- NOTE | 2020-01-11 13:03 | CT ---
EXAMINATION TYPE: CT brain wo con DATE OF EXAM: 01/11/2020 COMPARISON: 08/15/2019 HISTORY: 79-year-old male confusion, Altered mental status TECHNIQUE: Examination was done in axial plane without intravenous contrast. Coronal and sagittal r econstructions performed. CT DLP: 1217.4 mGycm Automated exposure control for dose reduction was used. FINDINGS: There is no evidence of acute intracranial hemorrhage, acute ischemic changes, mass, mass-effect, or extra-axial fluid collection. There is no effacement of cerebral sulci or basal subarachnoid cister ns. There is no hydrocephalus. There is no midline shift. Torres-white matter distinction is preserv ed. Moderate cerebral cortical atrophy. Moderate patchy and confluent white matter hypodensities in both cerebral hemispheres, unchanged. Asymmetric larger left lateral ventricle likely congenital variation. Nodular prominence of the tip of the basilar artery at 7 mm. Prior scleral banding left globe. Paranasal sinuses and mastoid air cells are pneumatized. IMPRESSION: 1. Moderate cerebral atrophy and changes of chronic small vessel ischemic disease. 2. 7 mm nodular prominence to the tip of the basilar artery. MR angiography of the [place] c an exclude underlying aneurysm of the [place]. 3. Otherwise, no acute intracranial abnormality seen.
[2020-01-11 13:23] LABS: Basophils # (A) 0.1 k/uL (0-0.2); Basophils % (A) 1 %; Eosinophils # (A) 0.6 k/uL (0-0.7); Eosinophils % (A) 10 %; HCT 47.3 % (39.0-53.0); HGB 15.5 gm/dL (13.0-17.5); Lymphocytes # (A) 0.9 k/uL (1.0-4.8); Lymphocytes % (A) 14 %; MCH 31.2 pg (25.0-35.0); MCHC 32.8 g/dL (31.0-37.0); MCV 95.2 fL (80.0-100.0); Mean Platelet Volume 7.6; Monocytes # (A) 0.5 k/uL (0-1.0); Monocytes % (A) 8 %; Neutrophils # (A) 4.2 k/uL (1.3-7.7); Neutrophils % (A) 66 %; Platelet Count 221 k/uL (150-450); RBC 4.97 m/uL (4.30-5.90); RDW 11.7 % (11.5-15.5); WBC 6.4 k/uL (3.8-10.6)
[2020-01-11 13:41] LABS: INR 1.1 (<1.2); Partial Thromboplastin Time 23.5 sec (22.0-30.0); Prothrombin Time 11.6 sec (9.0-12.0)
--- NOTE | 2020-01-11 15:08 | CT ---
EXAMINATION TYPE: CT angio [place] DATE OF EXAM: 01/11/2020 2:50 PM COMPARISON: CT brain 01/11/2020, MRA 07/19/2011 HISTORY: R/O aneurysm CT DLP: 1033.6 mGycm Automated exposure control for dose reduction was used. TECHNIQUE: Performed with IV Contrast, patient injected with 100 mL of Isovue 370. . FINDINGS: Right vertebral artery is dominant. Visualized posterior cerebral, anterior cerebral, and middle cere bral arteries are patent. There remains mild saccular dilation of the tip of the basilar artery without evidence of discrete fu siform aneurysm. Retrospectively findings are stable dating back to 2010 M[facility] [place]. Remaining vascular structures demonstrate no evidence of sizable aneurysm. There is moderate generalized degenerative change. There is low-attenuation the white matter most typ ical remote microvascular ischemia. IMPRESSION: 1. There is saccular prominence of the tip of the basilar artery without evidence of discrete fusifor m aneurysm. Finding is retrospectively stable dating back to the M[facility] [place] dated 07/19/2011 .
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
[2020-01-11 16:44] VITALS: BP 162/101; PULSE 82; RESP 17; TEMP 98
== END 2020-01-11 16:55 | disposition home or self-care (01) ==
LOC: EC 09:53
DX: R44.1 Visual hallucinations (principal); R53.1 Weakness; G47.8 Other sleep disorders; I25.119 Atherosclerotic heart disease of native coronary artery with unspecified angina pectoris; I11.0 Hypertensive heart disease with heart failure; I50.9 Heart failure, unspecified; J44.9 Chronic obstructive pulmonary disease, unspecified; E78.5 Hyperlipidemia, unspecified; M19.90 Unspecified osteoarthritis, unspecified site; N40.0 Benign prostatic hyperplasia without lower urinary tract symptoms; G89.29 Other chronic pain; F41.9 Anxiety disorder, unspecified; F32.9 Major depressive disorder, single episode, unspecified; Z79.1 Long term (current) use of non-steroidal anti-inflammatories (NSAID); Z79.51 Long term (current) use of inhaled steroids; Z79.82 Long term (current) use of aspirin; Z88.5 Allergy status to narcotic agent; Z95.1 Presence of aortocoronary bypass graft; Z86.73 Personal history of transient ischemic attack (TIA), and cerebral infarction without residual deficits; Z79.899 Other long term (current) drug therapy; Z95.5 Presence of coronary angioplasty implant and graft; Z96.651 Presence of right artificial knee joint
CPT/HCPCS: 36415; 93005; 80053; 82140; 84484; 85025; 85610; 85730; 81003; 80306; 71046; 70496; 70450; 99285; Q9967

== ENCOUNTER 2020-01-12 10:39 | Emergency (ER) | payer MEDICARE ==
[2020-01-12 10:48] VITALS: BP 144/91; PULSE 70; RESP 18; TEMP 98
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
== END 2020-01-12 14:22 | disposition home or self-care (01) ==
LOC: EC 10:39
DX: F32.9 Major depressive disorder, single episode, unspecified (principal); F41.9 Anxiety disorder, unspecified; I25.119 Atherosclerotic heart disease of native coronary artery with unspecified angina pectoris; I11.0 Hypertensive heart disease with heart failure; I50.9 Heart failure, unspecified; J44.9 Chronic obstructive pulmonary disease, unspecified; K21.9 Gastro-esophageal reflux disease without esophagitis; E78.5 Hyperlipidemia, unspecified; M19.90 Unspecified osteoarthritis, unspecified site; N40.0 Benign prostatic hyperplasia without lower urinary tract symptoms; G89.29 Other chronic pain; G20 Parkinson's disease; Z79.1 Long term (current) use of non-steroidal anti-inflammatories (NSAID); Z79.51 Long term (current) use of inhaled steroids; Z79.82 Long term (current) use of aspirin; Z79.899 Other long term (current) drug therapy; Z88.5 Allergy status to narcotic agent; Z95.1 Presence of aortocoronary bypass graft; Z95.5 Presence of coronary angioplasty implant and graft; Z86.73 Personal history of transient ischemic attack (TIA), and cerebral infarction without residual deficits
CPT/HCPCS: 82075; 99285

== ENCOUNTER → 2020-03-01 | Outpatient (CLI) | payer MEDICARE | END | disposition home or self-care (01) | LOC: LABWHC1 11:49 | PROVIDERS: ATTEND Internal Medicine Critical Care Medicine | DX: R05 Cough (principal); R06.02 Shortness of breath | CPT/HCPCS: 36415; 86769 ==

== ENCOUNTER 2020-05-03 11:38 | Emergency (ER) | payer MEDICARE ==
[2020-05-03 11:47] VITALS: BP 116/75; PULSE 66; RESP 18; TEMP 97.8
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
--- NOTE | 2020-05-03 13:01 | CT ---
EXAMINATION TYPE: CT brain santinoine wo con DATE OF EXAM: 05/03/2020 COMPARISON: 01/11/2020 HISTORY: Fall, pain, head injury CT DLP: 1434.4 mGycm Automated exposure control for dose reduction was used. TECHNIQUE: CT scan of the head and cervical spine are performed without contrast. FINDINGS: Moderate generalized degenerative change. Low-attenuation the white matters not most typi alex remote ischemic change. 7 mm prominence of the basilar tip is stable. Low-attenuation the white m atter is most typical remote microvascular ischemia. Craniocervical junction maintained. Sella turcic a has a normal appearance. Stable calcifications of the globe correlate for previous cataract surgery . Assessment spinal canal limited due to resolution artifact. There is multilevel degenerative disc dis ease with facet arthropathy. No compression deformities. Multilevel foraminal encroachment suspected. Canal stenosis not excluded. IMPRESSION: 1. There is no acute fracture or dislocation evident in the cervical spine. Severe multilevel degener ative disc disease and facet arthropathy with foraminal encroachment. 2. No acute intracranial hemorrhage, mass effect, or midline shift is seen. 3. Again noted is prominence of the basilar tip suspicious for a 7 mm aneurysm. Findings stable.
== END 2020-05-03 13:26 | disposition home or self-care (01) ==
LOC: EC 11:38
DX: S00.03XA Contusion of scalp, initial encounter (principal); E78.5 Hyperlipidemia, unspecified; I11.0 Hypertensive heart disease with heart failure; I50.9 Heart failure, unspecified; I25.119 Atherosclerotic heart disease of native coronary artery with unspecified angina pectoris; J44.9 Chronic obstructive pulmonary disease, unspecified; M19.90 Unspecified osteoarthritis, unspecified site; N40.0 Benign prostatic hyperplasia without lower urinary tract symptoms; G89.29 Other chronic pain; G20 Parkinson's disease; F41.9 Anxiety disorder, unspecified; F32.9 Major depressive disorder, single episode, unspecified; Z79.899 Other long term (current) drug therapy; Z79.1 Long term (current) use of non-steroidal anti-inflammatories (NSAID); Z79.51 Long term (current) use of inhaled steroids; Z79.82 Long term (current) use of aspirin; Z86.73 Personal history of transient ischemic attack (TIA), and cerebral infarction without residual deficits; Z95.1 Presence of aortocoronary bypass graft; Z88.5 Allergy status to narcotic agent; W18.39XA Other fall on same level, initial encounter; Y93.A3 Activity, aerobic and step exercise; Y92.89 Other specified places as the place of occurrence of the external cause
CPT/HCPCS: 70450; 72125; 99284

== ENCOUNTER 2021-08-17 13:18 | Emergency (ER) | payer MEDICARE ==
[2021-08-17 13:28] VITALS: TEMP 97.5
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
--- NOTE | 2021-08-17 14:55 | CT ---
EXAMINATION TYPE: CT brain cspine wo con DATE OF EXAM: 08/17/2021 COMPARISON: CT 05/03/2020 HISTORY: fall, trauma and pain CT DLP: combined DLP 1107.9 mGycm Automated exposure control for dose reduction was used. TECHNIQUE: CT scan of the head and cervical spine are performed without contrast. FINDINGS: There is no acute intracranial hemorrhage, mass effect, or midline shift identified. The ventricles and sulci are within normal limits in size. The globes are intact and the visualized sin uses are clear. There is cortical atrophy, white matter low-attenuation suggestive of chronic small v essel ischemic change similar to prior exam Cervical spine is visualized in its entirety from C1 through upper thoracic levels and shows stable s atisfactory alignment without evidence of acute fracture or dislocation. There is multilevel spondylo sis present. Loss of disc height is present especially at C5-6, C6-7, C7-T1 and at the upper thoracic levels similar to prior exam, there is multilevel facet arthropathy, foraminal encroachment as on pr ior Prevertebral soft tissue appears within normal limits. The C1-C2 articulation is unremarkable. IMPRESSION: 1. There is no acute fracture or dislocation evident in the cervical spine. 2. No acute intracranial hemorrhage, mass effect, or midline shift is seen.
--- NOTE | 2021-08-17 14:58 | XR ---
EXAMINATION TYPE: XR chest 2V DATE OF EXAM: 08/17/2021 COMPARISON: Chest x-ray January 11, 2020 HISTORY: Fall injury with pain TECHNIQUE: Frontal and lateral views of the chest are obtained. FINDINGS: Overlying Sternal wires and mediastinal clips redemonstrated. There is no suspicious new fo alex air space opacity, pleural effusion, or pneumothorax seen. The cardiac silhouette size remains w ithin normal limits. The osseous structures are intact. IMPRESSION: No acute process. No significant change from prior.
--- NOTE | 2021-08-17 15:00 | CT ---
EXAMINATION TYPE: CT facial bones wo con DATE OF EXAM: 08/17/2021 COMPARISON: NONE HISTORY: fall injury with facial pain. CT DLP: combined DLP 1107.9 mGycm. Automated Exposure Control for Dose Reduction was Utilized. TECHNIQUE: CT scan of the facial bones is performed without contrast, axial images are obtained, natali nal reformatted images are also reviewed. FINDINGS: Mandible is intact. The temporomandibular joints are maintained bilaterally. Nasal bones ar e intact. Nasal septum remains midline. Orbital floors and sterling are intact. There is left-sided marycruz ical buckle. There is some high dense material probable calcification of the bilateral lens. Intracon al fat is preserved bilaterally. Zygomatic arches are intact. The pterygoid plates are intact. The ma xilla is grossly intact. Paranasal sinuses are grossly clear. No suspicious opacification of the mastoid air cells. Small foca l soft tissue swelling and hematoma over the bilateral frontal region and frontal sinuses. IMPRESSION: Small scalp hematoma supraorbital level anteriorly over the bilateral frontal sinuses. No acute displaced facial bone fracture.
--- NOTE | 2021-08-17 15:10 | XR ---
EXAMINATION TYPE: XR lumbar spine 3 views DATE OF EXAM: 08/17/2021 Comparison: 08/15/2019 Clinical History: 81-year-old male fall 2 days ago, pain Findings: Severe hypertrophic facet arthropathy. Grade 2 anterolisthesis L5-S1. Grade 1 retrolisthesis T12-L1, L1-L2, L2-L3, and L3-L4. Moderate multilevel degenerative disc disease. Disc space narrowing shows sl ight progression compared to 08/15/2019. Degenerative disc disease and more advanced at T12-L1 and L5-S 1, both of these are similar to prior exam. Vertebral body heights are preserved. Impression: 1. Severe hypertrophic facet arthropathy with similar grade 2 anterolisthesis at L5-S1. Additional de generative grade 1 retrolisthesis from T12 down through L4 levels. 2. Moderate multilevel degenerative disc disease shows overall slight progression from 08/15/2019. More advanced degenerative disc disease at T12-L1 and L5-S1 is similar. No vertebral compression collapse .
[2021-08-17] MEDS ORDERED: LOPERAMIDE 2 MG CAP PO STA (15:54)
[2021-08-17 16:56] VITALS: BP 123/86; PULSE 64; RESP 18
== END 2021-08-17 16:28 | disposition home or self-care (01) ==
LOC: EC 13:18
DX: S00.83XA Contusion of other part of head, initial encounter (principal); S20.222A Contusion of left back wall of thorax, initial encounter; I11.0 Hypertensive heart disease with heart failure; I50.9 Heart failure, unspecified; E78.5 Hyperlipidemia, unspecified; J44.9 Chronic obstructive pulmonary disease, unspecified; I25.10 Atherosclerotic heart disease of native coronary artery without angina pectoris; M19.90 Unspecified osteoarthritis, unspecified site; Z86.73 Personal history of transient ischemic attack (TIA), and cerebral infarction without residual deficits; Z88.5 Allergy status to narcotic agent; Z79.899 Other long term (current) drug therapy; Z79.82 Long term (current) use of aspirin; Z79.51 Long term (current) use of inhaled steroids; W18.2XXA Fall in (into) shower or empty bathtub, initial encounter; Y92.009 Unspecified place in unspecified non-institutional (private) residence as the place of occurrence of the external cause
CPT/HCPCS: 70450; 70486; 71046; 72100; 72125; 99284

== ENCOUNTER → 2021-10-20 | Outpatient (CLI) | payer MEDICARE ==
--- NOTE | 2021-10-20 12:34 | XR ---
EXAMINATION TYPE: XR knee complete LT DATE OF EXAM: 10/20/2021 CLINICAL HISTORY: pain TECHNIQUE: Three views of the left knee are obtained. COMPARISON: 05/10/2019 FINDINGS: There is no acute fracture/dislocation. The tri-compartment joint spaces demonstrate mode rate narrowing medially and at the patellar femoral joint space. Prepatellar edema could reflect post traumatic change or prepatellar bursitis although much improved from prior study. IMPRESSION: There is no acute fracture or dislocation ICD 10 NO FRACTURE, INITIAL EVALUATION
== END | disposition home or self-care (01) ==
LOC: RADXRMAIN 12:03
PROVIDERS: ATTEND Psychiatry & Neurology Neurology
DX: M25.562 Pain in left knee (principal)

== ENCOUNTER → 2023-08-20 | Outpatient (CLI) | payer MEDICARE | END | disposition home or self-care (01) | LOC: LABWHC1 12:43 | PROVIDERS: ATTEND Psychiatry & Neurology Neurology | DX: G62.9 Polyneuropathy, unspecified (principal); Z79.899 Other long term (current) drug therapy | CPT/HCPCS: 36415; 82607; 83036 ==

== ENCOUNTER → 2023-10-17 | Outpatient (CLI) | payer MEDICARE ==
[2023-10-17 11:08] LABS: BUN/Creat Ratio 30.62 Ratio (12.00-20.00); Blood Urea Nitrogen 24.5 mg/dL (9.0-27.0); Chloride 104 mmol/L (96-109); Chol/HDL Ratio 2.19 Ratio; Glucose 97 mg/dL (70-110); LDL Cholesterol,Calculated 61.4 mg/dL (0.0-131.0); Potassium 4.1 mmol/L (3.5-5.5); Sodium 144 mmol/L (135-145); VLDL Calculation 16.76 mg/dL (5.00-40.00)
[2023-10-17 11:09] LABS: ALT 18 U/L (10-49); AST 23 U/L (14-35); Albumin 4.5 g/dL (3.8-4.9); Albumin/Globulin Ratio 1.73 Ratio (1.60-3.17); Alkaline Phosphatase 72 U/L (41-126); Calcium 9.5 mg/dL (8.7-10.3); Carbon Dioxide 29.7 mmol/L (21.6-31.8); Globulin 2.6 g/dL (1.6-3.3); Total Bilirubin 0.5 mg/dL (0.3-1.2); Total Protein 7.1 g/dL (6.2-8.2)
== END | disposition home or self-care (01) ==
LOC: LABWHC1 07:45
PROVIDERS: ATTEND Internal Medicine Interventional Cardiology
DX: I10 Essential (primary) hypertension (principal); E78.2 Mixed hyperlipidemia
CPT/HCPCS: 36415; 80053; 80061

== ENCOUNTER 2023-11-21 03:58 | Inpatient (IN) | payer MEDICARE ==
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
[2023-11-21] MEDS: ACETAMINOPHEN IV (For NPO) 1,000 MG in EMPTY BAG 1 BAG IVPB STA (04:46)
[2023-11-21] MEDS: SODIUM CHLORIDE 0.9% 500 ML 500 ML IV STA (04:50)
[2023-11-21 04:52] LABS: Basophils # (A) 0.1 k/uL (0-0.2); Basophils % (A) 1 %; Eosinophils # (A) 0.2 k/uL (0-0.7); Eosinophils % (A) 3 %; HCT 46.5 % (39.0-53.0); HGB 15.7 gm/dL (13.0-17.5); Lymphocytes # (A) 1.6 k/uL (1.0-4.8); Lymphocytes % (A) 20 %; MCH 32.7 pg (25.0-35.0); MCHC 33.7 g/dL (31.0-37.0); Mean Platelet Volume 8.1; Monocytes # (A) 0.1 k/uL (0-1.0); Monocytes % (A) 2 %; Neutrophils # (A) 5.6 k/uL (1.3-7.7); Neutrophils % (A) 73 %; Platelet Count 167 k/uL (150-450); RDW 11.9 % (11.5-15.5); WBC 7.7 k/uL (3.8-10.6)
[2023-11-21 05:11] LABS: AST 29 U/L (17-59); African American GFR (CKD) >90 (>60 ml/min/1.73 sqM); Albumin 4.6 g/dL (3.5-5.0); Alkaline Phosphatase 85 U/L (38-126); Anion Gap 11 mmol/L; Blood Urea Nitrogen 24 mg/dL (9-20); Carbon Dioxide 27 mmol/L (22-30); Chloride 102 mmol/L (98-107); Non-African American GFR(CKD) 84 (>60 ml/min/1.73 sqM); Potassium 4.2 mmol/L (3.5-5.1); Sodium 140 mmol/L (137-145); Total Bilirubin 0.9 mg/dL (0.2-1.3); Total Protein 7.5 g/dL (6.3-8.2)
[2023-11-21 05:16] LABS: ALT 22 U/L (4-49)
[2023-11-21 05:17] LABS: Glucose 131 mg/dL (74-99)
[2023-11-21] MEDS ORDERED: PNEUMONIA PROTOCOL UTILIZED 1 EACH MISC PO PRN (06:06)
[2023-11-21] MEDS: SODIUM CHLORIDE 0.9% 1,000 ML IV SCH (06:44)
[2023-11-21] MEDS: AZITHROMYCIN 500 MG in SODIUM CHLORIDE 0.9% 250 ML IVPB STA (07:22)
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
--- NOTE | 2023-11-21 07:49 | XR ---
EXAMINATION TYPE: XR chest 2V DATE OF EXAM: 11/21/2023 COMPARISON: 08/17/2021 HISTORY: Shortness of breath TECHNIQUE: Frontal and lateral views of the chest are obtained. FINDINGS: Scattered senescent parenchymal changes noted. Hyperinflation compatible with COPD. Patchy density left midlung zone felt to reflect left lower lobe infiltrate. Correlate clinically and progress studies are advised. Heart size is stable. Mediastinal structures are stable and grossly unremarkable. No evidence for hilar prominence. Degenerative changes dorsal spine. IMPRESSION: 1. Patchy density left midlung zone felt to reflect left lower lobe infiltrate. Correlate clinically and progress studies are advised.
[2023-11-21] MEDS ORDERED: IBUPROFEN 600 MG TAB PO PRN (08:04)
[2023-11-21] MEDS: IPRATROPIUM-ALBUTEROL 3 ML NEB INHALATION SCH (08:09)
[2023-11-21] MEDS: SYMBICORT 160-4.5 MCG INHALER INHALATION SCH (08:09)
[2023-11-21] MEDS ORDERED: NITROGLYCERIN SL TABS 0.4 MG TAB SUBLINGUAL SCH (08:15)
[2023-11-21] MEDS: predniSONE 50 MG TAB PO SCH (08:17)
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
[2023-11-21] MEDS ORDERED: buPROPion 100 MG TAB PO SCH (09:00)
[2023-11-21] MEDS: ACETAMINOPHEN TAB 325 MG TAB PO PRN (09:02)
[2023-11-21] MEDS: FUROSEMIDE 20 MG TAB PO SCH (10:13)
[2023-11-21] MEDS: oxyBUTYnin chloride 5 MG TAB PO SCH (10:14)
[2023-11-21] MEDS: lisinopriL 5 MG TAB PO SCH (10:14)
[2023-11-21] MEDS: GABAPENTIN 100 MG CAP PO SCH (10:14)
[2023-11-21] MEDS: METOPROLOL SUCCINATE (ER) 25 MG TAB.ER.24H PO SCH (10:14)
[2023-11-21] MEDS: PRIMIDONE 50 MG TAB PO SCH (10:14)
[2023-11-21 10:33] LABS: Appearance,Urine Clear (Clear); Bilirubin,Urine Negative (Negative); Blood,Urine Trace (Negative); Color,Urine Light Yellow; Glucose,Urine (UA) Negative (Negative); Ketones,Urine 1+ (Negative); Leukocyte Esterase,Urine Negative (Negative); Mucus,Urine Rare /hpf; Nitrite,Urine Negative (Negative); Protein,Urine Negative (Negative); RBC,Urine 2 /hpf (0-5); Specific Gravity,Urine 1.024 (1.001-1.035); Squamous Epithelial Cell,Urine 2 /hpf (0-4); Urobilinogen,Urine <2.0 mg/dL (<2.0); WBC,Urine 1 /hpf (0-5)
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
[2023-11-21] MEDS: SERTRALINE 50 MG TAB PO SCH (20:34)
[2023-11-21] MEDS ORDERED: DONEPEZIL 10 MG TAB PO SCH (21:00)
[2023-11-21] MEDS: clonazePAM 1 MG TAB PO SCH (23:28)
--- NOTE | 2023-11-22 00:20 | CT ---
EXAM: CT Abdomen and Pelvis Without Intravenous Contrast CLINICAL HISTORY: ITS.REASON CT Reason: sudden abdominal pain TECHNIQUE: Axial computed tomography images of the abdomen and pelvis without intravenous contrast. CTDI is 9.6 mGy and DLP is 577 mGy-cm. This CT exam was performed using one or more of the following dose reduction techniques: automated exposure control, adjustment of the mA and/or kV according to patient size, and/or use of iterative reconstruction technique. COMPARISON: 06/05/2014 FINDINGS: Lung bases: There is some groundglass opacification left lower lobe. Pleural space: Minimal left pleural effusion. ABDOMEN: Liver: No acute findings. Gallbladder and bile ducts: Unremarkable. No calcified stones. No ductal dilation. Pancreas: Unremarkable. No ductal dilation. Spleen: Unremarkable. No splenomegaly. Adrenals: Unremarkable. No mass. Kidneys and ureters: Renal cysts. No obstructing stones. No hydronephrosis. Stomach and bowel: Umbilical hernia containing nondilated small bowel. Colonic diverticulosis. No mucosal thickening. PELVIS: Appendix: No findings to suggest acute appendicitis. Bladder: Unremarkable. No stones. Reproductive: Unremarkable as visualized. ABDOMEN and PELVIS: Intraperitoneal space: Unremarkable. No free air. No significant fluid collection. Bones/joints: Degenerative disc disease and facet arthropathy. Spondylolysis at L5. Grade 2 anterolisthesis L5 on S1. Grade 1 retrolisthesis T12 on L1, L1 on L2 and L2 on L3. No acute fracture. No dislocation. Soft tissues: Moderate type 3 paraesophageal hernia. Inguinal hernias containing fat, greater on the left. The umbilical hernia neck measures 2.6 cm. Vasculature: Mild calcified plaque abdominal aorta and iliac arteries. No abdominal aortic aneurysm. Lymph nodes: Unremarkable. No enlarged lymph nodes. IMPRESSION: 1. Moderate type 3 paraesophageal hernia. 2. Mild groundglass airspace disease left lower lobe. 3. Umbilical hernia containing nondilated small bowel. No bowel obstruction. 4. Colonic diverticulosis.
--- NOTE | 2023-11-22 07:40 | XR ---
EXAMINATION TYPE: XR chest 1V portable DATE OF EXAM: 11/22/2023 HISTORY: Shortness of breath. COMPARISON: 11/21/2023 TECHNIQUE: Single view of the chest is submitted. FINDINGS: Demonstrated are scattered senescent parenchymal change. There is no evidence for focal infiltrate. Chronic pleural-parenchymal density left lung. The heart is stable. Hilar and mediastinal structures are within normal limits. Degenerative changes are seen of the dorsal spine. IMPRESSION: 1. Chronic changes without evidence for acute pulmonary disease.
[2023-11-22] MEDS ORDERED: LORATADINE 10 MG TAB PO PRN (08:37)
--- NOTE | 2023-11-22 08:39 | P.PN ---
Subjective Progress Note Date: 11/22/23 Principal diagnosis: Left lower lobe pneumonia Patient is an 83-year-old white male essentially admitted for left lower lobe pneumonia. The patient is doing quite well this morning and has improved since yesterday. He is asking for his medications to be completely reconciled. No voiding difficulties. No fever or chills since yesterday. Objective - Vital Signs Vital signs: Vital Signs Temp 98.4 F 11/22/23 07:12 Pulse 81 11/22/23 07:12 Resp 16 11/22/23 07:12 BP 95/59 11/22/23 07:12 Pulse Ox 99 11/22/23 07:12 FiO2 Intake & Output 11/21/23 11/22/23 11/22/23 18:59 06:59 18:59 Intake Total 480 Balance 480 Weight 78.925 kg Intake: Oral 480 Other: Voiding Method Diaper Diaper Diaper # Voids 2 # Bowel Movements 1 1 - EENT Eyes: Absent: abnormal pupil - Neck Neck: Absent: lymphadenopathy - Respiratory Respiratory: left: rales, rhonchi - Cardiovascular Rhythm: regular Heart sounds: normal: S1, S2 Abnormal Heart Sounds: Absent: S3 Gallop - Gastrointestinal General gastrointestinal: Present: soft. Absent: tenderness - Neurologic Neurologic: Present: CNII-XII intact - Labs CBC & Chem 7: 11/21/23 04:38 11/21/23 04:38 Labs: Abnormal Lab Results - Last 24 Hours (Table) 11/21/23 Range/Units 10:05 Urine Ketones 1+ H (Negative) Urine Blood Trace H (Negative) Urine Mucus Rare H (None) /hpf Assessment and Plan (1) Fever Current Visit: Yes Status: Acute Code(s): R50.9 - FEVER, UNSPECIFIED SNOMED Code(s): 032471197 (2) CAD (coronary artery disease) Current Visit: No Status: Acute Code(s): I25.10 - ATHSCL HEART DISEASE OF [place] CORONARY ARTERY W/O ANG PCTRS SNOMED Code(s): 03497613 (3) Hyperlipemia Current Visit: No Status: Acute Code(s): E78.5 - HYPERLIPIDEMIA, UNSPECIFIED SNOMED Code(s): 16214093 Plan: Continue current regimen of treatment. Check CBC and CMP in AM. Nominal improvement since admission. [facility] will follow for the weekend.
[2023-11-22 08:46] LABS: HCT 37.1 % (39.6-50.0); HGB 12.5 g/dL (13.0-17.0); MCH 32.2 pg (27.0-32.0); MCHC 33.7 g/dL (32.0-37.0); MCV 95.6 FL (80.0-97.0); Mean Platelet Volume 10.5 FL (9.5-12.2); NRBC Per 100 WBC 0 X 10*3/uL (0.00-0.01); Platelet Count 140 X 10*3/uL (140-440); RBC 3.88 X 10*6/uL (4.40-5.60); RDW 11.8 % (11.5-14.5); WBC 12.05 X 10*3/uL (4.50-10.00)
[2023-11-22 08:52] LABS: ALT 13 U/L (10-49); AST 20 U/L (14-35); Albumin 3.8 g/dL (3.8-4.9); Alkaline Phosphatase 53 U/L (41-126); BUN/Creat Ratio 20.67 Ratio (12.00-20.00); Blood Urea Nitrogen 18.6 mg/dL (9.0-27.0); Calcium 8.7 mg/dL (8.7-10.3); Carbon Dioxide 25.3 mmol/L (21.6-31.8); Chloride 105 mmol/L (96-109); Glucose 108 mg/dL (70-110); Potassium 3.9 mmol/L (3.5-5.5); Sodium 140 mmol/L (135-145); Total Bilirubin 0.6 mg/dL (0.3-1.2); Total Protein 5.8 g/dL (6.2-8.2)
[2023-11-22] MEDS: MELOXICAM 7.5 MG TAB PO SCH (10:10)
[2023-11-22] MEDS: TAMSULOSIN 0.4 MG CAP.ER.24H PO SCH (10:11)
[2023-11-22] MEDS: FINASTERIDE 5 MG TAB PO SCH (10:12)
[2023-11-22] MEDS: CHOLECALCIFEROL 25 MCG (1000 IU) TABLET PO SCH (10:12)
[2023-11-22] MEDS: AZITHROMYCIN 500 MG in SODIUM CHLORIDE 0.9% 250 ML IVPB SCH (10:29)
[2023-11-22] MEDS: GABAPENTIN 100 MG CAP PO SCH (10:45)
--- NOTE | 2023-11-22 15:34 | P.PN ---
Subjective Progress Note Date: 11/22/23 Patient is an 83-year-old white male with past medical history significant for asthma, coronary artery disease, previous CABG, CVA/TIA, hyperlipidemia, hypertension, BPH, neuropathy, LILLY without device, pneumonia, among other things. Patient presented to emergency room earlier this morning with a chief complaint of nonproductive congested cough, chills, shaking. Patient states that the symptoms began rather abruptly this morning at 0230. No sick contacts or recent travel. States that he was feeling fine yesterday, and even did some gardening. Denies any shortness of breath. Denies any chest pain. He was febrile on arrival to the emergency room, with a Tmax of 102 F. He did have 1 episode of associated nausea and vomiting while in the emergency room. Denies any abdominal pain. Denies any dysuria, urinary frequency, hematuria. Chest x- ray done on arrival shows a left-sided consolidation. CBC unremarkable. No leukocytosis. CMP on arrival unremarkable. Normal saline infusing at 130 MLS per hour. Lactic acid level 3.5. Negative for influenza, RSV, COVID. Patient is currently sitting up in bed, on room air, in no acute distress. He appears nontoxic. He was given Tylenol for his fever. Sinus tachycardia on bedside monitor. Blood pressure normotensive. Hemodynamically stable.On today's evaluation of 11/21/2023, the patient is being in consultation. The patient is having increased cough and congestion. I reviewed the chest x-ray and clearly there is a left sided pulmonary infiltrates, the patient has patchy density in the left midlung zone and in the left lower lobe consistent with underlying pneumonia. Clinically and hemodynamically stable. Unable to bring up much sputum. Currently on Rocephin and Zithromax. Patient is also on DuoNeb nebulized treatments [id number]. The patient is a non-smoker for now. The patient has been maintained on Symbicort. He is also taking a prednisone burst taper starting with 50 mg p.o. daily. He is known to have coronary disease with previous bypass surgery as mentioned. He has hypertension hyperlipidemia and BPH and obstructive sleep apnea without using his CPAP therapy at this point in time. He is also previous history of CVA/TIA. No active neurological deficits. No reported aspiration. On today's evaluation of 11/22/2023, patient is being seen for a follow-up. The patient is an 83-year-old male who is currently being treated for left lung pneumonia. This is likely community-acquired pneumonia. However, the procalcitonin level was low. Legionella urine antigen was negative. The viral screen was negative. The patient has some residual consolidation of the left perihilar area on today's chest x-ray. This could be also potentially chronic pleural, parenchymal density. Nevertheless, the patient continues to have cough congestion and wheeze. Remains on DuoNeb updrafts, remains on IV Rocephin and and Zithromax. Rest of the home medication have been all resumed. The blood culture has been negative thus far. The white cell count is at 12 with a hemoglobin 12.5 and a platelet count of 140. Electrolytes are all stable. LFTs are normal. UA is negative for any infection. Objective - Vital Signs Vital signs: Vital Signs Temp 98.4 F 11/22/23 07:12 Pulse 94 11/22/23 09:10 Resp 16 11/22/23 07:12 BP 95/59 11/22/23 07:12 Pulse Ox 95 11/22/23 08:55 FiO2 Intake & Output 11/21/23 11/22/23 11/22/23 18:59 06:59 18:59 Intake Total 480 Balance 480 Weight 78.925 kg Intake: Oral 480 Other: Voiding Method Diaper Diaper Diaper # Voids 2 # Bowel Movements 1 1 - Exam GENERAL EXAM: Alert, 83-year-old white male, comfortable in no apparent distress. The patient is currently on 2 L of oxygen by nasal cannula. No significant respiratory distress. HEAD: Normocephalic and atraumatic EYES: Normal reaction of pupils, equal size. NOSE: Clear with pink turbinates. THROAT: No erythema or exudates. NECK: No masses, no JVD. CHEST: No chest wall deformity. Old sternotomy incision, healed and approximated LUNGS: Equal air entry with coarse rhonchi bilaterally, greater on the left. No conversational dyspnea or accessory muscle use while at rest. Frequent congested cough noted. CVS: S1 and S2 normal with no audible murmur, regular rhythm. No extra heart sounds ABDOMEN: No hepatosplenomegaly, active bowel sounds, no guarding or rigidity. Small nonreducible periumbilical hernia. SPINE: No scoliosis or deformity SKIN: No rashes CENTRAL NERVOUS SYSTEM: No focal deficits, tone is normal in all 4 extremities. EXTREMITIES: There is no peripheral edema, clubbing, or cyanosis. Peripheral pulses are intact. - Labs CBC & Chem 7: 11/22/23 06:21 11/22/23 06:21 Labs: Abnormal Lab Results - Last 24 Hours (Table) 11/22/23 11/22/23 Range/Units 06:21 06:21 WBC 12.05 H (4.50-10.00) X 10*3/uL RBC 3.88 L (4.40-5.60) X 10*6/uL Hgb 12.5 L (13.0-17.0) g/dL Hct 37.1 L (39.6-50.0) % MCH 32.2 H (27.0-32.0) pg BUN/Creatinine Ratio 20.67 H (12.00-20.00) Ratio Total Protein 5.8 L (6.2-8.2) g/dL Assessment and Plan Plan: Left-sided community-acquired pneumonia, likely bacterial in nature. The viral screen including RSV, COVID-19 and RSV were all negative. The patient is currently on Rocephin and Zithromax. Procalcitonin level is low at 0.06. Chest x-ray remains unchanged. Chronic pleural-parenchymal densities within the left perihilar area cannot be completely excluded. Acute hypoxic respiratory failure currently on 2 L of oxygen by nasal cannula Acute dyspnea, secondary to above History of chronic bronchial asthma, stable Coronary artery disease, status post history of CABG History of hyperlipidemia History of hypertension History of CVA/TIA History of BPH Bilateral lower extremity neuropathy LILLY without device Plan: Continues to be symptomatic. Will continue same treatment of bronchodilators and steroids and antibiotics. Chest x-ray from today was noted. Procalcitonin level has been low Cultures are all negative thus far Legionella urine antigens negative Titrate oxygen flow to maintain saturation above 90%, currently on 2 L Continue empiric antibiotics for community-acquired pneumonia, currently on a combination of Rocephin and Zithromax Blood cultures are pending, unable to bring up any sputum at this point in time Continue DuoNebs, Symbicort inhaler, and prednisone taper Will repeat another chest x-ray in the morning Incentive spirometer We will continue to follow
[2023-11-22] MEDS: MELATONIN 3 MG TABLET PO SCH (22:09)
[2023-11-22] MEDS: ATORVASTATIN 80 MG TAB PO SCH (22:10)
[2023-11-22] MEDS: ASPIRIN 81 MG PO SCH (22:10)
[2023-11-22] MEDS: SERTRALINE 50 MG TAB PO SCH (22:36)
[2023-11-23] MEDS: IPRATROPIUM-ALBUTEROL 3 ML NEB INHALATION PRN (00:46)
[2023-11-23 09:30] LABS: HGB 11.4 g/dL (13.0-17.0); MCH 31.9 pg (27.0-32.0); MCHC 33.5 g/dL (32.0-37.0); MCV 95.2 FL (80.0-97.0); Mean Platelet Volume 10.5 FL (9.5-12.2); NRBC Per 100 WBC 0 X 10*3/uL (0.00-0.01); Platelet Count 138 X 10*3/uL (140-440); RBC 3.57 X 10*6/uL (4.40-5.60); RDW 11.8 % (11.5-14.5); WBC 9.31 X 10*3/uL (4.50-10.00)
[2023-11-23 09:53] LABS: ALT 14 U/L (10-49); AST 18 U/L (14-35); Albumin 3.7 g/dL (3.8-4.9); Albumin/Globulin Ratio 1.76 Ratio (1.60-3.17); Alkaline Phosphatase 51 U/L (41-126); BUN/Creat Ratio 26.38 Ratio (12.00-20.00); Blood Urea Nitrogen 21.1 mg/dL (9.0-27.0); Calcium 8.8 mg/dL (8.7-10.3); Carbon Dioxide 22.2 mmol/L (21.6-31.8); Chloride 107 mmol/L (96-109); Globulin 2.1 g/dL (1.6-3.3); Glucose 105 mg/dL (70-110); Potassium 3.4 mmol/L (3.5-5.5); Sodium 143 mmol/L (135-145); Total Bilirubin 0.4 mg/dL (0.3-1.2); Total Protein 5.8 g/dL (6.2-8.2)
[2023-11-23] MEDS ORDERED: RX INFO: IV CONTRAST WAS GIVEN 1 EACH MISC MISCELLANE PRN (10:59)
--- NOTE | 2023-11-23 11:23 | XR ---
EXAMINATION TYPE: XR chest 1V DATE OF EXAM: 11/23/2023 5:36 AM CLINICAL INDICATION:Male, 83 years old with history of Pneumonia follow-up; LOCATED WITHIN [facility] COMPARISON: 11/22/2023 and older TECHNIQUE: XR chest 1V Portable AP radiograph of the chest.. FINDINGS: Patchy opacity in the left midlung zone with partial obscuration of the cardiac margin shows no signi ficant interval change. No new or worsening infiltrate, sizable effusion, or evidence of pneumothorax . Cardiomediastinal silhouette appears stable. Heart does not seem grossly enlarged. Mildly tortuous ao rta. Multiple sternotomy wires. Osseous structures appear unchanged. Degenerative changes of the shoulders and spine again noted. IMPRESSION: Stable opacity in the left mid lung of uncertain etiology, likely pneumonia. Continued progress studi es may include CT for more detailed assessment.
--- NOTE | 2023-11-23 12:48 | CT ---
EXAMINATION TYPE: CT chest w con CT DLP: 410.8 mGycm, Automated exposure control for dose reduction was used. DATE OF EXAM: 11/23/2023 12:09 PM COMPARISON: 05/31/2014. CLINICAL INDICATION:Male, 83 years old with history of left pneumonia; PHH, LEFT SIDED PNEUMONIA TECHNIQUE: Multiple axial images were obtained through the chest. Sagittal and coronal reformats were created for review. Contrast used:100 mL of Isovue 300 with IV Contrast (None if empty) Oral contrast used: (None if empty) FINDINGS: LUNGS/ PLEURA: Scattered left-sided groundglass opacities and left basilar opacities. AIRWAY: Patent and unremarkable. HEART: Size within normal limits. MEDIASTINUM: No gross evidence of adenopathy. Large hiatal hernia. Moderate coronary artery calcifica tions. VASCULATURE: No aortic aneurysm. No filling defect within the visualized in the pulmonary arterial v asculature. MUSCULOSKELETAL: Mild disc degeneration changes are present throughout the thoracolumbar spine. Fernandez otomy wires are present. SOFT TISSUES/LYMPH NODES: Unremarkable. LOWER NECK: No significant findings. UPPER ABDOMEN: Bilateral simple appearing renal cysts. Scattered diverticula. IMPRESSION: 1. Left upper and lower lung ground glass opacities correlate for atypical pneumonia. 2. Moderate hiatal hernia.
--- NOTE | 2023-11-23 13:12 | P.PN ---
Subjective This is an 83-year-old male who presented to the emergency department with complaints of cough, and chills. Patient reports he woke up early this morning with severe chills unlike anything he has ever experienced before. He had been feeling fine prior yesterday. Chest x-ray on admission shows patchy density in the left midlung zone felt to reflect a left lower lobe infiltrate. He was seen and evaluated by pulmonology. He is on azithromycin and Rocephin. Blood cultures and sputum cultures have been ordered. Further medical history as no nicole below. 11/23/2023 This is a pleasant 83 years old male who presents with dyspnea Chest x-ray was showing opacity in the mid lung suspicious for pneumonia and patient was treated with ceftriaxone and Zithromax He is slightly worse oxygen requirement on admission 6 L currently he is on 4 L oxygen with acceptable saturation He is complaining from left side chest pain, felt like nonspecific in quality with no precipitated by coughing or deep breath. No hemoptysis. Most likely related to his left-sided pneumonia. He had CT of the chest today: Showing left upper and lower lung groundglass opa city correlate for atypical pneumonia with moderate hiatal hernia He has mild diarrhea but no vomiting or abdominal pain Objective - Vital Signs Vital signs: Vital Signs Temp 97.7 F 11/23/23 07:57 Pulse 92 11/23/23 12:24 Resp 20 11/23/23 12:24 BP 103/65 11/23/23 07:57 Pulse Ox 98 11/23/23 07:57 FiO2 Intake & Output 11/22/23 11/23/23 11/23/23 18:59 06:59 18:59 Weight 82 kg Other: Voiding Method Toilet Toilet Diaper # Voids 5 3 # Bowel Movements 5 - Exam -GENERAL: The patient is alert and oriented x3, not in any acute distress. Well developed, well nourished. Tired HEENT: Pupils are round and equally reacting to light. EOMI. No scleral icterus. No conjunctival pallor. Normocephalic, atraumatic. No pharyngeal erythema. No thyromegaly. CARDIOVASCULAR: S1 and S2 present. No murmurs, rubs, or gallops. -PULMONARY: Chest is clear to auscultation, no wheezing , no crackles. Tachypneic ABDOMEN: Soft, nontender, nondistended, normoactive bowel sounds. No palpable organomegaly. MUSCULOSKELETAL: No joint swelling or deformity. EXTREMITIES: No cyanosis, clubbing, or pedal edema. NEUROLOGICAL: Gross neurological examination did not reveal any focal deficits. SKIN: No rashes. no petechiae. - Labs CBC & Chem 7: 11/23/23 05:48 11/23/23 05:48 Labs: Abnormal Lab Results - Last 24 Hours (Table) 11/23/23 11/23/23 Range/Units 05:48 05:48 RBC 3.57 L (4.40-5.60) X 10*6/uL Hgb 11.4 L (13.0-17.0) g/dL Hct 34.0 L (39.6-50.0) % Plt Count 138 L (140-440) X 10*3/uL Potassium 3.4 L (3.5-5.5) mmol/L Anion Gap 13.80 H (4.00-12.00) mmol/L BUN/Creatinine Ratio 26.38 H (12.00-20.00) Ratio Total Protein 5.8 L (6.2-8.2) g/dL Albumin 3.7 L (3.8-4.9) g/dL Microbiology - Last 24 Hours (Table) 11/21/23 04:15 Blood Culture - Preliminary Blood 11/21/23 04:30 Blood Culture - Preliminary Blood Assessment and Plan Assessment: Left community-acquired pneumonia Acute on chronic hypoxic respiratory failure Acute COPD exacerbation Diarrhea most likely reactive secondary to pneumonia. No abdominal pain no vomiting Mild leukocytosis, improved Plan: Continue with ceftriaxone Pulmonary team consult Continue with oxygen Continue with bronchodilator Labs and medication were reviewed.. Continue same treatment. Continue with symptomatic treatment. Resume home medication. Monitor labs and vitals. DVT and GI prophylaxis. Further recommendations as per clinical course of the patient DVT prophylaxis: Subcutaneous heparin GI Prophylaxis: Pepcid PT/OT: Pending Prognosis is guarded
[2023-11-23] MEDS ORDERED: Potassium Replacement Protocol 1 EACH MISC MISCELLANE PRN (14:31)
[2023-11-23] MEDS: FAMOTIDINE 20 MG/2 ML VIAL IV SCH (14:44)
--- NOTE | 2023-11-23 15:55 | P.PN ---
Subjective Progress Note Date: 11/23/23 Patient is an 83-year-old white male with past medical history significant for asthma, coronary artery disease, previous CABG, CVA/TIA, hyperlipidemia, hypertension, BPH, neuropathy, LILLY without device, pneumonia, among other things. Patient presented to emergency room earlier this morning with a chief complaint of nonproductive congested cough, chills, shaking. Patient states that the symptoms began rather abruptly this morning at 0230. No sick contacts or recent travel. States that he was feeling fine yesterday, and even did some gardening. Denies any shortness of breath. Denies any chest pain. He was febrile on arrival to the emergency room, with a Tmax of 102 F. He did have 1 episode of associated nausea and vomiting while in the emergency room. Denies any abdominal pain. Denies any dysuria, urinary frequency, hematuria. Chest x- ray done on arrival shows a left-sided consolidation. CBC unremarkable. No leukocytosis. CMP on arrival unremarkable. Normal saline infusing at 130 MLS per hour. Lactic acid level 3.5. Negative for influenza, RSV, COVID. Patient is currently sitting up in bed, on room air, in no acute distress. He appears nontoxic. He was given Tylenol for his fever. Sinus tachycardia on bedside monitor. Blood pressure normotensive. Hemodynamically stable.On today's evaluation of 11/21/2023, the patient is being in consultation. The patient is having increased cough and congestion. I reviewed the chest x-ray and clearly there is a left sided pulmonary infiltrates, the patient has patchy density in the left midlung zone and in the left lower lobe consistent with underlying pneumonia. Clinically and hemodynamically stable. Unable to bring up much sputum. Currently on Rocephin and Zithromax. Patient is also on DuoNeb nebulized treatments [id number]. The patient is a non-smoker for now. The patient has been maintained on Symbicort. He is also taking a prednisone burst taper starting with 50 mg p.o. daily. He is known to have coronary disease with previous bypass surgery as mentioned. He has hypertension hyperlipidemia and BPH and obstructive sleep apnea without using his CPAP therapy at this point in time. He is also previous history of CVA/TIA. No active neurological deficits. No reported aspiration. On today's evaluation of 11/22/2023, patient is being seen for a follow-up. The patient is an 83-year-old male who is currently being treated for left lung pneumonia. This is likely community-acquired pneumonia. However, the procalcitonin level was low. Legionella urine antigen was negative. The viral screen was negative. The patient has some residual consolidation of the left perihilar area on today's chest x-ray. This could be also potentially chronic pleural, parenchymal density. Nevertheless, the patient continues to have cough congestion and wheeze. Remains on DuoNeb updrafts, remains on IV Rocephin and and Zithromax. Rest of the home medication have been all resumed. The blood culture has been negative thus far. The white cell count is at 12 with a hemoglobin 12.5 and a platelet count of 140. Electrolytes are all stable. LFTs are normal. UA is negative for any infection. On today's evaluation of 11/23/2023, the patient is being seen for a follow-up. The patient is complaining of ongoing shortness of breath and he does not think that he is improving. He was having diarrhea overnight and the patient reports a total of 5-6 episodes of diarrhea. Based on his ongoing respiratory difficulties, and based on the presence of a left lung consolidation, a CT scan of the chest was obtained today and the CAT scan of the chest showed a left upper and lower lobe groundglass pulmonary infiltrates consistent with atypical pneumonia and a moderate size hiatal hernia. No evidence of any mediastinal lymphadenopathy. No evidence of any significant pleural effusion. As such, the opacity that was seen in left cardiac border on the chest x-ray is consistent with a hiatal hernia. WBC count is 9.3 with a hemoglobin 11.4, BUN is 21 with a creatinine 0.8 and sodium levels at 143. The patient's procalcitonin level was 0.11. Legionella urine antigen was negative. For now, the patient is on 4 L of oxygen by nasal cannula with a pulse ox of 97%. Objective - Vital Signs Vital signs: Vital Signs Temp 97.7 F 11/23/23 07:57 Pulse 92 11/23/23 08:54 Resp 17 11/23/23 07:57 BP 103/65 11/23/23 07:57 Pulse Ox 98 11/23/23 07:57 FiO2 Intake & Output 11/22/23 11/23/23 11/23/23 18:59 06:59 18:59 Weight 82 kg Other: Voiding Method Toilet Toilet Diaper # Voids 5 3 # Bowel Movements 5 - Exam GENERAL EXAM: Alert, 83-year-old white male, comfortable in no apparent distress. The patient is currently on 4 L of oxygen by nasal cannula. No significant respiratory distress. HEAD: Normocephalic and atraumatic EYES: Normal reaction of pupils, equal size. NOSE: Clear with pink turbinates. THROAT: No erythema or exudates. NECK: No masses, no JVD. CHEST: No chest wall deformity. Old sternotomy incision, healed and approx imated LUNGS: Equal air entry with coarse rhonchi bilaterally, greater on the left. No conversational dyspnea or accessory muscle use while at rest. Frequent congested cough noted. CVS: S1 and S2 normal with no audible murmur, regular rhythm. No extra heart sounds ABDOMEN: No hepatosplenomegaly, active bowel sounds, no guarding or rigidity. Small nonreducible periumbilical hernia. SPINE: No scoliosis or deformity SKIN: No rashes CENTRAL NERVOUS SYSTEM: No focal deficits, tone is normal in all 4 extremities. EXTREMITIES: There is no peripheral edema, clubbing, or cyanosis. Peripheral pulses are intact. - Labs CBC & Chem 7: 11/23/23 05:48 11/23/23 05:48 Labs: Abnormal Lab Results - Last 24 Hours (Table) 11/23/23 11/23/23 Range/Units 05:48 05:48 RBC 3.57 L (4.40-5.60) X 10*6/uL Hgb 11.4 L (13.0-17.0) g/dL Hct 34.0 L (39.6-50.0) % Plt Count 138 L (140-440) X 10*3/uL Potassium 3.4 L (3.5-5.5) mmol/L Anion Gap 13.80 H (4.00-12.00) mmol/L BUN/Creatinine Ratio 26.38 H (12.00-20.00) Ratio Total Protein 5.8 L (6.2-8.2) g/dL Albumin 3.7 L (3.8-4.9) g/dL Microbiology - Last 24 Hours (Table) 11/21/23 04:15 Blood Culture - Preliminary Blood 11/21/23 04:30 Blood Culture - Preliminary Blood Assessment and Plan Plan: Left-sided community-acquired pneumonia, likely bacterial in nature. Possibility of aspiration into the left lung in the setting of a large hiatal hernia cannot be completely excluded. CAT scan of the chest shows limited groun dglass changes in the left upper lobe and left lower lobe. Also consider atypical pneumonia. The viral screen including RSV, COVID-19 and RSV were all negative. Moderate-sized left-sided hiatal hernia Acute hypoxic respiratory failure currently on 4 L of oxygen by nasal cannula Acute dyspnea, secondary to above History of chronic bronchial asthma, stable Coronary artery disease, status post history of CABG History of hyperlipidemia History of hypertension History of CVA/TIA History of BPH Bilateral lower extremity neuropathy LILLY without device Diarrhea Plan: Continues to be symptomatic. Continue IV Rocephin Procalcitonin level has been low Cultures are all negative thus far Legionella urine antigens negative Check stool for C. difficile if there is any ongoing diarrhea Titrate oxygen flow to maintain saturation above 90% Continue empiric antibiotics for community-acquired pneumonia, currently on a Rocephin Blood cultures are pending, unable to bring up any sputum at this point in time Continue DuoNebs, Symbicort inhaler, and prednisone taper Will repeat another chest x-ray in the morning Incentive spirometer We will continue to follow
[2023-11-23] MEDS: HEPARIN SODIUM,PORCINE 5,000 UNIT/ML 1 ML VIAL SQ SCH (21:05)
[2023-11-24] MEDS ORDERED: HYDROcodone/APAP 5-325MG 1 EACH TAB PO PRN (01:38)
[2023-11-24] MEDS: KETOROLAC 15 MG/ML 1 ML VIAL IVP PRN (01:48)
[2023-11-24] MEDS: HYDROCORTISONE 1% CREAM 30 GM TUBE TOPICAL PRN (03:41)
[2023-11-24 07:57] LABS: African American GFR (CKD) >90 (>60 ml/min/1.73 sqM); Anion Gap 8 mmol/L; Blood Urea Nitrogen 18 mg/dL (9-20); Calcium 8.6 mg/dL (8.4-10.2); Carbon Dioxide 24 mmol/L (22-30); Chloride 109 mmol/L (98-107); Glucose 96 mg/dL (74-99); Magnesium 1.8 mg/dL (1.6-2.3); Non-African American GFR(CKD) 84 (>60 ml/min/1.73 sqM); Potassium 3.6 mmol/L (3.5-5.1); Sodium 141 mmol/L (137-145)
--- NOTE | 2023-11-24 15:06 | P.PN ---
Subjective Progress Note Date: 11/24/23 Patient is an 83-year-old white male with past medical history significant for asthma, coronary artery disease, previous CABG, CVA/TIA, hyperlipidemia, hypertension, BPH, neuropathy, LILLY without device, pneumonia, among other things. Patient presented to emergency room earlier this morning with a chief complaint of nonproductive congested cough, chills, shaking. Patient states that the symptoms began rather abruptly this morning at 0230. No sick contacts or recent travel. States that he was feeling fine yesterday, and even did some gardening. Denies any shortness of breath. Denies any chest pain. He was febrile on arrival to the emergency room, with a Tmax of 102 F. He did have 1 episode of associated nausea and vomiting while in the emergency room. Denies any abdominal pain. Denies any dysuria, urinary frequency, hematuria. Chest x- ray done on arrival shows a left-sided consolidation. CBC unremarkable. No leukocytosis. CMP on arrival unremarkable. Normal saline infusing at 130 MLS per hour. Lactic acid level 3.5. Negative for influenza, RSV, COVID. Patient is currently sitting up in bed, on room air, in no acute distress. He appears nontoxic. He was given Tylenol for his fever. Sinus tachycardia on bedside monitor. Blood pressure normotensive. Hemodynamically stable.On today's evaluation of 11/21/2023, the patient is being in consultation. The patient is having increased cough and congestion. I reviewed the chest x-ray and clearly there is a left sided pulmonary infiltrates, the patient has patchy density in the left midlung zone and in the left lower lobe consistent with underlying pneumonia. Clinically and hemodynamically stable. Unable to bring up much sputum. Currently on Rocephin and Zithromax. Patient is also on DuoNeb nebulized treatments [id number]. The patient is a non-smoker for now. The patient has been maintained on Symbicort. He is also taking a prednisone burst taper starting with 50 mg p.o. daily. He is known to have coronary disease with previous bypass surgery as mentioned. He has hypertension hyperlipidemia and BPH and obstructive sleep apnea without using his CPAP therapy at this point in time. He is also previous history of CVA/TIA. No active neurological deficits. No reported aspiration. On today's evaluation of 11/22/2023, patient is being seen for a follow-up. The patient is an 83-year-old male who is currently being treated for left lung pneumonia. This is likely community-acquired pneumonia. However, the procalcitonin level was low. Legionella urine antigen was negative. The viral screen was negative. The patient has some residual consolidation of the left perihilar area on today's chest x-ray. This could be also potentially chronic pleural, parenchymal density. Nevertheless, the patient continues to have cough congestion and wheeze. Remains on DuoNeb updrafts, remains on IV Rocephin and and Zithromax. Rest of the home medication have been all resumed. The blood culture has been negative thus far. The white cell count is at 12 with a hemoglobin 12.5 and a platelet count of 140. Electrolytes are all stable. LFTs are normal. UA is negative for any infection. On today's evaluation of 11/23/2023, the patient is being seen for a follow-up. The patient is complaining of ongoing shortness of breath and he does not think that he is improving. He was having diarrhea overnight and the patient reports a total of 5-6 episodes of diarrhea. Based on his ongoing respiratory difficulties, and based on the presence of a left lung consolidation, a CT scan of the chest was obtained today and the CAT scan of the chest showed a left upper and lower lobe groundglass pulmonary infiltrates consistent with atypical pneumonia and a moderate size hiatal hernia. No evidence of any mediastinal lymphadenopathy. No evidence of any significant pleural effusion. As such, the opacity that was seen in left cardiac border on the chest x-ray is consistent with a hiatal hernia. WBC count is 9.3 with a hemoglobin 11.4, BUN is 21 with a creatinine 0.8 and sodium levels at 143. The patient's procalcitonin level was 0.11. Legionella urine antigen was negative. For now, the patient is on 4 L of oxygen by nasal cannula with a pulse ox of 97%. On today's evaluation of 11/24/2023, I am seeing the patient for a follow-up. The patient is doing well. No specific complaints. Less short of breath compared to yesterday. Due to his ongoing shortness of breath, CAT scan of the chest was done yesterday and the patient was found to have some limited groundglass changes in the left lung along with a moderate-sized left-sided hiatal hernia. Remains on IV Rocephin. No active diarrhea. The labs from today shows a BUN of 18 with a creatinine of 0.7 and sodium levels at 141. He is currently on 3 L of oxygen by nasal cannula with a pulse ox of 98%. Resting comfortably in bed. Objective - Vital Signs Vital signs: Vital Signs Temp 97.4 F L 11/24/23 07:29 Pulse 88 11/24/23 08:44 Resp 17 11/24/23 07:29 BP 134/83 11/24/23 07:29 Pulse Ox 98 11/24/23 08:33 FiO2 Intake & Output 11/23/23 11/24/23 11/24/23 18:59 06:59 18:59 Intake Total 750 Balance 750 Weight 77.5 kg Intake: Oral 750 Other: Voiding Method Toilet Urinal Bedside Commode Diaper Urinal Incontinent Diaper Incontinent # Voids 1 1 1 # Bowel Movements 1 1 - Exam GENERAL EXAM: Alert, 83-year-old white male, comfortable in no apparent distress. The patient is currently on 4 L of oxygen by nasal cannula. No significant respiratory distress. HEAD: Normocephalic and atraumatic EYES: Normal reaction of pupils, equal size. NOSE: Clear with pink turbinates. THROAT: No erythema or exudates. NECK: No masses, no JVD. CHEST: No chest wall deformity. Old sternotomy incision, healed and approximated LUNGS: Equal air entry with coarse rhonchi bilaterally, greater on the left. No conversational dyspnea or accessory muscle use while at rest. Frequent congested cough noted. CVS: S1 and S2 normal with no audible murmur, regular rhythm. No extra heart sounds ABDOMEN: No hepatosplenomegaly, active bowel sounds, no guarding or rigidity. Small nonreducible periumbilical hernia. SPINE: No scoliosis or deformity SKIN: No rashes CENTRAL NERVOUS SYSTEM: No focal deficits, tone is normal in all 4 extremities. EXTREMITIES: There is no peripheral edema, clubbing, or cyanosis. Peripheral pulses are intact. - Labs CBC & Chem 7: 11/23/23 05:48 11/24/23 06:40 Labs: Abnormal Lab Results - Last 24 Hours (Table) 11/24/23 Range/Units 06:40 Chloride 109 H (98-107) mmol/L Microbiology - Last 24 Hours (Table) 11/21/23 04:15 Blood Culture - Preliminary Blood 11/21/23 04:30 Blood Culture - Preliminary Blood Assessment and Plan Plan: Left-sided community-acquired pneumonia, likely bacterial in nature. Possibility of aspiration into the left lung in the setting of a large hiatal hernia cannot be completely excluded. CAT scan of the chest shows limited groundglass changes in the left upper lobe and left lower lobe. Also consider atypical pneumonia. The viral screen including RSV, COVID-19 and RSV were all negative. CAT scan of the chest was noted. The patient is clinically improving and is on 3 L of O2 nasal cannula with adequate oxygenation at this point in time. Remains on IV Rocephin. Moderate-sized left-sided hiatal hernia Acute hypoxic respiratory failure currently on 3 L of oxygen by nasal cannula Acute dyspnea, secondary to above History of chronic bronchial asthma, stable Coronary artery disease, status post history of CABG History of hyperlipidemia History of hypertension History of CVA/TIA History of BPH Bilateral lower extremity neuropathy LILLY without device Diarrhea, subsided Plan: clinically improved compared to yesterday and the patient is obvious less short of breath. Continue IV Rocephin Procalcitonin level has been low Cultures are all negative thus far Legionella urine antigens negative No active diarrhea on today's evaluation Titrate oxygen flow to maintain saturation above 90% Continue empiric antibiotics for community-acquired pneumonia, currently on a Rocephin Blood cultures are pending, unable to bring up any sputum at this point in time Continue DuoNebs, Symbicort inhaler, and prednisone taper Will repeat another chest x-ray in the morning Incentive spirometer We will continue to follow
[2023-11-24] MEDS: FAMOTIDINE 20 MG TAB PO SCH (19:55)
--- NOTE | 2023-11-25 07:20 | P.PN ---
Subjective This is an 83-year-old male who presented to the emergency department with complaints of cough, and chills. Patient reports he woke up early this morning with severe chills unlike anything he has ever experienced before. He had been feeling fine prior yesterday. Chest x-ray on admission shows patchy density in the left midlung zone felt to reflect a left lower lobe infiltrate. He was seen and evaluated by pulmonology. He is on azithromycin and Rocephin. Blood cultures and sputum cultures have been ordered. Further medical history as no nicole below. 11/23/2023 This is a pleasant 83 years old male who presents with dyspnea Chest x-ray was showing opacity in the mid lung suspicious for pneumonia and patient was treated with ceftriaxone and Zithromax He is slightly worse oxygen requirement on admission 6 L currently he is on 4 L oxygen with acceptable saturation He is complaining from left side chest pain, felt like nonspecific in quality with no precipitated by coughing or deep breath. No hemoptysis. Most likely related to his left-sided pneumonia. He had CT of the chest today: Showing left upper and lower lung groundglass [place] correlate for atypical pneumonia with moderate hiatal hernia He has mild diarrhea but no vomiting or abdominal pain 11/24/2023 Patient reading is better He did not eat much of the breakfast but felt better after lunchtime No diarrhea Hemodynamically stable Remains on Rocephin and Zithromax and oral prednisone We will discontinue IV fluid normal saline 30 mL tomorrow morning Objective - Vital Signs Vital signs: Vital Signs Temp 97.7 F 11/24/23 15:18 Pulse 88 11/24/23 15:54 Resp 16 11/24/23 15:18 BP 122/80 11/24/23 15:18 Pulse Ox 97 11/24/23 15:18 FiO2 Intake & Output 11/23/23 11/24/23 11/24/23 18:59 06:59 18:59 Intake Total 750 Output Total 250 Balance 750 -250 Weight 77.5 kg Intake: Oral 750 Output: Urine 250 Other: Voiding Method Toilet Urinal Bedside Commode Diaper Urinal Incontinent Diaper Incontinent # Voids 1 1 1 # Bowel Movements 1 1 - Exam -GENERAL: The patient is alert and oriented x3, not in any acute distress. Well developed, well nourished. Tired HEENT: Pupils are round and equally reacting to light. EOMI. No scleral icterus. No conjunctival pallor. Normocephalic, atraumatic. No pharyngeal erythema. No thyromegaly. CARDIOVASCULAR: S1 and S2 present. No murmurs, rubs, or gallops. -PULMONARY: Chest is clear to auscultation, no wheezing , no crackles. Tachypneic ABDOMEN: Soft, nontender, nondistended, normoactive bowel sounds. No palpable organomegaly. MUSCULOSKELETAL: No joint swelling or deformity. EXTREMITIES: No cyanosis, clubbing, or pedal edema. NEUROLOGICAL: Gross neurological examination did not reveal any focal deficits. SKIN: No rashes. no petechiae. - Labs CBC & Chem 7: 11/23/23 05:48 11/24/23 06:40 Labs: Abnormal Lab Results - Last 24 Hours (Table) 11/24/23 Range/Units 06:40 Chloride 109 H (98-107) mmol/L Microbiology - Last 24 Hours (Table) 11/21/23 04:15 Blood Culture - Preliminary Blood 11/21/23 04:30 Blood Culture - Preliminary Blood Assessment and Plan Assessment: Left community-acquired pneumonia Acute on chronic hypoxic respiratory failure Acute COPD exacerbation Diarrhea most likely reactive secondary to pneumonia. No abdominal pain no vo miting Mild leukocytosis, improved Plan: Continue with ceftriaxone Pulmonary team consult Continue with oxygen Continue with bronchodilator Labs and medication were reviewed.. Continue same treatment. Continue with symptomatic treatment. Resume home medication. Monitor labs and vitals. DVT and GI prophylaxis. Further recommendations as per clinical course of the [facility] DVT prophylaxis: Subcutaneous heparin GI Prophylaxis: Pepcid PT/OT: Pending Prognosis is guarded
[2023-11-25 08:37] LABS: Basophils # (A) 0.06 X 10*3/uL (0.00-0.10); Eosinophils # (A) 0.23 X 10*3/uL (0.04-0.35); Eosinophils % (A) 3.7 %; HCT 33.6 % (39.6-50.0); HGB 11.3 g/dL (13.0-17.0); Lymphocytes # (A) 1.89 X 10*3/uL (0.90-5.00); Lymphocytes % (A) 30.2 %; MCH 32.8 pg (27.0-32.0); MCHC 33.6 g/dL (32.0-37.0); MCV 97.4 FL (80.0-97.0); Mean Platelet Volume 10.9 FL (9.5-12.2); Monocytes # (A) 0.55 X 10*3/uL (0.20-1.00); Monocytes % (A) 8.8 %; NRBC Per 100 WBC 0 X 10*3/uL (0.00-0.01); Neutrophils % (A) 54.4 %; Platelet Count 147 X 10*3/uL (140-440); RBC 3.45 X 10*6/uL (4.40-5.60); RDW 11.8 % (11.5-14.5); WBC 6.25 X 10*3/uL (4.50-10.00)
--- NOTE | 2023-11-25 08:53 | P.PN ---
Subjective Progress Note Date: 11/25/23 Principal diagnosis: Pneumonia This is an 83-year-old male who presented to the emergency department with complaints of cough and chills and was found to have a left lower lobe inf iltrate. Patient has been on Rocephin and oral prednisone. He has been seen and evaluated by pulmonology. Patient is currently on 3 L of oxygen via nasal cannula with oxygen saturation at 98 to 99%. He is tolerating diet. He is still somewhat short of breath during our conversation. Objective - Vital Signs Vital signs: Vital Signs Temp 97.4 F L 11/25/23 07:34 Pulse 73 11/25/23 07:34 Resp 17 11/25/23 07:34 BP 136/89 11/25/23 07:34 Pulse Ox 99 11/25/23 07:34 FiO2 Intake & Output 11/24/23 11/25/23 11/25/23 18:59 06:59 18:59 Intake Total 480 Output Total 250 Balance -250 480 Weight 77.5 kg Intake: Oral 480 Output: Urine 250 Other: Voiding Method Urinal # Voids 1 # Bowel Movements 1 - Constitutional General appearance: Present: cooperative, no acute distress - EENT Eyes: Present: PERRLA - Neck Neck: Present: normal ROM. Absent: lymphadenopathy, rigidity - Respiratory Respiratory: bilateral: rhonchi (Worse on the left) - Cardiovascular Rhythm: regular Heart sounds: normal: S1, S2 - Gastrointestinal General gastrointestinal: Present: soft. Absent: tenderness - Integumentary Integumentary: Present: normal, normal turgor - Musculoskeletal Musculoskeletal: Present: generalized weakness - Psychiatric Psychiatric: Present: A&O x's 3 - Labs CBC & Chem 7: 11/25/23 04:32 11/24/23 06:40 Labs: Abnormal Lab Results - Last 24 Hours (Table) 11/25/23 Range/Units 04:32 RBC 3.45 L (4.40-5.60) X 10*6/uL Hgb 11.3 L (13.0-17.0) g/dL Hct 33.6 L (39.6-50.0) % MCV 97.4 H (80.0-97.0) FL MCH 32.8 H (27.0-32.0) pg Immature Gran # 0.12 H (0.00-0.04) X 10*3/uL Microbiology - Last 24 Hours (Table) 11/21/23 04:15 Blood Culture - Preliminary Blood 11/21/23 04:30 Blood Culture - Preliminary Blood Assessment and Plan (1) Community acquired pneumonia Current Visit: Yes Status: Acute Code(s): J18.9 - PNEUMONIA, UNSPECIFIED ORGANISM SNOMED Code(s): 844384724 (2) CAD (coronary artery disease) Current Visit: No Status: Acute Code(s): I25.10 - ATHSCL HEART DISEASE OF [place] T[place] CORONARY ARTERY W/O ANG PCTRS SNOMED Code(s): 26978009 (3) Hyperlipemia Current Visit: No Status: Acute Code(s): E78.5 - HYPERLIPIDEMIA, UNSPECIFIED SNOMED Code(s): 39373383 (4) Hypertension Current Visit: Yes Status: Acute Code(s): I10 - ESSENTIAL (PRIMARY) HYPERTENSION SNOMED Code(s): 57727542 (5) Arthritis Current Visit: Yes Status: Acute Code(s): M19.90 - UNSPECIFIED OSTEOARTHRITIS, UNSPECIFIED SITE SNOMED Code(s): 5098184 Plan: Trial of weaning oxygen. Continue IV antibiotics and breathing treatments. Check CBC and CMP in the morning. Patient seen and evaluated by nurse practitioner, physician in agreement with plan
--- NOTE | 2023-11-25 16:09 | P.PN ---
Subjective Progress Note Date: 11/25/23 Patient is an 83-year-old white male with past medical history significant for asthma, coronary artery disease, previous CABG, CVA/TIA, hyperlipidemia, hypertension, BPH, neuropathy, LILLY without device, pneumonia, among other things. Patient presented to emergency room earlier this morning with a chief c omplaint of nonproductive congested cough, chills, shaking. Patient states that the symptoms began rather abruptly this morning at 0230. No sick contacts or recent travel. States that he was feeling fine yesterday, and even did some gardening. Denies any shortness of breath. Denies any chest pain. He was febrile on arrival to the emergency room, with a Tmax of 102 F. He did have 1 episode of associated nausea and vomiting while in the emergency room. Denies any abdominal pain. Denies any dysuria, urinary frequency, hematuria. Chest x- ray done on arrival shows a left-sided consolidation. CBC unremarkable. No leukocytosis. CMP on arrival unremarkable. Normal saline infusing at 130 MLS per hour. Lactic acid level 3.5. Negative for influenza, RSV, COVID. Patient is currently sitting up in bed, on room air, in no acute distress. He appears nontoxic. He was given Tylenol for his fever. Sinus tachycardia on bedside monitor. Blood pressure normotensive. Hemodynamically stable.On today's evaluation of 11/21/2023, the patient is being in consultation. The patient is having increased cough and congestion. I reviewed the chest x-ray and clearly there is a left sided pulmonary infiltrates, the patient has patchy density in the left midlung zone and in the left lower lobe consistent with underlying pneumonia. Clinically and hemodynamically stable. Unable to bring up much sputum. Currently on Rocephin and Zithromax. Patient is also on DuoNeb nebulized treatments [id number]. The patient is a non-smoker for now. The patient has been maintained on Symbicort. He is also taking a prednisone burst taper starting with 50 mg p.o. daily. He is known to have coronary disease with previous bypass surgery as mentioned. He has hypertension hyperlipidemia and BPH and obstructive sleep apnea without using his CPAP therapy at this point in time. He is also previous history of CVA/TIA. No active neurological deficits. No reported aspiration. On today's evaluation of 11/22/2023, patient is being seen for a follow-up. The patient is an 83-year-old male who is currently being treated for left lung pneumonia. This is likely community-acquired pneumonia. However, the procalcitonin level was low. Legionella urine antigen was negative. The viral screen was negative. The patient has some residual consolidation of the left perihilar area on today's chest x-ray. This could be also potentially chronic pleural, parenchymal density. Nevertheless, the patient continues to have cough congestion and wheeze. Remains on DuoNeb updrafts, remains on IV Rocephin and and Zithromax. Rest of the home medication have been all resumed. The blood culture has been negative thus far. The white cell count is at 12 with a hemoglobin 12.5 and a platelet count of 140. Electrolytes are all stable. LFTs are normal. UA is negative for any infection. On today's evaluation of 11/23/2023, the patient is being seen for a follow-up. The patient is complaining of ongoing shortness of breath and he does not think that he is improving. He was having diarrhea overnight and the patient reports a total of 5-6 episodes of diarrhea. Based on his ongoing respiratory difficulties, and based on the presence of a left lung consolidation, a CT scan of the chest was obtained today and the CAT scan of the chest showed a left upper and lower lobe groundglass pulmonary infiltrates consistent with atypical pneumonia and a moderate size hiatal hernia. No evidence of any mediastinal lymphadenopathy. No evidence of any significant pleural effusion. As such, the opacity that was seen in left cardiac border on the chest x-ray is consistent with a hiatal hernia. WBC count is 9.3 with a hemoglobin 11.4, BUN is 21 with a creatinine 0.8 and sodium levels at 143. The patient's procalcitonin level was 0.11. Legionella urine antigen was negative. For now, the patient is on 4 L of oxygen by nasal cannula with a pulse ox of 97%. On today's evaluation of 11/24/2023, I am seeing the patient for a follow-up. The patient is doing well. No specific complaints. Less short of breath compared to yesterday. Due to his ongoing shortness of breath, CAT scan of the chest was done yesterday and the patient was found to have some limited groundglass changes in the left lung along with a moderate-sized left-sided hiatal hernia. Remains on IV Rocephin. No active diarrhea. The labs from today shows a BUN of 18 with a creatinine of 0.7 and sodium levels at 141. He is currently on 3 L of oxygen by nasal cannula with a pulse ox of 98%. Resting comfortably in bed. The patient is seen today November 25, 2023 in follow-up on the regular medical floor. He is currently resting comfortably in bed. Awake and alert in no acute distress. Maintaining O2 saturations in the 90s on 2 L/min per nasal cannula. He is feeling a bit better. He is still dyspneic with conversation. Dyspneic with minimal exertion. He is can continued on ceftriaxone. Continued on bronchodilators and prednisone taper. Heparin for DVT prophylaxis. Remains on oral diuretics. White count 6.2. Hemoglobin 11.3. Platelets 147. Objective - Vital Signs Vital signs: Vital Signs Temp 97.4 F L 11/25/23 07:34 Pulse 88 11/25/23 13:00 Resp 17 11/25/23 09:00 BP 136/89 11/25/23 07:34 Pulse Ox 99 11/25/23 07:34 FiO2 Intake & Output 11/24/23 11/25/23 11/25/23 18:59 06:59 18:59 Intake Total 480 Output Total 250 Balance -250 480 Weight 77.5 kg Intake: Oral 480 Output: Urine 250 Other: Voiding Method Urinal Urinal # Voids 1 1 # Bowel Movements 1 - Exam GENERAL EXAM: Alert, 83-year-old male, comfortable in no apparent distress. On 2 L of oxygen by nasal cannula. No significant respiratory distress. HEAD: Normocephalic and atraumatic EYES: Normal reaction of pupils, equal size. NOSE: Clear with pink turbinates. THROAT: No erythema or exudates. NECK: No masses, no JVD. CHEST: No chest wall deformity. Old sternotomy incision, healed and approximated LUNGS: Equal air entry with coarse rhonchi bilaterally, greater on the left. CVS: S1 and S2 normal with no audible murmur, regular rhythm. No extra heart sounds ABDOMEN: No hepatosplenomegaly, active bowel sounds, no guarding or rigidity. Small nonreducible periumbilical hernia. SPINE: No scoliosis or deformity SKIN: No rashes CENTRAL NERVOUS SYSTEM: No focal deficits, tone is normal in all 4 extremities. EXTREMITIES: There is no peripheral edema, clubbing, or cyanosis. Peripheral pulses are intact. - Labs CBC & Chem 7: 11/25/23 04:32 11/24/23 06:40 Labs: Abnormal Lab Results - Last 24 Hours (Table) 11/25/23 Range/Units 04:32 RBC 3.45 L (4.40-5.60) X 10*6/uL Hgb 11.3 L (13.0-17.0) g/dL Hct 33.6 L (39.6-50.0) % MCV 97.4 H (80.0-97.0) FL MCH 32.8 H (27.0-32.0) pg Immature Gran # 0.12 H (0.00-0.04) X 10*3/uL Microbiology - Last 24 Hours (Table) 11/21/23 04:15 Blood Culture - Preliminary Blood 11/21/23 04:30 Blood Culture - Preliminary Blood Assessment and Plan Assessment: Left-sided community-acquired pneumonia, likely bacterial in nature. Possibility of aspiration into the left lung in the setting of a large hiatal hernia cannot be completely excluded. CAT scan of the chest shows limited groundglass changes in the left upper lobe and left lower lobe. Also consider atypical pneumonia. The viral screen including RSV, COVID-19 and RSV were all negative. CAT scan of the chest was noted. The patient is clinically improving and is on 3 L of O2 nasal cannula with adequate oxygenation at this point in time. Remains on IV Rocephin. Moderate-sized left-sided hiatal hernia Acute hypoxic respiratory failure currently on 2 L of oxygen by nasal cannula Acute dyspnea, secondary to above History of chronic bronchial asthma, stable Coronary artery disease, status post history of CABG History of hyperlipidemia History of hypertension History of CVA/TIA History of BPH Bilateral lower extremity neuropathy LILLY without device Diarrhea, subsided Plan: The patient was seen and evaluated Labs and medications reviewed Continue the current treatment plan Titrate down the FiO2 as tolerated Increase his activity as tolerated Follow-up chest x-ray in a.m. Will continue to follow I have personally seen and examined the patient, performed the documentation and the assessment and plan as written. Number of minutes spent on the visit: 10.
[2023-11-26 07:02] LABS: HCT 37.2 % (39.0-53.0); MCH 33.5 pg (25.0-35.0); MCHC 33.2 g/dL (31.0-37.0); MCV 100.8 fL (80.0-100.0); Mean Platelet Volume 8.5; Platelet Count 141 k/uL (150-450); RBC 3.69 m/uL (4.30-5.90); WBC 6.7 k/uL (3.8-10.6)
[2023-11-26 07:04] LABS: HGB 12.3 gm/dL (13.0-17.5)
--- NOTE | 2023-11-26 08:43 | P.PN ---
Subjective Progress Note Date: 11/26/23 Principal diagnosis: Pneumonia This is an 83-year-old male who presented to the emergency department with complaints of cough and chills and was found to have a left lower lobe inf iltrate. Patient has been on Rocephin and oral prednisone. He has been seen and evaluated by pulmonology. Patient is currently on 3 L of oxygen via nasal cannula with oxygen saturation at 98 to 99%. He is tolerating diet. He is still somewhat short of breath during our conversation. 11/26/2023 Patient seen and evaluated sitting up in bed. He is still complaining of a cough and some shortness of breath. He is tolerating diet. He has been up to sit in chair at bedside. Repeat chest x-ray ordered for this morning. Objective - Vital Signs Vital signs: Vital Signs Temp 98.0 F 11/26/23 07:07 Pulse 82 11/26/23 08:38 Resp 18 11/26/23 07:07 BP 134/83 11/26/23 07:07 Pulse Ox 97 11/26/23 07:07 FiO2 Intake & Output 11/25/23 11/26/23 11/26/23 18:59 06:59 18:59 Output Total 325 325 Balance -325 -325 Weight 77.5 kg Output: Urine 325 325 Other: Voiding Method Urinal Urinal # Voids 1 4 - Constitutional General appearance: Present: cooperative, no acute distress - EENT Eyes: Present: PERRLA - Neck Neck: Present: normal ROM. Absent: lymphadenopathy, rigidity - Respiratory Respiratory: bilateral: rhonchi (worse on the left ) - Cardiovascular Rhythm: regular Heart sounds: normal: S1, S2 - Gastrointestinal General gastrointestinal: Present: soft. Absent: tenderness - Integumentary Integumentary: Present: normal, normal turgor - Musculoskeletal Musculoskeletal: Present: generalized weakness - Psychiatric Psychiatric: Present: A&O x's 3 - Labs CBC & Chem 7: 11/26/23 05:57 11/24/23 06:40 Labs: Abnormal Lab Results - Last 24 Hours (Table) 11/26/23 Range/Units 05:57 RBC 3.69 L (4.30-5.90) m/uL Hgb 12.3 L D (13.0-17.5) gm/dL Hct 37.2 L (39.0-53.0) % MCV 100.8 H (80.0-100.0) fL Plt Count 141 L (150-450) k/uL Assessment and Plan (1) Community acquired pneumonia Current Visit: Yes Status: Acute Code(s): J18.9 - PNEUMONIA, UNSPECIFIED ORGANISM SNOMED Code(s): 786221352 (2) CAD (coronary artery disease) Current Visit: No Status: Acute Code(s): I25.10 - ATHSCL HEART DISEASE OF [place] CORONARY ARTERY W/O ANG PCTRS SNOMED Code(s): 76656766 (3) Hyperlipemia Current Visit: No Status: Acute Code(s): E78.5 - HYPERLIPIDEMIA, UNSPECIFIED SNOMED Code(s): 68761945 (4) Hypertension Current Visit: Yes Status: Acute Code(s): I10 - ESSENTIAL (PRIMARY) HYPERTENSION SNOMED Code(s): 68504039 (5) Arthritis Current Visit: Yes Status: Acute Code(s): M19.90 - UNSPECIFIED OSTEOARTHRITIS, UNSPECIFIED SITE SNOMED Code(s): 0911724 Plan: Trial of weaning oxygen. Continue IV antibiotics and breathing treatments. Check CBC and CMP in the morning. Await results from chest x-ray Possible discharge in the next 24 to 48 hours Patient seen and evaluated by nurse practitioner, physician in agreement with plan
[2023-11-26 09:14] LABS: ALT 28 U/L (10-49); AST 28 U/L (14-35); Albumin 3.6 g/dL (3.8-4.9); Albumin/Globulin Ratio 1.64 Ratio (1.60-3.17); Alkaline Phosphatase 49 U/L (41-126); BUN/Creat Ratio 25.88 Ratio (12.00-20.00); Blood Urea Nitrogen 20.7 mg/dL (9.0-27.0); Calcium 8.8 mg/dL (8.7-10.3); Carbon Dioxide 24.2 mmol/L (21.6-31.8); Chloride 107 mmol/L (96-109); Globulin 2.2 g/dL (1.6-3.3); Glucose 101 mg/dL (70-110); Sodium 143 mmol/L (135-145); Total Bilirubin <0.2 mg/dL (0.3-1.2); Total Protein 5.8 g/dL (6.2-8.2)
--- NOTE | 2023-11-26 14:03 | P.PN ---
Subjective Progress Note Date: 11/26/23 Patient is an 83-year-old white male with past medical history significant for asthma, coronary artery disease, previous CABG, CVA/TIA, hyperlipidemia, hypertension, BPH, neuropathy, LILLY without device, pneumonia, among other things. Patient presented to emergency room earlier this morning with a chief c omplaint of nonproductive congested cough, chills, shaking. Patient states that the symptoms began rather abruptly this morning at 0230. No sick contacts or recent travel. States that he was feeling fine yesterday, and even did some gardening. Denies any shortness of breath. Denies any chest pain. He was febrile on arrival to the emergency room, with a Tmax of 102 F. He did have 1 episode of associated nausea and vomiting while in the emergency room. Denies any abdominal pain. Denies any dysuria, urinary frequency, hematuria. Chest x- ray done on arrival shows a left-sided consolidation. CBC unremarkable. No leukocytosis. CMP on arrival unremarkable. Normal saline infusing at 130 MLS per hour. Lactic acid level 3.5. Negative for influenza, RSV, COVID. Patient is currently sitting up in bed, on room air, in no acute distress. He appears nontoxic. He was given Tylenol for his fever. Sinus tachycardia on bedside monitor. Blood pressure normotensive. Hemodynamically stable.On today's evaluation of 11/21/2023, the patient is being in consultation. The patient is having increased cough and congestion. I reviewed the chest x-ray and clearly there is a left sided pulmonary infiltrates, the patient has patchy density in the left midlung zone and in the left lower lobe consistent with underlying pneumonia. Clinically and hemodynamically stable. Unable to bring up much sputum. Currently on Rocephin and Zithromax. Patient is also on DuoNeb nebulized treatments [id number]. The patient is a non-smoker for now. The patient has been maintained on Symbicort. He is also taking a prednisone burst taper starting with 50 mg p.o. daily. He is known to have coronary disease with previous bypass surgery as mentioned. He has hypertension hyperlipidemia and BPH and obstructive sleep apnea without using his CPAP therapy at this point in time. He is also previous history of CVA/TIA. No active neurological deficits. No reported aspiration. On today's evaluation of 11/22/2023, patient is being seen for a follow-up. The patient is an 83-year-old male who is currently being treated for left lung pneumonia. This is likely community-acquired pneumonia. However, the procalcitonin level was low. Legionella urine antigen was negative. The viral screen was negative. The patient has some residual consolidation of the left perihilar area on today's chest x-ray. This could be also potentially chronic pleural, parenchymal density. Nevertheless, the patient continues to have cough congestion and wheeze. Remains on DuoNeb updrafts, remains on IV Rocephin and and Zithromax. Rest of the home medication have been all resumed. The blood culture has been negative thus far. The white cell count is at 12 with a hemoglobin 12.5 and a platelet count of 140. Electrolytes are all stable. LFTs are normal. UA is negative for any infection. On today's evaluation of 11/23/2023, the patient is being seen for a follow-up. The patient is complaining of ongoing shortness of breath and he does not think that he is improving. He was having diarrhea overnight and the patient reports a total of 5-6 episodes of diarrhea. Based on his ongoing respiratory difficulties, and based on the presence of a left lung consolidation, a CT scan of the chest was obtained today and the CAT scan of the chest showed a left upper and lower lobe groundglass pulmonary infiltrates consistent with atypical pneumonia and a moderate size hiatal hernia. No evidence of any mediastinal lymphadenopathy. No evidence of any significant pleural effusion. As such, the opacity that was seen in left cardiac border on the chest x-ray is consistent with a hiatal hernia. WBC count is 9.3 with a hemoglobin 11.4, BUN is 21 with a creatinine 0.8 and sodium levels at 143. The patient's procalcitonin level was 0.11. Legionella urine antigen was negative. For now, the patient is on 4 L of oxygen by nasal cannula with a pulse ox of 97%. On today's evaluation of 11/24/2023, I am seeing the patient for a follow-up. The patient is doing well. No specific complaints. Less short of breath compared to yesterday. Due to his ongoing shortness of breath, CAT scan of the chest was done yesterday and the patient was found to have some limited groundglass changes in the left lung along with a moderate-sized left-sided hiatal hernia. Remains on IV Rocephin. No active diarrhea. The labs from today shows a BUN of 18 with a creatinine of 0.7 and sodium levels at 141. He is currently on 3 L of oxygen by nasal cannula with a pulse ox of 98%. Resting comfortably in bed. The patient is seen today November 25, 2023 in follow-up on the regular medical floor. He is currently resting comfortably in bed. Awake and alert in no acute distress. Maintaining O2 saturations in the 90s on 2 L/min per nasal cannula. He is feeling a bit better. He is still dyspneic with conversation. Dyspneic with minimal exertion. He is can continued on ceftriaxone. Continued on bronchodilators and prednisone taper. Heparin for DVT prophylaxis. Remains on oral diuretics. White count 6.2. Hemoglobin 11.3. Platelets 147. The patient is seen today November 26, 2023 in follow-up on the regular medical floor. He is awake and alert in no acute distress. Denies any worsening shortness of breath, cough or congestion. Chest x-ray shows stable left basilar infiltrate most likely atelectasis. He is continued on ceftriaxone. He has completed azithromycin. He is maintaining good O2 saturations in the 90s on 2 L/min per nasal cannula. Cultures revealed no growth. White count 6.7. Hemoglobin 12.3. Platelets 141. Sodium 143. Potassium 4.0. Bicarb 24. BUN 21. Creatinine 0.87. Glucose 101. He is continued on DuoNeb inhalations, Symbicort, prednisone taper. Objective - Vital Signs Vital signs: Vital Signs Temp 98.0 F 11/26/23 07:07 Pulse 80 11/26/23 11:37 Resp 18 11/26/23 11:37 BP 134/83 11/26/23 07:07 Pulse Ox 97 11/26/23 07:07 FiO2 Intake & Output 11/25/23 11/26/23 11/26/23 18:59 06:59 18:59 Output Total 325 325 Balance -325 -325 Weight 77.5 kg Output: Urine 325 325 Other: Voiding Method Urinal Urinal Urinal # Voids 1 4 2 - Exam GENERAL EXAM: Alert, 83-year-old male, in no apparent distress. On 3 L of oxygen by nasal cannula. No respiratory distress. HEAD: Normocephalic and atraumatic EYES: Normal reaction of pupils, equal size. NOSE: Clear with pink turbinates. THROAT: No erythema or exudates. NECK: No masses, no JVD. CHEST: No chest wall deformity. Old sternotomy incision, healed and approximated LUNGS: Equal air entry with coarse rhonchi bilaterally, greater on the left. CVS: S1 and S2 normal with no audible murmur, regular rhythm. No extra heart sounds ABDOMEN: No hepatosplenomegaly, active bowel sounds, no guarding or rigidity. Small nonreducible periumbilical hernia. SPINE: No scoliosis or deformity SKIN: No rashes CENTRAL NERVOUS SYSTEM: No focal deficits, tone is normal in all 4 extremities. EXTREMITIES: There is no peripheral edema, clubbing, or cyanosis. Peripheral pulses are intact. - Labs CBC & Chem 7: 11/26/23 05:57 11/26/23 05:57 Labs: Abnormal Lab Results - Last 24 Hours (Table) 11/26/23 11/26/23 Range/Units 05:57 05:57 RBC 3.69 L (4.30-5.90) m/uL Hgb 12.3 L D (13.0-17.5) gm/dL Hct 37.2 L (39.0-53.0) % MCV 100.8 H (80.0-100.0) fL Plt Count 141 L (150-450) k/uL BUN/Creatinine Ratio 25.88 H (12.00-20.00) Ratio Total Bilirubin <0.2 L (0.3-1.2) mg/dL Total Protein 5.8 L (6.2-8.2) g/dL Albumin 3.6 L (3.8-4.9) g/dL Microbiology - Last 24 Hours (Table) 11/21/23 04:15 Blood Culture - Final Blood 11/21/23 04:30 Blood Culture - Final Blood Assessment and Plan Assessment: Left-sided community-acquired pneumonia, likely bacterial in nature. Possibility of aspiration into the left lung in the setting of a large hiatal hernia cannot be completely excluded. CAT scan of the chest shows limited groundglass changes in the left upper lobe and left lower lobe. Also consider atypical pneumonia. The viral screen including RSV, COVID-19 and RSV were all negative. CAT scan of the chest was noted. The patient is clinically improving and is on 3 L of O2 nasal cannula with adequate oxygenation at this point in time. Remains on IV Rocephin. Moderate-sized left-sided hiatal hernia Acute hypoxic respiratory failure currently on 3 L of oxygen by nasal cannula Acute dyspnea, secondary to above History of chronic bronchial asthma, stable Coronary artery disease, status post history of CABG History of hyperlipidemia History of hypertension History of CVA/TIA History of BPH Bilateral lower extremity neuropathy LILLY without device Diarrhea, subsided Plan: The patient was seen and evaluated Chest x-ray, labs and medications reviewed Continue the current treatment plan Titrate down the FiO2 as tolerated Increase his activity as tolerated Will continue to follow I have personally seen and examined the patient, performed the documentation and the assessment and plan as written. Number of minutes spent on the visit: 10.
--- NOTE | 2023-11-26 15:33 | XR ---
EXAMINATION TYPE: XR chest 1V portable DATE OF EXAM: 11/26/2023 Comparison: 11/23/2023 Clinical History: 83-year-old male Pneumonia Findings: Median sternotomy wires are present. Heart upper limits of normal in size. Mild interstitial density but with worsening left midlung opacity. Known moderate-sized hiatal hernia. Impression: Known moderate sized hiatal hernia. Worsening focal infiltrate in the left midlung.
[2023-11-26] MEDS: BENZONATATE 100 MG CAP PO SCH (16:14)
[2023-11-27 08:56] LABS: HCT 37.1 % (39.6-50.0); HGB 12.2 g/dL (13.0-17.0); MCH 32.4 pg (27.0-32.0); MCHC 32.9 g/dL (32.0-37.0); MCV 98.4 FL (80.0-97.0); Mean Platelet Volume 10.5 FL (9.5-12.2); NRBC Per 100 WBC 0 X 10*3/uL (0.00-0.01); Platelet Count 171 X 10*3/uL (140-440); RBC 3.77 X 10*6/uL (4.40-5.60); RDW 11.9 % (11.5-14.5); WBC 8.77 X 10*3/uL (4.50-10.00)
[2023-11-27] MEDS: predniSONE 10 MG TAB PO SCH (09:53)
[2023-11-27 11:43] LABS: ALT 34 U/L (10-49); AST 41 U/L (14-35); Albumin 3.5 g/dL (3.8-4.9); Albumin/Globulin Ratio 1.59 Ratio (1.60-3.17); Alkaline Phosphatase 49 U/L (41-126); BUN/Creat Ratio 26.33 Ratio (12.00-20.00); Blood Urea Nitrogen 23.7 mg/dL (9.0-27.0); Calcium 9.1 mg/dL (8.7-10.3); Carbon Dioxide 23.9 mmol/L (21.6-31.8); Chloride 104 mmol/L (96-109); Globulin 2.2 g/dL (1.6-3.3); Glucose 127 mg/dL (70-110); Potassium 3.9 mmol/L (3.5-5.5); Sodium 141 mmol/L (135-145); Total Bilirubin <0.2 mg/dL (0.3-1.2); Total Protein 5.7 g/dL (6.2-8.2)
--- NOTE | 2023-11-27 14:10 | P.PN ---
Subjective Progress Note Date: 11/27/23 Patient is an 83-year-old white male with past medical history significant for asthma, coronary artery disease, previous CABG, CVA/TIA, hyperlipidemia, hypertension, BPH, neuropathy, LILLY without device, pneumonia, among other things. Patient presented to emergency room earlier this morning with a chief c omplaint of nonproductive congested cough, chills, shaking. Patient states that the symptoms began rather abruptly this morning at 0230. No sick contacts or recent travel. States that he was feeling fine yesterday, and even did some gardening. Denies any shortness of breath. Denies any chest pain. He was febrile on arrival to the emergency room, with a Tmax of 102 F. He did have 1 episode of associated nausea and vomiting while in the emergency room. Denies any abdominal pain. Denies any dysuria, urinary frequency, hematuria. Chest x- ray done on arrival shows a left-sided consolidation. CBC unremarkable. No leukocytosis. CMP on arrival unremarkable. Normal saline infusing at 130 MLS per hour. Lactic acid level 3.5. Negative for influenza, RSV, COVID. Patient is currently sitting up in bed, on room air, in no acute distress. He appears nontoxic. He was given Tylenol for his fever. Sinus tachycardia on bedside monitor. Blood pressure normotensive. Hemodynamically stable.On today's evaluation of 11/21/2023, the patient is being in consultation. The patient is having increased cough and congestion. I reviewed the chest x-ray and clearly there is a left sided pulmonary infiltrates, the patient has patchy density in the left midlung zone and in the left lower lobe consistent with underlying pneumonia. Clinically and hemodynamically stable. Unable to bring up much sputum. Currently on Rocephin and Zithromax. Patient is also on DuoNeb nebulized treatments [id number]. The patient is a non-smoker for now. The patient has been maintained on Symbicort. He is also taking a prednisone burst taper starting with 50 mg p.o. daily. He is known to have coronary disease with previous bypass surgery as mentioned. He has hypertension hyperlipidemia and BPH and obstructive sleep apnea without using his CPAP therapy at this point in time. He is also previous history of CVA/TIA. No active neurological deficits. No reported aspiration. On today's evaluation of 11/22/2023, patient is being seen for a follow-up. The patient is an 83-year-old male who is currently being treated for left lung pneumonia. This is likely community-acquired pneumonia. However, the procalcitonin level was low. Legionella urine antigen was negative. The viral screen was negative. The patient has some residual consolidation of the left perihilar area on today's chest x-ray. This could be also potentially chronic pleural, parenchymal density. Nevertheless, the patient continues to have cough congestion and wheeze. Remains on DuoNeb updrafts, remains on IV Rocephin and and Zithromax. Rest of the home medication have been all resumed. The blood culture has been negative thus far. The white cell count is at 12 with a hemoglobin 12.5 and a platelet count of 140. Electrolytes are all stable. LFTs are normal. UA is negative for any infection. On today's evaluation of 11/23/2023, the patient is being seen for a follow-up. The patient is complaining of ongoing shortness of breath and he does not think that he is improving. He was having diarrhea overnight and the patient reports a total of 5-6 episodes of diarrhea. Based on his ongoing respiratory difficulties, and based on the presence of a left lung consolidation, a CT scan of the chest was obtained today and the CAT scan of the chest showed a left upper and lower lobe groundglass pulmonary infiltrates consistent with atypical pneumonia and a moderate size hiatal hernia. No evidence of any mediastinal lymphadenopathy. No evidence of any significant pleural effusion. As such, the opacity that was seen in left cardiac border on the chest x-ray is consistent with a hiatal hernia. WBC count is 9.3 with a hemoglobin 11.4, BUN is 21 with a creatinine 0.8 and sodium levels at 143. The patient's procalcitonin level was 0.11. Legionella urine antigen was negative. For now, the patient is on 4 L of oxygen by nasal cannula with a pulse ox of 97%. On today's evaluation of 11/24/2023, I am seeing the patient for a follow-up. The patient is doing well. No specific complaints. Less short of breath compared to yesterday. Due to his ongoing shortness of breath, CAT scan of the chest was done yesterday and the patient was found to have some limited groundglass changes in the left lung along with a moderate-sized left-sided hiatal hernia. Remains on IV Rocephin. No active diarrhea. The labs from today shows a BUN of 18 with a creatinine of 0.7 and sodium levels at 141. He is currently on 3 L of oxygen by nasal cannula with a pulse ox of 98%. Resting comfortably in bed. The patient is seen today November 25, 2023 in follow-up on the regular medical floor. He is currently resting comfortably in bed. Awake and alert in no acute distress. Maintaining O2 saturations in the 90s on 2 L/min per nasal cannula. He is feeling a bit better. He is still dyspneic with conversation. Dyspneic with minimal exertion. He is can continued on ceftriaxone. Continued on bronchodilators and prednisone taper. Heparin for DVT prophylaxis. Remains on oral diuretics. White count 6.2. Hemoglobin 11.3. Platelets 147. The patient is seen today November 26, 2023 in follow-up on the regular medical floor. He is awake and alert in no acute distress. Denies any worsening shortness of breath, cough or congestion. Chest x-ray shows stable left basilar infiltrate most likely atelectasis. He is continued on ceftriaxone. He has completed azithromycin. He is maintaining good O2 saturations in the 90s on 2 L/min per nasal cannula. Cultures revealed no growth. White count 6.7. Hemoglobin 12.3. Platelets 141. Sodium 143. Potassium 4.0. Bicarb 24. BUN 21. Creatinine 0.87. Glucose 101. He is continued on DuoNeb inhalations, Symbicort, prednisone taper. The patient is seen today November 27, 2023 in follow-up on the regular medical floor. He is currently resting comfortably in bed. Awake and alert in no acute distress. He is maintaining good O2 saturations in the 90s on 3 L/min per nasal cannula. He completed ceftriaxone and azithromycin. He has a dry nonproductive cough. Some end expiratory wheezing. Chest x-ray reveals a left lower lobe infiltrate. He is continued on Symbicort, DuoNeb ventilations, prednisone taper. Heparin for DVT prophylaxis. Remains on oral diuretics. Blood cultures revealed no growth. White count 8.7. Hemoglobin 12.2. Platelets 171. Sodium 141. Potassium 3.9. Bicarb 24. BUN 24. Creatinine 0.9. Glucose 127. Objective - Vital Signs Vital signs: Vital Signs Temp 97.3 F L 11/27/23 07:02 Pulse 75 11/27/23 12:06 Resp 18 11/27/23 12:06 BP 104/69 11/27/23 07:02 Pulse Ox 93 L 11/27/23 08:04 FiO2 Intake & Output 11/26/23 11/27/23 11/27/23 18:59 06:59 18:59 Output Total 325 400 Balance -325 -400 Weight 77 kg Output: Urine 325 400 Other: Voiding Method External Catheter Urinal Toilet Urinal # Voids 3 2 2 # Bowel Movements 1 1 - Exam GENERAL EXAM: Alert, pleasant 83-year-old male, in no apparent distress. Resting in bed. On 3 L of oxygen by nasal cannula. HEAD: Normocephalic and atraumatic EYES: Normal reaction of pupils, equal size. NOSE: Clear with pink turbinates. THROAT: No erythema or exudates. NECK: No masses, no JVD. CHEST: No chest wall deformity. Old sternotomy incision, healed and approximated LUNGS: Equal air entry with coarse rhonchi bilaterally, greater on the left. CVS: S1 and S2 normal with no audible murmur, regular rhythm. No extra heart sounds ABDOMEN: No hepatosplenomegaly, active bowel sounds, no guarding or rigidity. Small nonreducible periumbilical hernia. SPINE: No scoliosis or deformity SKIN: No rashes CENTRAL NERVOUS SYSTEM: No focal deficits, tone is normal in all 4 extremities. EXTREMITIES: There is no peripheral edema, clubbing, or cyanosis. Peripheral pulses are intact. - Labs CBC & Chem 7: 11/27/23 06:14 11/27/23 06:14 Labs: Abnormal Lab Results - Last 24 Hours (Table) 11/27/23 11/27/23 Range/Units 06:14 06:14 RBC 3.77 L (4.40-5.60) X 10*6/uL Hgb 12.2 L (13.0-17.0) g/dL Hct 37.1 L (39.6-50.0) % MCV 98.4 H (80.0-97.0) FL MCH 32.4 H (27.0-32.0) pg Anion Gap 13.10 H (4.00-12.00) mmol/L BUN/Creatinine Ratio 26.33 H (12.00-20.00) Ratio Glucose 127 H (70-110) mg/dL Total Bilirubin <0.2 L (0.3-1.2) mg/dL AST 41 H (14-35) U/L Total Protein 5.7 L (6.2-8.2) g/dL Albumin 3.5 L (3.8-4.9) g/dL Albumin/Globulin Ratio 1.59 L (1.60-3.17) Ratio Microbiology - Last 24 Hours (Table) 11/21/23 04:15 Blood Culture - Final Blood 11/21/23 04:30 Blood Culture - Final Blood Assessment and Plan Assessment: Left-sided community-acquired pneumonia, likely bacterial in nature. Possibility of aspiration into the left lung in the setting of a large hiatal hernia cannot be completely excluded. CAT scan of the chest shows limited groundglass changes in the left upper lobe and left lower lobe. Also consider atypical pneumonia. The viral screen including RSV, COVID-19 and RSV were all negative. CAT scan of the chest was noted. The patient is clinically improving and is on 3 L of O2 nasal cannula with adequate oxygenation at this point in time. Completed antibiotics Moderate-sized left-sided hiatal hernia Acute hypoxic respiratory failure currently on 3 L of oxygen by nasal cannula Acute dyspnea, secondary to above History of chronic bronchial asthma, stable Coronary artery disease, status post history of CABG History of hyperlipidemia History of hypertension History of CVA/TIA History of BPH Bilateral lower extremity neuropathy LILLY without device Diarrhea, subsided Plan: The patient was seen and evaluated Chest x-ray, labs and medications reviewed Continue bronchodilators, steroids Completed antibiotics Titrate down the FiO2 as tolerated Increase his activity as tolerated Plan is for home with spouse at discharge I have personally seen and examined the patient, performed the documentation and the assessment and plan as written. Number of minutes spent on the visit: 10.
--- NOTE | 2023-11-28 08:55 | P.PN ---
Subjective Progress Note Date: 11/28/23 Principal diagnosis: Pneumonia This is an 83-year-old male who presented to the emergency department with complaints of cough and chills and was found to have a left lower lobe inf iltrate. Patient has been on Rocephin and oral prednisone. He has been seen and evaluated by pulmonology. Patient is currently on 3 L of oxygen via nasal cannula with oxygen saturation at 98 to 99%. He is tolerating diet. He is still somewhat short of breath during our conversation. 11/26/2023 Patient seen and evaluated sitting up in bed. He is still complaining of a cough and some shortness of breath. He is tolerating diet. He has been up to sit in chair at bedside. Repeat chest x-ray ordered for this morning. 11/28/2023 Patient seen this morning sitting up in bed. He remains on 1 L of oxygen via nasal cannula. Patient reports he had a rough night. He is still reporting some shortness of breath and cough. Objective - Vital Signs Vital signs: Vital Signs Temp 98.0 F 11/28/23 07:16 Pulse 94 11/28/23 07:16 Resp 20 11/28/23 07:16 BP 156/103 11/28/23 07:16 Pulse Ox 96 11/28/23 07:16 FiO2 Intake & Output 11/27/23 11/28/23 11/28/23 18:59 06:59 18:59 Output Total 450 675 Balance -450 -675 Weight 77 kg Output: Urine 450 675 Other: Voiding Method Toilet Urinal # Voids 1 3 # Bowel Movements 1 - Constitutional General appearance: Present: cooperative, no acute distress - EENT Eyes: Present: PERRLA - Neck Neck: Present: normal ROM. Absent: lymphadenopathy, rigidity - Respiratory Respiratory: bilateral: rhonchi (Improved) - Cardiovascular Rhythm: regular Heart sounds: normal: S1, S2 - Gastrointestinal General gastrointestinal: Present: soft. Absent: tenderness - Integumentary Integumentary: Present: normal, normal turgor - Psychiatric Psychiatric: Present: A&O x's 3 - Labs CBC & Chem 7: 11/27/23 06:14 11/27/23 06:14 Labs: Abnormal Lab Results - Last 24 Hours (Table) 11/27/23 11/27/23 Range/Units 06:14 06:14 RBC 3.77 L (4.40-5.60) X 10*6/uL Hgb 12.2 L (13.0-17.0) g/dL Hct 37.1 L (39.6-50.0) % MCV 98.4 H (80.0-97.0) FL MCH 32.4 H (27.0-32.0) pg Anion Gap 13.10 H (4.00-12.00) mmol/L BUN/Creatinine Ratio 26.33 H (12.00-20.00) Ratio Glucose 127 H (70-110) mg/dL Total Bilirubin <0.2 L (0.3-1.2) mg/dL AST 41 H (14-35) U/L Total Protein 5.7 L (6.2-8.2) g/dL Albumin 3.5 L (3.8-4.9) g/dL Albumin/Globulin Ratio 1.59 L (1.60-3.17) Ratio Assessment and Plan (1) Community acquired pneumonia Current Visit: Yes Status: Acute Code(s): J18.9 - PNEUMONIA, UNSPECIFIED ORGANISM SNOMED Code(s): 688240629 (2) CAD (coronary artery disease) Current Visit: No Status: Acute Code(s): I25.10 - ATHSCL HEART DISEASE OF [place] CORONARY ARTERY W/O ANG PCTRS SNOMED Code(s): 18835130 (3) Hyperlipemia Current Visit: No Status: Acute Code(s): E78.5 - HYPERLIPIDEMIA, UNSPECIFIED SNOMED Code(s): 25742688 (4) Hypertension Current Visit: Yes Status: Acute Code(s): I10 - ESSENTIAL (PRIMARY) HYPERTENSION SNOMED Code(s): 35280654 (5) Arthritis Current Visit: Yes Status: Acute Code(s): M19.90 - UNSPECIFIED OSTEOARTHRITIS, UNSPECIFIED SITE SNOMED Code(s): 7902377 Plan: Continue trial of weaning oxygen, patient may end up needing home oxygen. Possible discharge in the next 24 hours Check CBC and CMP in the morning Patient seen and evaluated by nurse practitioner, physician in agreement with plan
--- NOTE | 2023-11-28 11:38 | XR ---
EXAMINATION TYPE: XR chest 1V portable DATE OF EXAM: 11/28/2023 Comparison: 11/26/2023 Clinical History: 83-year-old male pneumonia Findings: Heart mildly enlarged. Patchy retrocardiac and left basilar opacity persists. Some improvement in aer ation of the left midlung. Strandy atelectasis right base. Median sternotomy wires and post-CABG clip s. No sizable pleural effusion on the frontal view. Impression: 1. Mild cardiomegaly. 2. Known moderate-sized hiatal hernia. 3. Persistent patchy left lower lung opacity but with improving aeration at the left midlung.
--- NOTE | 2023-11-28 14:15 | P.PN ---
Subjective Progress Note Date: 11/28/23 Patient is an 83-year-old white male with past medical history significant for asthma, coronary artery disease, previous CABG, CVA/TIA, hyperlipidemia, hypertension, BPH, neuropathy, LILLY without device, pneumonia, among other things. Patient presented to emergency room earlier this morning with a chief c omplaint of nonproductive congested cough, chills, shaking. Patient states that the symptoms began rather abruptly this morning at 0230. No sick contacts or recent travel. States that he was feeling fine yesterday, and even did some gardening. Denies any shortness of breath. Denies any chest pain. He was febrile on arrival to the emergency room, with a Tmax of 102 F. He did have 1 episode of associated nausea and vomiting while in the emergency room. Denies any abdominal pain. Denies any dysuria, urinary frequency, hematuria. Chest x- ray done on arrival shows a left-sided consolidation. CBC unremarkable. No leukocytosis. CMP on arrival unremarkable. Normal saline infusing at 130 MLS per hour. Lactic acid level 3.5. Negative for influenza, RSV, COVID. Patient is currently sitting up in bed, on room air, in no acute distress. He appears nontoxic. He was given Tylenol for his fever. Sinus tachycardia on bedside monitor. Blood pressure normotensive. Hemodynamically stable.On today's evaluation of 11/21/2023, the patient is being in consultation. The patient is having increased cough and congestion. I reviewed the chest x-ray and clearly there is a left sided pulmonary infiltrates, the patient has patchy density in the left midlung zone and in the left lower lobe consistent with underlying pneumonia. Clinically and hemodynamically stable. Unable to bring up much sputum. Currently on Rocephin and Zithromax. Patient is also on DuoNeb nebulized treatments [id number]. The patient is a non-smoker for now. The patient has been maintained on Symbicort. He is also taking a prednisone burst taper starting with 50 mg p.o. daily. He is known to have coronary disease with previous bypass surgery as mentioned. He has hypertension hyperlipidemia and BPH and obstructive sleep apnea without using his CPAP therapy at this point in time. He is also previous history of CVA/TIA. No active neurological deficits. No reported aspiration. On today's evaluation of 11/22/2023, patient is being seen for a follow-up. The patient is an 83-year-old male who is currently being treated for left lung pneumonia. This is likely community-acquired pneumonia. However, the procalcitonin level was low. Legionella urine antigen was negative. The viral screen was negative. The patient has some residual consolidation of the left perihilar area on today's chest x-ray. This could be also potentially chronic pleural, parenchymal density. Nevertheless, the patient continues to have cough congestion and wheeze. Remains on DuoNeb updrafts, remains on IV Rocephin and and Zithromax. Rest of the home medication have been all resumed. The blood culture has been negative thus far. The white cell count is at 12 with a hemoglobin 12.5 and a platelet count of 140. Electrolytes are all stable. LFTs are normal. UA is negative for any infection. On today's evaluation of 11/23/2023, the patient is being seen for a follow-up. The patient is complaining of ongoing shortness of breath and he does not think that he is improving. He was having diarrhea overnight and the patient reports a total of 5-6 episodes of diarrhea. Based on his ongoing respiratory difficulties, and based on the presence of a left lung consolidation, a CT scan of the chest was obtained today and the CAT scan of the chest showed a left upper and lower lobe groundglass pulmonary infiltrates consistent with atypical pneumonia and a moderate size hiatal hernia. No evidence of any mediastinal lymphadenopathy. No evidence of any significant pleural effusion. As such, the opacity that was seen in left cardiac border on the chest x-ray is consistent with a hiatal hernia. WBC count is 9.3 with a hemoglobin 11.4, BUN is 21 with a creatinine 0.8 and sodium levels at 143. The patient's procalcitonin level was 0.11. Legionella urine antigen was negative. For now, the patient is on 4 L of oxygen by nasal cannula with a pulse ox of 97%. On today's evaluation of 11/24/2023, I am seeing the patient for a follow-up. The patient is doing well. No specific complaints. Less short of breath compared to yesterday. Due to his ongoing shortness of breath, CAT scan of the chest was done yesterday and the patient was found to have some limited groundglass changes in the left lung along with a moderate-sized left-sided hiatal hernia. Remains on IV Rocephin. No active diarrhea. The labs from today shows a BUN of 18 with a creatinine of 0.7 and sodium levels at 141. He is currently on 3 L of oxygen by nasal cannula with a pulse ox of 98%. Resting comfortably in bed. The patient is seen today November 25, 2023 in follow-up on the regular medical floor. He is currently resting comfortably in bed. Awake and alert in no acute distress. Maintaining O2 saturations in the 90s on 2 L/min per nasal cannula. He is feeling a bit better. He is still dyspneic with conversation. Dyspneic with minimal exertion. He is can continued on ceftriaxone. Continued on bronchodilators and prednisone taper. Heparin for DVT prophylaxis. Remains on oral diuretics. White count 6.2. Hemoglobin 11.3. Platelets 147. The patient is seen today November 26, 2023 in follow-up on the regular medical floor. He is awake and alert in no acute distress. Denies any worsening shortness of breath, cough or congestion. Chest x-ray shows stable left basilar infiltrate most likely atelectasis. He is continued on ceftriaxone. He has completed azithromycin. He is maintaining good O2 saturations in the 90s on 2 L/min per nasal cannula. Cultures revealed no growth. White count 6.7. Hemoglobin 12.3. Platelets 141. Sodium 143. Potassium 4.0. Bicarb 24. BUN 21. Creatinine 0.87. Glucose 101. He is continued on DuoNeb inhalations, Symbicort, prednisone taper. The patient is seen today November 27, 2023 in follow-up on the regular medical floor. He is currently resting comfortably in bed. Awake and alert in no acute distress. He is maintaining good O2 saturations in the 90s on 3 L/min per nasal cannula. He completed ceftriaxone and azithromycin. He has a dry nonproductive cough. Some end expiratory wheezing. Chest x-ray reveals a left lower lobe infiltrate. He is continued on Symbicort, DuoNeb ventilations, prednisone taper. Heparin for DVT prophylaxis. Remains on oral diuretics. Blood cultures revealed no growth. White count 8.7. Hemoglobin 12.2. Platelets 171. Sodium 141. Potassium 3.9. Bicarb 24. BUN 24. Creatinine 0.9. Glucose 127. The patient is seen today November 28, 2023 in follow-up on the regular medical floor. He is awake and alert in no acute distress. Resting fairly comfortably in bed. Per nasal cannula. Has been afebrile. He states he did have shortness of breath last night. He continues with cough and congestion. He is feeling like he is not improving much. X-ray reveals mild cardiomegaly. No new moderate-sized hiatal hernia. Persistent patchy left lower lung opacity but with improved aeration in the left midlung. Blood cultures revealed no growth. He is continued on Symbicort, DuoNeb inhalations, prednisone taper. Heparin for DVT prophylaxis. Remains on oral diuretics. Objective - Vital Signs Vital signs: Vital Signs Temp 98.0 F 11/28/23 07:16 Pulse 86 11/28/23 12:48 Resp 20 11/28/23 10:43 BP 156/103 11/28/23 07:16 Pulse Ox 94 L 11/28/23 09:43 FiO2 Intake & Output 11/27/23 11/28/23 11/28/23 18:59 06:59 18:59 Output Total 450 675 Balance -450 -675 Weight 77 kg Output: Urine 450 675 Other: Voiding Method Toilet Urinal # Voids 1 3 # Bowel Movements 1 - Exam GENERAL EXAM: Alert, 83-year-old male, in no apparent distress. On 1 L of oxygen by nasal cannula. HEAD: Normocephalic and atraumatic EYES: Normal reaction of pupils, equal size. NOSE: Clear with pink turbinates. THROAT: No erythema or exudates. NECK: No masses, no JVD. CHEST: No chest wall deformity. Old sternotomy incision, healed and approximated LUNGS: Equal air entry with coarse rhonchi bilaterally, greater on the left. CVS: S1 and S2 normal with no audible murmur, regular rhythm. No extra heart sounds ABDOMEN: No hepatosplenomegaly, active bowel sounds, no guarding or rigidity. Small nonreducible periumbilical hernia. SPINE: No scoliosis or deformity SKIN: No rashes CENTRAL NERVOUS SYSTEM: No focal deficits, tone is normal in all 4 extremities. EXTREMITIES: There is no peripheral edema, clubbing, or cyanosis. Peripheral pulses are intact. - Labs CBC & Chem 7: 11/27/23 06:14 11/27/23 06:14 Assessment and Plan Assessment: Left-sided community-acquired pneumonia, likely bacterial in nature. Possibility of aspiration into the left lung in the setting of a large hiatal hernia cannot be completely excluded. CAT scan of the chest shows limited lenin undglass changes in the left upper lobe and left lower lobe. Also consider atypical pneumonia. The viral screen including RSV, COVID-19 and RSV were all negative. CAT scan of the chest was noted. The patient has been slow to progress and is on 1 L of O2 nasal cannula with adequate oxygenation at this point in time. Completed antibiotics Moderate-sized left-sided hiatal hernia Acute hypoxic respiratory failure currently on 3 L of oxygen by nasal cannula Acute dyspnea, secondary to above History of chronic bronchial asthma, stable Coronary artery disease, status post history of CABG History of hyperlipidemia History of hypertension History of CVA/TIA History of BPH Bilateral lower extremity neuropathy LILLY without device Diarrhea, subsided Plan: The patient was seen and evaluated Chest x-ray, labs and medications reviewed Continue bronchodilators, steroids He has been slow to progress We will plan for bronchoscopy with BAL tomorrow Titrate down the FiO2 as tolerated Increase his activity as tolerated I have personally seen and examined the patient, performed the documentation and the assessment and plan as written. Number of minutes spent on the visit: 10.
[2023-11-28 15:12] VITALS: BMI 26.6
--- NOTE | 2023-11-29 08:11 | P.PN ---
Subjective Principal diagnosis: Left lower lobe pneumonia Patient is an 83-year-old white male essentially admitted for left lower lobe pneumonia. The patient is doing quite well this morning and has improved since yesterday. He is asking for his medications to be completely reconciled. No voiding difficulties. No fever or chills since yesterday. Repeat chest x-ray shows improvement in the left field of the lung but still persistent patchy infiltrate. Objective - Vital Signs Vital signs: Vital Signs Temp 98.4 F 11/29/23 07:35 Pulse 82 11/29/23 07:35 Resp 20 11/29/23 07:35 BP 123/87 11/29/23 07:35 Pulse Ox 98 11/29/23 07:35 FiO2 Intake & Output 11/28/23 11/29/23 11/29/23 18:59 06:59 18:59 Output Total 750 600 Balance -750 -600 Weight 77 kg 77.2 kg Output: Urine 750 600 Other: # Voids 1 - Constitutional General appearance: Present: average body habitus, cooperative - EENT Eyes: Absent: abnormal pupil - Neck Neck: Absent: lymphadenopathy - Respiratory Respiratory: left: rhonchi - Cardiovascular Rhythm: regular Heart sounds: normal: S1, S2 Abnormal Heart Sounds: Absent: S3 Gallop - Gastrointestinal General gastrointestinal: Present: soft - Labs CBC & Chem 7: 11/27/23 06:14 11/27/23 06:14 Assessment and Plan (1) Fever Current Visit: Yes Status: Acute Code(s): R50.9 - FEVER, UNSPECIFIED SNOMED Code(s): 865517136 (2) CAD (coronary artery disease) Current Visit: No Status: Acute Code(s): I25.10 - ATHSCL HEART DISEASE OF [place] CORONARY ARTERY W/O ANG PCTRS SNOMED Code(s): 43408444 (3) Hyperlipemia Current Visit: No Status: Acute Code(s): E78.5 - HYPERLIPIDEMIA, UNSPECIFIED SNOMED Code(s): 14082691 Plan: Continue current regimen of treatment. Check CBC and CMP in AM. Nominal improvement since admission. [facility] will follow for the weekend. Anticipate discharge in the next 24-48 hours with oxygen
[2023-11-29 09:18] LABS: ALT 44 U/L (4-49); AST 42 U/L (17-59); African American GFR (CKD) >90 (>60 ml/min/1.73 sqM); Albumin 3.3 g/dL (3.5-5.0); Albumin/Globulin Ratio 1.4; Alkaline Phosphatase 55 U/L (38-126); Anion Gap 6 mmol/L; Blood Urea Nitrogen 25 mg/dL (9-20); Calcium 8.8 mg/dL (8.4-10.2); Carbon Dioxide 29 mmol/L (22-30); Chloride 103 mmol/L (98-107); Globulin 2.4 g/dL; Glucose 93 mg/dL (74-99); Non-African American GFR(CKD) 89 (>60 ml/min/1.73 sqM); Potassium 3.9 mmol/L (3.5-5.1); Sodium 138 mmol/L (137-145); Total Bilirubin 0.4 mg/dL (0.2-1.3); Total Protein 5.7 g/dL (6.3-8.2)
[2023-11-29 09:34] LABS: HGB 13.2 gm/dL (13.0-17.5); MCH 32.4 pg (25.0-35.0); MCV 98.2 fL (80.0-100.0); Mean Platelet Volume 8.9; Platelet Count 245 k/uL (150-450); RBC 4.07 m/uL (4.30-5.90); RDW 12.2 % (11.5-15.5); WBC 9.6 k/uL (3.8-10.6)
--- NOTE | 2023-11-29 14:41 | P.PN ---
Subjective Progress Note Date: 11/29/23 Patient is an 83-year-old white male with past medical history significant for asthma, coronary artery disease, previous CABG, CVA/TIA, hyperlipidemia, hypertension, BPH, neuropathy, LILLY without device, pneumonia, among other things. Patient presented to emergency room earlier this morning with a chief c omplaint of nonproductive congested cough, chills, shaking. Patient states that the symptoms began rather abruptly this morning at 0230. No sick contacts or recent travel. States that he was feeling fine yesterday, and even did some gardening. Denies any shortness of breath. Denies any chest pain. He was febrile on arrival to the emergency room, with a Tmax of 102 F. He did have 1 episode of associated nausea and vomiting while in the emergency room. Denies any abdominal pain. Denies any dysuria, urinary frequency, hematuria. Chest x- ray done on arrival shows a left-sided consolidation. CBC unremarkable. No leukocytosis. CMP on arrival unremarkable. Normal saline infusing at 130 MLS per hour. Lactic acid level 3.5. Negative for influenza, RSV, COVID. Patient is currently sitting up in bed, on room air, in no acute distress. He appears nontoxic. He was given Tylenol for his fever. Sinus tachycardia on bedside monitor. Blood pressure normotensive. Hemodynamically stable.On today's evaluation of 11/21/2023, the patient is being in consultation. The patient is having increased cough and congestion. I reviewed the chest x-ray and clearly there is a left sided pulmonary infiltrates, the patient has patchy density in the left midlung zone and in the left lower lobe consistent with underlying pneumonia. Clinically and hemodynamically stable. Unable to bring up much sputum. Currently on Rocephin and Zithromax. Patient is also on DuoNeb nebulized treatments [id number]. The patient is a non-smoker for now. The patient has been maintained on Symbicort. He is also taking a prednisone burst taper starting with 50 mg p.o. daily. He is known to have coronary disease with previous bypass surgery as mentioned. He has hypertension hyperlipidemia and BPH and obstructive sleep apnea without using his CPAP therapy at this point in time. He is also previous history of CVA/TIA. No active neurological deficits. No reported aspiration. On today's evaluation of 11/22/2023, patient is being seen for a follow-up. The patient is an 83-year-old male who is currently being treated for left lung pneumonia. This is likely community-acquired pneumonia. However, the procalcitonin level was low. Legionella urine antigen was negative. The viral screen was negative. The patient has some residual consolidation of the left perihilar area on today's chest x-ray. This could be also potentially chronic pleural, parenchymal density. Nevertheless, the patient continues to have cough congestion and wheeze. Remains on DuoNeb updrafts, remains on IV Rocephin and and Zithromax. Rest of the home medication have been all resumed. The blood culture has been negative thus far. The white cell count is at 12 with a hemoglobin 12.5 and a platelet count of 140. Electrolytes are all stable. LFTs are normal. UA is negative for any infection. On today's evaluation of 11/23/2023, the patient is being seen for a follow-up. The patient is complaining of ongoing shortness of breath and he does not think that he is improving. He was having diarrhea overnight and the patient reports a total of 5-6 episodes of diarrhea. Based on his ongoing respiratory difficulties, and based on the presence of a left lung consolidation, a CT scan of the chest was obtained today and the CAT scan of the chest showed a left upper and lower lobe groundglass pulmonary infiltrates consistent with atypical pneumonia and a moderate size hiatal hernia. No evidence of any mediastinal lymphadenopathy. No evidence of any significant pleural effusion. As such, the opacity that was seen in left cardiac border on the chest x-ray is consistent with a hiatal hernia. WBC count is 9.3 with a hemoglobin 11.4, BUN is 21 with a creatinine 0.8 and sodium levels at 143. The patient's procalcitonin level was 0.11. Legionella urine antigen was negative. For now, the patient is on 4 L of oxygen by nasal cannula with a pulse ox of 97%. On today's evaluation of 11/24/2023, I am seeing the patient for a follow-up. The patient is doing well. No specific complaints. Less short of breath compared to yesterday. Due to his ongoing shortness of breath, CAT scan of the chest was done yesterday and the patient was found to have some limited groundglass changes in the left lung along with a moderate-sized left-sided hiatal hernia. Remains on IV Rocephin. No active diarrhea. The labs from today shows a BUN of 18 with a creatinine of 0.7 and sodium levels at 141. He is currently on 3 L of oxygen by nasal cannula with a pulse ox of 98%. Resting comfortably in bed. The patient is seen today November 25, 2023 in follow-up on the regular medical floor. He is currently resting comfortably in bed. Awake and alert in no acute distress. Maintaining O2 saturations in the 90s on 2 L/min per nasal cannula. He is feeling a bit better. He is still dyspneic with conversation. Dyspneic with minimal exertion. He is can continued on ceftriaxone. Continued on bronchodilators and prednisone taper. Heparin for DVT prophylaxis. Remains on oral diuretics. White count 6.2. Hemoglobin 11.3. Platelets 147. The patient is seen today November 26, 2023 in follow-up on the regular medical floor. He is awake and alert in no acute distress. Denies any worsening shortness of breath, cough or congestion. Chest x-ray shows stable left basilar infiltrate most likely atelectasis. He is continued on ceftriaxone. He has completed azithromycin. He is maintaining good O2 saturations in the 90s on 2 L/min per nasal cannula. Cultures revealed no growth. White count 6.7. Hemoglobin 12.3. Platelets 141. Sodium 143. Potassium 4.0. Bicarb 24. BUN 21. Creatinine 0.87. Glucose 101. He is continued on DuoNeb inhalations, Symbicort, prednisone taper. The patient is seen today November 27, 2023 in follow-up on the regular medical floor. He is currently resting comfortably in bed. Awake and alert in no acute distress. He is maintaining good O2 saturations in the 90s on 3 L/min per nasal cannula. He completed ceftriaxone and azithromycin. He has a dry nonproductive cough. Some end expiratory wheezing. Chest x-ray reveals a left lower lobe infiltrate. He is continued on Symbicort, DuoNeb ventilations, prednisone taper. Heparin for DVT prophylaxis. Remains on oral diuretics. Blood cultures revealed no growth. White count 8.7. Hemoglobin 12.2. Platelets 171. Sodium 141. Potassium 3.9. Bicarb 24. BUN 24. Creatinine 0.9. Glucose 127. The patient is seen today November 28, 2023 in follow-up on the regular medical floor. He is awake and alert in no acute distress. Resting fairly comfortably in bed. Per nasal cannula. Has been afebrile. He states he did have shortness of breath last night. He continues with cough and congestion. He is feeling like he is not improving much. X-ray reveals mild cardiomegaly. No new moderate-sized hiatal hernia. Persistent patchy left lower lung opacity but with improved aeration in the left midlung. Blood cultures revealed no growth. He is continued on Symbicort, DuoNeb inhalations, prednisone taper. Heparin for DVT prophylaxis. Remains on oral diuretics. The patient is seen today November 29, 2023 in follow-up on the regular medical floor. He is currently resting fairly comfortably in bed. Awake and alert in no acute distress. He is maintaining O2 saturations in the 90s on 2 L/min per nasal cannula. He is afebrile. Hemodynamically stable. Blood culture revealed no growth. White count 9.6. Hemoglobin 13.2. Platelets 245. Sodium 138. Potassium 3.9. Bicarb 29. BUN 25. Creatinine 0.65. Glucose 93. He is continued on DuoNeb ventilations, Symbicort, Tessalon Perles, prednisone taper. He is on heparin for DVT prophylaxis. Remains on oral diuretics. Plan is for bronchoscopy with BAL today. Objective - Vital Signs Vital signs: Vital Signs Temp 97.5 F L 11/29/23 13:06 Pulse 85 11/29/23 13:06 Resp 20 11/29/23 13:06 BP 108/70 11/29/23 13:06 Pulse Ox 95 11/29/23 13:06 FiO2 Intake & Output 11/28/23 11/29/23 11/29/23 18:59 06:59 18:59 Output Total 750 600 100 Balance -750 -600 -100 Weight 77 kg 77.2 kg Output: Urine 750 600 100 Other: # Voids 1 - Exam GENERAL EXAM: Alert, 83-year-old male, resting in bed. On 2 L of oxygen by nasal cannula. HEAD: Normocephalic and atraumatic EYES: Normal reaction of pupils, equal size. NOSE: Clear with pink turbinates. THROAT: No erythema or exudates. NECK: No masses, no JVD. CHEST: No chest wall deformity. Old sternotomy incision, healed and approximated LUNGS: Equal air entry with coarse rhonchi bilaterally, greater on the left. CVS: S1 and S2 normal with no audible murmur, regular rhythm. No extra heart sounds ABDOMEN: No hepatosplenomegaly, active bowel sounds, no guarding or rigidity. Small nonreducible periumbilical hernia. SPINE: No scoliosis or deformity SKIN: No rashes CENTRAL NERVOUS SYSTEM: No focal deficits, tone is normal in all 4 extremities. EXTREMITIES: There is no peripheral edema, clubbing, or cyanosis. Peripheral pulses are intact. - Labs CBC & Chem 7: 11/29/23 07:39 11/29/23 07:39 Labs: Abnormal Lab Results - Last 24 Hours (Table) 11/29/23 11/29/23 Range/Units 07:39 07:39 RBC 4.07 L (4.30-5.90) m/uL BUN 25 H (9-20) mg/dL Creatinine 0.65 L (0.66-1.25) mg/dL Total Protein 5.7 L (6.3-8.2) g/dL Albumin 3.3 L (3.5-5.0) g/dL Assessment and Plan Assessment: Left-sided community-acquired pneumonia, likely bacterial in nature. Possibility of aspiration into the left lung in the setting of a large hiatal hernia cannot be completely excluded. CAT scan of the chest shows limited groundglass changes in the left upper lobe and left lower lobe. Also consider atypical pneumonia. The viral screen including RSV, COVID-19 and RSV were all negative. CAT scan of the chest was noted. The patient has been slow to progress and is on 2 L of O2 nasal cannula with adequate oxygenation at this point in time. Completed antibiotics. Plan is for bronchoscopy with BAL of the left lower lobe today. Moderate-sized left-sided hiatal hernia Acute hypoxic respiratory failure currently on 3 L of oxygen by nasal cannula Acute dyspnea, secondary to above History of chronic bronchial asthma, stable Coronary artery disease, status post history of CABG History of hyperlipidemia History of hypertension History of CVA/TIA History of BPH Bilateral lower extremity neuropathy LILLY without device Diarrhea, subsided Plan: The patient was seen and evaluated Labs and medications reviewed Continue bronchodilators, steroids Plan is for bronchoscopy with BAL today We will continue to follow I have personally seen and examined the patient, performed the documentation and the assessment and plan as written. Number of minutes spent on the visit: 10.
[2023-11-29] MEDS ORDERED: PROPOFOL 10 MG/ML 20 ML VIAL IV ONE (15:41)
[2023-11-29] MEDS ORDERED: LIDOCAINE 1% INJ 10MG/ML (20 ML MDV) ONE (15:41)
[2023-11-29] MEDS: LACTATED RINGERS 1,000 ML IV ONE ×2 (15:46→15:55)
[2023-11-29] MEDS: LIDOCAINE 2% INJ 20 MG/ML INTRATRACH ONE (15:53)
--- NOTE | 2023-11-29 22:29 | OP ---
OPERATIVE REPORT DATE OF SERVICE : PROCEDURES PERFORMED: Bronchoscopy and bronchoalveolar lavage of the left lower lobe. PREOPERATIVE DIAGNOSIS: Left lower lobe pneumonia. POSTOPERATIVE DIAGNOSES: Left lower lobe pneumonia and tracheobronchomalacia. ANESTHESIA USED: IV conscious sedation. DESCRIPTION OF PROCEDURE: The patient was prepared according to the bronchoscopy protocol. The patient was brought into the bronchoscopy suite room #1, he was placed in the supine position, O2 was applied via Ventimask. Then, we monitored his O2 saturation continuously, blood pressure was intermittently monitored, cardiac rhythm was continuously monitored. After adequate IV conscious sedation, lidocaine was applied into the right naris, and the bronchoscope was advanced through the right nares down to the area of the vocal cords. The vocal cords were noted to be patent. Lidocaine applied over the vocal cords, the bronchoscope was advanced down further and thorough examination was done of the trachea, right upper lobe, right middle lobe, right lower lobe, gabriel, left upper lobe lingula and left lower lobe. There was evidence of tracheobronchomalacia, there was evidence of inflamed mucosa, the mucosa was noted to be friable, red, edematous, but no clear-cut evidence of purulent secretions noted. Then, the bronchoscope was wedged in the left lower lobe, and bronchoalveolar lavage of the left lower lobe was done. The procedure was well tolerated, no complications, fluid obtained from the lavage was sent for different diagnostic studies. MMODL / IJN: [id number] /
[2023-11-30 03:13] LABS: Appearance,BF Blood Tinged (Clear); RBC, Body Fluid 9700 /UL (0-2000)
--- NOTE | 2023-11-30 14:13 | P.PN ---
Subjective Progress Note Date: 11/30/23 Patient is an 83-year-old white male with past medical history significant for asthma, coronary artery disease, previous CABG, CVA/TIA, hyperlipidemia, hypertension, BPH, neuropathy, LILLY without device, pneumonia, among other things. Patient presented to emergency room earlier this morning with a chief c omplaint of nonproductive congested cough, chills, shaking. Patient states that the symptoms began rather abruptly this morning at 0230. No sick contacts or recent travel. States that he was feeling fine yesterday, and even did some gardening. Denies any shortness of breath. Denies any chest pain. He was febrile on arrival to the emergency room, with a Tmax of 102 F. He did have 1 episode of associated nausea and vomiting while in the emergency room. Denies any abdominal pain. Denies any dysuria, urinary frequency, hematuria. Chest x- ray done on arrival shows a left-sided consolidation. CBC unremarkable. No leukocytosis. CMP on arrival unremarkable. Normal saline infusing at 130 MLS per hour. Lactic acid level 3.5. Negative for influenza, RSV, COVID. Patient is currently sitting up in bed, on room air, in no acute distress. He appears nontoxic. He was given Tylenol for his fever. Sinus tachycardia on bedside monitor. Blood pressure normotensive. Hemodynamically stable.On today's evaluation of 11/21/2023, the patient is being in consultation. The patient is having increased cough and congestion. I reviewed the chest x-ray and clearly there is a left sided pulmonary infiltrates, the patient has patchy density in the left midlung zone and in the left lower lobe consistent with underlying pneumonia. Clinically and hemodynamically stable. Unable to bring up much sputum. Currently on Rocephin and Zithromax. Patient is also on DuoNeb nebulized treatments [id number]. The patient is a non-smoker for now. The patient has been maintained on Symbicort. He is also taking a prednisone burst taper starting with 50 mg p.o. daily. He is known to have coronary disease with previous bypass surgery as mentioned. He has hypertension hyperlipidemia and BPH and obstructive sleep apnea without using his CPAP therapy at this point in time. He is also previous history of CVA/TIA. No active neurological deficits. No reported aspiration. On today's evaluation of 11/22/2023, patient is being seen for a follow-up. The patient is an 83-year-old male who is currently being treated for left lung pneumonia. This is likely community-acquired pneumonia. However, the procalcitonin level was low. Legionella urine antigen was negative. The viral screen was negative. The patient has some residual consolidation of the left perihilar area on today's chest x-ray. This could be also potentially chronic pleural, parenchymal density. Nevertheless, the patient continues to have cough congestion and wheeze. Remains on DuoNeb updrafts, remains on IV Rocephin and and Zithromax. Rest of the home medication have been all resumed. The blood culture has been negative thus far. The white cell count is at 12 with a hemoglobin 12.5 and a platelet count of 140. Electrolytes are all stable. LFTs are normal. UA is negative for any infection. On today's evaluation of 11/23/2023, the patient is being seen for a follow-up. The patient is complaining of ongoing shortness of breath and he does not think that he is improving. He was having diarrhea overnight and the patient reports a total of 5-6 episodes of diarrhea. Based on his ongoing respiratory difficulties, and based on the presence of a left lung consolidation, a CT scan of the chest was obtained today and the CAT scan of the chest showed a left upper and lower lobe groundglass pulmonary infiltrates consistent with atypical pneumonia and a moderate size hiatal hernia. No evidence of any mediastinal lymphadenopathy. No evidence of any significant pleural effusion. As such, the opacity that was seen in left cardiac border on the chest x-ray is consistent with a hiatal hernia. WBC count is 9.3 with a hemoglobin 11.4, BUN is 21 with a creatinine 0.8 and sodium levels at 143. The patient's procalcitonin level was 0.11. Legionella urine antigen was negative. For now, the patient is on 4 L of oxygen by nasal cannula with a pulse ox of 97%. On today's evaluation of 11/24/2023, I am seeing the patient for a follow-up. The patient is doing well. No specific complaints. Less short of breath compared to yesterday. Due to his ongoing shortness of breath, CAT scan of the chest was done yesterday and the patient was found to have some limited groundglass changes in the left lung along with a moderate-sized left-sided hiatal hernia. Remains on IV Rocephin. No active diarrhea. The labs from today shows a BUN of 18 with a creatinine of 0.7 and sodium levels at 141. He is currently on 3 L of oxygen by nasal cannula with a pulse ox of 98%. Resting comfortably in bed. The patient is seen today November 25, 2023 in follow-up on the regular medical floor. He is currently resting comfortably in bed. Awake and alert in no acute distress. Maintaining O2 saturations in the 90s on 2 L/min per nasal cannula. He is feeling a bit better. He is still dyspneic with conversation. Dyspneic with minimal exertion. He is can continued on ceftriaxone. Continued on bronchodilators and prednisone taper. Heparin for DVT prophylaxis. Remains on oral diuretics. White count 6.2. Hemoglobin 11.3. Platelets 147. The patient is seen today November 26, 2023 in follow-up on the regular medical floor. He is awake and alert in no acute distress. Denies any worsening shortness of breath, cough or congestion. Chest x-ray shows stable left basilar infiltrate most likely atelectasis. He is continued on ceftriaxone. He has completed azithromycin. He is maintaining good O2 saturations in the 90s on 2 L/min per nasal cannula. Cultures revealed no growth. White count 6.7. Hemoglobin 12.3. Platelets 141. Sodium 143. Potassium 4.0. Bicarb 24. BUN 21. Creatinine 0.87. Glucose 101. He is continued on DuoNeb inhalations, Symbicort, prednisone taper. The patient is seen today November 27, 2023 in follow-up on the regular medical floor. He is currently resting comfortably in bed. Awake and alert in no acute distress. He is maintaining good O2 saturations in the 90s on 3 L/min per nasal cannula. He completed ceftriaxone and azithromycin. He has a dry nonproductive cough. Some end expiratory wheezing. Chest x-ray reveals a left lower lobe infiltrate. He is continued on Symbicort, DuoNeb ventilations, prednisone taper. Heparin for DVT prophylaxis. Remains on oral diuretics. Blood cultures revealed no growth. White count 8.7. Hemoglobin 12.2. Platelets 171. Sodium 141. Potassium 3.9. Bicarb 24. BUN 24. Creatinine 0.9. Glucose 127. The patient is seen today November 28, 2023 in follow-up on the regular medical floor. He is awake and alert in no acute distress. Resting fairly comfortably in bed. Per nasal cannula. Has been afebrile. He states he did have shortness of breath last night. He continues with cough and congestion. He is feeling like he is not improving much. X-ray reveals mild cardiomegaly. No new moderate-sized hiatal hernia. Persistent patchy left lower lung opacity but with improved aeration in the left midlung. Blood cultures revealed no growth. He is continued on Symbicort, DuoNeb inhalations, prednisone taper. Heparin for DVT prophylaxis. Remains on oral diuretics. The patient is seen today November 29, 2023 in follow-up on the regular medical floor. He is currently resting fairly comfortably in bed. Awake and alert in no acute distress. He is maintaining O2 saturations in the 90s on 2 L/min per nasal cannula. He is afebrile. Hemodynamically stable. Blood culture revealed no growth. White count 9.6. Hemoglobin 13.2. Platelets 245. Sodium 138. Potassium 3.9. Bicarb 29. BUN 25. Creatinine 0.65. Glucose 93. He is continued on DuoNeb ventilations, Symbicort, Tessalon Perles, prednisone taper. He is on heparin for DVT prophylaxis. Remains on oral diuretics. Plan is for bronchoscopy with BAL today. The patient is seen today November 30, 2023 in follow-up on the regular medical floor. He is sitting up in bed. Awake and alert in no acute distress. He did undergo bronchoscopy with BAL yesterday. Cultures pending. No worsening shortness of breath, cough or congestion. He remains on bronchodilators, prednisone taper. Heparin for DVT prophylaxis. Blood cultures revealed no growth. Objective - Vital Signs Vital signs: Vital Signs Temp 97.6 F 11/30/23 13:44 Pulse 79 11/30/23 13:44 Resp 17 11/30/23 13:44 BP 100/66 11/30/23 13:44 Pulse Ox 95 11/30/23 13:44 FiO2 Intake & Output 11/29/23 11/30/23 11/30/23 18:59 06:59 18:59 Intake Total 100 550 Output Total 100 Balance 0 550 Weight 77.2 kg Intake: IV 100 Oral 550 Output: Urine 100 Other: Voiding Method Toilet Urinal # Voids 8 2 # Bowel Movements 1 - Exam GENERAL EXAM: Alert, agitated at times 83-year-old male, resting in bed. On 2 L of oxygen by nasal cannula. HEAD: Normocephalic and atraumatic EYES: Normal reaction of pupils, equal size. NOSE: Clear with pink turbinates. THROAT: No erythema or exudates. NECK: No masses, no JVD. CHEST: No chest wall deformity. Old sternotomy incision, healed and approximated LUNGS: Equal air entry with coarse rhonchi bilaterally, greater on the left. CVS: S1 and S2 normal with no audible murmur, regular rhythm. No extra heart sounds ABDOMEN: No hepatosplenomegaly, active bowel sounds, no guarding or rigidity. Small nonreducible periumbilical hernia. SPINE: No scoliosis or deformity SKIN: No rashes CENTRAL NERVOUS SYSTEM: No focal deficits, tone is normal in all 4 extremities. EXTREMITIES: There is no peripheral edema, clubbing, or cyanosis. Peripheral pu lses are intact. - Labs CBC & Chem 7: 11/29/23 07:39 11/29/23 07:39 Labs: Abnormal Lab Results - Last 24 Hours (Table) 11/29/23 Range/Units 15:50 Fluid Appearance Blood Tinged A (Clear) Assessment and Plan Assessment: Left-sided community-acquired pneumonia, likely bacterial in nature. Possibility of aspiration into the left lung in the setting of a large hiatal hernia cannot be completely excluded. CAT scan of the chest shows limited groundglass changes in the left upper lobe and left lower lobe. Also consider atypical pneumonia. The viral screen including RSV, COVID-19 and RSV were all negative. CAT scan of the chest was noted. The patient has been slow to progress and is on 2 L of O2 nasal cannula with adequate oxygenation at this point in time. Completed antibiotics. Bronchoscopy with BAL performed yesterday. Cultures and cytology pending. Moderate-sized left-sided hiatal hernia Acute hypoxic respiratory failure, recovered and currently on room air Acute dyspnea, secondary to above History of chronic bronchial asthma, stable Coronary artery disease, status post history of CABG History of hyperlipidemia History of hypertension History of CVA/TIA History of BPH Bilateral lower extremity neuropathy LILLY without device Diarrhea, subsided Plan: The patient was seen and evaluated Medications reviewed Continue bronchodilators, steroids Bronchial wash cultures and cytology pending Cleared for discharge from the pulmonary standpoint I have personally seen and examined the patient, performed the documentation and the assessment and plan as written. Number of minutes spent on the visit: 10.
--- NOTE | 2023-12-01 00:18 | PN ---
PROGRESS NOTE DATE OF SERVICE: 11/30/2023 I am covering for Dr. Castellanos. SUBJECTIVE: This 83-year-old gentleman admitted with left lower lobe pneumonia, is improving significantly. No chest pain, no palpitation. The patient is able to ambulate. Dr. Larsen has performed bronchoscopy and bronchoalveolar lavage. No chest pain, no palpitation. OBJECTIVE: VITAL SIGNS: Pulse is 80, blood pressure 87/50, respirations 15. HEENT: Conjunctivae normal. NECK: No jugular venous distention. CARDIOVASCULAR: S1, S2. RESPIRATIONS: Diminished, few scattered rhonchi. ABDOMEN: Soft. NERVOUS SYSTEM: Nonfocal. LABORATORY DATA: WBC 9.6, rest of the labs are noted. The most recent chest x-ray on reviewed. ASSESSMENT: 1. Left lower lobe pneumonia, status post bronchoscopy. 2. Coronary artery disease. 3. Chronic obstructive pulmonary disease. 4. Multiple medical issues. RECOMMENDATIONS: Recommended to continue current management, continue symptomatic treatment. Repeat labs tomorrow. Closely follow with Dr. Larsen. Continue with bronchodilators and rest of medications, Dr. Albright will follow on Saturday. MMODL / IJN: [id number] /
[2023-12-01 09:22] LABS: Basophils % (A) 0.9 %; Eosinophils # (A) 0.26 X 10*3/uL (0.04-0.35); Eosinophils % (A) 2.4 %; HGB 12.6 g/dL (13.0-17.0); Lymphocytes # (A) 3.24 X 10*3/uL (0.90-5.00); Lymphocytes % (A) 30.1 %; MCHC 33.2 g/dL (32.0-37.0); MCV 96.4 FL (80.0-97.0); Monocytes # (A) 0.68 X 10*3/uL (0.20-1.00); Monocytes % (A) 6.3 %; NRBC Per 100 WBC 0 X 10*3/uL (0.00-0.01); Neutrophils % (A) 56.9 %; Platelet Count 265 X 10*3/uL (140-440); RBC 3.94 X 10*6/uL (4.40-5.60); RDW 11.9 % (11.5-14.5); WBC 10.75 X 10*3/uL (4.50-10.00)
[2023-12-01 10:13] LABS: BUN/Creat Ratio 33.86 Ratio (12.00-20.00); Blood Urea Nitrogen 23.7 mg/dL (9.0-27.0); Calcium 8.6 mg/dL (8.7-10.3); Chloride 102 mmol/L (96-109); Glucose 89 mg/dL (70-110); Sodium 139 mmol/L (135-145)
--- NOTE | 2023-12-01 14:15 | PN ---
PROGRESS NOTE DATE OF SERVICE: 12/01/2023 I am covering for Dr. Castellanos. SUBJECTIVE: This 83-year-old gentleman was admitted with left lower pneumonia, also had bronchoscopy. No chest pain, no palpitation. Cultures are negative so far. OBJECTIVE: VITAL SIGNS: Pulse is 76, blood pressure 137/80, respirations 18. CHEST: Few scattered rhonchi and crackles. ABDOMEN: Soft. NERVOUS SYSTEM: Nonfocal. LABORATORY DATA: WBC 10.75. ASSESSMENT: 1. Left lower lobe pneumonia, status post bronchoscopy. 2. Coronary artery disease. 3. Chronic obstructive pulmonary disease. 4. Multiple medical issues. RECOMMENDATIONS: Recommended to continue current management, continue symptomatic treatment. Otherwise at this time continue with bronchodilators. Closely follow with Pulmonary. Possible discharge in a.m. within next 24 hours if cleared by pulmonology, Dr. Castellanos will follow. MMODL / CARLN: [id number] /
--- NOTE | 2023-12-01 15:26 | P.PN ---
Subjective Progress Note Date: 12/01/23 Patient is an 83-year-old white male with past medical history significant for asthma, coronary artery disease, previous CABG, CVA/TIA, hyperlipidemia, hypertension, BPH, neuropathy, LILLY without device, pneumonia, among other things. Patient presented to emergency room earlier this morning with a chief c omplaint of nonproductive congested cough, chills, shaking. Patient states that the symptoms began rather abruptly this morning at 0230. No sick contacts or recent travel. States that he was feeling fine yesterday, and even did some gardening. Denies any shortness of breath. Denies any chest pain. He was febrile on arrival to the emergency room, with a Tmax of 102 F. He did have 1 episode of associated nausea and vomiting while in the emergency room. Denies any abdominal pain. Denies any dysuria, urinary frequency, hematuria. Chest x- ray done on arrival shows a left-sided consolidation. CBC unremarkable. No leukocytosis. CMP on arrival unremarkable. Normal saline infusing at 130 MLS per hour. Lactic acid level 3.5. Negative for influenza, RSV, COVID. Patient is currently sitting up in bed, on room air, in no acute distress. He appears nontoxic. He was given Tylenol for his fever. Sinus tachycardia on bedside monitor. Blood pressure normotensive. Hemodynamically stable.On today's evaluation of 11/21/2023, the patient is being in consultation. The patient is having increased cough and congestion. I reviewed the chest x-ray and clearly there is a left sided pulmonary infiltrates, the patient has patchy density in the left midlung zone and in the left lower lobe consistent with underlying pneumonia. Clinically and hemodynamically stable. Unable to bring up much sputum. Currently on Rocephin and Zithromax. Patient is also on DuoNeb nebulized treatments [id number]. The patient is a non-smoker for now. The patient has been maintained on Symbicort. He is also taking a prednisone burst taper starting with 50 mg p.o. daily. He is known to have coronary disease with previous bypass surgery as mentioned. He has hypertension hyperlipidemia and BPH and obstructive sleep apnea without using his CPAP therapy at this point in time. He is also previous history of CVA/TIA. No active neurological deficits. No reported aspiration. On today's evaluation of 11/22/2023, patient is being seen for a follow-up. The patient is an 83-year-old male who is currently being treated for left lung pneumonia. This is likely community-acquired pneumonia. However, the procalcitonin level was low. Legionella urine antigen was negative. The viral screen was negative. The patient has some residual consolidation of the left perihilar area on today's chest x-ray. This could be also potentially chronic pleural, parenchymal density. Nevertheless, the patient continues to have cough congestion and wheeze. Remains on DuoNeb updrafts, remains on IV Rocephin and and Zithromax. Rest of the home medication have been all resumed. The blood culture has been negative thus far. The white cell count is at 12 with a hemoglobin 12.5 and a platelet count of 140. Electrolytes are all stable. LFTs are normal. UA is negative for any infection. On today's evaluation of 11/23/2023, the patient is being seen for a follow-up. The patient is complaining of ongoing shortness of breath and he does not think that he is improving. He was having diarrhea overnight and the patient reports a total of 5-6 episodes of diarrhea. Based on his ongoing respiratory difficulties, and based on the presence of a left lung consolidation, a CT scan of the chest was obtained today and the CAT scan of the chest showed a left upper and lower lobe groundglass pulmonary infiltrates consistent with atypical pneumonia and a moderate size hiatal hernia. No evidence of any mediastinal lymphadenopathy. No evidence of any significant pleural effusion. As such, the opacity that was seen in left cardiac border on the chest x-ray is consistent with a hiatal hernia. WBC count is 9.3 with a hemoglobin 11.4, BUN is 21 with a creatinine 0.8 and sodium levels at 143. The patient's procalcitonin level was 0.11. Legionella urine antigen was negative. For now, the patient is on 4 L of oxygen by nasal cannula with a pulse ox of 97%. On today's evaluation of 11/24/2023, I am seeing the patient for a follow-up. The patient is doing well. No specific complaints. Less short of breath compared to yesterday. Due to his ongoing shortness of breath, CAT scan of the chest was done yesterday and the patient was found to have some limited groundglass changes in the left lung along with a moderate-sized left-sided hiatal hernia. Remains on IV Rocephin. No active diarrhea. The labs from today shows a BUN of 18 with a creatinine of 0.7 and sodium levels at 141. He is currently on 3 L of oxygen by nasal cannula with a pulse ox of 98%. Resting comfortably in bed. The patient is seen today November 25, 2023 in follow-up on the regular medical floor. He is currently resting comfortably in bed. Awake and alert in no acute distress. Maintaining O2 saturations in the 90s on 2 L/min per nasal cannula. He is feeling a bit better. He is still dyspneic with conversation. Dyspneic with minimal exertion. He is can continued on ceftriaxone. Continued on bronchodilators and prednisone taper. Heparin for DVT prophylaxis. Remains on oral diuretics. White count 6.2. Hemoglobin 11.3. Platelets 147. The patient is seen today November 26, 2023 in follow-up on the regular medical floor. He is awake and alert in no acute distress. Denies any worsening shortness of breath, cough or congestion. Chest x-ray shows stable left basilar infiltrate most likely atelectasis. He is continued on ceftriaxone. He has completed azithromycin. He is maintaining good O2 saturations in the 90s on 2 L/min per nasal cannula. Cultures revealed no growth. White count 6.7. Hemoglobin 12.3. Platelets 141. Sodium 143. Potassium 4.0. Bicarb 24. BUN 21. Creatinine 0.87. Glucose 101. He is continued on DuoNeb inhalations, Symbicort, prednisone taper. The patient is seen today November 27, 2023 in follow-up on the regular medical floor. He is currently resting comfortably in bed. Awake and alert in no acute distress. He is maintaining good O2 saturations in the 90s on 3 L/min per nasal cannula. He completed ceftriaxone and azithromycin. He has a dry nonproductive cough. Some end expiratory wheezing. Chest x-ray reveals a left lower lobe infiltrate. He is continued on Symbicort, DuoNeb ventilations, prednisone taper. Heparin for DVT prophylaxis. Remains on oral diuretics. Blood cultures revealed no growth. White count 8.7. Hemoglobin 12.2. Platelets 171. Sodium 141. Potassium 3.9. Bicarb 24. BUN 24. Creatinine 0.9. Glucose 127. The patient is seen today November 28, 2023 in follow-up on the regular medical floor. He is awake and alert in no acute distress. Resting fairly comfortably in bed. Per nasal cannula. Has been afebrile. He states he did have shortness of breath last night. He continues with cough and congestion. He is feeling like he is not improving much. X-ray reveals mild cardiomegaly. No new moderate-sized hiatal hernia. Persistent patchy left lower lung opacity but with improved aeration in the left midlung. Blood cultures revealed no growth. He is continued on Symbicort, DuoNeb inhalations, prednisone taper. Heparin for DVT prophylaxis. Remains on oral diuretics. The patient is seen today November 29, 2023 in follow-up on the regular medical floor. He is currently resting fairly comfortably in bed. Awake and alert in no acute distress. He is maintaining O2 saturations in the 90s on 2 L/min per nasal cannula. He is afebrile. Hemodynamically stable. Blood culture revealed no growth. White count 9.6. Hemoglobin 13.2. Platelets 245. Sodium 138. Potassium 3.9. Bicarb 29. BUN 25. Creatinine 0.65. Glucose 93. He is continued on DuoNeb ventilations, Symbicort, Tessalon Perles, prednisone taper. He is on heparin for DVT prophylaxis. Remains on oral diuretics. Plan is for bronchoscopy with BAL today. The patient is seen today November 30, 2023 in follow-up on the regular medical floor. He is sitting up in bed. Awake and alert in no acute distress. He did undergo bronchoscopy with BAL yesterday. Cultures pending. No worsening shortness of breath, cough or congestion. He remains on bronchodilators, prednisone taper. Heparin for DVT prophylaxis. Blood cultures revealed no growth. The patient is seen today December 01, 2023 in follow-up on the regular medical floor. He is awake and alert in no acute distress. He is breathing quite a bit better today compared to yesterday. No worsening shortness of breath, cough or congestion. He is currently maintaining good O2 saturation in the 90s on room air. Lung sounds clear. He remains on bronchodilators and steroids. Remains on oral diuretics. Heparin for DVT prophylaxis. White count 10.7. Hemoglobin 12.6. Platelets 265. Sodium 139. Potassium 4.0. Bicarb 26. BUN 24. Creatinine 0.7. Objective - Vital Signs Vital signs: Vital Signs Temp 98.0 F 12/01/23 07:37 Pulse 80 12/01/23 11:44 Resp 18 12/01/23 08:00 BP 137/88 12/01/23 07:37 Pulse Ox 99 12/01/23 07:37 FiO2 Intake & Output 11/30/23 12/01/23 12/01/23 18:59 06:59 18:59 Intake Total 270 Balance 270 Weight 76 kg Intake: Oral 270 Other: Voiding Method Toilet Toilet Toilet Urinal Urinal Urinal # Voids 5 4 # Bowel Movements 1 - Exam GENERAL EXAM: Alert, vented, cooperative 83-year-old male, resting in bed. On room air. HEAD: Normocephalic and atraumatic EYES: Normal reaction of pupils, equal size. NOSE: Clear with pink turbinates. THROAT: No erythema or exudates. NECK: No masses, no JVD. CHEST: No chest wall deformity. Old sternotomy incision, healed and approximated LUNGS: Equal air entry with coarse rhonchi bilaterally, greater on the left. CVS: S1 and S2 normal with no audible murmur, regular rhythm. No extra heart sounds ABDOMEN: No hepatosplenomegaly, active bowel sounds, no guarding or rigidity. Small nonreducible periumbilical hernia. SPINE: No scoliosis or deformity SKIN: No rashes CENTRAL NERVOUS SYSTEM: No focal deficits, tone is normal in all 4 extremities. EXTREMITIES: There is no peripheral edema, clubbing, or cyanosis. Peripheral p ulses are intact. - Labs CBC & Chem 7: 12/01/23 05:17 12/01/23 05:17 Labs: Abnormal Lab Results - Last 24 Hours (Table) 12/01/23 12/01/23 Range/Units 05:17 05:17 WBC 10.75 H (4.50-10.00) X 10*3/uL RBC 3.94 L (4.40-5.60) X 10*6/uL Hgb 12.6 L (13.0-17.0) g/dL Hct 38.0 L (39.6-50.0) % Immature Gran # 0.37 H (0.00-0.04) X 10*3/uL BUN/Creatinine Ratio 33.86 H (12.00-20.00) Ratio Calcium 8.6 L (8.7-10.3) mg/dL Microbiology - Last 24 Hours (Table) 11/29/23 15:50 Gram Stain - Preliminary Bronchoalviolar Lavage - Left Bronchial Washings Culture - Preliminary 11/29/23 15:50 Acid Fast Bacilli Smear - Preliminary Bronchoalviolar Lavage - Left Assessment and Plan Assessment: Left-sided community-acquired pneumonia, likely bacterial in nature. Possibility of aspiration into the left lung in the setting of a large hiatal hernia cannot be completely excluded. CAT scan of the chest shows limited groundglass changes in the left upper lobe and left lower lobe. Also consider atypical pneumonia. The viral screen including RSV, COVID-19 and RSV were all negative. CAT scan of the chest was noted. The patient has been slow to progress and is on 2 L of O2 nasal cannula with adequate oxygenation at this point in time. Completed antibiotics. Bronchoscopy with BAL performed 11/29/2023. Cultures and cytology pending. Moderate-sized left-sided hiatal hernia Acute hypoxic respiratory failure, recovered and currently on room air Acute dyspnea, secondary to above History of chronic bronchial asthma, stable Coronary artery disease, status post history of CABG History of hyperlipidemia History of hypertension History of CVA/TIA History of BPH Bilateral lower extremity neuropathy LILLY without device Diarrhea, subsided Plan: The patient was seen and evaluated Medications and labs reviewed Currently stable and on room air Continue bronchodilators, steroids Bronchial wash cultures and cytology pending Plan is for home with home care in a.m. We will continue to follow I have personally seen and examined the patient, performed the documentation and the assessment and plan as written. Number of minutes spent on the visit: 10.
[2023-12-02 08:21] VITALS: BP 109/72; RESP 16; TEMP 97.7
--- NOTE | 2023-12-02 08:55 | P.DS ---
Providers Date of admission: 11/21/23 06:07 Attending physician: Cullen Castellanos Consults: 11/21/23 06:06 Consult Physician Routine Consulting Provider: Manan London Reason/Comments: COPD, PNA Do you want consulting provider notified?: Yes Primary care physician: [facility] - Discharge Diagnosis(es) (1) Community acquired pneumonia Current Visit: Yes Status: Acute (2) CAD (coronary artery disease) Current Visit: No Status: Acute (3) Hyperlipemia Current Visit: No Status: Acute (4) Hypertension Current Visit: Yes Status: Acute (5) Arthritis Current Visit: Yes Status: Acute Hospital Course: This is an 83-year-old male who originally presented to the emergency department with complaints of cough and chills and was found to have a left lower lobe infiltrate. Patient has completed IV course of antibiotics of Rocephin and azithromycin. He did have a bronchoscopy at the end of last week and reports significant improvement since then. He will be sent home on a prednisone taper. He has remained off of oxygen and is now on room air. Patient may be discharged if okay with pulmonology. Patient seen and evaluated by nurse practitioner, physician in agreement with plan Patient Condition at Discharge: Stable Plan - Discharge Summary Discharge Rx Participant: Yes New Discharge Prescriptions: New predniSONE 30 mg PO DAILY 7 Days #12 tab Continue Metoprolol Succinate [Toprol XL] 12.5 mg PO DAILY lisinopriL [Prinivil] 5 mg PO DAILY Primidone [Mysoline] 100 mg PO TID clonazePAM [KlonoPIN] 1 mg PO HS oxyBUTYnin chloride [Ditropan] 5 mg PO BID fentaNYL 25MCG/HR PATCH [Duragesic 25MCG/HR] 1 patch TRANSDERM Q72H Furosemide [Lasix] 20 mg PO DAILY Atorvastatin Calcium [Lipitor] 80 mg PO HS Aspirin EC [Ecotrin Low Dose] 162 mg PO HS Tamsulosin HCl [Flomax] 0.4 mg PO DAILY Melatonin 6 mg PO HS Gabapentin [Neurontin] 100 mg PO BID Finasteride [Proscar] 5 mg PO DAILY Cholecalciferol (Vitamin D3) [Vitamin D3 (50 Mcg = 2000 Iu)] 50 mcg PO DAILY Sertraline [Zoloft] 50 mg PO HS Naloxone HCl [Narcan] 4 mg NASAL DIRECTED PRN PRN Reason: Overdose Celecoxib [CeleBREX] 100 mg PO BID Loratadine [Claritin] 10 mg PO DAILY PRN PRN Reason: Allergy Symptoms Discharge Medication List Metoprolol Succinate [Toprol XL] 12.5 mg PO DAILY 01/30/17 [History] lisinopriL [Prinivil] 5 mg PO DAILY 01/30/17 [History] Primidone [Mysoline] 100 mg PO TID 12/01/18 [History] clonazePAM [KlonoPIN] 1 mg PO HS 12/01/18 [History] Aspirin EC [Ecotrin Low Dose] 162 mg PO HS 01/06/19 [History] Atorvastatin Calcium [Lipitor] 80 mg PO HS 01/06/19 [History] Furosemide [Lasix] 20 mg PO DAILY 01/06/19 [History] fentaNYL 25MCG/HR PATCH [Duragesic 25MCG/HR] 1 patch TRANSDERM Q72H 01/06/19 [History] oxyBUTYnin chloride [Ditropan] 5 mg PO BID 01/06/19 [History] Celecoxib [CeleBREX] 100 mg PO BID 11/21/23 [History] Cholecalciferol (Vitamin D3) [Vitamin D3 (50 Mcg = 2000 Iu)] 50 mcg PO DAILY 11/21/23 [History] Finasteride [Proscar] 5 mg PO DAILY 11/21/23 [History] Gabapentin [Neurontin] 100 mg PO BID 11/21/23 [History] Loratadine [Claritin] 10 mg PO DAILY PRN 11/21/23 [History] Melatonin 6 mg PO HS 11/21/23 [History] Naloxone HCl [Narcan] 4 mg NASAL DIRECTED PRN 11/21/23 [History] Sertraline [Zoloft] 50 mg PO HS 11/21/23 [History] Tamsulosin HCl [Flomax] 0.4 mg PO DAILY 11/21/23 [History] predniSONE 30 mg PO DAILY 7 Days #12 tab 12/02/23 [Rx] Follow up Appointment(s)/Referral(s): Cullen Castellanos MD [STAFF PHYSICIAN] - 1 Week [facility] [Primary Care Provider] - 1-2 days Discharge Disposition: HOME SELF-CARE
[2023-12-02 10:02] LABS: Nucleated Cells, Body Fluid 250 /UL
[2023-12-02 11:23] VITALS: PULSE 72
--- NOTE | 2023-12-03 00:33 | PN ---
PROGRESS NOTE DATE OF SERVICE: 12/02/2023 PULMONARY/CRITICAL CARE PROGRESS NOTE: SUBJECTIVE: This is an 83-year-old male who is seen today in room 453. The patient has now been here for 11 days. Currently, he is on room air. He is not receiving any IV fluids. He has no complaints today. He states his breathing is much improved. He denies any shortness of breath, cough, wheezing, chest tightness, or phlegm production. No new labs today. Labs from yesterday have been reviewed. So far bronchoscopy washings, sputums, and blood cultures have all been negative. No recent chest x-ray to report. PHYSICAL EXAMINATION: VITAL SIGNS: Current vital signs include a temperature 97.7, heart rate 76, respiratory rate 16, blood pressure 109/72 with a mean 84 and room air saturation 96%. He appears in no acute distress. HEENT: Grossly unremarkable. NECK: Supple, full range of motion. No adenopathy or thyromegaly. Neck veins are flat. CARDIOVASCULAR: Examination reveals regular rhythm rate. Heart rate mid 70s. S1, S2 normal. LUNGS: Reveal mostly clear breath sounds. Minimal rhonchi. No wheezes or crackles. ABDOMEN: Soft, bowel sounds are heard. EXTREMITIES: Intact. No cyanosis, clubbing, or edema. SKIN: Without rash. NEUROLOGIC: Brief but nonfocal. ASSESSMENT: 1. Left-sided community-acquired pneumonia, improved. 2. Moderate-size left-sided hiatal hernia. 3. Acute hypoxemic respiratory failure. 4. Acute dyspnea, improved. 5. History of chronic bronchial asthma, stable. 6. CAD, status post bypass grafting. 7. History of hyperlipidemia. 8. History of hypertension. 9. History of cerebrovascular accident/transient ischemic attack. 10.History of benign prostatic hypertrophy. 11.Bilateral lower extremity neuropathy. 12.Obstructive sleep apnea syndrome. 13.Diarrhea, resolved. PLAN: The patient is doing much better. The patient is hoping to be discharged soon. No additional recommendations are made. We will continue to follow. I have asked the patient to follow up with me in the office. I will be in the office in the next 2-3 weeks. So far, bronchoscopy washings are negative. No additional recommendations are made. Prognosis is guarded. MMODL / IJN: [id number] /
--- NOTE | 2023-12-05 15:43 | CDI ---
Documentation Clarification Form Date: 12/05/2023 03:04:27 PM From: Dorina Pinzon RN, CCDS Phone: [phone] Admit Date: 11/21/2023 06:07:00 AM Patient Name: Latrell Gallo Visit Number: [id number] Discharge Date: 12/02/2023 12:41:00 PM ATTENTION: The Clinical Documentation Specialists (CDI) and [facility] Coding Staff appreciate your assistance in clarifying documentation. Please respond to the clarification below the line at the bottom and electronically sign. The CDI & [facility] Coding staff will review the response and follow-up if needed. Please note: Queries are made part of the Legal Health Record. If you have any questions, please contact the author of this message via ITS. Dr. Cullen Castellanos The patient had pneumonia, fever and tachycardia. Based on this information and the findings below, is there an additional diagnosis that is clinically appropriate for this patient? History/Risk Factors: CAD, CP, angina, CHG, COPD, CVA, HTN and sleep apnea on cpap. Presented to the ED with cough and chills. Admitted with pneumonia. Clinical Indicators: 11/21 WBC: 12.05 11/20 Lactic acid: 3.5-1.2 11/20 Vital signs: Temp 102.0, HR 117, RR 22 11/30 Pulmonary: "The patient has been slow to progress and is on 2 L of O2 nasal cannula with adequate oxygenation at this point in time. Left sided community- acquired pneumonia, likely bacterial in nature. Possibility of aspiration into the left lung in the setting of a large hiatal hernia cannot be completely excluded. Acute hypoxic respiratory failure, recovered and currently on room air." Discharge summary: "He did have a bronchoscopy at the end of last week and reports significant improvement since then." Treatment: A/A QID Antibiotics: Azithromycin 500mg x1 on 11/20 then daily 11/21-11/22; IV Rocephin 2gm x1 on 11/20; IV Rocephin 2gm 11/21-11/25 IV Bolus: 1L 0.9 NS IV bolus x1 on 11/20 then 130mL/hr 11/20-11/24 Is there an additional diagnosis that is clinically appropriate for this patient? [ x] Sepsis, present on admission [ ] No additional diagnosis/not clinically significant [ ] Other, please specify [ ] Unable to determine SIRS Criteria: 2 or more of the following may indicate SIRS Temperature < 96.8F (36C) or > 101.0F (38.3C) Heart Rate > 90 bpm Respiratory Rate > 20 breaths/min or PaCO2 < 32 mmHg White Blood Cell Count > 12,000 or < 4,000 cells/mm3 or > 10% bands MTDD
== END 2023-12-02 12:41 | disposition home or self-care (01) | DRG 871 ==
LOC: EC 03:58 → 4SSUR 06:07
PROVIDERS: ADMIT Family Medicine; ATTEND Family Medicine
PROC: 0B9J8ZX Drainage of Left Lower Lung Lobe, Via Natural or Artificial Opening Endoscopic, Diagnostic (ICD-10-PCS; principal; 2023-11-29 07:30)
DX: A41.9 Sepsis, unspecified organism (principal); J18.9 Pneumonia, unspecified organism; J96.21 Acute and chronic respiratory failure with hypoxia; J44.0 Chronic obstructive pulmonary disease with (acute) lower respiratory infection; J44.1 Chronic obstructive pulmonary disease with (acute) exacerbation; I11.0 Hypertensive heart disease with heart failure; I50.9 Heart failure, unspecified; J98.09 Other diseases of bronchus, not elsewhere classified; G20.A1 Parkinson's disease without dyskinesia, without mention of fluctuations; Z99.81 Dependence on supplemental oxygen; I25.10 Atherosclerotic heart disease of native coronary artery without angina pectoris; E78.5 Hyperlipidemia, unspecified; M19.90 Unspecified osteoarthritis, unspecified site; G47.33 Obstructive sleep apnea (adult) (pediatric); N40.0 Benign prostatic hyperplasia without lower urinary tract symptoms; K44.9 Diaphragmatic hernia without obstruction or gangrene; G62.9 Polyneuropathy, unspecified; Z96.651 Presence of right artificial knee joint; Z79.891 Long term (current) use of opiate analgesic; Z79.51 Long term (current) use of inhaled steroids; Z79.1 Long term (current) use of non-steroidal anti-inflammatories (NSAID); Z79.82 Long term (current) use of aspirin; Z86.73 Personal history of transient ischemic attack (TIA), and cerebral infarction without residual deficits; Z95.1 Presence of aortocoronary bypass graft; Z79.899 Other long term (current) drug therapy; Z88.5 Allergy status to narcotic agent; Z11.52 Encounter for screening for COVID-19; Z87.828 Personal history of other (healed) physical injury and trauma
CPT/HCPCS: 31624; 36415; 71045; 71046; 71260; 74176; 80048; 80053; 81001; 83605; 83735; 84145; 85025; 85027; 87040; 87070; 87102; 87116; 87205; 87206; 87449; 87496; 87498; 87502; 87529; 87634; 87635; 87636; 87798; 89050; 93005; 94640; 94760; 96361; 96365; 96366; 96367; 99285

== ENCOUNTER 2023-12-03 22:03 | Observation (INO) | payer MEDICARE ==
--- NOTE | 2023-12-03 22:42 | XR ---
EXAM: XR Chest, 2 Views CLINICAL HISTORY: ITS.REASON XR Reason: cough TECHNIQUE: Frontal and lateral views of the chest. COMPARISON: No relevant prior studies available. FINDINGS: Lungs: Unremarkable. No consolidation. Pleural space: Unremarkable. No pneumothorax. Heart: Unremarkable. No cardiomegaly. Mediastinum: Moderate hiatal hernia. Bones/joints: Sternotomy wires. No acute fracture. IMPRESSION: Moderate hiatal hernia.
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
[2023-12-03 23:22] LABS: Basophils # (A) 0.1 k/uL (0-0.2); Basophils % (A) 1 %; Eosinophils # (A) 0.2 k/uL (0-0.7); Eosinophils % (A) 3 %; HGB 13.6 gm/dL (13.0-17.5); Lymphocytes # (A) 2.2 k/uL (1.0-4.8); Lymphocytes % (A) 30 %; MCH 32.8 pg (25.0-35.0); MCHC 33.2 g/dL (31.0-37.0); MCV 98.7 fL (80.0-100.0); Mean Platelet Volume 7.8; Monocytes # (A) 0.6 k/uL (0-1.0); Monocytes % (A) 8 %; Neutrophils # (A) 4.2 k/uL (1.3-7.7); Neutrophils % (A) 56 %; Platelet Count 257 k/uL (150-450); RBC 4.16 m/uL (4.30-5.90); WBC 7.4 k/uL (3.8-10.6)
[2023-12-03 23:34] LABS: ALT 42 U/L (4-49); AST 36 U/L (17-59); African American GFR (CKD) >90 (>60 ml/min/1.73 sqM); Albumin 3.7 g/dL (3.5-5.0); Alkaline Phosphatase 55 U/L (38-126); Anion Gap 8 mmol/L; Blood Urea Nitrogen 26 mg/dL (9-20); Carbon Dioxide 26 mmol/L (22-30); Chloride 103 mmol/L (98-107); Glucose 99 mg/dL (74-99); Non-African American GFR(CKD) 85 (>60 ml/min/1.73 sqM); Potassium 4.2 mmol/L (3.5-5.1); Sodium 137 mmol/L (137-145); Total Bilirubin 0.5 mg/dL (0.2-1.3); Total Protein 6.2 g/dL (6.3-8.2)
[2023-12-03 23:43] LABS: NT-Pro-B-Type Natriuretic Pept 164 pg/mL
[2023-12-04] MEDS ORDERED: ACETAMINOPHEN TAB 325 MG TAB PO PRN (01:07)
[2023-12-04] MEDS ORDERED: MAG HYDROX/AL HYDROX/SIMETH 30 ML CUP PO PRN (01:07)
[2023-12-04] MEDS ORDERED: NALOXONE 0.4 MG/ML 1 ML VIAL IV PRN (01:07)
[2023-12-04] MEDS: SODIUM CHLORIDE 0.9% 1,000 ML IV SCH (01:39)
[2023-12-04] MEDS ORDERED: LORATADINE 10 MG TAB PO PRN (08:17)
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
[2023-12-04] MEDS: MELOXICAM 7.5 MG TAB PO SCH (09:55)
[2023-12-04] MEDS: PRIMIDONE 50 MG TAB PO SCH (09:56)
[2023-12-04] MEDS: FUROSEMIDE 20 MG TAB PO SCH (09:56)
[2023-12-04] MEDS: FAMOTIDINE 20 MG TAB PO SCH (09:56)
[2023-12-04] MEDS: METOPROLOL SUCCINATE (ER) 25 MG TAB.ER.24H PO SCH (09:56)
[2023-12-04] MEDS: FINASTERIDE 5 MG TAB PO SCH (09:56)
[2023-12-04] MEDS: oxyBUTYnin chloride 5 MG TAB PO SCH (09:56)
[2023-12-04] MEDS: TAMSULOSIN 0.4 MG CAP.ER.24H PO SCH (09:56)
[2023-12-04] MEDS: CHOLECALCIFEROL 25 MCG (1000 IU) TABLET PO SCH (09:56)
[2023-12-04] MEDS: GABAPENTIN 100 MG CAP PO SCH (09:56)
[2023-12-04] MEDS: lisinopriL 5 MG TAB PO SCH (09:56)
[2023-12-04] MEDS: ATORVASTATIN 80 MG TAB PO SCH (20:44)
[2023-12-04] MEDS: ASPIRIN 81 MG PO SCH (20:44)
[2023-12-04] MEDS: clonazePAM 1 MG TAB PO SCH (20:44)
[2023-12-04] MEDS: SERTRALINE 50 MG TAB PO SCH (20:44)
[2023-12-04] MEDS: MELATONIN 3 MG TABLET PO SCH (20:44)
--- NOTE | 2023-12-05 08:23 | P.DS ---
Providers Date of admission: 12/04/23 01:10 Attending physician: Cullen Castellanos Primary care physician: Cullen Castellanos - Discharge Diagnosis(es) (1) Generalized weakness Current Visit: Yes Status: Acute (2) Community acquired pneumonia Current Visit: No Status: Acute (3) Hypertension Current Visit: No Status: Acute (4) Hyperlipemia Current Visit: No Status: Acute Hospital Course: This is an 83-year-old male who was recently discharged after being treated for pneumonia here. Patient was home and had some weakness and did not feel he was safe at home. He presented back to the hospital for possible placement for rehab. He also reported a cough on admission. Patient reports he is feeling much better. Cough is gone. He has decided he would like to go home. Home care is being set up by care management. This morning he is seen standing at side of bed getting dressed. He is steady on his feet. He is tolerating diet. Patient may be discharged home with home care today. He will need to follow-up in our office in 1 week. Patient seen and evaluated by nurse practitioner, physician in agreement with plan Plan - Discharge Summary Discharge Rx Participant: Yes New Discharge Prescriptions: Continue Metoprolol Succinate [Toprol XL] 12.5 mg PO DAILY lisinopriL [Prinivil] 5 mg PO DAILY Primidone [Mysoline] 100 mg PO TID clonazePAM [KlonoPIN] 1 mg PO HS oxyBUTYnin chloride [Ditropan] 5 mg PO BID fentaNYL 25MCG/HR PATCH [Duragesic 25MCG/HR] 1 patch TRANSDERM Q72H Furosemide [Lasix] 20 mg PO DAILY Atorvastatin Calcium [Lipitor] 80 mg PO HS Aspirin EC [Ecotrin Low Dose] 162 mg PO HS Tamsulosin HCl [Flomax] 0.4 mg PO DAILY Melatonin 6 mg PO HS Gabapentin [Neurontin] 100 mg PO BID predniSONE See Taper PO DAILY Finasteride [Proscar] 5 mg PO DAILY Cholecalciferol (Vitamin D3) [Vitamin D3 (50 Mcg = 2000 Iu)] 50 mcg PO DAILY Sertraline [Zoloft] 50 mg PO HS Naloxone HCl [Narcan] 4 mg NASAL DIRECTED PRN PRN Reason: Overdose Celecoxib [CeleBREX] 100 mg PO BID Loratadine [Claritin] 10 mg PO DAILY PRN PRN Reason: Allergy Symptoms Discharge Medication List Metoprolol Succinate [Toprol XL] 12.5 mg PO DAILY 01/30/17 [History] lisinopriL [Prinivil] 5 mg PO DAILY 01/30/17 [History] Primidone [Mysoline] 100 mg PO TID 12/01/18 [History] clonazePAM [KlonoPIN] 1 mg PO HS 12/01/18 [History] Aspirin EC [Ecotrin Low Dose] 162 mg PO HS 01/06/19 [History] Atorvastatin Calcium [Lipitor] 80 mg PO HS 01/06/19 [History] Furosemide [Lasix] 20 mg PO DAILY 01/06/19 [History] fentaNYL 25MCG/HR PATCH [Duragesic 25MCG/HR] 1 patch TRANSDERM Q72H 01/06/19 [History] oxyBUTYnin chloride [Ditropan] 5 mg PO BID 01/06/19 [History] Celecoxib [CeleBREX] 100 mg PO BID 11/21/23 [History] Cholecalciferol (Vitamin D3) [Vitamin D3 (50 Mcg = 2000 Iu)] 50 mcg PO DAILY 11/21/23 [History] Finasteride [Proscar] 5 mg PO DAILY 11/21/23 [History] Gabapentin [Neurontin] 100 mg PO BID 11/21/23 [History] Loratadine [Claritin] 10 mg PO DAILY PRN 11/21/23 [History] Melatonin 6 mg PO HS 11/21/23 [History] Naloxone HCl [Narcan] 4 mg NASAL DIRECTED PRN 11/21/23 [History] Sertraline [Zoloft] 50 mg PO HS 11/21/23 [History] Tamsulosin HCl [Flomax] 0.4 mg PO DAILY 11/21/23 [History] predniSONE See Taper PO DAILY 12/04/23 [History] Follow up Appointment(s)/Referral(s): Cullen Castellanos MD [Primary Care Provider] - 1 Week [facility] Visiting Nurse, [NON-STAFF] - As Needed [facility] [REFERRING] - 1-2 days Discharge Disposition: HOME WITH HOME HEALTH SERVICES
[2023-12-05 08:40] VITALS: BP 95/62; PULSE 66; RESP 17; TEMP 97.8
== END 2023-12-05 11:34 | disposition home health service (06) ==
LOC: EC 22:03 → INTOOBSV 12-04 01:10 → 4SSUR 12-04 01:10
PROVIDERS: ADMIT Family Medicine; ATTEND Family Medicine
DX: J18.9 Pneumonia, unspecified organism (principal); R53.1 Weakness; E78.5 Hyperlipidemia, unspecified; I11.0 Hypertensive heart disease with heart failure; I50.9 Heart failure, unspecified; I25.10 Atherosclerotic heart disease of native coronary artery without angina pectoris; J44.9 Chronic obstructive pulmonary disease, unspecified; K21.9 Gastro-esophageal reflux disease without esophagitis; G47.33 Obstructive sleep apnea (adult) (pediatric); N40.0 Benign prostatic hyperplasia without lower urinary tract symptoms; G20.A1 Parkinson's disease without dyskinesia, without mention of fluctuations; F32.A Depression, unspecified; F41.9 Anxiety disorder, unspecified; Z86.73 Personal history of transient ischemic attack (TIA), and cerebral infarction without residual deficits; Z95.1 Presence of aortocoronary bypass graft; Z79.1 Long term (current) use of non-steroidal anti-inflammatories (NSAID); Z79.899 Other long term (current) drug therapy; Z88.5 Allergy status to narcotic agent
CPT/HCPCS: 36415; 94667; 93005; 97161; 97165; 83880; 80053; 83605; 84484; 85025; 87070; 87205; 87636; 71046; G0378 ×2; S0138 ×2; 99285

== ENCOUNTER 2023-12-07 06:24 | Observation (INO) | payer MEDICARE ==
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
[2023-12-07] MEDS: SODIUM CHLORIDE 0.9% 500 ML 500 ML IV STA (07:45)
[2023-12-07] MEDS: IBUPROFEN 600 MG TAB PO STA (07:48)
[2023-12-07 08:01] LABS: Basophils # (A) 0.1 k/uL (0-0.2); Basophils % (A) 1 %; Eosinophils # (A) 0.2 k/uL (0-0.7); Eosinophils % (A) 2 %; HGB 14.2 gm/dL (13.0-17.5); Lymphocytes # (A) 0.8 k/uL (1.0-4.8); Lymphocytes % (A) 8 %; MCH 31.6 pg (25.0-35.0); MCHC 32.3 g/dL (31.0-37.0); MCV 97.8 fL (80.0-100.0); Mean Platelet Volume 7.4; Monocytes # (A) 0.5 k/uL (0-1.0); Monocytes % (A) 5 %; Neutrophils # (A) 7.7 k/uL (1.3-7.7); Neutrophils % (A) 84 %; Platelet Count 220 k/uL (150-450); RDW 11.8 % (11.5-15.5); WBC 9.2 k/uL (3.8-10.6)
--- NOTE | 2023-12-07 08:07 | XR ---
EXAMINATION TYPE: XR chest 2V DATE OF EXAM: 12/07/2023 COMPARISON: 12/03/2023 HISTORY: 83-year-old male with cough TECHNIQUE: AP and lateral views FINDINGS: Median sternotomy wires and post-CABG clips. Heart borderline to mildly enlarged. There are patchy op acity left mid and lower lung. No pleural effusion. IMPRESSION: 1. Post-CABG changes with borderline to mild cartilage. 2. Patchy opacity left mid and lower lung. Correlate for pneumonia.
[2023-12-07 08:25] LABS: ALT 33 U/L (4-49); AST 34 U/L (17-59); African American GFR (CKD) >90 (>60 ml/min/1.73 sqM); Albumin 3.8 g/dL (3.5-5.0); Alkaline Phosphatase 70 U/L (38-126); Anion Gap 5 mmol/L; Blood Urea Nitrogen 31 mg/dL (9-20); Calcium 9.7 mg/dL (8.4-10.2); Carbon Dioxide 28 mmol/L (22-30); Chloride 105 mmol/L (98-107); Glucose 112 mg/dL (74-99); Magnesium 1.6 mg/dL (1.6-2.3); Non-African American GFR(CKD) 83 (>60 ml/min/1.73 sqM); Potassium 3.9 mmol/L (3.5-5.1); Sodium 138 mmol/L (137-145); Total Protein 6.6 g/dL (6.3-8.2)
[2023-12-07] MEDS ORDERED: NALOXONE 0.4 MG/ML 1 ML VIAL IV PRN (09:07)
[2023-12-07] MEDS ORDERED: ONDANSETRON 4 MG/2 ML VIAL IVP PRN (09:07)
[2023-12-07] MEDS: AZITHROMYCIN 500 MG TAB PO STA (09:35)
[2023-12-07] MEDS: SODIUM CHLORIDE 0.9% 1,000 ML IV SCH (09:37)
[2023-12-07] MEDS ORDERED: LORATADINE 10 MG TAB PO PRN (12:01)
[2023-12-07] MEDS ORDERED: NON FORMULARY DRUG (Naloxone Hcl [Narcan] 4 MG Each) NASAL PRN (12:01)
[2023-12-07] MEDS: ACETAMINOPHEN TAB 325 MG TAB PO PRN (14:03)
[2023-12-07] MEDS ORDERED: IPRATROPIUM-ALBUTEROL 3 ML NEB INHALATION PRN (14:27)
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
[2023-12-07] MEDS: PRIMIDONE 50 MG TAB PO SCH (18:33)
[2023-12-07] MEDS: IPRATROPIUM-ALBUTEROL 3 ML NEB INHALATION SCH (20:07)
[2023-12-07] MEDS: ATORVASTATIN 80 MG TAB PO SCH (20:25)
[2023-12-07] MEDS: ASPIRIN 81 MG PO SCH (20:25)
[2023-12-07] MEDS: MELATONIN 3 MG TABLET PO SCH (20:26)
[2023-12-07] MEDS: oxyBUTYnin chloride 5 MG TAB PO SCH (20:26)
[2023-12-07] MEDS: SERTRALINE 50 MG TAB PO SCH (20:26)
[2023-12-07] MEDS: GABAPENTIN 100 MG CAP PO SCH (20:26)
[2023-12-07] MEDS: clonazePAM 1 MG TAB PO SCH (22:07)
[2023-12-07 22:23] LABS: Appearance,Urine Clear (Clear); Bilirubin,Urine Negative (Negative); Blood,Urine Negative (Negative); Color,Urine Light Yellow; Glucose,Urine (UA) Negative (Negative); Ketones,Urine Negative (Negative); Leukocyte Esterase,Urine Negative (Negative); Nitrite,Urine Negative (Negative); PH, Urine 7.5 (5.0-8.0); Protein,Urine Negative (Negative); Specific Gravity,Urine 1.025 (1.001-1.035); Urobilinogen,Urine <2.0 mg/dL (<2.0)
--- NOTE | 2023-12-08 08:05 | P.PN ---
Subjective Progress Note Date: 12/08/23 83-year-old male who presented to the emergency department, on December 06, complaining of cough, and weakness. The patient apparently was recently admitted to the hospital, back on November 20, with pneumonia. The patient comes in complaining of shortness of breath, cough, fever, chills, nausea, and generally not feeling well. He is also coughing up phlegm. The patient was in the ER on December 04, but was discharged home the next day. The patient is seen today in room 25, in the emergency department. He is currently on room air. The patient's not having any respiratory distress. He denied any chest pain or chest pressure. He also denied any abdominal pain, diarrhea, nausea, or vomiting. He denies all genitourinary complaints. Current labs include a white count 9.2, hemoglobin 14.2, hematocrit 44, platelet count. 20,000. Sodium 138, potassium 3.9, chlorides 105, CO2 28, BUN 31, creatinine 0.78. Glucose is 112. He tested negative for influenza A, influenza B, RSV, and coronavirus. His chest x-ray is reviewed, and shows post CABG changes, and a possible infiltrate, in the left mid and lower lung meeks. The chest x-ray is not very impressive, when compared to his most recent chest x-ray at this institution. The patient is seen today December 08, 2023 in follow-up on the regular medical floor. He is currently sitting up in bed. Awake and alert in no acute distress. He is maintaining good O2 saturations in the 90s on room air. He has normal saline at 75 MLS per hour. His procalcitonin was negative at 0.09. Viral screen was negative. Chest x-ray shows no significant pneumonia. He is afebrile. Hemodynamically stable. He is continue on DuoNeb ventilations, e mpiric antibiotics in the form of azithromycin. Remains on oral diuretics. Objective - Vital Signs Vital signs: Vital Signs Temp 97.4 F L 12/08/23 02:13 Pulse 78 12/08/23 02:13 Resp 17 12/08/23 02:13 BP 95/53 12/08/23 02:13 Pulse Ox 95 12/08/23 02:13 FiO2 Intake & Output 12/07/23 12/08/23 12/08/23 18:59 06:59 18:59 Intake Total 118 Balance 118 Weight 73.936 kg Intake: Oral 118 Other: Voiding Method Toilet Toilet # Voids 1 # Bowel Movements 1 - Exam GENERAL EXAM: Alert, active, pleasant 83-year-old gentleman, on room air, comfortable in no apparent distress. HEAD: Normocephalic. EYES: Normal reaction of pupils, equal size. NOSE: Clear with pink turbinates. THROAT: No erythema or exudates. NECK: No masses, no JVD. CHEST: No chest wall deformity. LUNGS: Equal air entry with no crackles, wheeze, rhonchi or dullness. CVS: S1 and S2 normal with no audible murmur, regular rhythm. ABDOMEN: No hepatosplenomegaly, normal bowel sounds, no guarding or rigidity. SPINE: No scoliosis or deformity SKIN: No rashes CENTRAL NERVOUS SYSTEM: No focal deficits, tone is normal in all 4 extremities. EXTREMITIES: There is no peripheral edema. No clubbing, no cyanosis. Peripheral pulses are intact. - Labs CBC & Chem 7: 12/07/23 07:24 12/07/23 07:24 Labs: Abnormal Lab Results - Last 24 Hours (Table) 12/07/23 12/07/23 Range/Units 07:24 07:24 Lymphocytes # 0.8 L (1.0-4.8) k/uL BUN 31 H (9-20) mg/dL Glucose 112 H (74-99) mg/dL Assessment and Plan Assessment: Tracheobronchitis versus bronchopneumonia, left lower lobe. Procalcitonin negative at 0.09. Viral screen negative Recent admissions, for community-acquired pneumonia. History of coronary artery disease, S/P PCI/stent and CABG, 2013. History of hypertension. History of hyperlipidemia. History of COPD. History of CVA/TIA. Gastroesophageal reflux disease. Osteoarthritis. History of obstructive sleep apnea syndrome. History of BPH. Plan: The patient was seen and evaluated Chest x-ray and labs reviewed Procalcitonin negative Discontinue ceftriaxone Continue empiric azithromycin Stable and on room air Continue bronchodilators Could be considered for discharge home today This patient was seen independently by the pulmonary nurse practitioner addressing pulmonary issues I have personally seen and examined the patient, performed the documentation and the assessment and plan as written. Number of minutes spent on the visit: 24.
[2023-12-08] MEDS: METOPROLOL SUCCINATE (ER) 25 MG TAB.ER.24H PO SCH (08:26)
[2023-12-08] MEDS: CHOLECALCIFEROL 25 MCG (1000 IU) TABLET PO SCH (08:26)
[2023-12-08] MEDS: lisinopriL 5 MG TAB PO SCH (08:26)
[2023-12-08] MEDS: TAMSULOSIN 0.4 MG CAP.ER.24H PO SCH (08:27)
[2023-12-08] MEDS: FUROSEMIDE 20 MG TAB PO SCH (08:27)
[2023-12-08] MEDS: FINASTERIDE 5 MG TAB PO SCH (08:27)
[2023-12-08] MEDS: AZITHROMYCIN 500 MG TAB PO SCH (09:21)
[2023-12-08 09:56] LABS: Basophils # (A) 0.05 X 10*3/uL (0.00-0.10); Basophils % (A) 0.7 %; Eosinophils # (A) 0.19 X 10*3/uL (0.04-0.35); Eosinophils % (A) 2.6 %; HCT 34.7 % (39.6-50.0); HGB 11.6 g/dL (13.0-17.0); Lymphocytes # (A) 1.48 X 10*3/uL (0.90-5.00); Lymphocytes % (A) 20.4 %; MCHC 33.4 g/dL (32.0-37.0); MCV 98.9 FL (80.0-97.0); Mean Platelet Volume 10.3 FL (9.5-12.2); Monocytes # (A) 0.84 X 10*3/uL (0.20-1.00); Monocytes % (A) 11.6 %; NRBC Per 100 WBC 0 X 10*3/uL (0.00-0.01); Neutrophils # (A) 4.67 X 10*3/uL (1.80-7.70); Neutrophils % (A) 64.1 %; Platelet Count 184 X 10*3/uL (140-440); RBC 3.51 X 10*6/uL (4.40-5.60); RDW 12.1 % (11.5-14.5); WBC 7.27 X 10*3/uL (4.50-10.00)
[2023-12-08 09:58] LABS: Blood Urea Nitrogen 24.4 mg/dL (9.0-27.0); Calcium 8.3 mg/dL (8.7-10.3); Carbon Dioxide 22.1 mmol/L (21.6-31.8); Chloride 105 mmol/L (96-109); Glucose 98 mg/dL (70-110); Potassium 3.8 mmol/L (3.5-5.5); Sodium 138 mmol/L (135-145)
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
--- NOTE | 2023-12-08 14:02 | P.PN ---
Subjective Progress Note Date: 12/08/23 83-year-old male, history of hypertension, hyperlipidemia, COPD, history of CAD, CVA/TIA, sleep apnea, presenting to the ER with a chief complaint of cough and weakness. states patient was recently admitted on 11-21-2023 diagnosed with pneumonia. He has been in hospital since then with similar complaints including chills, nausea, cough and mild shortness of breath. He does have a history significant of COPD. Patient seen here on , 12-05-2023 for similar complaints. Patient discharged home next day. Patient denies any chest pain, abdominal pain, constipation/diarrhea or urinary complaints. He does report he took 2 Tylenol prior to arrival. He states he has a cough and feels extremely weak. Denies any fevers at home. Reports mild nausea as well. No other complaints at this time. 12/08/2023 Patient is seen and evaluated resting comfortably in bed; vital signs are reviewed and stable with temperature of 97.4, pulse 78, respirations 17 and blood pressure of 95/53 Lab review shows WBC of 7.27, hemoglobin of 11.6 and platelet count of 184, sodium 138, potassium 3.8, BUNs/creatinine of 20/0.8 with BUN improving from 31 down to 24 Pulmonary service on board and have discontinued Rocephin and recommending to continue azithromycin empirically --ID recommending to continue with both antibiotics at this time with final recommendations once sputum culture and sensitivities available -- We will consult PT/OT for discharge recommendations Objective - Vital Signs Vital signs: Vital Signs Temp 98.1 F 12/08/23 07:15 Pulse 76 12/08/23 09:01 Resp 15 12/08/23 07:15 BP 126/52 12/08/23 07:15 Pulse Ox 98 12/08/23 07:15 FiO2 Intake & Output 12/07/23 12/08/23 12/08/23 18:59 06:59 18:59 Intake Total 118 118 Balance 118 118 Weight 73.936 kg Intake: Oral 118 118 Other: Voiding Method Toilet Toilet # Voids 1 # Bowel Movements 1 - Exam General appearance: alert, in no apparent distress Head exam: Present: atraumatic, normocephalic, normal inspection ENT exam: Present: normal exam, normal oropharynx, mucous membranes moist, TM's normal bilaterally Neck exam: Present: normal inspection. Absent: tenderness, meningismus, lymphadenopathy Respiratory exam: Present: wheezes (Right lower lung) Cardiovascular Exam: Present: regular rate, normal rhythm, normal heart sounds. Absent: systolic murmur, diastolic murmur, rubs, gallop, clicks GI/Abdominal exam: Present: soft, normal bowel sounds. Absent: distended, tenderness, guarding, rebound, rigid Skin exam: Present: warm, dry, intact, normal color. Absent: rash - Labs CBC & Chem 7: 12/08/23 03:42 12/08/23 03:42 Labs: Abnormal Lab Results - Last 24 Hours (Table) 12/08/23 12/08/23 Range/Units 03:42 03:42 RBC 3.51 L (4.40-5.60) X 10*6/uL Hgb 11.6 L (13.0-17.0) g/dL Hct 34.7 L (39.6-50.0) % MCV 98.9 H (80.0-97.0) FL MCH 33.0 H (27.0-32.0) pg BUN/Creatinine Ratio 30.50 H (12.00-20.00) Ratio Calcium 8.3 L (8.7-10.3) mg/dL Assessment and Plan Assessment: 1. Left lower lobe pneumonia The patient tested negative for influenza A, influenza B, RSV, and coronavirus. -- Patient has been placed on IV antibiotics in form of ceftriaxone and azithromycin -- Pulmonary and ID consulted for further evaluation 2. Mild renal injury/dehydration; continue with slow fluid hydration in the form of normal saline at a rate of 75 cc an hour; will monitor strict KHUSHBU's, daily weights, renal function electrolytes, avoid nephrotoxins and hypotension 3. Hypertension; lisinopril 5 mg daily; metoprolol 25 mg daily 4. Hyperlipidemia; Lipitor 80 mg daily 5. COPD; not in exacerbation; continue with home inhaler therapy 6. History of CVA/TIA; currently on aspirin and statin therapy 7. History of CAD; status post PCI/stent and CABG in 2012 8. BPH; Proscar 5 mg daily; Flomax 0.4 mg daily DVT prophylaxis; SCDs CODE STATUS; full code
--- NOTE | 2023-12-09 07:34 | XR ---
EXAMINATION TYPE: XR chest 2V DATE OF EXAM: 12/09/2023 6:44 AM CLINICAL INDICATION:Male, 83 years old with history of Pneumonia; [facility] COMPARISON: Chest radiographs from 12/07/2023 TECHNIQUE: XR chest 2V Frontal and lateral views of the chest. FINDINGS: Lungs/Pleura: Improved aeration of lungs on today's exam with persistent airspace opacities scattered throughout the lungs. No evidence of pneumothorax or large pleural effusion. Pulmonary vascularity: Unremarkable. Heart/mediastinum: Cardiomediastinal silhouette is unremarkable. Musculoskeletal: No acute osseous pathology. Midline sternotomy wires are noted. IMPRESSION: Improved aeration of the left lung base.
--- NOTE | 2023-12-09 09:09 | P.PN ---
Subjective Progress Note Date: 12/09/23 Principal diagnosis: Cough and weakness This is an 83-year-old male who was recently discharged last from [facility] presented back to the emergency room with complaint of cough and weakness. Chest X-ray on admission showed patchy opacity on the left lung, however x-ray from today is normal and shows improved aeration. Patient is seen this morning sitting up in bed. He is on room air and vitals are stable. There is question as to patient's ability to go home safely due to weakness and frequent readmissions. Will consult physical therapy and occupational therapy for their recommendations and discharge planning for possible placement. Objective - Vital Signs Vital signs: Vital Signs Temp 98.5 F 12/09/23 07:00 Pulse 68 12/09/23 07:00 Resp 16 12/09/23 07:00 BP 109/71 12/09/23 07:00 Pulse Ox 96 12/09/23 07:00 FiO2 Intake & Output 12/08/23 12/09/23 12/09/23 18:59 06:59 18:59 Intake Total 468 Output Total 300 Balance 168 Intake: Oral 468 Output: Urine 300 Other: # Voids 4 1 # Bowel Movements 3 1 - Constitutional General appearance: Present: cooperative, no acute distress - EENT Eyes: Present: PERRLA - Neck Neck: Present: normal ROM. Absent: lymphadenopathy, rigidity - Respiratory Respiratory: bilateral: diminished - Cardiovascular Rhythm: regular Heart sounds: normal: S1, S2 - Gastrointestinal General gastrointestinal: Present: soft. Absent: tenderness - Integumentary Integumentary: Present: normal, normal turgor - Musculoskeletal Musculoskeletal: Present: generalized weakness - Psychiatric Psychiatric: Present: A&O x's 3 - Labs CBC & Chem 7: 12/08/23 03:42 12/08/23 03:42 Labs: Abnormal Lab Results - Last 24 Hours (Table) 12/08/23 12/08/23 Range/Units 03:42 03:42 RBC 3.51 L (4.40-5.60) X 10*6/uL Hgb 11.6 L (13.0-17.0) g/dL Hct 34.7 L (39.6-50.0) % MCV 98.9 H (80.0-97.0) FL MCH 33.0 H (27.0-32.0) pg BUN/Creatinine Ratio 30.50 H (12.00-20.00) Ratio Calcium 8.3 L (8.7-10.3) mg/dL Microbiology - Last 24 Hours (Table) 12/07/23 09:20 Blood Culture - Preliminary Blood 12/07/23 09:05 Blood Culture - Preliminary Blood Assessment and Plan (1) Pneumonia Current Visit: Yes Status: Acute Code(s): J18.9 - PNEUMONIA, UNSPECIFIED O RGANISM SNOMED Code(s): 931624396 (2) CAD (coronary artery disease) Current Visit: No Status: Acute Code(s): I25.10 - ATHSCL HEART DISEASE OF [place] CORONARY ARTERY W/O ANG PCTRS SNOMED Code(s): 40500818 (3) Generalized weakness Current Visit: No Status: Acute Code(s): R53.1 - WEAKNESS SNOMED Code(s): 23001090 (4) Hyperlipemia Current Visit: No Status: Acute Code(s): E78.5 - HYPERLIPIDEMIA, UNSPECIFIED SNOMED Code(s): 82693966 (5) Hypertension Current Visit: No Status: Acute Code(s): I10 - ESSENTIAL (PRIMARY) HYPERTENSION SNOMED Code(s): 13958464 Plan: Consult to PT/OT Consult to case management for possible placement Appreciate pulmonology and infectious disease consult. Patient seen and evaluated by nurse practitioner, physician in agreement with plan
--- NOTE | 2023-12-09 10:11 | P.PN ---
Subjective Progress Note Date: 12/08/23 Principal diagnosis: Reason for follow-up is fever possible pneumonia Patient is a 83-year-old male with a past medical history significant for hypertension hyperlipidemia CVA TIA COPD coronary artery disease in this patient who has recent admission to this hospital and has been treated for pneumonia, presented back to the hospital increasing shortness of breath cough and fever with rigors and chills, with concern for left-sided pneumonia. On today's evaluation that is 12/08/2023, patient did have resolution of his fever has been afebrile this morning, patient is breathing comfortably and is currently on room air, patient denies having any chest pain he did have a cough but not bring up any sputum no nausea vomiting abdominal pain did have some diarrhea. Patient white count is down to 7.27 creatinine 0.8 procalcitonin 0.09 blood cultures are pending Objective - Vital Signs Vital signs: Vital Signs Temp 97.8 F 12/08/23 13:45 Pulse 90 12/08/23 13:45 Resp 17 12/08/23 13:45 BP 99/64 12/08/23 13:45 Pulse Ox 95 12/08/23 13:45 FiO2 Intake & Output 12/07/23 12/08/23 12/08/23 18:59 06:59 18:59 Intake Total 118 468 Balance 118 468 Weight 73.936 kg Intake: Oral 118 468 Other: Voiding Method Toilet Toilet # Voids 1 1 # Bowel Movements 1 - Exam GENERAL DESCRIPTION: An elderly male lying in bed in no distress RESPIRATORY SYSTEM: Unlabored breathing , decreased breath sounds at bases HEART: S1 S2 regular rate and rhythm , ABDOMEN: Soft , no tenderness EXTREMITIES: No edema feet - Labs CBC & Chem 7: 12/08/23 03:42 12/08/23 03:42 Labs: Abnormal Lab Results - Last 24 Hours (Table) 12/08/23 12/08/23 Range/Units 03:42 03:42 RBC 3.51 L (4.40-5.60) X 10*6/uL Hgb 11.6 L (13.0-17.0) g/dL Hct 34.7 L (39.6-50.0) % MCV 98.9 H (80.0-97.0) FL MCH 33.0 H (27.0-32.0) pg BUN/Creatinine Ratio 30.50 H (12.00-20.00) Ratio Calcium 8.3 L (8.7-10.3) mg/dL Assessment and Plan (1) Pneumonia Current Visit: Yes Status: Acute Code(s): J18.9 - PNEUMONIA, UNSPECIFIED ORGANISM SNOMED Code(s): 875428371 (2) Fever Current Visit: No Status: Acute Code(s): R50.9 - FEVER, UNSPECIFIED SNOMED Code(s): 365285961 Plan: 1patient presented to hospital with increasing shortness of breath and cough patient also have a fever patient did have evidence of left mid and lower lung infiltrate concerning for pneumonia in this patient who recently had multiple admission to the hospital concerning for recurrent pneumonia with question of possible aspiration versus community-acquired, patient procalcitonin came back to be 0.09 and Rocephin has been discontinued by pulmonary 2-sputum has not been collected try to repeat a sputum check urine for Legionella antigen currently on Zithromax check a chest x-ray in the a.m. Dictation was produced using [employer] dictation software. please excuse any grammatical, word or spelling errors. Time with Patient: Less than 30
[2023-12-09 10:37] LABS: BUN/Creat Ratio 20.29 Ratio (12.00-20.00); Blood Urea Nitrogen 14.2 mg/dL (9.0-27.0); Calcium 8.9 mg/dL (8.7-10.3); Carbon Dioxide 23.7 mmol/L (21.6-31.8); Chloride 102 mmol/L (96-109); Glucose 91 mg/dL (70-110); Sodium 141 mmol/L (135-145)
[2023-12-09 10:39] LABS: Basophils # (A) 0.08 X 10*3/uL (0.00-0.10); Basophils % (A) 1.3 %; Eosinophils # (A) 0.33 X 10*3/uL (0.04-0.35); Eosinophils % (A) 5.5 %; HCT 40.7 % (39.6-50.0); HGB 13.6 g/dL (13.0-17.0); Lymphocytes # (A) 1.34 X 10*3/uL (0.90-5.00); Lymphocytes % (A) 22.2 %; MCH 32.2 pg (27.0-32.0); MCHC 33.4 g/dL (32.0-37.0); MCV 96.2 FL (80.0-97.0); Mean Platelet Volume 9.7 FL (9.5-12.2); Monocytes # (A) 0.76 X 10*3/uL (0.20-1.00); Monocytes % (A) 12.6 %; NRBC Per 100 WBC 0 X 10*3/uL (0.00-0.01); Neutrophils # (A) 3.46 X 10*3/uL (1.80-7.70); Neutrophils % (A) 57.4 %; Platelet Count 205 X 10*3/uL (140-440); RBC 4.23 X 10*6/uL (4.40-5.60); RDW 11.9 % (11.5-14.5); WBC 6.03 X 10*3/uL (4.50-10.00)
--- NOTE | 2023-12-09 12:41 | P.PN ---
Subjective Progress Note Date: 12/09/23 Principal diagnosis: Reason for follow-up is fever possible pneumonia Patient is a 83-year-old male with a past medical history significant for hypertension hyperlipidemia CVA TIA COPD coronary artery disease in this patient who has recent admission to this hospital and has been treated for pneumonia, presented back to the hospital increasing shortness of breath cough and fever with rigors and chills, with concern for left-sided pneumonia. On today's evaluation that is 12/09/2023,the patient denies any fever or any chills, patient is breathing comfortably on room air, the patient denies chest pain shortness of breath the patient cough is decreased and does not bring up any sputum no nausea vomiting no abdominal pain did have improvement of diarrhea compared to yesterday. Patient white count is 6.03, creatinine 0.7 stool for C. difficile negative urine for Legionella antigen pending Objective - Vital Signs Vital signs: Vital Signs Temp 98.5 F 12/09/23 07:00 Pulse 68 12/09/23 08:00 Resp 16 12/09/23 08:00 BP 109/71 12/09/23 07:00 Pulse Ox 96 12/09/23 07:00 FiO2 Intake & Output 12/08/23 12/09/23 12/09/23 18:59 06:59 18:59 Intake Total 468 240 Output Total 300 Balance 168 240 Intake: Oral 468 240 Output: Urine 300 Other: Voiding Method Toilet # Voids 4 1 # Bowel Movements 3 1 - Exam GENERAL DESCRIPTION: An elderly male lying in bed in no distress RESPIRATORY SYSTEM: Unlabored breathing , decreased breath sounds at bases HEART: S1 S2 regular rate and rhythm , ABDOMEN: Soft , no tenderness EXTREMITIES: No edema feet - Labs CBC & Chem 7: 12/09/23 06:45 12/09/23 06:45 Labs: Microbiology - Last 24 Hours (Table) 12/07/23 09:20 Blood Culture - Preliminary Blood 12/07/23 09:05 Blood Culture - Preliminary Blood Assessment and Plan (1) Pneumonia Current Visit: Yes Status: Acute Code(s): J18.9 - PNEUMONIA, UNSPECIFIED ORGANISM SNOMED Code(s): 231000176 (2) Fever Current Visit: No Status: Acute Code(s): R50.9 - FEVER, UNSPECIFIED SNOMED Code(s): 335349433 Plan: 1patient presented to hospital with increasing shortness of breath and cough patient also have a fever patient did have evidence of left mid and lower lung infiltrate concerning for pneumonia in this patient who recently had multiple admission to the hospital concerning for recurrent pneumonia with question of possible aspiration versus community-acquired, patient procalcitonin came back to be 0.09 and Rocephin has been discontinued by pulmonary 2-patient seem to have shown clinical improvement chest x-ray also showed improvement currently waiting for urine for Legionella antigen continue with Zithromax Dictation was produced using [facility] dictation software. please excuse any grammatical, word or spelling errors. Time with Patient: Less than 30
--- NOTE | 2023-12-09 18:40 | P.PN ---
Subjective Progress Note Date: 12/09/23 83-year-old male who presented to the emergency department, on December 06, complaining of cough, and weakness. The patient apparently was recently admitted to the hospital, back on November 20, with pneumonia. The patient comes in complaining of shortness of breath, cough, fever, chills, nausea, and general ly not feeling well. He is also coughing up phlegm. The patient was in the ER on December 04, but was discharged home the next day. The patient is seen today in room 25, in the emergency department. He is currently on room air. The patient's not having any respiratory distress. He denied any chest pain or chest pressure. He also denied any abdominal pain, diarrhea, nausea, or vomiting. He denies all genitourinary complaints. Current labs include a white count 9.2, hemoglobin 14.2, hematocrit 44, platelet count. 20,000. Sodium 138, potassium 3.9, chlorides 105, CO2 28, BUN 31, creatinine 0.78. Glucose is 112. He tested negative for influenza A, influenza B, RSV, and coronavirus. His chest x-ray is reviewed, and shows post CABG changes, and a possible infiltrate, in the left mid and lower lung meeks. The chest x-ray is not very impressive, when compared to his most recent chest x-ray at this institution. The patient is seen today December 08, 2023 in follow-up on the regular medical floor. He is currently sitting up in bed. Awake and alert in no acute distress. He is maintaining good O2 saturations in the 90s on room air. He has normal saline at 75 MLS per hour. His procalcitonin was negative at 0.09. Viral screen was negative. Chest x-ray shows no significant pneumonia. He is afebrile. Hemodynamically stable. He is continue on DuoNeb ventilations, empiric antibiotics in the form of azithromycin. Remains on oral diuretics. On today's evaluation of 12/09/2023, the patientThat people has no new complaints. The patient is on room air oxygen with a pulse ox of 98%. The patient remains on DuoNeb updrafts and the patient remains on oral antibiotics with Zithromax. No respiratory difficulties. White cell count is at 6 with a hemoglobin 13.6, BUN is 40 with a creatinine of 0.7 and a sodium levels at 141. Blood cultures have been negative. The most recent chest x-ray from 12/09/2023 showed improved aeration of the left lung base. No other complaints otherwise for now. The patient is currently afebrile. Hemodynamically stable. His last temperature episode was on 12/07/2023. His viral screen was negative. Procalcitonin was negative. Stool for C. difficile was negative. Legionella urine antigen was negative. Objective - Vital Signs Vital signs: Vital Signs Temp 97.7 F 12/09/23 14:36 Pulse 78 12/09/23 14:36 Resp 16 12/09/23 14:36 BP 105/69 12/09/23 14:36 Pulse Ox 98 12/09/23 14:36 FiO2 Intake & Output 12/08/23 12/09/23 12/09/23 18:59 06:59 18:59 Intake Total 468 240 Output Total 300 200 Balance 168 40 Intake: Oral 468 240 Output: Urine 300 200 Other: Voiding Method Toilet # Voids 4 1 2 # Bowel Movements 3 1 - Exam GENERAL EXAM: Alert, active, pleasant 83-year-old gentleman, on room air, comfortable in no apparent distress. HEAD: Normocephalic. EYES: Normal reaction of pupils, equal size. NOSE: Clear with pink turbinates. THROAT: No erythema or exudates. NECK: No masses, no JVD. CHEST: No chest wall deformity. LUNGS: Equal air entry with no crackles, wheeze, rhonchi or dullness. CVS: S1 and S2 normal with no audible murmur, regular rhythm. ABDOMEN: No hepatosplenomegaly, normal bowel sounds, no guarding or rigidity. SPINE: No scoliosis or deformity SKIN: No rashes CENTRAL NERVOUS SYSTEM: No focal deficits, tone is normal in all 4 extremities. EXTREMITIES: There is no peripheral edema. No clubbing, no cyanosis. Peripheral pulses are intact. - Labs CBC & Chem 7: 12/09/23 06:45 12/09/23 06:45 Labs: Abnormal Lab Results - Last 24 Hours (Table) 12/09/23 12/09/23 Range/Units 06:45 06:45 RBC 4.23 L (4.40-5.60) X 10*6/uL MCH 32.2 H (27.0-32.0) pg Immature Gran # 0.06 H (0.00-0.04) X 10*3/uL Anion Gap 15.30 H (4.00-12.00) mmol/L BUN/Creatinine Ratio 20.29 H (12.00-20.00) Ratio Microbiology - Last 24 Hours (Table) 12/07/23 09:20 Blood Culture - Preliminary Blood 12/07/23 09:05 Blood Culture - Preliminary Blood Assessment and Plan Plan: Tracheobronchitis versus bronchopneumonia, left lower lobe. Procalcitonin negative at 0.09. Viral screen negative Recent admissions, for community-acquired pneumonia. History of coronary artery disease, S/P PCI/stent and CABG, 2012. History of hypertension. History of hyperlipidemia. History of COPD. History of CVA/TIA. Gastroesophageal reflux disease. Osteoarthritis. History of obstructive sleep apnea syndrome. History of BPH. Plan: No evidence of any active pneumonia. Chest x-ray shows improved aeration of the left lung base. Procalcitonin negative Continue empiric azithromycin Stable and on room air Currently afebrile Continue bronchodilators Could be considered for discharge home today
[2023-12-10 07:59] VITALS: TEMP 98.3
--- NOTE | 2023-12-10 08:43 | P.PN ---
Subjective Progress Note Date: 12/10/23 Principal diagnosis: Cough and weakness This is an 83-year-old male who was recently discharged last from [facility] presented back to the emergency room with complaint of cough and weakness. Chest X-ray on admission showed patchy opacity on the left lung, however x-ray from today is normal and shows improved aeration. Patient is seen this morning sitting up in bed. He is on room air and vitals are stable. There is question as to patient's ability to go home safely due to weakness and frequent readmissions. Will consult physical therapy and occupational therapy for their recommendations and discharge planning for possible placement. 12/10/2023 Patient seen and evaluated laying in bed this morning. He was seen and evaluated by OT and PT yesterday who are recommending subacute rehab. Patient is in agreement for subacute rehab. Case management to work on placement. Objective - Vital Signs Vital signs: Vital Signs Temp 98.3 F 12/10/23 07:00 Pulse 76 12/10/23 07:00 Resp 16 12/10/23 07:00 BP 95/57 12/10/23 07:00 Pulse Ox 94 L 12/10/23 07:00 FiO2 Intake & Output 12/09/23 12/10/23 12/10/23 18:59 06:59 18:59 Intake Total 240 Output Total 200 Balance 40 Intake: Oral 240 Output: Urine 200 Other: Voiding Method Toilet Toilet # Voids 2 1 - Constitutional General appearance: Present: cooperative, no acute distress - EENT Eyes: Present: PERRLA - Neck Neck: Present: normal ROM. Absent: lymphadenopathy, rigidity - Respiratory Respiratory: bilateral: diminished - Cardiovascular Rhythm: regular Heart sounds: normal: S1, S2 - Gastrointestinal General gastrointestinal: Absent: soft, tenderness - Musculoskeletal Musculoskeletal: Present: generalized weakness - Psychiatric Psychiatric: Present: A&O x's 3 - Labs CBC & Chem 7: 12/09/23 06:45 12/09/23 06:45 Labs: Abnormal Lab Results - Last 24 Hours (Table) 12/09/23 12/09/23 Range/Units 06:45 06:45 RBC 4.23 L (4.40-5.60) X 10*6/uL MCH 32.2 H (27.0-32.0) pg Immature Gran # 0.06 H (0.00-0.04) X 10*3/uL Anion Gap 15.30 H (4.00-12.00) mmol/L BUN/Creatinine Ratio 20.29 H (12.00-20.00) Ratio Microbiology - Last 24 Hours (Table) 12/07/23 09:20 Blood Culture - Preliminary Blood 12/07/23 09:05 Blood Culture - Preliminary Blood Assessment and Plan (1) Pneumonia Current Visit: Yes Status: Acute Code(s): J18.9 - PNEUMONIA, UNSPECIFIED ORGANISM SNOMED Code(s): 997912139 (2) CAD (coronary artery disease) Current Visit: No Status: Acute Code(s): I25.10 - ATHSCL HEART DISEASE OF [place] CORONARY ARTERY W/O ANG PCTRS SNOMED Code(s): 27530291 (3) Generalized weakness Current Visit: No Status: Acute Code(s): R53.1 - WEAKNESS SNOMED Code(s): 79410856 (4) Hyperlipemia Current Visit: No Status: Acute Code(s): E78.5 - HYPERLIPIDEMIA, UNSPECIFIED SNOMED Code(s): 13027820 (5) Hypertension Current Visit: No Status: Acute Code(s): I10 - ESSENTIAL (PRIMARY) HYPERTENSION SNOMED Code(s): 64118380 Plan: Consult to case management for placement for subacute rehab. Anticipate discharge in the next 24 hours. Patient seen and evaluated by nurse practitioner, physician in agreement with plan
[2023-12-10] MEDS: IBUPROFEN 400 MG TAB PO PRN (09:22)
[2023-12-10 11:25] LABS: BUN/Creat Ratio 20.71 Ratio (12.00-20.00); Blood Urea Nitrogen 14.5 mg/dL (9.0-27.0); Calcium 8.6 mg/dL (8.7-10.3); Carbon Dioxide 21.9 mmol/L (21.6-31.8); Chloride 104 mmol/L (96-109); Glucose 98 mg/dL (70-110); Potassium 3.8 mmol/L (3.5-5.5); Sodium 139 mmol/L (135-145)
--- NOTE | 2023-12-10 13:54 | P.DS ---
Providers Date of admission: 12/07/23 08:57 Attending physician: Cullen Castellanos Consults: 12/07/23 09:07 Consult Physician Urgent Consulting Provider: Manan London Consult Reason/Comments: pneumonia Do you want consulting provider notified?: Yes Consult Physician Urgent Consulting Provider: Gianna Live Consult Reason/Comments: pneumonia Do you want consulting provider notified?: Yes Primary care physician: Cullen Castellanos Hospital Course: This is a discharge summary an 83-year-old white male readmitted for the second time for pneumonia and weakness. He is having difficulty once he gets home doing his activities of daily living. Due to his advancing age COPD and chronic pain he has difficulty completing normal ADLs. After evaluation with appropriate rehab evaluation with PT and OT he will be discharged to subacute rehab facility for recuperation. The patient has been treated appropriate for pneumonia and has some residual findings but has had a 3-4 day course of antibiotics again. The patient will be discharged in stable condition. Medications have been reconciled. He will follow-up with me in about 1 week. Patient Condition at Discharge: Fair Plan - Discharge Summary Discharge Rx Participant: Yes New Discharge Prescriptions: New Ipratropium-Albuterol Nebulize [Duoneb 0.5 mg-3 mg/3 ml Soln] 3 ml INHALATION RT-TID each Continue Metoprolol Succinate [Toprol XL] 12.5 mg PO DAILY lisinopriL [Prinivil] 5 mg PO DAILY Primidone [Mysoline] 100 mg PO TID clonazePAM [KlonoPIN] 1 mg PO HS oxyBUTYnin chloride [Ditropan] 5 mg PO BID fentaNYL 25MCG/HR PATCH [Duragesic 25MCG/HR] 1 patch TRANSDERM Q72H Furosemide [Lasix] 20 mg PO DAILY Atorvastatin Calcium [Lipitor] 80 mg PO HS Aspirin EC [Ecotrin Low Dose] 162 mg PO HS Tamsulosin HCl [Flomax] 0.4 mg PO DAILY Melatonin 6 mg PO HS Gabapentin [Neurontin] 100 mg PO BID predniSONE See Taper PO DAILY Acetaminophen Tab [Tylenol] 1,000 mg PO Q6HR PRN PRN Reason: Fever And/ Or Pain Finasteride [Proscar] 5 mg PO DAILY Cholecalciferol (Vitamin D3) [Vitamin D3 (50 Mcg = 2000 Iu)] 50 mcg PO DAILY Sertraline [Zoloft] 50 mg PO HS Naloxone HCl [Narcan] 4 mg NASAL DIRECTED PRN PRN Reason: Overdose Celecoxib [CeleBREX] 100 mg PO BID Loratadine [Claritin] 10 mg PO DAILY PRN PRN Reason: Allergy Symptoms Discharge Medication List Metoprolol Succinate [Toprol XL] 12.5 mg PO DAILY 01/30/17 [History] lisinopriL [Prinivil] 5 mg PO DAILY 01/30/17 [History] Primidone [Mysoline] 100 mg PO TID 12/01/18 [History] clonazePAM [KlonoPIN] 1 mg PO HS 12/01/18 [History] Aspirin EC [Ecotrin Low Dose] 162 mg PO HS 01/06/19 [History] Atorvastatin Calcium [Lipitor] 80 mg PO HS 01/06/19 [History] Furosemide [Lasix] 20 mg PO DAILY 01/06/19 [History] fentaNYL 25MCG/HR PATCH [Duragesic 25MCG/HR] 1 patch TRANSDERM Q72H 01/06/19 [History] oxyBUTYnin chloride [Ditropan] 5 mg PO BID 01/06/19 [History] Celecoxib [CeleBREX] 100 mg PO BID 11/21/23 [History] Cholecalciferol (Vitamin D3) [Vitamin D3 (50 Mcg = 2000 Iu)] 50 mcg PO DAILY [History] Finasteride [Proscar] 5 mg PO DAILY 11/21/23 [History] Gabapentin [Neurontin] 100 mg PO BID 11/21/23 [History] Loratadine [Claritin] 10 mg PO DAILY PRN 11/21/23 [History] Melatonin 6 mg PO HS 11/21/23 [History] Naloxone HCl [Narcan] 4 mg NASAL DIRECTED PRN 11/21/23 [History] Sertraline [Zoloft] 50 mg PO HS 11/21/23 [History] Tamsulosin HCl [Flomax] 0.4 mg PO DAILY 11/21/23 [History] predniSONE See Taper PO DAILY 12/04/23 [History] Acetaminophen Tab [Tylenol] 1,000 mg PO Q6HR PRN 12/07/23 [History] Ipratropium-Albuterol Nebulize [Duoneb 0.5 mg-3 mg/3 ml Soln] 3 ml INHALATION RT-TID each 12/10/23 [Rx] Follow up Appointment(s)/Referral(s): Cullen Castellanos MD [Primary Care Provider] - 1 Week Discharge Disposition: TRANSFER TO SNF/ECF
[2023-12-10 14:46] VITALS: BP 105/64; RESP 18
[2023-12-10 15:32] VITALS: PULSE 72
--- NOTE | 2023-12-10 16:08 | P.PN ---
Subjective Progress Note Date: 12/10/23 83-year-old male who presented to the emergency department, on December 06, complaining of cough, and weakness. The patient apparently was recently admitted to the hospital, back on November 20, with pneumonia. The patient comes in complaining of shortness of breath, cough, fever, chills, nausea, and general ly not feeling well. He is also coughing up phlegm. The patient was in the ER on December 04, but was discharged home the next day. The patient is seen today in room 25, in the emergency department. He is currently on room air. The patient's not having any respiratory distress. He denied any chest pain or chest pressure. He also denied any abdominal pain, diarrhea, nausea, or vomiting. He denies all genitourinary complaints. Current labs include a white count 9.2, hemoglobin 14.2, hematocrit 44, platelet count. 20,000. Sodium 138, potassium 3.9, chlorides 105, CO2 28, BUN 31, creatinine 0.78. Glucose is 112. He tested negative for influenza A, influenza B, RSV, and coronavirus. His chest x-ray is reviewed, and shows post CABG changes, and a possible infiltrate, in the left mid and lower lung meeks. The chest x-ray is not very impressive, when compared to his most recent chest x-ray at this institution. The patient is seen today December 08, 2023 in follow-up on the regular medical floor. He is currently sitting up in bed. Awake and alert in no acute distress. He is maintaining good O2 saturations in the 90s on room air. He has normal saline at 75 MLS per hour. His procalcitonin was negative at 0.09. Viral screen was negative. Chest x-ray shows no significant pneumonia. He is afebrile. Hemodynamically stable. He is continue on DuoNeb ventilations, empiric antibiotics in the form of azithromycin. Remains on oral diuretics. On today's evaluation of 12/09/2023, the patientThat people has no new complaints. The patient is on room air oxygen with a pulse ox of 98%. The patient remains on DuoNeb updrafts and the patient remains on oral antibiotics with Zithromax. No respiratory difficulties. White cell count is at 6 with a hemoglobin 13.6, BUN is 40 with a creatinine of 0.7 and a sodium levels at 141. Blood cultures have been negative. The most recent chest x-ray from 12/09/2023 showed improved aeration of the left lung base. No other complaints otherwise for now. The patient is currently afebrile. Hemodynamically stable. His last temperature episode was on 12/07/2023. His viral screen was negative. Procalcitonin was negative. Stool for C. difficile was negative. Legionella urine antigen was negative. On today's evaluation of 12/10/2023, the patient is afebrile. He is on room air oxygen. Lungs are clear. WBC count at 6 with a hemoglobin 15.6. Electrolytes are all within normal limits. Stool for C. difficile has been negative. No active diarrhea at this point in time. Legionella urine antigen was also negative. Patient is on room air oxygen and the patient is also hemodynamically stable. Blood cultures are also negative. Objective - Vital Signs Vital signs: Vital Signs Temp 98.3 F 12/10/23 07:00 Pulse 72 12/10/23 12:10 Resp 16 12/10/23 07:00 BP 95/57 12/10/23 07:00 Pulse Ox 94 L 12/10/23 07:00 FiO2 Intake & Output 12/09/23 12/10/23 12/10/23 18:59 06:59 18:59 Intake Total 240 240 Output Total 200 Balance 40 240 Intake: Oral 240 240 Output: Urine 200 Other: Voiding Method Toilet Toilet # Voids 2 1 - Exam GENERAL EXAM: Alert, active, pleasant 83-year-old gentleman, on room air, comfortable in no apparent distress. HEAD: Normocephalic. EYES: Normal reaction of pupils, equal size. NOSE: Clear with pink turbinates. THROAT: No erythema or exudates. NECK: No masses, no JVD. CHEST: No chest wall deformity. LUNGS: Equal air entry with no crackles, wheeze, rhonchi or dullness. CVS: S1 and S2 normal with no audible murmur, regular rhythm. ABDOMEN: No hepatosplenomegaly, normal bowel sounds, no guarding or rigidity. SPINE: No scoliosis or deformity SKIN: No rashes CENTRAL NERVOUS SYSTEM: No focal deficits, tone is normal in all 4 extremities. EXTREMITIES: There is no peripheral edema. No clubbing, no cyanosis. Peripheral pulses are intact. - Labs CBC & Chem 7: 12/09/23 06:45 12/10/23 07:04 Labs: Abnormal Lab Results - Last 24 Hours (Table) 12/10/23 Range/Units 07:04 Anion Gap 13.10 H (4.00-12.00) mmol/L BUN/Creatinine Ratio 20.71 H (12.00-20.00) Ratio Calcium 8.6 L (8.7-10.3) mg/dL Microbiology - Last 24 Hours (Table) 12/07/23 09:20 Blood Culture - Preliminary Blood 12/07/23 09:05 Blood Culture - Preliminary Blood Assessment and Plan Plan: Tracheobronchitis versus bronchopneumonia, left lower lobe. Procalcitonin negative at 0.09. Viral screen negative. The patient is currently on room air oxygen. Recent admissions, for community-acquired pneumonia. History of coronary artery disease, S/P PCI/stent and CABG, 2012. History of hypertension. History of hyperlipidemia. History of COPD. History of CVA/TIA. Gastroesophageal reflux disease. Osteoarthritis. History of obstructive sleep apnea syndrome. History of BPH. Plan: No evidence of any active pneumonia. Chest x-ray shows improved aeration of the left lung base. Patient is currently on room air oxygen. Procalcitonin negative Stable and on room air Currently afebrile Continue bronchodilators Could be considered for discharge home today Monitor fever on outpatient basis. Watch for diarrhea. No need for antibiotic coverage at this point in time.
== END 2023-12-10 16:01 ==
LOC: EC 06:24 → 6NMEDSUR 08:57
PROVIDERS: ADMIT Family Medicine; ATTEND Family Medicine
DX: J18.9 Pneumonia, unspecified organism (principal); N17.9 Acute kidney failure, unspecified; E86.0 Dehydration; R53.1 Weakness; I25.10 Atherosclerotic heart disease of native coronary artery without angina pectoris; I11.0 Hypertensive heart disease with heart failure; I50.9 Heart failure, unspecified; J44.9 Chronic obstructive pulmonary disease, unspecified; K21.9 Gastro-esophageal reflux disease without esophagitis; E78.5 Hyperlipidemia, unspecified; G47.33 Obstructive sleep apnea (adult) (pediatric); N40.0 Benign prostatic hyperplasia without lower urinary tract symptoms; G20.A1 Parkinson's disease without dyskinesia, without mention of fluctuations; F41.9 Anxiety disorder, unspecified; F32.A Depression, unspecified; M19.90 Unspecified osteoarthritis, unspecified site; Z86.73 Personal history of transient ischemic attack (TIA), and cerebral infarction without residual deficits; Z95.5 Presence of coronary angioplasty implant and graft; Z79.899 Other long term (current) drug therapy; Z79.82 Long term (current) use of aspirin; Z79.1 Long term (current) use of non-steroidal anti-inflammatories (NSAID); Z79.52 Long term (current) use of systemic steroids; Z88.5 Allergy status to narcotic agent
CPT/HCPCS: 96361; 96374; 99285; 36415; 94640 ×4; 93005; 97162; 97166; 80053; 80048 ×3; 87449; 83605; 83735; 85025 ×3; 81003; 87040; 87324; 84145; 87636; 71046 ×2; G0378 ×4; S0138 ×3; J0696

== ENCOUNTER 2024-07-12 09:40 | Inpatient (IN) | payer MEDICARE ==
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
[2024-07-12] MEDS: ACETAMINOPHEN TAB 500 MG TAB PO STA (10:28)
[2024-07-12] MEDS: cefTRIAXone IN SWFI 1,000 MG/10 ML SYRINGE IVP STA (10:28)
[2024-07-12] MEDS: IBUPROFEN 600 MG TAB PO STA (10:28)
[2024-07-12] MEDS: SODIUM CHLORIDE 0.9% 500 ML 500 ML IV SCH (10:29)
[2024-07-12 10:36] LABS: Basophils % (A) 1 %; Eosinophils # (A) 0.1 k/uL (0-0.7); Eosinophils % (A) 2 %; HGB 13.6 gm/dL (13.0-17.5); Lymphocytes # (A) 0.6 k/uL (1.0-4.8); Lymphocytes % (A) 8 %; MCH 31.1 pg (25.0-35.0); MCHC 32.5 g/dL (31.0-37.0); MCV 95.6 fL (80.0-100.0); Mean Platelet Volume 7.5; Monocytes # (A) 0.2 k/uL (0-1.0); Monocytes % (A) 3 %; Neutrophils # (A) 7.2 k/uL (1.3-7.7); Neutrophils % (A) 87 %; Platelet Count 191 k/uL (150-450); RBC 4.39 m/uL (4.30-5.90); RDW 11.8 % (11.5-15.5); WBC 8.3 k/uL (3.8-10.6)
[2024-07-12 10:50] LABS: Partial Thromboplastin Time 21.3 sec (22.0-30.0)
[2024-07-12 10:53] LABS: ALT 15 U/L (4-49); AST 23 U/L (17-59); African American GFR (CKD) >90 (>60 ml/min/1.73 sqM); Albumin 4.4 g/dL (3.5-5.0); Alkaline Phosphatase 84 U/L (38-126); Anion Gap 11 mmol/L; Blood Urea Nitrogen 21 mg/dL (9-20); Carbon Dioxide 28 mmol/L (22-30); Chloride 100 mmol/L (98-107); Glucose 152 mg/dL (74-99); Non-African American GFR(CKD) 80 (>60 ml/min/1.73 sqM); Potassium 3.4 mmol/L (3.5-5.1); Sodium 139 mmol/L (137-145); Total Bilirubin 1.1 mg/dL (0.2-1.3)
--- NOTE | 2024-07-12 12:32 | XR ---
EXAMINATION TYPE: XR chest 2V DATE OF EXAM: 07/12/2024 12:09 PM COMPARISON: Chest radiographs from 12/09/2023 CLINICAL INDICATION: Male, 84 years old with history of Fever; TECHNIQUE: XR chest 2V Frontal and lateral views of the chest. FINDINGS: Lungs/Pleura: Left lower lung airspace opacities There is no evidence of pleural effusion, focal cons olidation, or pneumothorax. Pulmonary vascularity: Unremarkable. Heart/mediastinum: Cardiomediastinal silhouette is unremarkable. Musculoskeletal: No acute osseous pathology. IMPRESSION: Left lower lung airspace opacities correlate for pneumonia. [facility], , 07/12/2024 12:30 PM
[2024-07-12] MEDS ORDERED: PNEUMONIA PROTOCOL UTILIZED 1 EACH MISC PO PRN (12:34)
[2024-07-12] MEDS ORDERED: LORATADINE 10 MG TAB PO PRN (12:47)
[2024-07-12] MEDS: AZITHROMYCIN 500 MG in SODIUM CHLORIDE 0.9% 250 ML IVPB STA (13:20)
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
[2024-07-12] MEDS: IPRATROPIUM-ALBUTEROL 3 ML NEB INHALATION STA (15:52)
[2024-07-12] MEDS: PRIMIDONE 50 MG TAB PO SCH (17:13)
[2024-07-12] MEDS ORDERED: ACETAMINOPHEN TAB 325 MG TAB PO PRN (18:21)
[2024-07-12] MEDS: ACETAMINOPHEN TAB 325 MG TAB PO STA (18:35)
[2024-07-12] MEDS: ATORVASTATIN 80 MG TAB PO SCH (21:34)
[2024-07-12] MEDS: oxyBUTYnin chloride 5 MG TAB PO SCH (21:34)
[2024-07-12] MEDS: GABAPENTIN 100 MG CAP PO SCH (21:34)
[2024-07-12] MEDS: SERTRALINE 50 MG TAB PO SCH (21:34)
[2024-07-12] MEDS: clonazePAM 1 MG TAB PO PRN (21:34)
--- NOTE | 2024-07-13 08:22 | P.PN ---
Subjective Progress Note Date: 07/13/24 Principal diagnosis: Recurrent Pneumonia The patient is readmitted for pneumonia. He had similar event within the last year. He is ambulating without difficulty, but is weak. no voiding difficulties. No significant constipation or diarrhea stated. The patient is an nonsmoker. On room air Objective - Vital Signs Vital signs: Vital Signs Temp 98.5 F 07/13/24 02:00 Pulse 74 07/13/24 02:00 Resp 14 07/13/24 02:00 BP 99/61 07/13/24 02:00 Pulse Ox 94 L 07/13/24 02:00 FiO2 Intake & Output 07/12/24 07/13/24 07/13/24 18:59 06:59 18:59 Weight 76.204 kg Other: Voiding Method Toilet # Voids 2 2 - Constitutional General appearance: Present: average body habitus, cooperative, no acute distress - EENT Eyes: Absent: abnormal pupil - Respiratory Respiratory: left: rhonchi - Cardiovascular Rhythm: regular Heart sounds: normal: S1, S2 Abnormal Heart Sounds: Absent: S3 Gallop - Gastrointestinal General gastrointestinal: Present: soft. Absent: tenderness - Integumentary Integumentary: Absent: cellulitis - Psychiatric Psychiatric: Present: A&O x's 3 - Labs CBC & Chem 7: 07/12/24 10:25 07/12/24 10:25 Labs: Abnormal Lab Results - Last 24 Hours (Table) 07/12/24 07/12/24 07/12/24 Range/Units 10:25 10:25 10:25 Lymphocytes # 0.6 L (1.0-4.8) k/uL APTT 21.3 L (22.0-30.0) sec Potassium 3.4 L (3.5-5.1) mmol/L BUN 21 H (9-20) mg/dL Glucose 152 H (74-99) mg/dL Plasma Lactic Acid Volodymyr (0.7-2.0) mmol/L 07/12/24 Range/Units 10:25 Lymphocytes # (1.0-4.8) k/uL APTT (22.0-30.0) sec Potassium (3.5-5.1) mmol/L BUN (9-20) mg/dL Glucose (74-99) mg/dL Plasma Lactic Acid Volodymyr 2.7 H* (0.7-2.0) mmol/L Assessment and Plan (1) Community acquired pneumonia Current Visit: No Status: Acute Code(s): J18.9 - PNEUMONIA, UNSPECIFIED ORGANISM SNOMED Code(s): 322140573 (2) Generalized weakness Current Visit: No Status: Acute Code(s): R53.1 - WEAKNESS SNOMED Code(s): 44901135 Plan: continue current regimen of treatment. Appreciate pulmonology input. check CBC and CMP in a.m. breathing treatments and IV therapy. We'll continue to follow
[2024-07-13] MEDS ORDERED: AZITHROMYCIN 500 MG TAB PO SCH (09:00)
[2024-07-13] MEDS: FINASTERIDE 5 MG TAB PO SCH (09:15)
[2024-07-13] MEDS: TAMSULOSIN 0.4 MG CAP.ER.24H PO SCH (09:15)
[2024-07-13] MEDS: ENOXAPARIN 40 MG/0.4 ML SYRINGE SQ SCH (09:15)
[2024-07-13] MEDS: CHOLECALCIFEROL 25 MCG (1000 IU) TABLET PO SCH (09:15)
[2024-07-13] MEDS: FUROSEMIDE 20 MG TAB PO SCH (09:15)
[2024-07-13] MEDS: ASPIRIN 81 MG PO SCH (09:15)
[2024-07-13] MEDS: KETOTIFEN 0.025% OPHTH DROPS 5 ML BTL BOTH EYES SCH (09:22)
[2024-07-13] MEDS: lisinopriL 5 MG TAB PO SCH (09:23)
[2024-07-13] MEDS: METOPROLOL SUCCINATE (ER) 25 MG TAB.ER.24H PO SCH (09:23)
--- NOTE | 2024-07-13 09:39 | XR ---
EXAMINATION TYPE: XR chest 2V DATE OF EXAM: 07/13/2024 6:24 AM COMPARISON: 07/12/2024 CLINICAL INDICATION: Male, 84 years old with history of pneumonia, , TECHNIQUE: PA and lateral views FINDINGS: Median sternotomy wires and post-CABG clips. Heart upper limits of normal in size. Improving aeration with residual patchy left lower lung and medial left basilar opacities. No pleural effusion. Loss of the subacromial space right shoulder compatible with a chronic full-thickness rotator cuff tear. IMPRESSION: Persistent but improving patchy left lower lung infiltrates. Post-CABG changes. [facility], , 07/13/2024 9:36 AM
[2024-07-13] MEDS: AZITHROMYCIN 500 MG in SODIUM CHLORIDE 0.9% 250 ML IVPB SCH (10:43)
[2024-07-13 10:49] LABS: Appearance,Urine Clear (Clear); Bilirubin,Urine Negative (Negative); Blood,Urine Negative (Negative); Color,Urine Colorless; Glucose,Urine (UA) Negative (Negative); Ketones,Urine Negative (Negative); Leukocyte Esterase,Urine Negative (Negative); Nitrite,Urine Negative (Negative); Protein,Urine Negative (Negative); Specific Gravity,Urine 1.013 (1.001-1.035); Urobilinogen,Urine <2.0 mg/dL (<2.0)
--- NOTE | 2024-07-13 15:30 | P.PN ---
Subjective Progress Note Date: 07/13/24 84-year-old male patient presents to the emergency department due to concerns of pneumonia. The patient thought that he was having another bout of pneumonia similar to the one that he had back in November 2023. At that time, I was involved in his care. The patient started having fever with a temperature of 104 and the patient also was having shakes and chills along with fever. He had increased cough and some worsening shortness of breath. His cough is congested. Unable to bring up much sputum. No chest pain. No nausea or vomiting. No emesis. No altered mentation. He is currently on room air oxygen and his oxygen levels are adequate. Hemodynamically stable. No significant tachycardia. His blood work is showing a white cell count of 8.3 with a hemoglobin 13.6 and a platelet count of 191. The rest of the electrolytes are all within normal limits. Initial lactic acid level was at 2.7 dropped down to 1.4. Liver function test was normal. The viruses were screened and the patient was negative for influenza A and B and he was also negative for RSV and COVID-19. I reviewed his chest x-ray and I compared it to the earlier chest x-ray that was done in our hospital. There is a left lower lobe airspace opacity which is highly suggestive of pneumonia. The patient is currently on a combination of Rocephin and Zithromax. The patient is also known to have other medical problems including COPD and he gets an inhaler through [facility] due to cost related issues. He has LILLY without t he device, hypertension, hyperlipidemia, coronary artery disease and prostatic enlargement along with osteoarthritis. He has chronic generalized pain. He has undergone previous bypass surgery. No reported aspiration. No sick contacts. The patient is seen today July 13, 2024 in follow-up on the regular medical floor. He is currently resting comfortably in bed. Awake and alert in no acute distress. He is maintaining good O2 saturations in the 90s on room air. Chest x-ray reveals persistent but improving patchy left lower lung infiltrate. Blood culture reveals no growth to date. He is currently on ceftriaxone and azithromycin. Lovenox for DVT prophylaxis. Oral diuretics. Objective - Vital Signs Vital signs: Vital Signs Temp 98.6 F 07/13/24 14:30 Pulse 96 07/13/24 14:30 Resp 18 12/02/24 14:30 BP 137/85 07/13/24 14:30 Pulse Ox 100 07/13/24 14:30 FiO2 Intake & Output 07/12/24 07/13/24 07/13/24 18:59 06:59 18:59 Intake Total 420 Balance 420 Weight 76.204 kg Intake: Oral 420 Other: Voiding Method Toilet # Voids 2 2 - Exam GENERAL EXAM: Alert, pleasant 84-year-old male, on room air, comfortable in no apparent distress. HEAD: Normocephalic. EYES: Normal reaction of pupils, equal size. NOSE: Clear with pink turbinates. THROAT: No erythema or exudates. NECK: No masses, no JVD. CHEST: No chest wall deformity. LUNGS: Equal air entry with few scattered rhonchi in the left lung base. CVS: S1 and S2 normal with no audible murmur, regular rhythm. ABDOMEN: No hepatosplenomegaly, normal bowel sounds, no guarding or rigidity. SPINE: No scoliosis or deformity SKIN: No rashes CENTRAL NERVOUS SYSTEM: No focal deficits, tone is normal in all 4 extremities. EXTREMITIES: There is no peripheral edema. No clubbing, no cyanosis. Peripheral pulses are intact. - Labs CBC & Chem 7: 07/12/24 10:25 07/12/24 10:25 Labs: Microbiology - Last 24 Hours (Table) 07/12/24 10:20 Blood Culture - Preliminary Blood 07/12/24 10:05 Blood Culture - Preliminary Blood Assessment and Plan Assessment: Left lower lobe pneumonia, likely community-acquired, recurrent process Fever and chills secondary to above Mild lactic acidosis History of coronary artery disease, S/P PCI/stent and CABG, 2013. History of hypertension. History of hyperlipidemia. History of COPD, nonsmoker History of CVA/TIA. Gastroesophageal reflux disease. Osteoarthritis. History of obstructive sleep apnea syndrome. History of BPH. Plan: The patient was seen and evaluated Chest x-ray and medications reviewed Continued on ceftriaxone and azithromycin Stable and on room air Continued on bronchodilators Lovenox for DVT prophylaxis We will continue to follow I have personally seen and examined the patient, performed the documentation and the assessment and plan as written. Number of minutes spent on the visit: 10 Dictation was produced using [employer] dictation software. Please excuse any grammatical, word or spelling errors.
[2024-07-13] MEDS: CALCIUM CARBONATE 500 MG CHEWABLE PO PRN (21:24)
--- NOTE | 2024-07-14 08:22 | P.PN ---
Subjective Progress Note Date: 07/14/24 This is an 84-year-old male who presented to the emergency department with complaints of possible pneumonia. Patient had a fever and chills at home along with increased cough and worsening shortness of breath. Chest x-ray on admission showed left lower lobe airspace opacity. Patient was negative for inf luenza A and B and COVID. Patient has been maintained maintained on Rocephin and Zithromax. His vitals are stable. He is on room air. Chest x-ray from yesterday shows improving left lower lobe infiltrates. Objective - Vital Signs Vital signs: Vital Signs Temp 97.4 F L 07/14/24 01:19 Pulse 82 07/14/24 01:19 Resp 17 07/14/24 01:19 BP 108/70 07/14/24 01:19 Pulse Ox 97 07/14/24 01:19 FiO2 Intake & Output 07/13/24 07/14/24 07/14/24 18:59 06:59 18:59 Intake Total 420 Balance 420 Weight 71.5 kg Intake: Oral 420 Other: Voiding Method Toilet # Voids 4 1 # Bowel Movements 4 - Constitutional General appearance: Present: cooperative, no acute distress - EENT Eyes: Present: PERRLA - Neck Neck: Present: normal ROM. Absent: lymphadenopathy, rigidity - Respiratory Respiratory: right: diminished, left: rales - Cardiovascular Rhythm: regular Heart sounds: normal: S1, S2 - Gastrointestinal General gastrointestinal: Present: soft. Absent: tenderness - Integumentary Integumentary: Present: normal - Musculoskeletal Musculoskeletal: Present: generalized weakness - Psychiatric Psychiatric: Present: A&O x's 3 - Labs CBC & Chem 7: 07/12/24 10:25 07/12/24 10:25 Labs: Microbiology - Last 24 Hours (Table) 07/12/24 10:20 Blood Culture - Preliminary Blood 07/12/24 10:05 Blood Culture - Preliminary Blood Assessment and Plan (1) Community acquired pneumonia Current Visit: No Status: Acute Code(s): J18.9 - PNEUMONIA, UNSPECIFIED ORGANISM SNOMED Code(s): 365113339 (2) Generalized weakness Current Visit: No Status: Acute Code(s): R53.1 - WEAKNESS SNOMED Code(s): 83782637 (3) CAD (coronary artery disease) Current Visit: No Status: Acute Code(s): I25.10 - ATHSCL HEART DISEASE OF [place] CORONARY ARTERY W/O ANG PCTRS SNOMED Code(s): 52952922 (4) Hyperlipemia Current Visit: No Status: Acute Code(s): E78.5 - HYPERLIPIDEMIA, UNSPECIFIED SNOMED Code(s): 97215057 (5) Hypertension Current Visit: No Status: Acute Code(s): I10 - ESSENTIAL (PRIMARY) HYPERTENSION SNOMED Code(s): 73357463 Plan: Continue IV antibiotics. Check CBC and CMP in the morning. Anticipate discharge in the next 24 to 48 hours. Patient seen and evaluated by nurse practitioner, physician in agreement with plan.
[2024-07-14 08:33] LABS: HGB 11.5 g/dL (13.0-17.0); MCH 31.9 pg (27.0-32.0); MCHC 33.8 g/dL (32.0-37.0); MCV 94.2 FL (80.0-97.0); Mean Platelet Volume 10.6 FL (9.5-12.2); NRBC Per 100 WBC 0 X 10*3/uL (0.00-0.01); Platelet Count 159 X 10*3/uL (140-440); RBC 3.61 X 10*6/uL (4.40-5.60); RDW 11.6 % (11.5-14.5); WBC 5.45 X 10*3/uL (4.50-10.00)
[2024-07-14 08:43] LABS: ALT 10 U/L (10-49); AST 19 U/L (14-35); Albumin 3.4 g/dL (3.8-4.9); Albumin/Globulin Ratio 1.79 Ratio (1.60-3.17); Alkaline Phosphatase 52 U/L (41-126); Blood Urea Nitrogen 15.4 mg/dL (9.0-27.0); Calcium 8.7 mg/dL (8.7-10.3); Carbon Dioxide 25.7 mmol/L (21.6-31.8); Chloride 106 mmol/L (96-109); Globulin 1.9 g/dL (1.6-3.3); Glucose 104 mg/dL (70-110); Potassium 3.3 mmol/L (3.5-5.5); Sodium 142 mmol/L (135-145); Total Bilirubin 0.3 mg/dL (0.3-1.2); Total Protein 5.3 g/dL (6.2-8.2)
--- NOTE | 2024-07-14 14:41 | P.PN ---
Subjective Progress Note Date: 07/14/24 84-year-old male patient presents to the emergency department due to concerns of pneumonia. The patient thought that he was having another bout of pneumonia similar to the one that he had back in November 2023. At that time, I was involved in his care. The patient started having fever with a temperature of 104 and the patient also was having shakes and chills along with fever. He had increased cough and some worsening shortness of breath. His cough is congested. Unable to bring up much sputum. No chest pain. No nausea or vomiting. No emesis. No altered mentation. He is currently on room air oxygen and his oxygen levels are adequate. Hemodynamically stable. No significant tachycardia. His blood work is showing a white cell count of 8.3 with a hemoglobin 13.6 and a platelet count of 191. The rest of the electrolytes are all within normal limits. Initial lactic acid level was at 2.7 dropped down to 1.4. Liver function test was normal. The viruses were screened and the patient was negative for influenza A and B and he was also negative for RSV and COVID-19. I reviewed his chest x-ray and I compared it to the earlier chest x-ray that was done in our hospital. There is a left lower lobe airspace opacity which is highly suggestive of pneumonia. The patient is currently on a combination of Rocephin and Zithromax. The patient is also known to have other medical problems including COPD and he gets an inhaler through [facility] due to cost related issues. He has LILLY without t he device, hypertension, hyperlipidemia, coronary artery disease and prostatic enlargement along with osteoarthritis. He has chronic generalized pain. He has undergone previous bypass surgery. No reported aspiration. No sick contacts. The patient is seen today July 13, 2024 in follow-up on the regular medical floor. He is currently resting comfortably in bed. Awake and alert in no acute distress. He is maintaining good O2 saturations in the 90s on room air. Chest x-ray reveals persistent but improving patchy left lower lung infiltrate. Blood culture reveals no growth to date. He is currently on ceftriaxone and azithromycin. Lovenox for DVT prophylaxis. Oral diuretics. The patient is seen today July 14, 2024 in follow-up on the regular medical floor. He is currently laying flat in bed. Awake and alert in no acute distress. Maintaining O2 saturations in the high 90s on room air. He is afebrile. Hemodynamically stable. His only complaint is ongoing cough. Blood cultures revealed no growth to date. White count 5.4. Hemoglobin 11.5. Platelets 159. Sodium 142. Potassium 3.3. Bicarb 26. BUN 15. Creatinine 0.7. Glucose 104. Procalcitonin was 0.09. He still remains on ceftriaxone. Completed azithromycin. Remains on oral diuretics. Lovenox for DVT p rophylaxis. Objective - Vital Signs Vital signs: Vital Signs Temp 97.4 F L 07/14/24 12: Pulse 89 07/14/24 12:27 Resp 16 07/14/24 12:27 BP 116/77 07/14/24 12:27 Pulse Ox 99 07/14/24 12:27 FiO2 Intake & Output 07/13/24 07/14/24 07/14/24 18:59 06:59 18:59 Intake Total 420 Balance 420 Weight 71.5 kg Intake: Oral 420 Other: Voiding Method Toilet # Voids 4 1 # Bowel Movements 4 - Exam GENERAL EXAM: Alert, 84-year-old male, laying flat in bed, on room air, comfortable in no apparent distress. HEAD: Normocephalic. EYES: Normal reaction of pupils, equal size. NOSE: Clear with pink turbinates. THROAT: No erythema or exudates. NECK: No masses, no JVD. CHEST: No chest wall deformity. LUNGS: Equal air entry with few scattered rhonchi in the left lung base. CVS: S1 and S2 normal with no audible murmur, regular rhythm. ABDOMEN: No hepatosplenomegaly, normal bowel sounds, no guarding or rigidity. SPINE: No scoliosis or deformity SKIN: No rashes CENTRAL NERVOUS SYSTEM: No focal deficits, tone is normal in all 4 extremities. EXTREMITIES: There is no peripheral edema. No clubbing, no cyanosis. Peripheral pulses are intact. - Labs CBC & Chem 7: 07/14/24 03:16 07/14/24 03:16 Labs: Abnormal Lab Results - Last 24 Hours (Table) 07/14/24 07/14/24 Range/Units 03:16 03:16 RBC 3.61 L (4.40-5.60) X 10*6/uL Hgb 11.5 L (13.0-17.0) g/dL Hct 34.0 L (39.6-50.0) % Potassium 3.3 L (3.5-5.5) mmol/L BUN/Creatinine Ratio 22.00 H (12.00-20.00) Ratio Total Protein 5.3 L (6.2-8.2) g/dL Albumin 3.4 L (3.8-4.9) g/dL Microbiology - Last 24 Hours (Table) 07/12/24 10:20 Blood Culture - Preliminary Blood 07/12/24 10:05 Blood Culture - Preliminary Blood Assessment and Plan Assessment: Left lower lobe pneumonia, likely community-acquired, recurrent process Fever and chills secondary to above Mild lactic acidosis History of coronary artery disease, S/P PCI/stent and CABG, 2012 History of hypertension. History of hyperlipidemia. History of COPD, nonsmoker History of CVA/TIA. Gastroesophageal reflux disease. Osteoarthritis. History of obstructive sleep apnea syndrome. History of BPH. Plan: The patient was seen and evaluated Labs and medications reviewed Continue the current treatment plan Add Robitussin for his cough Stable and on room air Follow-up chest x-ray in a.m. Probable discharge in a.m. We will continue to follow I have personally seen and examined the patient, performed the documentation and the assessment and plan as written. Number of minutes spent on the visit: 10 Dictation was produced using [employer] dictation software. Please excuse any grammatical, word or spelling errors.
[2024-07-15 08:22] LABS: HCT 36.3 % (39.6-50.0); HGB 12.3 g/dL (13.0-17.0); MCH 31.6 pg (27.0-32.0); MCHC 33.9 g/dL (32.0-37.0); MCV 93.3 FL (80.0-97.0); Mean Platelet Volume 10.6 FL (9.5-12.2); NRBC Per 100 WBC 0 X 10*3/uL (0.00-0.01); Platelet Count 196 X 10*3/uL (140-440); RBC 3.89 X 10*6/uL (4.40-5.60); RDW 11.7 % (11.5-14.5); WBC 6.01 X 10*3/uL (4.50-10.00)
[2024-07-15 08:33] LABS: ALT 11 U/L (10-49); AST 18 U/L (14-35); Albumin 3.6 g/dL (3.8-4.9); Albumin/Globulin Ratio 1.57 Ratio (1.60-3.17); Alkaline Phosphatase 57 U/L (41-126); BUN/Creat Ratio 22.25 Ratio (12.00-20.00); Blood Urea Nitrogen 17.8 mg/dL (9.0-27.0); Calcium 8.7 mg/dL (8.7-10.3); Chloride 104 mmol/L (96-109); Globulin 2.3 g/dL (1.6-3.3); Glucose 110 mg/dL (70-110); Potassium 3.7 mmol/L (3.5-5.5); Sodium 140 mmol/L (135-145); Total Bilirubin 0.3 mg/dL (0.3-1.2); Total Protein 5.9 g/dL (6.2-8.2)
--- NOTE | 2024-07-15 08:58 | P.PN ---
Subjective Principal diagnosis: Recurrent Pneumonia The patient is readmitted for pneumonia. He had similar event within the last year. He is ambulating without difficulty, but is weak. no voiding difficulties. No significant constipation or diarrhea stated. The patient is an nonsmoker. On room air. Today however he states significant body aches he seems to resting comfortably no voiding difficulties. The patient states that he has yesterday, walked the hallways. Objective - Vital Signs Vital signs: Vital Signs Temp 97.5 F L 07/15/24 07:58 Pulse 92 07/15/24 07:58 Resp 16 07/15/24 07:58 BP 120/77 07/15/24 07:58 Pulse Ox 93 L 07/15/24 07:58 FiO2 Intake & Output 07/14/24 07/15/24 07/15/24 18:59 06:59 18:59 Weight 74.5 kg Other: # Voids 3 1 - Constitutional General appearance: Present: average body habitus, cooperative, no acute distress - EENT Eyes: Absent: abnormal pupil - Respiratory Respiratory: left: rhonchi - Cardiovascular Rhythm: regular Heart sounds: normal: S1, S2 Abnormal Heart Sounds: Absent: S3 Gallop - Gastrointestinal General gastrointestinal: Present: soft, splenomegaly. Absent: tenderness - Neurologic Neurologic: Absent: focal deficits - Labs CBC & Chem 7: 07/15/24 03:08 07/15/24 06:00 Labs: Abnormal Lab Results - Last 24 Hours (Table) 07/15/24 07/15/24 Range/Units 03:08 06:00 RBC 3.89 L (4.40-5.60) X 10*6/uL Hgb 12.3 L (13.0-17.0) g/dL Hct 36.3 L (39.6-50.0) % BUN/Creatinine Ratio 22.25 H (12.00-20.00) Ratio Total Protein 5.9 L (6.2-8.2) g/dL Albumin 3.6 L (3.8-4.9) g/dL Albumin/Globulin Ratio 1.57 L (1.60-3.17) Ratio Microbiology - Last 24 Hours (Table) 07/12/24 10:20 Blood Culture - Preliminary Blood 07/12/24 10:05 Blood Culture - Preliminary Blood Assessment and Plan (1) Community acquired pneumonia Current Visit: No Status: Acute Code(s): J18.9 - PNEUMONIA, UNSPECIFIED ORGANISM SNOMED Code(s): 576027604 (2) Generalized weakness Current Visit: No Status: Acute Code(s): R53.1 - WEAKNESS SNOMED Code(s): 40572642 Plan: continue current regimen of treatment. Appreciate pulmonology input. check CBC and CMP in a.m. breathing treatments and IV therapy. We'll continue to follow Anticipate discharge in the next 24-48 hours
--- NOTE | 2024-07-15 09:02 | CDI ---
Documentation Clarification Form Date: 07/15/2024 08:36:33 AM From: Jessica Hernandez Phone: [phone] Admit Date: 07/12/2024 12:34:00 PM Patient Name: Latrell Gallo Visit Number: [id number] Discharge Date: ATTENTION: The Clinical Documentation Specialists (CDI) and [facility] Coding Staff appreciate your assistance in clarifying documentation. Please respond to the clarification below the line at the bottom and electronically sign. The CDI & [facility] Coding staff will review the response and follow-up if needed. Please note: Queries are made part of the Legal Health Record. If you have any questions, please contact the author of this message via ITS. Doctor: Cullen Castellanos Sepsis is documented 07/12, [facility], but is not noted in subsequent documentation. Clarification is requested. History/Risk Factors: 84 y/o M presents to the ED for coughing that started a couple days prior and getting worse. The patient also states that he has significant chills and cannot stop shaking. Medical History: CAD, Chest pain, Angina, COPD, Heart Failure, HTN, Gerd, CVA and sleep apnea w/ CPAP/BIPAP. 07/12/ ED Note Clinical Indicators: VSS 07/12: B/P 149/73; HR 119; Temp 102.7F Oral; RR 24; SpO2 93$ ra CXR, 07/12: Left lower lung airspace opacities correlate for pneumonia. Labs 07/12: Wbc 8.3; Lymphocytes 0.6; Lactic Acid 2.7 follow up Lactic Acid 1.4 Blood Culture 07/12: No Growth after 48 hours Pulmonary Consult, 07/12: Sputum Gram stain and culture and blood culture Will obtain a follow-up chest x-ray within next 24 to 48 hours despite his pneumonia, the patient does not look toxic and no signs of any septicemia and the lactic acid level is dropped Treatment: 07/12 Rocehpin IVP x 2; 07/13 Azithromycin IVPB Daily x 2 Bags; 07/13 Ceftriaxone IVPB Q24H x 4 Bags Fluids: 07/12 0.9NS 1L IV Bolus Please clarify if the [insert diagnosis] is: [ ] Sepsis confirmed, remains under treatment [ ] Sepsis confirmed, resolved [ x ] Sepsis ruled out [ ] Other condition, please specify [ ] Unable to determine SIRS Criteria: 2 or more of the following may indicate SIRS Temperature < 96.8F (36C) or > 101.0F (38.3C) Heart Rate > 90 bpm Respiratory Rate > 20 breaths/min or PaCO2 < 32 mmHg White Blood Cell Count > 12,000 or < 4,000 cells/mm3 or > 10% bands (Template Last Revised: October 2020) MTDD
--- NOTE | 2024-07-15 09:36 | XR ---
EXAMINATION TYPE: XR chest 1V portable DATE OF EXAM: 07/15/2024 6:53 AM COMPARISON: 07/13/2024 CLINICAL INDICATION: Male, 84 years old with history of LLL infiltrate, , FINDINGS: Heart borderline in size. Median sternotomy wires and post-CABG clips. Slightly more confluent patchy left mid and lower lung opacity. No pleural effusion. Loss of the subacromial space right shoulder i ndicating chronic full-thickness rotator cuff tear. IMPRESSION: Slight increase now with confluent mild patchy airspace disease left mid and lower lung. [facility], , 07/15/2024 9:34 AM
[2024-07-15] MEDS ORDERED: IPRATROPIUM-ALBUTEROL 3 ML NEB INHALATION PRN (10:47)
--- NOTE | 2024-07-15 13:19 | P.PN ---
Subjective Progress Note Date: 07/15/24 84-year-old male patient presents to the emergency department due to concerns of pneumonia. The patient thought that he was having another bout of pneumonia similar to the one that he had back in November 2023. At that time, I was involved in his care. The patient started having fever with a temperature of 104 and the patient also was having shakes and chills along with fever. He had increased cough and some worsening shortness of breath. His cough is congested. Unable to bring up much sputum. No chest pain. No nausea or vomiting. No emesis. No altered mentation. He is currently on room air oxygen and his oxygen levels are adequate. Hemodynamically stable. No significant tachycardia. His blood work is showing a white cell count of 8.3 with a hemoglobin 13.6 and a platelet count of 191. The rest of the electrolytes are all within normal limits. Initial lactic acid level was at 2.7 dropped down to 1.4. Liver function test was normal. The viruses were screened and the patient was negative for influenza A and B and he was also negative for RSV and COVID-19. I reviewed his chest x-ray and I compared it to the earlier chest x-ray that was done in our hospital. There is a left lower lobe airspace opacity which is highly suggestive of pneumonia. The patient is currently on a combination of Rocephin and Zithromax. The patient is also known to have other medical problems including COPD and he gets an inhaler through [facility] due to cost related issues. He has LILLY without t he device, hypertension, hyperlipidemia, coronary artery disease and prostatic enlargement along with osteoarthritis. He has chronic generalized pain. He has undergone previous bypass surgery. No reported aspiration. No sick contacts. The patient is seen today July 13, 2024 in follow-up on the regular medical floor. He is currently resting comfortably in bed. Awake and alert in no acute distress. He is maintaining good O2 saturations in the 90s on room air. Chest x-ray reveals persistent but improving patchy left lower lung infiltrate. Blood culture reveals no growth to date. He is currently on ceftriaxone and azithromycin. Lovenox for DVT prophylaxis. Oral diuretics. The patient is seen today July 14, 2024 in follow-up on the regular medical floor. He is currently laying flat in bed. Awake and alert in no acute distress. Maintaining O2 saturations in the high 90s on room air. He is afebrile. Hemodynamically stable. His only complaint is ongoing cough. Blood cultures revealed no growth to date. White count 5.4. Hemoglobin 11.5. Platelets 159. Sodium 142. Potassium 3.3. Bicarb 26. BUN 15. Creatinine 0.7. Glucose 104. Procalcitonin was 0.09. He still remains on ceftriaxone. Completed azithromycin. Remains on oral diuretics. Lovenox for DVT p rophylaxis. The patient is seen today July 15, 2024 in follow-up on the regular medical floor. He is currently resting in bed. Awake and alert in no acute distress. He has been slow to progress. Still complaining of significant cough, congestion and shortness of breath. Maintaining good O2 saturations in the 90s on room air. He has been afebrile. Hemodynamically stable. Chest x-ray rev eals slight increase in the mild patchy airspace disease in the left mid and lower lung. White count 6.0. Hemoglobin 12.3. Platelets 196. Sodium 140. Potassium 3.7. Bicarb 24. BUN 18. Creatinine 0.8. Glucose 110. Dilators. Continued on oral diuretics. Lovenox for DVT prophylaxis. Objective - Vital Signs Vital signs: Vital Signs Temp 97.5 F L 07/15/24 07:58 Pulse 92 07/15/24 07:58 Resp 16 07/15/24 08:00 BP 120/77 07/15/24 07:58 Pulse Ox 94 L 07/15/24 09:27 FiO2 Intake & Output 07/14/24 07/15/24 07/15/24 18:59 06:59 18:59 Weight 74.5 kg Other: # Voids 3 1 1 # Bowel Movements 1 - Exam GENERAL EXAM: Alert, 84-year-old male, laying in bed, on room air, comfortable in no apparent distress. HEAD: Normocephalic. EYES: Normal reaction of pupils, equal size. NOSE: Clear with pink turbinates. THROAT: No erythema or exudates. NECK: No masses, no JVD. CHEST: No chest wall deformity. LUNGS: Equal air entry with few scattered rhonchi in the left lung base. CVS: S1 and S2 normal with no audible murmur, regular rhythm. ABDOMEN: No hepatosplenomegaly, normal bowel sounds, no guarding or rigidity. SPINE: No scoliosis or deformity SKIN: No rashes CENTRAL NERVOUS SYSTEM: No focal deficits, tone is normal in all 4 extremities. EXTREMITIES: There is no peripheral edema. No clubbing, no cyanosis. Peripheral pulses are intact. - Labs CBC & Chem 7: 07/15/24 03:08 07/15/24 06:00 Labs: Abnormal Lab Results - Last 24 Hours (Table) 07/15/24 07/15/24 Range/Units 03:08 06:00 RBC 3.89 L (4.40-5.60) X 10*6/uL Hgb 12.3 L (13.0-17.0) g/dL Hct 36.3 L (39.6-50.0) % BUN/Creatinine Ratio 22.25 H (12.00-20.00) Ratio Total Protein 5.9 L (6.2-8.2) g/dL Albumin 3.6 L (3.8-4.9) g/dL Albumin/Globulin Ratio 1.57 L (1.60-3.17) Ratio Microbiology - Last 24 Hours (Table) 07/12/24 10:20 Blood Culture - Preliminary Blood 07/12/24 10:05 Blood Culture - Preliminary Blood Assessment and Plan Assessment: Left lower lobe pneumonia, likely community-acquired, recurrent process Fever and chills secondary to above Mild lactic acidosis History of coronary artery disease, S/P PCI/stent and CABG, 2012 History of hypertension. History of hyperlipidemia. History of COPD, nonsmoker History of CVA/TIA. Gastroesophageal reflux disease. Osteoarthritis. History of obstructive sleep apnea syndrome. History of BPH. Plan: The patient was seen and evaluated Chest x-ray, labs and medications reviewed Continue the current treatment plan He has been slow to progress Will plan for bronchoscopy with BAL tomorrow I have personally seen and examined the patient, performed the documentation and the assessment and plan as written. Number of minutes spent on the visit: 10 Dictation was produced using [employer] dictation software. Please excuse any grammatical, word or spelling errors.
[2024-07-15] MEDS: SODIUM CHLORIDE 0.9% 1,000 ML IV SCH (15:00)
--- NOTE | 2024-07-16 08:18 | P.PN ---
Subjective Progress Note Date: 07/16/24 This is an 84-year-old male who presented to the emergency department with complaints of possible pneumonia. Patient had a fever and chills at home along with increased cough and worsening shortness of breath. Chest x-ray on admission showed left lower lobe airspace opacity. Patient was negative for inf luenza A and B and COVID. Patient has been maintained maintained on Rocephin and Zithromax. His vitals are stable. He is on room air. Chest x-ray from yesterday shows improving left lower lobe infiltrates. 07/16/24 Patient seen and evaluated sitting in bed this morning. Yesterday patient had f elt slightly worse and plan is for bronchoscopy today. Patient did have some hypotension yesterday he was given fluids and blood pressure is stable today. Objective - Vital Signs Vital signs: Vital Signs Temp 98.3 F 07/16/24 07:15 Pulse 88 07/16/24 07:15 Resp 16 07/16/24 07:15 BP 134/82 07/16/24 07:15 Pulse Ox 92 L 07/16/24 01:17 FiO2 Intake & Output 07/15/24 07/16/24 07/16/24 18:59 06:59 18:59 Other: # Voids 3 3 # Bowel Movements 2 3 - Constitutional General appearance: Present: cooperative, no acute distress - EENT Eyes: Present: PERRLA - Neck Neck: Present: normal ROM. Absent: lymphadenopathy, rigidity - Respiratory Respiratory: right: diminished, left: rales - Cardiovascular Rhythm: regular Heart sounds: normal: S1, S2 - Gastrointestinal General gastrointestinal: Present: soft. Absent: tenderness - Integumentary Integumentary: Present: normal, normal turgor - Psychiatric Psychiatric: Present: A&O x's 3 - Labs CBC & Chem 7: 07/15/24 03:08 07/15/24 06:00 Labs: Abnormal Lab Results - Last 24 Hours (Table) 07/15/24 07/15/24 Range/Units 03:08 06:00 RBC 3.89 L (4.40-5.60) X 10*6/uL Hgb 12.3 L (13.0-17.0) g/dL Hct 36.3 L (39.6-50.0) % BUN/Creatinine Ratio 22.25 H (12.00-20.00) Ratio Total Protein 5.9 L (6.2-8.2) g/dL Albumin 3.6 L (3.8-4.9) g/dL Albumin/Globulin Ratio 1.57 L (1.60-3.17) Ratio Microbiology - Last 24 Hours (Table) 07/12/24 10:20 Blood Culture - Preliminary Blood 07/12/24 10:05 Blood Culture - Preliminary Blood Assessment and Plan (1) Community acquired pneumonia Current Visit: No Status: Acute Code(s): J18.9 - PNEUMONIA, UNSPECIFIED ORGANISM SNOMED Code(s): 479039915 (2) Generalized weakness Current Visit: No Status: Acute Code(s): R53.1 - WEAKNESS SNOMED Code(s): 86211437 (3) CAD (coronary artery disease) Current Visit: No Status: Acute Code(s): I25.10 - ATHSCL HEART DISEASE OF [place] CORONARY ARTERY W/O ANG PCTRS SNOMED Code(s): 81323553 (4) Hyperlipemia Current Visit: No Status: Acute Code(s): E78.5 - HYPERLIPIDEMIA, UNSPECIFIED SNOMED Code(s): 02785166 (5) Hypertension Current Visit: No Status: Acute Code(s): I10 - ESSENTIAL (PRIMARY) HYPERTENSION SNOMED Code(s): 46223782 Plan: Plan is for bronchoscopy today. Check CBC and CMP in the morning. Patient seen and evaluated by nurse practitioner, physician in agreement with plan.
[2024-07-16] MEDS: LACTATED RINGERS 1,000 ML IV SCH (09:01)
[2024-07-16 09:02] LABS: HCT 35.7 % (39.6-50.0); HGB 11.7 g/dL (13.0-17.0); MCH 31.5 pg (27.0-32.0); MCHC 32.8 g/dL (32.0-37.0); MCV 96.2 FL (80.0-97.0); Mean Platelet Volume 10.4 FL (9.5-12.2); NRBC Per 100 WBC 0 X 10*3/uL (0.00-0.01); Platelet Count 172 X 10*3/uL (140-440); RBC 3.71 X 10*6/uL (4.40-5.60); RDW 11.8 % (11.5-14.5); WBC 5.36 X 10*3/uL (4.50-10.00)
[2024-07-16 09:26] LABS: ALT 13 U/L (10-49); AST 25 U/L (14-35); Albumin 3.4 g/dL (3.8-4.9); Albumin/Globulin Ratio 1.62 Ratio (1.60-3.17); Alkaline Phosphatase 51 U/L (41-126); Blood Urea Nitrogen 16.1 mg/dL (9.0-27.0); Calcium 8.4 mg/dL (8.7-10.3); Carbon Dioxide 21.7 mmol/L (21.6-31.8); Chloride 106 mmol/L (96-109); Globulin 2.1 g/dL (1.6-3.3); Glucose 106 mg/dL (70-110); Sodium 142 mmol/L (135-145); Total Bilirubin 0.2 mg/dL (0.3-1.2); Total Protein 5.5 g/dL (6.2-8.2)
[2024-07-16] MEDS: IV FLUID CONTINUATION 900 ML IV ONE (09:57)
[2024-07-16] MEDS ORDERED: PROPOFOL 10 MG/ML 20 ML VIAL IV ONE (10:00)
[2024-07-16] MEDS ORDERED: LIDOCAINE 1% INJ 10MG/ML (20 ML MDV) ONE (10:00)
[2024-07-16] MEDS: LIDOCAINE 2% INJ 20 MG/ML INTRATRACH ONE (10:16)
--- NOTE | 2024-07-16 15:43 | P.PN ---
Subjective Progress Note Date: 07/16/24 84-year-old male patient presents to the emergency department due to concerns of pneumonia. The patient thought that he was having another bout of pneumonia similar to the one that he had back in November 2023. At that time, I was involved in his care. The patient started having fever with a temperature of 104 and the patient also was having shakes and chills along with fever. He had increased cough and some worsening shortness of breath. His cough is congested. Unable to bring up much sputum. No chest pain. No nausea or vomiting. No emesis. No altered mentation. He is currently on room air oxygen and his oxygen levels are adequate. Hemodynamically stable. No significant tachycardia. His blood work is showing a white cell count of 8.3 with a hemoglobin 13.6 and a platelet count of 191. The rest of the electrolytes are all within normal limits. Initial lactic acid level was at 2.7 dropped down to 1.4. Liver function test was normal. The viruses were screened and the patient was negative for influenza A and B and he was also negative for RSV and COVID-19. I reviewed his chest x-ray and I compared it to the earlier chest x-ray that was done in our hospital. There is a left lower lobe airspace opacity which is highly suggestive of pneumonia. The patient is currently on a combination of Rocephin and Zithromax. The patient is also known to have other medical problems including COPD and he gets an inhaler through [facility] due to cost related issues. He has LILLY without t he device, hypertension, hyperlipidemia, coronary artery disease and prostatic enlargement along with osteoarthritis. He has chronic generalized pain. He has undergone previous bypass surgery. No reported aspiration. No sick contacts. The patient is seen today July 13, 2024 in follow-up on the regular medical floor. He is currently resting comfortably in bed. Awake and alert in no acute distress. He is maintaining good O2 saturations in the 90s on room air. Chest x-ray reveals persistent but improving patchy left lower lung infiltrate. Blood culture reveals no growth to date. He is currently on ceftriaxone and azithromycin. Lovenox for DVT prophylaxis. Oral diuretics. The patient is seen today July 14, 2024 in follow-up on the regular medical floor. He is currently laying flat in bed. Awake and alert in no acute distress. Maintaining O2 saturations in the high 90s on room air. He is afebrile. Hemodynamically stable. His only complaint is ongoing cough. Blood cultures revealed no growth to date. White count 5.4. Hemoglobin 11.5. Platelets 159. Sodium 142. Potassium 3.3. Bicarb 26. BUN 15. Creatinine 0.7. Glucose 104. Procalcitonin was 0.09. He still remains on ceftriaxone. Completed azithromycin. Remains on oral diuretics. Lovenox for DVT p rophylaxis. The patient is seen today July 15, 2024 in follow-up on the regular medical floor. He is currently resting in bed. Awake and alert in no acute distress. He has been slow to progress. Still complaining of significant cough, congestion and shortness of breath. Maintaining good O2 saturations in the 90s on room air. He has been afebrile. Hemodynamically stable. Chest x-ray rev eals slight increase in the mild patchy airspace disease in the left mid and lower lung. White count 6.0. Hemoglobin 12.3. Platelets 196. Sodium 140. Potassium 3.7. Bicarb 24. BUN 18. Creatinine 0.8. Glucose 110. Dilators. Continued on oral diuretics. Lovenox for DVT prophylaxis. The patient is seen today July 16, 2024 in follow-up on the regular medical floor. He did undergo bronchoscopy with BAL this morning with Dr. Larsen. Cultures pending. Currently resting comfortably in bed. Maintaining O2 saturations in the 90s room air. He is afebrile. Hemodynamically stable. Bl ood cultures revealed no growth. White count 5.3. Hemoglobin 11.7. Platelets 172. Sodium 142. Potassium 4.0. Bicarb 22. BUN 16. Creatinine 0.7. Glucose 106. He remains on DuoNeb inhalations, Robitussin. Lovenox for DVT prophylaxis. Objective - Vital Signs Vital signs: Vital Signs Temp 97.9 F 07/16/24 14:00 Pulse 80 07/16/24 14:00 Resp 16 07/16/24 14:00 BP 106/67 07/16/24 14:00 Pulse Ox 93 L 07/16/24 11:57 FiO2 Intake & Output 07/15/24 07/16/24 07/16/24 18:59 06:59 18:59 Intake Total 100 Balance 100 Intake: IV 100 Other: Voiding Method Toilet # Voids 3 3 # Bowel Movements 2 3 - Exam GENERAL EXAM: Alert, pleasant 84-year-old male, resting in bed, on room air, comfortable in no apparent distress. HEAD: Normocephalic. EYES: Normal reaction of pupils, equal size. NOSE: Clear with pink turbinates. THROAT: No erythema or exudates. NECK: No masses, no JVD. CHEST: No chest wall deformity. LUNGS: Equal air entry with few scattered rhonchi in the left lung base. CVS: S1 and S2 normal with no audible murmur, regular rhythm. ABDOMEN: No hepatosplenomegaly, normal bowel sounds, no guarding or rigidity. SPINE: No scoliosis or deformity SKIN: No rashes CENTRAL NERVOUS SYSTEM: No focal deficits, tone is normal in all 4 extremities. EXTREMITIES: There is no peripheral edema. No clubbing, no cyanosis. Per ipheral pulses are intact. - Labs CBC & Chem 7: 07/16/24 05:35 07/16/24 05:35 Labs: Abnormal Lab Results - Last 24 Hours (Table) 07/16/24 07/16/24 Range/Units 05:35 05:35 RBC 3.71 L (4.40-5.60) X 10*6/uL Hgb 11.7 L (13.0-17.0) g/dL Hct 35.7 L (39.6-50.0) % Anion Gap 14.30 H (4.00-12.00) mmol/L BUN/Creatinine Ratio 23.00 H (12.00-20.00) Ratio Calcium 8.4 L (8.7-10.3) mg/dL Total Bilirubin 0.2 L (0.3-1.2) mg/dL Total Protein 5.5 L (6.2-8.2) g/dL Albumin 3.4 L (3.8-4.9) g/dL Microbiology - Last 24 Hours (Table) 07/12/24 10:20 Blood Culture - Preliminary Blood 07/12/24 10:05 Blood Culture - Preliminary Blood Assessment and Plan Assessment: Left lower lobe pneumonia, likely community-acquired, recurrent process. Status post bronchoscopy with BAL today 07/16/2024. Cultures pending Fever and chills secondary to above, recovered History of coronary artery disease, S/P PCI/stent and CABG, 2013 History of hypertension History of hyperlipidemia History of COPD, nonsmoker History of CVA/TIA Gastroesophageal reflux disease Osteoarthritis History of obstructive sleep apnea syndrome History of BPH Plan: The patient was seen and evaluated Labs and medications reviewed Continue the current treatment plan Bronchoscopy with BAL performed today Remains stable and on room air Probable discharge in the a.m. I have personally seen and examined the patient, performed the documentation and the assessment and plan as written. Number of minutes spent on the visit: 10 Dictation was produced using [employer] dictation software. Please excuse any grammatical, word or spelling errors.
[2024-07-16] MEDS: guaiFENesin-DM 100-10MG/5ML 10 ML CUP PO PRN (17:21)
--- NOTE | 2024-07-16 20:01 | OP ---
OPERATIVE REPORT DATE OF SERVICE : PROCEDURES PERFORMED: Bronchoscopy and bronchoalveolar lavage of the left lower lobe and lingula. PREOPERATIVE DIAGNOSIS: Worsening left lower lobe pneumonia. POSTOPERATIVE DIAGNOSIS: Worsening left lower lobe pneumonia. ANESTHESIA USED: IV conscious sedation. DESCRIPTION OF PROCEDURE: The patient was brought into the bronchoscopy suite, placed in a supine position, O2 was applied via Ventimask and a bite block was applied. After IV conscious sedation, the bronchoscope was advanced through the bite block down to the area of the vocal cords, which were noted to be patent. Then, lidocaine applied over the vocal cords, and the bronchoscope was advanced further down to the trachea. Thorough examination was done of the trachea, right upper lobe, right middle lobe, right lower lobe, left upper lobe lingula and left lower lobe. There was evidence of tracheobronchomalacia, and there was evidence of minimal purulent secretions in the lingula and left lower lobe. Bronchoalveolar lavage was done of lingula and left lower lobe, fluid was sent for different diagnostic studies. The procedure was well tolerated, no evidence of any immediate complications. MMODL / IJN: [id number] /
[2024-07-17 06:04] LABS: Appearance,BF Blood Tinged (Clear); RBC, Body Fluid 9050 /UL (0-2000)
[2024-07-17 09:13] LABS: ALT 16 U/L (10-49); AST 29 U/L (14-35); Albumin 3.4 g/dL (3.8-4.9); Albumin/Globulin Ratio 1.55 Ratio (1.60-3.17); Alkaline Phosphatase 52 U/L (41-126); BUN/Creat Ratio 18.86 Ratio (12.00-20.00); Blood Urea Nitrogen 13.2 mg/dL (9.0-27.0); Calcium 8.3 mg/dL (8.7-10.3); Carbon Dioxide 23.1 mmol/L (21.6-31.8); Chloride 104 mmol/L (96-109); Globulin 2.2 g/dL (1.6-3.3); Glucose 110 mg/dL (70-110); Potassium 4.1 mmol/L (3.5-5.5); Sodium 138 mmol/L (135-145); Total Bilirubin 0.3 mg/dL (0.3-1.2); Total Protein 5.6 g/dL (6.2-8.2)
[2024-07-17 09:50] LABS: HCT 35.8 % (39.6-50.0); MCH 31.7 pg (27.0-32.0); MCHC 33.5 g/dL (32.0-37.0); MCV 94.5 FL (80.0-97.0); Mean Platelet Volume 10.8 FL (9.5-12.2); NRBC Per 100 WBC 0 X 10*3/uL (0.00-0.01); Platelet Count 172 X 10*3/uL (140-440); RBC 3.79 X 10*6/uL (4.40-5.60); RDW 11.6 % (11.5-14.5); WBC 5.62 X 10*3/uL (4.50-10.00)
[2024-07-17 09:55] LABS: Nucleated Cells, Body Fluid 375 /UL
[2024-07-17 13:13] VITALS: BMI 25.7
--- NOTE | 2024-07-17 14:16 | P.DS ---
Providers Date of admission: 07/12/24 12:34 Attending physician: Cullen Castellanos Consults: 07/12/24 12:46 Consult Physician Routine Consulting Provider: Keron Manrique Consult Reason/Comments: PNA Do you want consulting provider notified?: Yes Primary care physician: Cullen Castellanos - Discharge Diagnosis(es) (1) Community acquired pneumonia Current Visit: No Status: Acute (2) Generalized weakness Current Visit: No Status: Acute Hospital Course: The patient was here for recurrent community-acquired pneumonia. History of hypertension and chronic pain elements. The patient was stabilized and had probably 5 to 6 days of IV therapy. The patient ended up having bronchoalveolar lavage. He is on currently room air with no elevated fever. Cultures are still pending but if pulmonology is okay he will be discharged in stable condition. The patient is somewhat worried about his who has been somewhat ill as well. No diarrhea no fever the patient had hypotension yesterday. The patient was placed on appropriate IV fluid and is now stabilizing. The patient is discharged and follow-up with me in 3 days Patient Condition at Discharge: Fair Plan - Discharge Summary Discharge Rx Participant: No New Discharge Prescriptions: Continue Metoprolol Succinate [Toprol XL] 12.5 mg PO DAILY lisinopriL [Prinivil] 5 mg PO DAILY Primidone [Mysoline] 100 mg PO TID clonazePAM [KlonoPIN] 1 mg PO HS oxyBUTYnin chloride [Ditropan] 5 mg PO BID fentaNYL 25MCG/HR PATCH [Duragesic 25MCG/HR] 1 patch TRANSDERM Q72H Furosemide [Lasix] 20 mg PO DAILY Atorvastatin Calcium [Lipitor] 80 mg PO HS Aspirin EC [Ecotrin Low Dose] 162 mg PO DAILY Tamsulosin HCl [Flomax] 0.4 mg PO DAILY Gabapentin [Neurontin] 100 mg PO BID Albuterol Nebulized [Ventolin Nebulized] 2.5 mg INHALATION RT-QID PRN PRN Reason: Shortness Of Breath Olopatadine HCl [Pataday Once Daily Relief] 1 drop BOTH EYES DAILY Finasteride [Proscar] 5 mg PO DAILY Cholecalciferol (Vitamin D3) [Vitamin D3 (50 Mcg = 2000 Iu)] 50 mcg PO DAILY Sertraline [Zoloft] 50 mg PO HS Naloxone HCl [Narcan] 4 mg NASAL ONCE PRN PRN Reason: Overdose Celecoxib [CeleBREX] 100 mg PO BID Loratadine [Claritin] 10 mg PO DAILY PRN PRN Reason: Allergy Symptoms Discharge Medication List Metoprolol Succinate [Toprol XL] 12.5 mg PO DAILY 01/30/17 [History] lisinopriL [Prinivil] 5 mg PO DAILY 01/30/17 [History] Primidone [Mysoline] 100 mg PO TID 12/01/18 [History] clonazePAM [KlonoPIN] 1 mg PO HS 12/01/18 [History] Aspirin EC [Ecotrin Low Dose] 162 mg PO DAILY 01/06/19 [History] Atorvastatin Calcium [Lipitor] 80 mg PO HS 01/06/19 [History] Furosemide [Lasix] 20 mg PO DAILY 01/06/19 [History] fentaNYL 25MCG/HR PATCH [Duragesic 25MCG/HR] 1 patch TRANSDERM Q72H 01/06/19 [History] oxyBUTYnin chloride [Ditropan] 5 mg PO BID 01/06/19 [History] Celecoxib [CeleBREX] 100 mg PO BID 11/21/23 [History] Cholecalciferol (Vitamin D3) [Vitamin D3 (50 Mcg = 2000 Iu)] 50 mcg PO DAILY 11/21/23 [History] Finasteride [Proscar] 5 mg PO DAILY 11/21/23 [History] Gabapentin [Neurontin] 100 mg PO BID 11/21/23 [History] Loratadine [Claritin] 10 mg PO DAILY PRN 11/21/23 [History] Naloxone HCl [Narcan] 4 mg NASAL ONCE PRN 11/21/23 [History] Sertraline [Zoloft] 50 mg PO HS 11/21/23 [History] Tamsulosin HCl [Flomax] 0.4 mg PO DAILY 11/21/23 [History] Albuterol Nebulized [Ventolin Nebulized] 2.5 mg INHALATION RT-QID PRN 07/12/24 [History] Olopatadine HCl [Pataday Once Daily Relief] 1 drop BOTH EYES DAILY 07/12/24 [History] Follow up Appointment(s)/Referral(s): Cullen Castellanos MD [Primary Care Provider] - 3 Days Discharge Disposition: HOME SELF-CARE
--- NOTE | 2024-07-17 16:01 | P.PN ---
Subjective Progress Note Date: 07/17/24 84-year-old male patient presents to the emergency department due to concerns of pneumonia. The patient thought that he was having another bout of pneumonia similar to the one that he had back in November 2023. At that time, I was involved in his care. The patient started having fever with a temperature of 104 and the patient also was having shakes and chills along with fever. He had increased cough and some worsening shortness of breath. His cough is congested. Unable to bring up much sputum. No chest pain. No nausea or vomiting. No emesis. No altered mentation. He is currently on room air oxygen and his oxygen levels are adequate. Hemodynamically stable. No significant tachycardia. His blood work is showing a white cell count of 8.3 with a hemoglobin 13.6 and a platelet count of 191. The rest of the electrolytes are all within normal limits. Initial lactic acid level was at 2.7 dropped down to 1.4. Liver function test was normal. The viruses were screened and the patient was negative for influenza A and B and he was also negative for RSV and COVID-19. I reviewed his chest x-ray and I compared it to the earlier chest x-ray that was done in our hospital. There is a left lower lobe airspace opacity which is highly suggestive of pneumonia. The patient is currently on a combination of Rocephin and Zithromax. The patient is also known to have other medical problems including COPD and he gets an inhaler through [facility] due to cost related issues. He has LILLY without t he device, hypertension, hyperlipidemia, coronary artery disease and prostatic enlargement along with osteoarthritis. He has chronic generalized pain. He has undergone previous bypass surgery. No reported aspiration. No sick contacts. The patient is seen today July 13, 2024 in follow-up on the regular medical floor. He is currently resting comfortably in bed. Awake and alert in no acute distress. He is maintaining good O2 saturations in the 90s on room air. Chest x-ray reveals persistent but improving patchy left lower lung infiltrate. Blood culture reveals no growth to date. He is currently on ceftriaxone and azithromycin. Lovenox for DVT prophylaxis. Oral diuretics. The patient is seen today July 14, 2024 in follow-up on the regular medical floor. He is currently laying flat in bed. Awake and alert in no acute distress. Maintaining O2 saturations in the high 90s on room air. He is afebrile. Hemodynamically stable. His only complaint is ongoing cough. Blood cultures revealed no growth to date. White count 5.4. Hemoglobin 11.5. Platelets 159. Sodium 142. Potassium 3.3. Bicarb 26. BUN 15. Creatinine 0.7. Glucose 104. Procalcitonin was 0.09. He still remains on ceftriaxone. Completed azithromycin. Remains on oral diuretics. Lovenox for DVT p rophylaxis. The patient is seen today July 15, 2024 in follow-up on the regular medical floor. He is currently resting in bed. Awake and alert in no acute distress. He has been slow to progress. Still complaining of significant cough, congestion and shortness of breath. Maintaining good O2 saturations in the 90s on room air. He has been afebrile. Hemodynamically stable. Chest x-ray rev eals slight increase in the mild patchy airspace disease in the left mid and lower lung. White count 6.0. Hemoglobin 12.3. Platelets 196. Sodium 140. Potassium 3.7. Bicarb 24. BUN 18. Creatinine 0.8. Glucose 110. Dilators. Continued on oral diuretics. Lovenox for DVT prophylaxis. The patient is seen today July 16, 2024 in follow-up on the regular medical floor. He did undergo bronchoscopy with BAL this morning with Dr. Larsen. Cultures pending. Currently resting comfortably in bed. Maintaining O2 saturations in the 90s room air. He is afebrile. Hemodynamically stable. Bl ood cultures revealed no growth. White count 5.3. Hemoglobin 11.7. Platelets 172. Sodium 142. Potassium 4.0. Bicarb 22. BUN 16. Creatinine 0.7. Glucose 106. He remains on DuoNeb inhalations, Robitussin. Lovenox for DVT prophylaxis. The patient is seen today July 17, 2024 in follow-up on the regular medical floor. He is awake and alert in no acute distress. He is maintaining O2 sat urations in the 90s on room air. He is continued on DuoNeb inhalations. Robitussin for his cough. Remains on oral diuretics. Lovenox for DVT prophylaxis. Blood cultures revealed no growth. White count 5.6. Hemoglobin 12.0. Platelets 172. Sodium 138. Potassium 4.1. Bicarb 23. BUN 13. Cre atinine 0.7. Glucose 110. Bronchial wash cultures pending. Objective - Vital Signs Vital signs: Vital Signs Temp 97.8 F 07/17/24 13:42 Pulse 84 07/17/24 13:42 Resp 17 07/17/24 13:42 BP 105/66 07/17/24 13:42 Pulse Ox 96 07/17/24 13:42 FiO2 Intake & Output 07/16/24 07/17/24 07/17/24 18:59 06:59 18:59 Intake Total 100 Balance 100 Weight 74.5 kg Intake: IV 100 Other: Voiding Method Toilet # Voids 3 5 # Bowel Movements 4 - Exam GENERAL EXAM: Alert, 84-year-old male, resting in bed, on room air, in no apparent distress. HEAD: Normocephalic. EYES: Normal reaction of pupils, equal size. NOSE: Clear with pink turbinates. THROAT: No erythema or exudates. NECK: No masses, no JVD. CHEST: No chest wall deformity. LUNGS: Equal air entry with few scattered rhonchi in the left lung base. CVS: S1 and S2 normal with no audible murmur, regular rhythm. ABDOMEN: No hepatosplenomegaly, normal bowel sounds, no guarding or rigidity. SPINE: No scoliosis or deformity SKIN: No rashes CENTRAL NERVOUS SYSTEM: No focal deficits, tone is normal in all 4 extremities. EXTREMITIES: There is no peripheral edema. No clubbing, no cyanosis. Peripheral pulses are intact. - Labs CBC & Chem 7: 07/17/24 04:38 07/17/24 04:38 Labs: Abnormal Lab Results - Last 24 Hours (Table) 07/16/24 07/17/24 07/17/24 Range/Units 10:15 04:38 04:38 RBC 3.79 L (4.40-5.60) X 10*6/uL Hgb 12.0 L (13.0-17.0) g/dL Hct 35.8 L (39.6-50.0) % Calcium 8.3 L (8.7-10.3) mg/dL Total Protein 5.6 L (6.2-8.2) g/dL Albumin 3.4 L (3.8-4.9) g/dL Albumin/Globulin Ratio 1.55 L (1.60-3.17) Ratio Fluid Appearance Blood Tinged A (Clear) Fluid RBC 9050 H (0-2000) /uL Microbiology - Last 24 Hours (Table) 07/12/24 10:20 Blood Culture - Final Blood 07/12/24 10:05 Blood Culture - Final Blood Assessment and Plan Assessment: Left lower lobe pneumonia, likely community-acquired, recurrent process. Status post bronchoscopy with BAL 07/16/2024. Cultures pending. Stable and on room air Fever and chills secondary to above, recovered History of coronary artery disease, S/P PCI/stent and CABG, 2012 History of hypertension History of hyperlipidemia History of COPD, nonsmoker History of CVA/TIA Gastroesophageal reflux disease Osteoarthritis History of obstructive sleep apnea syndrome History of BPH Plan: The patient was seen and evaluated Labs and medications reviewed Continue the current treatment plan Remains stable and on room air Cleared for discharge Follow-up in our office in 1 week I have personally seen and examined the patient, performed the documentation and the assessment and plan as written. Number of minutes spent on the visit: 10 Dictation was produced using [email or web address] dictation software. Please excuse any grammatical, word or spelling errors.
[2024-07-18] MEDS: ACETAMINOPHEN TAB 325 MG TAB PO PRN (09:11)
--- NOTE | 2024-07-18 14:00 | P.PN ---
Subjective Progress Note Date: 07/18/24 84-year-old male patient presents to the emergency department due to concerns of pneumonia. The patient thought that he was having another bout of pneumonia similar to the one that he had back in November 2023. At that time, I was involved in his care. The patient started having fever with a temperature of 104 and the patient also was having shakes and chills along with fever. He had increased cough and some worsening shortness of breath. His cough is congested. Unable to bring up much sputum. No chest pain. No nausea or vomiting. No emesis. No altered mentation. He is currently on room air oxygen and his oxygen levels are adequate. Hemodynamically stable. No significant tachycardia. His blood work is showing a white cell count of 8.3 with a hemoglobin 13.6 and a platelet count of 191. The rest of the electrolytes are all within normal limits. Initial lactic acid level was at 2.7 dropped down to 1.4. Liver function test was normal. The viruses were screened and the patient was negative for influenza A and B and he was also negative for RSV and COVID-19. I reviewed his chest x-ray and I compared it to the earlier chest x-ray that was done in our hospital. There is a left lower lobe airspace opacity which is highly suggestive of pneumonia. The patient is currently on a combination of Rocephin and Zithromax. The patient is also known to have other medical problems including COPD and he gets an inhaler through [facility] due to cost related issues. He has LILLY without t he device, hypertension, hyperlipidemia, coronary artery disease and prostatic enlargement along with osteoarthritis. He has chronic generalized pain. He has undergone previous bypass surgery. No reported aspiration. No sick contacts. The patient is seen today July 13, 2024 in follow-up on the regular medical floor. He is currently resting comfortably in bed. Awake and alert in no acute distress. He is maintaining good O2 saturations in the 90s on room air. Chest x-ray reveals persistent but improving patchy left lower lung infiltrate. Blood culture reveals no growth to date. He is currently on ceftriaxone and azithromycin. Lovenox for DVT prophylaxis. Oral diuretics. The patient is seen today July 14, 2024 in follow-up on the regular medical floor. He is currently laying flat in bed. Awake and alert in no acute distress. Maintaining O2 saturations in the high 90s on room air. He is afebrile. Hemodynamically stable. His only complaint is ongoing cough. Blood cultures revealed no growth to date. White count 5.4. Hemoglobin 11.5. Platelets 159. Sodium 142. Potassium 3.3. Bicarb 26. BUN 15. Creatinine 0.7. Glucose 104. Procalcitonin was 0.09. He still remains on ceftriaxone. Completed azithromycin. Remains on oral diuretics. Lovenox for DVT p rophylaxis. The patient is seen today July 15, 2024 in follow-up on the regular medical floor. He is currently resting in bed. Awake and alert in no acute distress. He has been slow to progress. Still complaining of significant cough, congestion and shortness of breath. Maintaining good O2 saturations in the 90s on room air. He has been afebrile. Hemodynamically stable. Chest x-ray rev eals slight increase in the mild patchy airspace disease in the left mid and lower lung. White count 6.0. Hemoglobin 12.3. Platelets 196. Sodium 140. Potassium 3.7. Bicarb 24. BUN 18. Creatinine 0.8. Glucose 110. Dilators. Continued on oral diuretics. Lovenox for DVT prophylaxis. The patient is seen today July 16, 2024 in follow-up on the regular medical floor. He did undergo bronchoscopy with BAL this morning with Dr. Larsen. Cultures pending. Currently resting comfortably in bed. Maintaining O2 saturations in the 90s room air. He is afebrile. Hemodynamically stable. Bl ood cultures revealed no growth. White count 5.3. Hemoglobin 11.7. Platelets 172. Sodium 142. Potassium 4.0. Bicarb 22. BUN 16. Creatinine 0.7. Glucose 106. He remains on DuoNeb inhalations, Robitussin. Lovenox for DVT prophylaxis. The patient is seen today July 17, 2024 in follow-up on the regular medical floor. He is awake and alert in no acute distress. He is maintaining O2 sat urations in the 90s on room air. He is continued on DuoNeb inhalations. Robitussin for his cough. Remains on oral diuretics. Lovenox for DVT prophylaxis. Blood cultures revealed no growth. White count 5.6. Hemoglobin 12.0. Platelets 172. Sodium 138. Potassium 4.1. Bicarb 23. BUN 13. Cre atinine 0.7. Glucose 110. Bronchial wash cultures pending. The patient is seen today July 18, 2024 and follow-up on the regular medical floor. He is resting in bed. Awake and alert in no acute distress. Maintaining O2 saturations in the 90s on room air. He has been afebrile. Now having issues with diarrhea. C. difficile screen negative. Bronchial wash cultures pending. Blood cultures revealed no growth. Remains on Lovenox for DVT prophylaxis. Objective - Vital Signs Vital signs: Vital Signs Temp 98.8 F 07/18/24 12:41 Pulse 71 07/18/24 12:41 Resp 16 07/18/24 12:41 BP 97/59 07/18/24 12:41 Pulse Ox 94 L 07/18/24 12:41 FiO2 Intake & Output 07/17/24 07/18/24 07/18/24 18:59 06:59 18:59 Intake Total 1080 0 Balance 1080 0 Weight 74.5 kg Intake: Oral 1080 0 Other: Voiding Method Toilet Toilet # Voids 5 5 # Bowel Movements 4 3 - Exam GENERAL EXAM: Alert, 84-year-old male, resting comfortably in bed, on room air, in no apparent distress. HEAD: Normocephalic. EYES: Normal reaction of pupils, equal size. NOSE: Clear with pink turbinates. THROAT: No erythema or exudates. NECK: No masses, no JVD. CHEST: No chest wall deformity. LUNGS: Equal air entry with no rhonchi, wheeze or crackles. CVS: S1 and S2 normal with no audible murmur, regular rhythm. ABDOMEN: No hepatosplenomegaly, normal bowel sounds, no guarding or rigidity. SPINE: No scoliosis or deformity SKIN: No rashes CENTRAL NERVOUS SYSTEM: No focal deficits, tone is normal in all 4 extremities. EXTREMITIES: There is no peripheral edema. No clubbing, no cyanosis. Peripheral pulses are intact. - Labs CBC & Chem 7: 07/17/24 04:38 07/17/24 04:38 Labs: Microbiology - Last 24 Hours (Table) 07/16/24 10:15 Gram Stain - Preliminary Bronchoalviolar Lavage - Left Bronchial Washings Culture - Preliminary 07/16/24 10:15 Acid Fast Bacilli Smear - Preliminary Bronchoalviolar Lavage - Left 07/12/24 10:20 Blood Culture - Final Blood 07/12/24 10:05 Blood Culture - Final Blood Assessment and Plan Assessment: Left lower lobe pneumonia, likely community-acquired, recurrent process. Status post bronchoscopy with BAL 07/16/2024. Cultures pending. Stable and on room air Fever and chills secondary to above, recovered Diarrhea, C. difficile screen negative History of coronary artery disease, S/P PCI/stent and CABG, 2012 History of hypertension History of hyperlipidemia History of COPD, nonsmoker History of CVA/TIA Gastroesophageal reflux disease Osteoarthritis History of obstructive sleep apnea syndrome History of BPH Plan: The patient was seen and evaluated Labs and medications reviewed C. difficile screen negative Remains stable and on room air Cleared for discharge Follow-up in our office in 1 week I have personally seen and examined the patient, performed the documentation and the assessment and plan as written. Number of minutes spent on the visit: 10 Dictation was produced using [employer] dictation software. Please excuse any grammatical, word or spelling errors.
[2024-07-18] MEDS ORDERED: LOPERAMIDE 2 MG CAP PO PRN (15:02)
--- NOTE | 2024-07-18 15:11 | P.PN ---
Subjective Progress Note Date: 07/18/24 This is an 84 year old male patient of Dr Weiner. Originally admitted with concerns for pneumonia, per patient he has been dealing with this since June. Today he reports feeling chills. Having diarrhea went about 5 times immediately following breakfast. Will check a C.Dif level. He was receiving IV antibiotics and underwent bronchoscopy. His procalcitonin level is 0.09. He has been continued on oral lasix and normal saline at 75 mls/hr. Lasix will be held as he is having continued diarrhea. Review of Systems Constitutional: Denied any fatigue denied any fever. Reports chills. Cardio vascular: denied any chest pain, palpitations Gastrointestinal: denied any nausea, vomiting. No abdominal pain. Having loose stools. Pulmonary: Denied any shortness of breath cough Neurologic denied any new focal deficits All inpatient medications were reviewed and appropriate changes in these medications as dictated in the interval history and assessment and plan. PHYSICAL EXAMINATION: GENERAL: The patient is alert and oriented x3, not in any acute distress. Well developed, well nourished. HEENT: Pupils are round and equally reacting to light. EOMI. No scleral icterus. No conjunctival pallor. Normocephalic, atraumatic. No pharyngeal erythema. No thyromegaly. CARDIOVASCULAR: S1 and S2 present. No murmurs, rubs, or gallops. PULMONARY: Chest is clear to auscultation, no wheezing or crackles. ABDOMEN: Soft, nontender, nondistended, normoactive bowel sounds. No palpable organomegaly. MUSCULOSKELETAL: No joint swelling or deformity. EXTREMITIES: No cyanosis, clubbing, or pedal edema. NEUROLOGICAL: Gross neurological examination did not reveal any focal deficits. SKIN: No rashes. Assessment and Plan Community acquired pneumonia suspect viral in nature procalcionin level 0.09. Status post bronchoscopy and BAL cultures negative so far. Generalized weakness secondary to above Diarrhea C.Dif ruled out Hyperlipidemia hx Hypertension with episodes of hypotension. Hx of coronary artery disease with prior PCI and CABG COPD hx. Chronic diastolic dysfunction with no acute exacerbation History of stroke GERD Obstructive sleep apnea History of BPH maintained on flomax Plan C.Dif negative begin questran and imodium Stop the oral lasix Continue normal saline at 75 mls/hr. Blood pressure into the 90s today for this reason we will hold the oral lisinopril Pending complete viral panel Pulmonary following Repeat electrolytes in the AM Possible D/C in the next 24 hours The impression and plan of care has been dictated by Jodie Moses Nurse Practitioner as directed. Dr. Steve MD I have performed a history and physical examination and medical decision making of this patient, discussed the same with the dictator, and agree with the dictators assessment and plan as written, documented as a scribe. Based on total visit time, I have performed more than 50% of this visit. Objective - Vital Signs Vital signs: Vital Signs Temp 98.8 F 07/18/24 12:41 Pulse 71 07/18/24 12:41 Resp 16 07/18/24 12:41 BP 97/59 07/18/24 12:41 Pulse Ox 94 L 07/18/24 12:41 FiO2 Intake & Output 07/17/24 07/18/24 07/18/24 18:59 06:59 18:59 Intake Total 1080 0 Balance 1080 0 Weight 74.5 kg Intake: Oral 1080 0 Other: Voiding Method Toilet Toilet # Voids 5 5 # Bowel Movements 4 3 - Labs CBC & Chem 7: 07/17/24 04:38 07/17/24 04:38 Labs: Microbiology - Last 24 Hours (Table) 07/16/24 10:15 Gram Stain - Preliminary Bronchoalviolar Lavage - Left Bronchial Washings Culture - Preliminary 07/16/24 10:15 Acid Fast Bacilli Smear - Preliminary Bronchoalviolar Lavage - Left 07/12/24 10:20 Blood Culture - Final Blood 07/12/24 10:05 Blood Culture - Final Blood Assessment and Plan Time with Patient: Less than 30
[2024-07-18] MEDS: CHOLESTYRAMINE (WITH SUGAR) 4 GM PACKET PO SCH (15:50)
[2024-07-19 08:57] VITALS: BP 131/86; RESP 16; TEMP 97.5
[2024-07-19] MEDS ORDERED: IOPAMIDOL CONTRAST (ORAL USE) VIAL PO PRN (09:22)
[2024-07-19 09:27] VITALS: PULSE 7
[2024-07-19 11:44] LABS: BUN/Creat Ratio 29.86 Ratio (12.00-20.00); Blood Urea Nitrogen 20.9 mg/dL (9.0-27.0); Calcium 8.8 mg/dL (8.7-10.3); Carbon Dioxide 24.9 mmol/L (21.6-31.8); Chloride 104 mmol/L (96-109); Glucose 104 mg/dL (70-110); Magnesium 1.8 mg/dL (1.5-2.4); Potassium 4.2 mmol/L (3.5-5.5); Sodium 139 mmol/L (135-145)
--- NOTE | 2024-07-19 13:42 | P.PN ---
Subjective Progress Note Date: 07/19/24 84-year-old male patient presents to the emergency department due to concerns of pneumonia. The patient thought that he was having another bout of pneumonia similar to the one that he had back in November 2023. At that time, I was involved in his care. The patient started having fever with a temperature of 104 and the patient also was having shakes and chills along with fever. He had increased cough and some worsening shortness of breath. His cough is congested. Unable to bring up much sputum. No chest pain. No nausea or vomiting. No emesis. No altered mentation. He is currently on room air oxygen and his oxygen levels are adequate. Hemodynamically stable. No significant tachycardia. His blood work is showing a white cell count of 8.3 with a hemoglobin 13.6 and a platelet count of 191. The rest of the electrolytes are all within normal limits. Initial lactic acid level was at 2.7 dropped down to 1.4. Liver function test was normal. The viruses were screened and the patient was negative for influenza A and B and he was also negative for RSV and COVID-19. I reviewed his chest x-ray and I compared it to the earlier chest x-ray that was done in our hospital. There is a left lower lobe airspace opacity which is highly suggestive of pneumonia. The patient is currently on a combination of Rocephin and Zithromax. The patient is also known to have other medical problems including COPD and he gets an inhaler through [facility] due to cost related issues. He has LILLY without t he device, hypertension, hyperlipidemia, coronary artery disease and prostatic enlargement along with osteoarthritis. He has chronic generalized pain. He has undergone previous bypass surgery. No reported aspiration. No sick contacts. The patient is seen today July 13, 2024 in follow-up on the regular medical floor. He is currently resting comfortably in bed. Awake and alert in no acute distress. He is maintaining good O2 saturations in the 90s on room air. Chest x-ray reveals persistent but improving patchy left lower lung infiltrate. Blood culture reveals no growth to date. He is currently on ceftriaxone and azithromycin. Lovenox for DVT prophylaxis. Oral diuretics. The patient is seen today July 14, 2024 in follow-up on the regular medical floor. He is currently laying flat in bed. Awake and alert in no acute distress. Maintaining O2 saturations in the high 90s on room air. He is afebrile. Hemodynamically stable. His only complaint is ongoing cough. Blood cultures revealed no growth to date. White count 5.4. Hemoglobin 11.5. Platelets 159. Sodium 142. Potassium 3.3. Bicarb 26. BUN 15. Creatinine 0.7. Glucose 104. Procalcitonin was 0.09. He still remains on ceftriaxone. Completed azithromycin. Remains on oral diuretics. Lovenox for DVT p rophylaxis. The patient is seen today July 15, 2024 in follow-up on the regular medical floor. He is currently resting in bed. Awake and alert in no acute distress. He has been slow to progress. Still complaining of significant cough, congestion and shortness of breath. Maintaining good O2 saturations in the 90s on room air. He has been afebrile. Hemodynamically stable. Chest x-ray rev eals slight increase in the mild patchy airspace disease in the left mid and lower lung. White count 6.0. Hemoglobin 12.3. Platelets 196. Sodium 140. Potassium 3.7. Bicarb 24. BUN 18. Creatinine 0.8. Glucose 110. Dilators. Continued on oral diuretics. Lovenox for DVT prophylaxis. The patient is seen today July 16, 2024 in follow-up on the regular medical floor. He did undergo bronchoscopy with BAL this morning with Dr. Larsen. Cultures pending. Currently resting comfortably in bed. Maintaining O2 saturations in the 90s room air. He is afebrile. Hemodynamically stable. Bl ood cultures revealed no growth. White count 5.3. Hemoglobin 11.7. Platelets 172. Sodium 142. Potassium 4.0. Bicarb 22. BUN 16. Creatinine 0.7. Glucose 106. He remains on DuoNeb inhalations, Robitussin. Lovenox for DVT prophylaxis. The patient is seen today July 17, 2024 in follow-up on the regular medical floor. He is awake and alert in no acute distress. He is maintaining O2 sat urations in the 90s on room air. He is continued on DuoNeb inhalations. Robitussin for his cough. Remains on oral diuretics. Lovenox for DVT prophylaxis. Blood cultures revealed no growth. White count 5.6. Hemoglobin 12.0. Platelets 172. Sodium 138. Potassium 4.1. Bicarb 23. BUN 13. Cre atinine 0.7. Glucose 110. Bronchial wash cultures pending. The patient is seen today July 18, 2024 and follow-up on the regular medical floor. He is resting in bed. Awake and alert in no acute distress. Maintaining O2 saturations in the 90s on room air. He has been afebrile. Now having issues with diarrhea. C. difficile screen negative. Bronchial wash cultures pending. Blood cultures revealed no growth. Remains on Lovenox for DVT prophylaxis. The patient is seen today July 19, 2024 in follow-up on the regular medical floor. Is currently sitting up in bed. Awake and alert in no acute distress. Continues to maintain good O2 saturations in the 90s on room air. He denies any shortness of breath, cough or congestion. No further diarrhea. C. difficile screen was negative. Improved with Questran. Sodium 139. Potassium 4.2. Bicarb 25. BUN 21. Creatinine 0.7. Glucose 104. Objective - Vital Signs Vital signs: Vital Signs Temp 97.5 F L 07/19/24 07:30 Pulse 7 L 07/19/24 09:25 Resp 16 07/19/24 09:25 BP 131/86 07/19/24 07:30 Pulse Ox 96 07/19/24 07:30 FiO2 Intake & Output 07/18/24 07/19/24 07/19/24 18:59 06:59 18:59 Intake Total 0 500 Balance 0 500 Intake: Oral 0 500 Other: Voiding Method Toilet Toilet Toilet # Voids 3 1 1 # Bowel Movements 4 4 - Exam GENERAL EXAM: Alert, pleasant 84-year-old male, sitting up in bed, on room air, in no apparent distress. HEAD: Normocephalic. EYES: Normal reaction of pupils, equal size. NOSE: Clear with pink turbinates. THROAT: No erythema or exudates. NECK: No masses, no JVD. CHEST: No chest wall deformity. LUNGS: Equal air entry with no rhonchi, wheeze or crackles. CVS: S1 and S2 normal with no audible murmur, regular rhythm. ABDOMEN: No hepatosplenomegaly, normal bowel sounds, no guarding or rigidity. SPINE: No scoliosis or deformity SKIN: No rashes CENTRAL NERVOUS SYSTEM: No focal deficits, tone is normal in all 4 extremities. EXTREMITIES: There is no peripheral edema. No clubbing, no cyanosis. Peripheral pulses are intact. - Labs CBC & Chem 7: 07/17/24 04:38 07/19/24 06:39 Labs: Abnormal Lab Results - Last 24 Hours (Table) 07/19/24 Range/Units 06:39 BUN/Creatinine Ratio 29.86 H (12.00-20.00) Ratio Microbiology - Last 24 Hours (Table) 07/16/24 10:15 Gram Stain - Final Bronchoalviolar Lavage - Left Bronchial Washings Culture - Final Assessment and Plan Assessment: Left lower lobe pneumonia, likely community-acquired, recurrent process. Status post bronchoscopy with BAL 07/16/2024. Cultures pending. Stable and on room air Fever and chills secondary to above, recovered Diarrhea, C. difficile screen negative History of coronary artery disease, S/P PCI/stent and CABG, 2012 History of hypertension History of hyperlipidemia History of COPD, nonsmoker History of CVA/TIA Gastroesophageal reflux disease Osteoarthritis History of obstructive sleep apnea syndrome History of BPH Plan: The patient was seen and evaluated Labs and medications reviewed Cleared for discharge Follow-up in our office in 1 week I have personally seen and examined the patient, performed the documentation and the assessment and plan as written. Number of minutes spent on the visit: 10 Dictation was produced using [employer] dictation software. Please excuse any grammatical, word or spelling errors.
[2024-07-19 16:02] LABS: Basophils # (A) 0.06 X 10*3/uL (0.00-0.10); Basophils % (A) 1.1 %; Eosinophils # (A) 0.38 X 10*3/uL (0.04-0.35); Eosinophils % (A) 7.1 %; HCT 35.9 % (39.6-50.0); HGB 11.9 g/dL (13.0-17.0); Lymphocytes # (A) 1.95 X 10*3/uL (0.90-5.00); Lymphocytes % (A) 36.4 %; MCH 31.2 pg (27.0-32.0); MCHC 33.1 g/dL (32.0-37.0); Mean Platelet Volume 9.7 FL (9.5-12.2); Monocytes # (A) 0.73 X 10*3/uL (0.20-1.00); Monocytes % (A) 13.6 %; NRBC Per 100 WBC 0 X 10*3/uL (0.00-0.01); Neutrophils # (A) 2.06 X 10*3/uL (1.80-7.70); Neutrophils % (A) 38.4 %; Platelet Count 265 X 10*3/uL (140-440); RBC 3.82 X 10*6/uL (4.40-5.60); RDW 11.9 % (11.5-14.5); WBC 5.36 X 10*3/uL (4.50-10.00)
--- NOTE | 2024-07-21 18:33 | CDI ---
Documentation Clarification Form Date: 07/21/2024 06:23:24 PM From: Savannah Vasquez Phone: Admit Date: 07/12/2024 12:34:00 PM Patient Name: Latrell Gallo Visit Number: [id number] Discharge Date: 07/19/2024 01:11:00 PM ATTENTION: The Clinical Documentation Specialists (CDI) and [facility] Coding Staff appreciate your assistance in clarifying documentation. Please respond to the clarification below the line at the bottom and electronically sign. The CDI & [facility] Coding staff will review the response and follow-up if needed. Please note: Queries are made part of the Legal Health Record. If you have any questions, please contact the author of this message via ITS. Doctor/Provider: Cullen Castellanos Your patient has the documented diagnosis of chronic CHF per H&P and PMH documentation. Additional information regarding the type of CHF is requested. History/Risk Factors: 84yo M, Recurrent PNA, CAD sp stents & CABG, COPD, HTN, HLD, OA, chronic heart failure, Hx CVA/TIA, hypothyroidism, BPH Clinical Indicators: VS/Pulse OX: 93 Chest x ray: Heart/mediastinum: Cardiomediastinal silhouette is unremarkable. 12/2 Heart upper limits of normal in size. Improving aeration withresidualpatchy LLL and medial Lt basilaropacities. Nopleural effusion. Treatment: monitored In your professional opinion, can you please clarify the type of CHF if known? [ ] Chronic Systolic Heart Failure (reduced EF) [ ] Chronic Diastolic Heart Failure (preserved EF) [ ] Chronic Systolic & Diastolic Heart Failure [ x ] Other, please specify___Diagnosis is incorrect. No HF [ ] Unable to determine (Template Last Revised: September 2020) MTDD
--- NOTE | 2024-07-22 20:11 | P.DS ---
Providers Date of admission: 07/12/24 12:34 Attending physician: Cullen Castellanos Consults: 07/12/24 12:46 Consult Physician Routine Consulting Provider: Keron Manrique Consult Reason/Comments: PNA Do you want consulting provider notified?: Yes Primary care physician: Cullen Castellanos Hospital Course: Final Diagnosis Community acquired pneumonia suspect viral in nature procalcionin level 0.09. Status post bronchoscopy and BAL cultures negative so far. Generalized weakness secondary to above Diarrhea C.Dif ruled out Hyperlipidemia hx Hypertension with episodes of hypotension. Hx of coronary artery disease with prior PCI and CABG COPD hx. Chronic diastolic dysfunction with no acute exacerbation History of stroke GERD Obstructive sleep apnea History of BPH maintained on flomax Discharge Disposition Stable for discharge home. Follow up with Dr Castellanos in 1 to 2 days. As procalcitonin level normal no antibiotics needed on discharge. Fever/chills have resolved. This is all likely a viral illness. Hospital Course This is an 84 year old male patient of Dr Weiner. Originally admitted with concerns for pneumonia, per patient he has been dealing with this since June. He reports feeling chills. Having diarrhea went about 5 times immediately following breakfast.A cdif level was checked and negative. His diarrhea resolved with a dose of questran. He was receiving IV antibiotics and underwent bronchoscopy. His procalcitonin level is 0.09. He has been continued on oral lasix and normal saline at 75 mls/hr. Lasix will be held as he is having continued diarrhea. Now that his diarrhea has resolved he can resume the lasix on discharge. Please see medication reconciliation for a list of current medications. Thank you for allowing us to participate in the care of this patient. The impression and plan of care has been dictated by Jodie Moses Nurse Practitioner as directed. Dr. Steve MD I have performed a history and physical examination and medical decision making of this patient, discussed the same with the dictator, and agree with the dictators assessment and plan as written, documented as a scribe. Based on total visit time, I have performed more than 50% of this visit. Patient Condition at Discharge: Stable Plan - Discharge Summary Discharge Rx Participant: No New Discharge Prescriptions: Continue Metoprolol Succinate [Toprol XL] 12.5 mg PO DAILY lisinopriL [Prinivil] 5 mg PO DAILY Primidone [Mysoline] 100 mg PO TID clonazePAM [KlonoPIN] 1 mg PO HS oxyBUTYnin chloride [Ditropan] 5 mg PO BID fentaNYL 25MCG/HR PATCH [Duragesic 25MCG/HR] 1 patch TRANSDERM Q72H Furosemide [Lasix] 20 mg PO DAILY Atorvastatin Calcium [Lipitor] 80 mg PO HS Aspirin EC [Ecotrin Low Dose] 162 mg PO DAILY Tamsulosin HCl [Flomax] 0.4 mg PO DAILY Gabapentin [Neurontin] 100 mg PO BID Albuterol Nebulized [Ventolin Nebulized] 2.5 mg INHALATION RT-QID PRN PRN Reason: Shortness Of Breath Olopatadine HCl [Pataday Once Daily Relief] 1 drop BOTH EYES DAILY Finasteride [Proscar] 5 mg PO DAILY Cholecalciferol (Vitamin D3) [Vitamin D3 (50 Mcg = 2000 Iu)] 50 mcg PO DAILY Sertraline [Zoloft] 50 mg PO HS Naloxone HCl [Narcan] 4 mg NASAL ONCE PRN PRN Reason: Overdose Celecoxib [CeleBREX] 100 mg PO BID Loratadine [Claritin] 10 mg PO DAILY PRN PRN Reason: Allergy Symptoms Discharge Medication List Metoprolol Succinate [Toprol XL] 12.5 mg PO DAILY 01/30/17 [History] lisinopriL [Prinivil] 5 mg PO DAILY 01/30/17 [History] Primidone [Mysoline] 100 mg PO TID 12/01/18 [History] clonazePAM [KlonoPIN] 1 mg PO HS 12/01/18 [History] Aspirin EC [Ecotrin Low Dose] 162 mg PO DAILY 01/06/19 [History] Atorvastatin Calcium [Lipitor] 80 mg PO HS 01/06/19 [History] Furosemide [Lasix] 20 mg PO DAILY 01/06/19 [History] fentaNYL 25MCG/HR PATCH [Duragesic 25MCG/HR] 1 patch TRANSDERM Q72H 01/06/19 [History] oxyBUTYnin chloride [Ditropan] 5 mg PO BID 01/06/19 [History] Celecoxib [CeleBREX] 100 mg PO BID 11/21/23 [History] Cholecalciferol (Vitamin D3) [Vitamin D3 (50 Mcg = 2000 Iu)] 50 mcg PO DAILY 11/21/23 [History] Finasteride [Proscar] 5 mg PO DAILY 11/21/23 [History] Gabapentin [Neurontin] 100 mg PO BID 11/21/23 [History] Loratadine [Claritin] 10 mg PO DAILY PRN 11/21/23 [History] Naloxone HCl [Narcan] 4 mg NASAL ONCE PRN 11/21/23 [History] Sertraline [Zoloft] 50 mg PO HS 11/21/23 [History] Tamsulosin HCl [Flomax] 0.4 mg PO DAILY 11/21/23 [History] Albuterol Nebulized [Ventolin Nebulized] 2.5 mg INHALATION RT-QID PRN 07/12/24 [History] Olopatadine HCl [Pataday Once Daily Relief] 1 drop BOTH EYES DAILY 07/12/24 [History] Follow up Appointment(s)/Referral(s): Perez Larsen MD [STAFF PHYSICIAN] - 1 Week (Office is closed at time of discharge. Please call for follow-up appointment.) Cullen Castellanos MD [Primary Care Provider] - 07/24/24 2:20 pm Patient Instructions/Handouts: Pneumonia (DC) Discharge Disposition: HOME SELF-CARE
== END 2024-07-19 13:11 | disposition home or self-care (01) | DRG 194 ==
LOC: EC 09:40 → 4SSUR 12:34
PROVIDERS: ADMIT Family Medicine; ATTEND Family Medicine
PROC: 0B9J8ZX Drainage of Left Lower Lung Lobe, Via Natural or Artificial Opening Endoscopic, Diagnostic (ICD-10-PCS; principal; 2024-07-17)
PROC: 0B9H8ZX Drainage of Lung Lingula, Via Natural or Artificial Opening Endoscopic, Diagnostic (ICD-10-PCS; 2024-07-17)
DX: J18.9 Pneumonia, unspecified organism (principal); E87.20 Acidosis, unspecified; J44.0 Chronic obstructive pulmonary disease with (acute) lower respiratory infection; G20.A1 Parkinson's disease without dyskinesia, without mention of fluctuations; E03.9 Hypothyroidism, unspecified; I10 Essential (primary) hypertension; G89.29 Other chronic pain; I25.10 Atherosclerotic heart disease of native coronary artery without angina pectoris; E78.5 Hyperlipidemia, unspecified; G47.33 Obstructive sleep apnea (adult) (pediatric); N40.0 Benign prostatic hyperplasia without lower urinary tract symptoms; F41.9 Anxiety disorder, unspecified; K21.9 Gastro-esophageal reflux disease without esophagitis; I95.9 Hypotension, unspecified; R19.7 Diarrhea, unspecified; M19.90 Unspecified osteoarthritis, unspecified site; Z87.01 Personal history of pneumonia (recurrent); Z79.82 Long term (current) use of aspirin; Z79.891 Long term (current) use of opiate analgesic; Z79.1 Long term (current) use of non-steroidal anti-inflammatories (NSAID); Z95.5 Presence of coronary angioplasty implant and graft; Z79.899 Other long term (current) drug therapy; Z95.1 Presence of aortocoronary bypass graft; Z86.73 Personal history of transient ischemic attack (TIA), and cerebral infarction without residual deficits; Z87.81 Personal history of (healed) traumatic fracture
CPT/HCPCS: 31624; 36415; 71045; 71046; 80048; 80053; 81003; 83605; 83735; 84145; 85025; 85027; 85610; 85730; 87040; 87070; 87102; 87116; 87205; 87206; 87324; 87496; 87498; 87502; 87529; 87634; 87635; 87636; 87798; 89050; 93005; 94760; 96361; 96365; 96366; 96375; 99285

== ENCOUNTER 2024-10-26 08:56 | Inpatient (IN) | payer MEDICARE ==
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
[2024-10-26] MEDS: SODIUM CHLORIDE 0.9% 1,000 ML IV STA (09:29)
[2024-10-26 09:38] LABS: Basophils % (A) 0 %; Eosinophils # (A) 0.2 k/uL (0-0.7); Eosinophils % (A) 2 %; HCT 37.8 % (39.0-53.0); HGB 11.9 gm/dL (13.0-17.5); Hypochromasia Slight; Lymphocytes # (A) 0.7 k/uL (1.0-4.8); Lymphocytes % (A) 5 %; MCH 27.8 pg (25.0-35.0); MCHC 31.6 g/dL (31.0-37.0); MCV 88.1 fL (80.0-100.0); Mean Platelet Volume 7.8; Monocytes # (A) 0.5 k/uL (0-1.0); Monocytes % (A) 3 %; Neutrophils # (A) 12.2 k/uL (1.3-7.7); Neutrophils % (A) 89 %; Platelet Count 312 k/uL (150-450); RBC 4.29 m/uL (4.30-5.90); RDW 13.5 % (11.5-15.5); WBC 13.7 k/uL (3.8-10.6)
[2024-10-26] MEDS: ACETAMINOPHEN IV (For NPO) 1,000 MG in EMPTY BAG 1 BAG IVPB STA (09:43)
[2024-10-26 09:50] LABS: ALT 19 U/L (4-49); AST 22 U/L (17-59); African American GFR (CKD) >90 (>60 ml/min/1.73 sqM); Albumin 4.4 g/dL (3.5-5.0); Alkaline Phosphatase 83 U/L (38-126); Anion Gap 10 mmol/L; Blood Urea Nitrogen 27 mg/dL (9-20); Calcium 9.8 mg/dL (8.4-10.2); Carbon Dioxide 25 mmol/L (22-30); Chloride 103 mmol/L (98-107); Glucose 130 mg/dL (74-99); Magnesium 1.8 mg/dL (1.6-2.3); Non-African American GFR(CKD) 83 (>60 ml/min/1.73 sqM); Potassium 4.1 mmol/L (3.5-5.1); Sodium 138 mmol/L (137-145); Total Bilirubin 0.5 mg/dL (0.2-1.3); Total Protein 7.1 g/dL (6.3-8.2)
[2024-10-26 09:55] LABS: Appearance,Urine Clear (Clear); Bilirubin,Urine Negative (Negative); Blood,Urine Negative (Negative); Color,Urine Colorless; Glucose,Urine (UA) Negative (Negative); Ketones,Urine Negative (Negative); Leukocyte Esterase,Urine Negative (Negative); Nitrite,Urine Negative (Negative); Protein,Urine Negative (Negative); Specific Gravity,Urine 1.014 (1.001-1.035); Urobilinogen,Urine <2.0 mg/dL (<2.0)
[2024-10-26 10:01] LABS: Prothrombin Time 10.6 sec (10.0-12.5)
[2024-10-26 10:12] LABS: Partial Thromboplastin Time 19.7 sec (22.0-30.0)
[2024-10-26 10:18] LABS: Influenza A Not Detected (Not Detectd); Influenza B Not Detected (Not Detectd); RSV Not Detected (Not Detectd)
--- NOTE | 2024-10-26 10:35 | CT ---
EXAMINATION TYPE: CT brain emperatriz wo con DATE OF EXAM: 10/26/2024 COMPARISON: CLINICAL INDICATION: Male, 84 years old with history of weakness, frequent falls, fever; PHH, weaknes s, frequent falls, fever TECHNIQUE: CT scan of the head and cervical spine are performed without contrast. CT DLP: 1423.[address] CTDI: mGy Automated exposure control for dose reduction was used. FINDINGS: There is no acute intracranial hemorrhage, mass effect, or midline shift identified. The ventricles and sulci are within normal limits in size. The globes are intact and the visualized sinuses are daron ar. Cervical spine is visualized in its entirety from C1 through upper thoracic levels and demonstrates s atisfactory alignment without evidence of acute fracture or dislocation. Prevertebral soft tissue ap pears within normal limits. The C1-C2 articulation is unremarkable. Partially imaged patchy infiltrate left upper lobe. Correlate for pneumonia. IMPRESSION: 1. There is no acute fracture or dislocation evident in the cervical spine. 2. No acute intracranial hemorrhage, mass effect, or midline shift is seen. 3.Partially imaged patchy infiltrate left upper lobe. Correlate for pneumonia. [facility], , 10/26/2024 10:32 AM
--- NOTE | 2024-10-26 10:45 | XR ---
EXAMINATION TYPE: XR chest 2V DATE OF EXAM: 10/26/2024 10:21 AM COMPARISON: 07/15/2024 CLINICAL INDICATION: Male, 84 years old with history of weakness, frequent falls, fever: Shortness of breath TECHNIQUE: XR chest 2V views of the chest are obtained. FINDINGS: Scattered senescent parenchymal changes noted. Hyperinflation compatible with COPD. No evidence for infiltrate. No evidence for atelectasis. Heart size is stable. Mediastinal structures are stable and grossly unremarkable. No evidence for hilar prominence. Degenerative changes dorsal spine. IMPRESSION: 1. No evidence for acute pulmonary disease. [facility], , 10/26/2024 10:43 AM
[2024-10-26 10:48] VITALS: TEMP 97.8
[2024-10-26] MEDS ORDERED: NALOXONE 0.4 MG/ML 1 ML VIAL IV PRN (11:31)
[2024-10-26] MEDS ORDERED: PNEUMONIA PROTOCOL UTILIZED 1 EACH MISC PO PRN (11:35)
[2024-10-26] MEDS: SODIUM CHLORIDE 0.9% 1,000 ML IV SCH (13:07)
[2024-10-26] MEDS: cefTRIAXone IN SWFI 1,000 MG/10 ML SYRINGE IVP STA (13:08)
[2024-10-26] MEDS: AZITHROMYCIN 500 MG in SODIUM CHLORIDE 0.9% 250 ML IVPB STA (13:08)
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
[2024-10-27] MEDS: ACETAMINOPHEN TAB 325 MG TAB PO PRN (01:33)
[2024-10-27] MEDS: GABAPENTIN 100 MG CAP PO SCH (04:13)
[2024-10-27] MEDS ORDERED: ALBUTEROL NEBULIZED 2.5 MG/3 ML INHALATION PRN ×2 (08:04→08:33)
[2024-10-27] MEDS ORDERED: LORATADINE 10 MG TAB PO PRN (08:04)
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
[2024-10-27] MEDS: FUROSEMIDE 20 MG TAB PO SCH (08:44)
[2024-10-27] MEDS: FINASTERIDE 5 MG TAB PO SCH (08:44)
[2024-10-27] MEDS: CHOLECALCIFEROL 25 MCG (1000 IU) TABLET PO SCH (08:44)
[2024-10-27] MEDS: lisinopriL 5 MG TAB PO SCH (08:44)
[2024-10-27] MEDS: ASPIRIN 81 MG PO SCH (08:45)
[2024-10-27] MEDS: MELOXICAM 7.5 MG TAB PO SCH (08:45)
[2024-10-27] MEDS: METOPROLOL SUCCINATE (ER) 25 MG TAB.ER.24H PO SCH (08:45)
[2024-10-27] MEDS: PRIMIDONE 50 MG TAB PO SCH (08:46)
[2024-10-27] MEDS: oxyBUTYnin chloride 5 MG TAB PO SCH (08:46)
[2024-10-27] MEDS: TAMSULOSIN 0.4 MG CAP.ER.24H PO SCH (08:51)
[2024-10-27] MEDS: KETOTIFEN 0.025% OPHTH DROPS 5 ML BTL BOTH EYES SCH (08:52)
[2024-10-27] MEDS ORDERED: AZITHROMYCIN 500 MG in SODIUM CHLORIDE 0.9% 250 ML IVPB SCH (09:00)
[2024-10-27] MEDS ORDERED: GABAPENTIN 100 MG CAP PO SCH (09:00)
[2024-10-27] MEDS: FENTANYL 25 MCG/HR TRANSDERM SCH (09:02)
--- NOTE | 2024-10-27 14:26 | P.PN ---
Subjective Progress Note Date: 10/27/24 This is an 84-year-old male patient with multiple comorbidities. He presented here to the emergency room early this morning with flulike symptoms including shortness of breath, cough, chills and diarrhea for approximately 3 days. He had also been having frequent falls at home. The scan of the brain and C-spine revealed no acute fracture or dislocation within the cervical spine. No acute intracranial hemorrhage, mass effect or midline shift. Partially imaged patchy infiltrate in the left upper lobe. X-ray reveals no pulmonary disease. White count 13.7. Hemoglobin 11.9. Platelets 312. Sodium 138. Potassium 0.1. Bicarb 25. BUN 27. Creatinine 0.78. Glucose 130. Troponin negative x 1. Urinalysis clean. Viral screen negative. He is seen today in consultation in the emergency department. He is currently sitting up on a stretcher. Awake and alert in no acute distress. He is maintaining O2 saturations in the mid to upper 90s on room air. Initial temperature 100.5. Currently afebrile at 97.8. He is hemodynamically stable. The patient is seen today October 27, 2024 in follow-up in the emergency department. He is currently sitting up on a stretcher. Awake and alert in no acute distress. He is maintaining O2 saturations in the 90s on room air. He denies any shortness of breath, cough or congestion. No labs today. He remains on Symbicort, albuterol, diuretics. Fentanyl patch for pain control. Normal saline at 75 mL/h. Objective - Vital Signs Vital signs: Vital Signs Temp 97.8 F 10/26/24 10:46 Pulse 64 10/27/24 07:26 Resp 16 10/27/24 07:26 BP 130/81 10/27/24 07:26 Pulse Ox 99 10/27/24 07:26 FiO2 Intake & Output 10/26/24 10/27/24 10/27/24 18:59 06:59 18:59 Weight 76.204 kg - Exam GENERAL EXAM: Alert, 84-year-old male, on room air, resting on a stretcher, in no apparent distress. HEAD: Normocephalic. EYES: Normal reaction of pupils, equal size. NOSE: Clear with pink turbinates. THROAT: No erythema or exudates. NECK: No masses, no JVD. CHEST: No chest wall deformity. LUNGS: Equal air entry with no crackles, wheeze, rhonchi or dullness. CVS: S1 and S2 normal with no audible murmur, regular rhythm. ABDOMEN: No hepatosplenomegaly, normal bowel sounds, no guarding or rigidity. SPINE: No scoliosis or deformity SKIN: No rashes CENTRAL NERVOUS SYSTEM: No focal deficits, tone is normal in all 4 extremities. EXTREMITIES: There is no peripheral edema. No clubbing, no cyanosis. Peripheral pulses are intact. - Labs CBC & Chem 7: 10/26/24 09:25 10/26/24 09:25 Assessment and Plan Assessment: Generalized weakness with 3 days of diarrhea, shortness of breath, frequent falls. Chest x-ray shows no acute process. Viral screen negative. Urinalysis clean. Procalcitonin negative Febrile illness of unclear etiology, recovered Mild leukocytosis History of coronary artery disease, S/P PCI/stent and CABG, 2012 History of hypertension History of hyperlipidemia History of COPD, nonsmoker History of CVA/TIA Gastroesophageal reflux disease Osteoarthritis History of obstructive sleep apnea syndrom. History of BPH Plan: The patient was seen and evaluated Medications reviewed Procalcitonin negative Antibiotics discontinued Currently stable and on room air Cleared for discharge from the pulmonary standpoint I have personally seen and examined the patient, performed the documentation and the assessment and plan as written. Number of minutes spent on the visit: 10 Dictation was produced using [employer] dictation software. Please excuse any grammatical, word or spelling errors.
[2024-10-27 18:07] VITALS: BP 108/80; PULSE 80; RESP 20
[2024-10-27] MEDS ORDERED: SYMBICORT 160-4.5 MCG INHALER INHALATION SCH (20:00)
[2024-10-27] MEDS ORDERED: SERTRALINE 50 MG TAB PO SCH (21:00)
[2024-10-27] MEDS ORDERED: clonazePAM 1 MG TAB PO SCH ×2 (21:00)
[2024-10-27] MEDS ORDERED: ATORVASTATIN 80 MG TAB PO SCH (21:00)
--- NOTE | 2024-10-28 08:38 | P.DS ---
Providers Date of admission: 10/26/24 11:32 Attending physician: Cullen Castellanos Consults: 10/26/24 11:31 Consult Physician Routine Consulting Provider: Perez Larsen Consult Reason/Comments: pneumonia Do you want consulting provider notified?: Yes Primary care physician: Cullen Castellanos Hospital Course: The patient is an 84-year-old white male that was admitted for incidental pneumonia. The patient has had history of previous pneumonia in the past. However multiple falls have also been noted. Weakness and ambulation are becoming a concern for him. The patient was then evaluated and treated empirically for pneumonia. Pulmonology saw the patient and felt that the he did not need to be treated for pneumonia due to their evaluation. The patient still has been struggling with ambulation and I wanted to keep the patient for physical therapy evaluation and possible rehab. The patient signed out AGAINST MEDICAL ADVICE at that time. We will follow-up with the patient as necessary but due to my appropriate protocols, we will most likely end up discharging the patient from the practice due to noncompliance. Patient Condition at Discharge: Serious Plan - Discharge Summary New Discharge Prescriptions: No Action Metoprolol Succinate [Toprol XL] 12.5 mg PO DAILY lisinopriL [Prinivil] 5 mg PO DAILY Primidone [Mysoline] 100 mg PO TID clonazePAM [KlonoPIN] 1 mg PO HS oxyBUTYnin chloride [Ditropan] 5 mg PO BID fentaNYL 25MCG/HR PATCH [Duragesic 25MCG/HR] 1 patch TRANSDERM Q72H Furosemide [Lasix] 20 mg PO DAILY Atorvastatin Calcium [Lipitor] 80 mg PO HS Aspirin EC [Ecotrin Low Dose] 162 mg PO DAILY Tamsulosin HCl [Flomax] 0.4 mg PO DAILY Gabapentin [Neurontin] 100 mg PO TID Albuterol Nebulized [Ventolin Nebulized] 2.5 mg INHALATION RT-QID PRN PRN Reason: Shortness Of Breath Olopatadine HCl [Pataday Once Daily Relief] 1 drop BOTH EYES DAILY Budesonide/Formoterol Fumarate [Symbicort 160-4.5 Mcg Inhaler] 2 puff INHALATION RT-BID Finasteride [Proscar] 5 mg PO DAILY Cholecalciferol (Vitamin D3) [Vitamin D3 (50 Mcg = 2000 Iu)] 50 mcg PO DAILY Sertraline [Zoloft] 50 mg PO HS Naloxone HCl [Narcan] 4 mg NASAL ONCE PRN PRN Reason: Overdose Celecoxib [CeleBREX] 100 mg PO BID Loratadine [Claritin] 10 mg PO DAILY PRN PRN Reason: Allergy Symptoms Albuterol Inhaler [Ventolin Hfa Inhaler] 2 puff INHALATION RT-Q4H PRN PRN Reason: Shortness Of Breath Discharge Medication List Metoprolol Succinate [Toprol XL] 12.5 mg PO DAILY 01/30/17 [History] lisinopriL [Prinivil] 5 mg PO DAILY 01/30/17 [History] Primidone [Mysoline] 100 mg PO TID 12/01/18 [History] clonazePAM [KlonoPIN] 1 mg PO HS 12/01/18 [History] Aspirin EC [Ecotrin Low Dose] 162 mg PO DAILY 01/06/19 [History] Atorvastatin Calcium [Lipitor] 80 mg PO HS 01/06/19 [History] Furosemide [Lasix] 20 mg PO DAILY 01/06/19 [History] fentaNYL 25MCG/HR PATCH [Duragesic 25MCG/HR] 1 patch TRANSDERM Q72H 01/06/19 [History] oxyBUTYnin chloride [Ditropan] 5 mg PO BID 01/06/19 [History] Celecoxib [CeleBREX] 100 mg PO BID 11/21/23 [History] Cholecalciferol (Vitamin D3) [Vitamin D3 (50 Mcg = 2000 Iu)] 50 mcg PO DAILY 11/21/23 [History] Finasteride [Proscar] 5 mg PO DAILY 11/21/23 [History] Gabapentin [Neurontin] 100 mg PO TID 11/21/23 [History] Loratadine [Claritin] 10 mg PO DAILY PRN 11/21/23 [History] Naloxone HCl [Narcan] 4 mg NASAL ONCE PRN 11/21/23 [History] Sertraline [Zoloft] 50 mg PO HS 11/21/23 [History] Tamsulosin HCl [Flomax] 0.4 mg PO DAILY 11/21/23 [History] Albuterol Nebulized [Ventolin Nebulized] 2.5 mg INHALATION RT-QID PRN 07/12/24 [History] Olopatadine HCl [Pataday Once Daily Relief] 1 drop BOTH EYES DAILY 07/12/24 [History] Albuterol Inhaler [Ventolin Hfa Inhaler] 2 puff INHALATION RT-Q4H PRN 10/01/24 [History] Budesonide/Formoterol Fumarate [Symbicort 160-4.5 Mcg Inhaler] 2 puff INHALATION RT-BID 10/01/24 [History] Follow up Appointment(s)/Referral(s): Cullen Castellanos MD [Primary Care Provider] - 1-2 days Discharge Disposition: LEFT AGAINST MEDICAL ADVICE
== END 2024-10-27 18:19 | disposition left against medical advice (07) | DRG 194 ==
LOC: EC 08:56 → 4SSUR 11:32
PROVIDERS: ADMIT Family Medicine; ATTEND Family Medicine
DX: J18.9 Pneumonia, unspecified organism (principal); J44.0 Chronic obstructive pulmonary disease with (acute) lower respiratory infection; I11.0 Hypertensive heart disease with heart failure; I50.9 Heart failure, unspecified; F32.A Depression, unspecified; E78.5 Hyperlipidemia, unspecified; Z11.52 Encounter for screening for COVID-19; F41.9 Anxiety disorder, unspecified; Z53.29 Procedure and treatment not carried out because of patient's decision for other reasons; I25.10 Atherosclerotic heart disease of native coronary artery without angina pectoris; K21.9 Gastro-esophageal reflux disease without esophagitis; M19.90 Unspecified osteoarthritis, unspecified site; N40.0 Benign prostatic hyperplasia without lower urinary tract symptoms; R29.6 Repeated falls; W19.XXXA Unspecified fall, initial encounter; Z79.1 Long term (current) use of non-steroidal anti-inflammatories (NSAID); Z79.51 Long term (current) use of inhaled steroids; Z79.82 Long term (current) use of aspirin; Z79.899 Other long term (current) drug therapy; Z86.73 Personal history of transient ischemic attack (TIA), and cerebral infarction without residual deficits; Z87.01 Personal history of pneumonia (recurrent); Z91.199 Patient's noncompliance with other medical treatment and regimen due to unspecified reason; Z95.1 Presence of aortocoronary bypass graft; R53.1 Weakness; R19.7 Diarrhea, unspecified; Z95.5 Presence of coronary angioplasty implant and graft; Z96.1 Presence of intraocular lens; Z98.42 Cataract extraction status, left eye; Z98.41 Cataract extraction status, right eye; Z88.5 Allergy status to narcotic agent
CPT/HCPCS: 36415; 70450; 71046; 72125; 80053; 81003; 83605; 83735; 84145; 84484; 85025; 85610; 85730; 87040; 87636; 93005; 96361; 96365; 96366; 96367; 96375; 99285

== ENCOUNTER 2024-11-19 12:11 | Emergency (ER) | payer MEDICARE ==
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
[2024-11-19 14:02] LABS: Basophils # (A) 0.06 10*3/uL (0.00-0.10); Basophils % (A) 0.6 %; Eosinophils # (A) 0.12 10*3/uL (0.04-0.35); Eosinophils % (A) 1.2 %; HCT 29.1 % (39.6-50.0); HGB 9.3 g/dL (13.0-17.0); Lymphocytes # (A) 0.69 10*3/uL (0.90-5.00); Lymphocytes % (A) 7.2 %; MCV 84.6 fL (80.0-97.0); Mean Platelet Volume 9.5 fL (9.5-12.2); Monocytes # (A) 0.65 10*3/uL (0.20-1.00); Monocytes % (A) 6.7 %; Neutrophils # (A) 8.07 10*3/uL (1.80-7.70); Neutrophils % (A) 83.9 %; Platelet Count 294 10*3/uL (140-440); RBC 3.44 10*6/uL (4.40-5.60); RDW 13.4 % (11.5-14.5); WBC 9.63 10*3/uL (4.50-10.00)
[2024-11-19 14:10] LABS: African American GFR (CKD) >90 (>60 ml/min/1.73 sqM); Anion Gap 4 mmol/L; Blood Urea Nitrogen 20 mg/dL (9-20); Calcium 8.7 mg/dL (8.4-10.2); Carbon Dioxide 29 mmol/L (22-30); Chloride 102 mmol/L (98-107); Glucose 85 mg/dL (74-99); Non-African American GFR(CKD) 88 (>60 ml/min/1.73 sqM); Potassium 3.8 mmol/L (3.5-5.1); Sodium 135 mmol/L (137-145)
--- NOTE | 2024-11-19 17:37 | ED ---
Medical Decision Making - Medical Decision Making Patient was to be discharged however started to make threats. He was reevaluated by EPS and will be geriatric psych transfer. - Lab Data Result diagrams: 11/19/24 13:45 11/19/24 13:45 Lab Results 11/19/24 11/19/24 11/19/24 Range/Units 13:45 13:45 13:45 WBC 9.63 (4.50-10.00) 10*3/uL RBC 3.44 L (4.40-5.60) 10*6/uL Hgb 9.3 L (13.0-17.0) g/dL Hct 29.1 L (39.6-50.0) % MCV 84.6 (80.0-97.0) fL MCH 27.0 (27.0-32.0) pg MCHC 32.0 (32.0-37.0) g/dL Plt Count 294 (140-440) 10*3/uL MPV 9.5 (9.5-12.2) fL Immature Gran % (Auto) 0.4 % Neutrophils % 83.9 % Lymphocytes % 7.2 % Monocytes % 6.7 % Eosinophils % 1.2 % Basophils % 0.6 % Immature Gran # 0.04 (0.00-0.04) 10*3/uL Neutrophils # 8.07 H (1.80-7.70) 10*3/uL Lymphocytes # 0.69 L (0.90-5.00) 10*3/uL Monocytes # 0.65 (0.20-1.00) 10*3/uL Eosinophils # 0.12 (0.04-0.35) 10*3/uL Basophils # 0.06 (0.00-0.10) 10*3/uL Sodium 135 L (137-145) mmol/L Potassium 3.8 (3.5-5.1) mmol/L Chloride 102 (98-107) mmol/L Carbon Dioxide 29 (22-30) mmol/L Anion Gap 4 mmol/L BUN 20 (9-20) mg/dL Creatinine 0.67 (0.66-1.25) mg/dL Est GFR (CKD-EPI)AfAm >90 (>60 ml/min/1.73 sqM) Est GFR (CKD-EPI)NonAf 88 (>60 ml/min/1.73 sqM) Glucose 85 (74-99) mg/dL Calcium 8.7 (8.4-10.2) mg/dL SARS-CoV-2 (PCR) Not Detected (Not Detectd) Disposition Clinical Impression: Suicidal ideation Disposition: TRANSFER TO PSYCH HOSP/UNIT Condition: Fair Instructions (If sedation given, give patient instructions): Help Prevent Suicide (ED) Referrals: None,Stated [REFERRING] - 1-2 days
[2024-11-19] MEDS ORDERED: NON FORMULARY DRUG (Naloxone Hcl [Narcan] 4 MG Each) EA NOSTRIL PRN (23:06)
[2024-11-19] MEDS ORDERED: ALBUTEROL NEBULIZED 2.5 MG/3 ML INHALATION PRN (23:06)
[2024-11-20] MEDS: GABAPENTIN 100 MG CAP PO SCH (00:16)
[2024-11-20] MEDS: oxyBUTYnin chloride 5 MG TAB PO STA (00:17)
[2024-11-20] MEDS: ATORVASTATIN 80 MG TAB PO STA (00:17)
[2024-11-20] MEDS: clonazePAM 0.5 MG TAB PO STA (00:17)
[2024-11-20] MEDS: SERTRALINE 50 MG TAB PO STA (00:18)
[2024-11-20] MEDS: GABAPENTIN 100 MG CAP PO STA (00:18)
[2024-11-20] MEDS: PRIMIDONE 50 MG TAB PO STA (00:18)
[2024-11-20] MEDS: MELATONIN 5 MG TABLET PO STA (02:42)
[2024-11-20 02:47] VITALS: RESP 16
[2024-11-20] MEDS: CHOLECALCIFEROL 25 MCG (1000 IU) TABLET PO SCH (09:36)
[2024-11-20] MEDS: ASPIRIN 81 MG PO SCH (09:36)
[2024-11-20] MEDS: TAMSULOSIN 0.4 MG CAP.ER.24H PO SCH (09:37)
[2024-11-20] MEDS: FUROSEMIDE 20 MG TAB PO SCH (09:37)
[2024-11-20] MEDS: METOPROLOL SUCCINATE (ER) 25 MG TAB.ER.24H PO SCH (09:38)
[2024-11-20] MEDS: FINASTERIDE 5 MG TAB PO SCH (09:46)
[2024-11-20] MEDS: PRIMIDONE 50 MG TAB PO SCH (09:47)
[2024-11-20] MEDS: lisinopriL 5 MG TAB PO SCH (09:47)
[2024-11-20] MEDS: oxyBUTYnin chloride 5 MG TAB PO SCH (09:47)
[2024-11-20] MEDS: KETOTIFEN 0.025% OPHTH DROPS 5 ML BTL BOTH EYES SCH (11:03)
[2024-11-20] MEDS: SYMBICORT 160-4.5 MCG INHALER INHALATION SCH (11:58)
[2024-11-20] MEDS: ACETAMINOPHEN TAB 500 MG TAB PO STA (11:58)
[2024-11-20 14:17] VITALS: PULSE 86; TEMP 97.6
[2024-11-20 14:38] VITALS: BP 98/61
[2024-11-20] MEDS ORDERED: MELATONIN 5 MG TABLET PO SCH (21:00)
[2024-11-20] MEDS ORDERED: ATORVASTATIN 80 MG TAB PO SCH (21:00)
[2024-11-20] MEDS ORDERED: clonazePAM 1 MG TAB PO SCH (21:00)
[2024-11-20] MEDS ORDERED: SERTRALINE 50 MG TAB PO SCH (21:00)
== END 2024-11-20 15:26 ==
LOC: EC 12:11
DX: R45.851 Suicidal ideations (principal); Z88.5 Allergy status to narcotic agent; Z11.52 Encounter for screening for COVID-19; Z86.73 Personal history of transient ischemic attack (TIA), and cerebral infarction without residual deficits
CPT/HCPCS: 99285 ×2; 82075; 36415; 94640; 93005; 80048; 85025; 87635; S0138

== ENCOUNTER 2024-12-17 17:38 | Emergency (ER) | payer MEDICARE ==
[2024-12-17 17:44] VITALS: BP 127/80; PULSE 74; RESP 16; TEMP 97.7
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
== END 2024-12-17 21:17 | disposition left against medical advice (07) ==
LOC: EC 17:38
DX: S01.01XA Laceration without foreign body of scalp, initial encounter (principal); Y92.000 Kitchen of unspecified non-institutional (private) residence as the place of occurrence of the external cause; Z88.5 Allergy status to narcotic agent; Z53.29 Procedure and treatment not carried out because of patient's decision for other reasons; W01.198A Fall on same level from slipping, tripping and stumbling with subsequent striking against other object, initial encounter; Z86.73 Personal history of transient ischemic attack (TIA), and cerebral infarction without residual deficits
CPT/HCPCS: 99283

== ENCOUNTER 2024-12-19 12:43 | Inpatient (IN) | payer MEDICARE ==
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
[2024-12-19 13:55] LABS: HCT 23.8 % (39.6-50.0); MCH 24.7 pg (27.0-32.0); MCHC 30.7 g/dL (32.0-37.0); MCV 80.7 fL (80.0-97.0); RBC 2.95 10*6/uL (4.40-5.60); RDW 14.5 % (11.5-14.5); WBC 4.48 10*3/uL (4.50-10.00)
[2024-12-19 13:56] LABS: Basophils # (A) 0.04 10*3/uL (0.00-0.10); Basophils % (A) 0.9 %; Eosinophils # (A) 0.17 10*3/uL (0.04-0.35); Eosinophils % (A) 3.8 %; Lymphocytes # (A) 0.93 10*3/uL (0.90-5.00); Lymphocytes % (A) 20.8 %; Mean Platelet Volume 9.5 fL (9.5-12.2); Monocytes % (A) 11.2 %; Neutrophils # (A) 2.83 10*3/uL (1.80-7.70); Neutrophils % (A) 63.1 %; Platelet Count 282 10*3/uL (140-440)
[2024-12-19 14:02] LABS: HGB 7.3 g/dL (13.0-17.0)
[2024-12-19 14:11] LABS: ALT 12 U/L (4-49); AST 19 U/L (17-59); African American GFR (CKD) >90 (>60 ml/min/1.73 sqM); Albumin 3.7 g/dL (3.5-5.0); Alkaline Phosphatase 54 U/L (38-126); Anion Gap 9 mmol/L; Blood Urea Nitrogen 22 mg/dL (9-20); Calcium 8.9 mg/dL (8.4-10.2); Carbon Dioxide 27 mmol/L (22-30); Chloride 101 mmol/L (98-107); Glucose 100 mg/dL (74-99); Magnesium 1.7 mg/dL (1.6-2.3); Non-African American GFR(CKD) 85 (>60 ml/min/1.73 sqM); Potassium 3.7 mmol/L (3.5-5.1); Sodium 137 mmol/L (137-145); Total Bilirubin 0.4 mg/dL (0.2-1.3); Total Protein 5.9 g/dL (6.3-8.2)
[2024-12-19 15:30] LABS: Appearance,Urine Clear (Clear); Bilirubin,Urine Negative (Negative); Blood,Urine Negative (Negative); Color,Urine Light Yellow; Glucose,Urine (UA) Negative (Negative); Ketones,Urine Negative (Negative); Leukocyte Esterase,Urine Negative (Negative); Nitrite,Urine Negative (Negative); Protein,Urine Negative (Negative); Urobilinogen,Urine <2.0 mg/dL (<2.0)
--- NOTE | 2024-12-19 15:31 | CT ---
EXAMINATION TYPE: CT brain cspine wo con DATE OF EXAM: 12/19/2024 2:37 PM COMPARISON: 10/26/2024. CLINICAL INDICATION: Male, 84 years old with history of fall; fall, on thinners, pain TECHNIQUE: Brain: Multiple axial CT images of the brain were obtained without IV contrast. Cspine: Axial CT images from the skull base to the inferior aspect of T2 we obtained without intraven ous contrast. Coronal and sagittal reformatted images were also reviewed. . CT DLP: 1458.4 mGycm, Automated exposure control for dose reduction was used. FINDINGS: Brain: Extra-axial spaces: No abnormal extra-axial fluid collections. Ventricular system: Dilatation in proportion to cerebral atrophy. Cerebral parenchyma: Cerebral atrophy. No acute intraparenchymal hemorrhage or mass effect. The brooks -white junction is well differentiated. Scattered hypoattenuating areas are seen within the white mat ter. Cerebellum: Unremarkable. Mass effect: No evidence of midline shift. Intracranial vasculature: Atherosclerotic calcifications of the intracranial vessels. Soft tissues: Posterior scalp edema.. Calvarium/osseous structures: No depressed skull fracture. Paranasal sinuses and mastoid air cells: Clear. Visualized orbits: Bilateral aphakia Cervical spine: Fracture: None. Osseous structures: Multilevel degenerative disc disease changes with endplate spurring and disc oste ophyte complex's. Sternotomy wires are present. Ankylosis of the C2-C3 right facets. Vertebral alignment: Within normal limits. Spinal canal/Neural Foramina: No evidence of significant spinal canal narrowing. No evidence for sign ificant neural foraminal stenosis. Neck soft tissues: Prevertebral soft tissues are within normal limits. Other: The airway is patent. Atherosclerosis of the carotid bifurcations. IMPRESSION: 1. No acute intracranial process. 2. Nonspecific white matter changes, likely secondary to chronic small vessel ischemic disease. 3. No evidence of cervical spine fracture. 4. Moderate multilevel degenerative disc disease. 5. Posterior scalp edema without evidence of fracture. [facility], , 12/19/2024 3:29 PM
--- NOTE | 2024-12-19 15:44 | XR ---
EXAMINATION TYPE: XR Hip Bilateral and AP pelvis DATE OF EXAM: 12/19/2024 2:59 PM COMPARISON: None CLINICAL INDICATION: Male, 84 years old with history of fall; PHH, pain TECHNIQUE: XR Hip Bilateral and AP pelvis; hip was examined in the frontal and lateral projections an d a AP pelvis. FINDINGS: No evidence for acute process, joint dislocation or significant soft tissue swelling. Osteo phyte formation of the superior acetabulum of the hip. There is mild joint space narrowing. IMPRESSION: 1. No evidence for acute process. 2. Mild hip osteoarthrosis. [facility], , 12/19/2024 3:41 PM
[2024-12-19 15:46] LABS: Prothrombin Time 11.1 sec (10.0-12.5)
--- NOTE | 2024-12-19 15:48 | XR ---
EXAMINATION TYPE: XR chest 2V DATE OF EXAM: 12/19/2024 2:59 PM COMPARISON: Chest radiographs from 10/26/2024. CLINICAL INDICATION: Male, 84 years old with history of Weakness; TECHNIQUE: XR chest 2V Frontal and lateral views of the chest. FINDINGS: Lungs/Pleura: There is no evidence of pleural effusion, focal consolidation, or pneumothorax. Pulmonary vascularity: Unremarkable. Heart/mediastinum: Cardiomediastinal silhouette is unremarkable. Musculoskeletal: No acute osseous pathology. Midline sternotomy wires are noted. IMPRESSION: No acute cardiopulmonary disease/process. [facility], , 12/19/2024 3:46 PM
[2024-12-19 15:50] LABS: Partial Thromboplastin Time 21.6 sec (22.0-30.0)
[2024-12-19] MEDS ORDERED: ALPRAZolam 0.25 MG TAB PO PRN (19:36)
[2024-12-19] MEDS ORDERED: NALOXONE 0.4 MG/ML 1 ML VIAL IV PRN (19:36)
[2024-12-19] MEDS: SODIUM CHLORIDE 0.9% 1,000 ML IV SCH (20:10)
--- NOTE | 2024-12-19 20:11 | XR ---
EXAMINATION TYPE: XR tibia fibula bilateral DATE OF EXAM: 12/19/2024 4:52 PM COMPARISON: None CLINICAL INDICATION: Male, 84 years old with history of fall; PHH, pain TECHNIQUE: XR tibia fibula bilateral; examined in AP and lateral projections. FINDINGS: Total knee arthroplasty changes of the right knee which no evidence for periprosthetic frac ture. The left knee demonstrate moderate degeneration changes with joint space narrowing and osteophy te information. No evidence of any acute osseous pathology, joint dislocation, or soft tissue swellin g is noted. Scattered multifocal degeneration with joint space narrowing and osteophyte formation of the joints of the visualized ankles/feet . Surgical clips in the left lower extremity. IMPRESSION: 1. No evidence of acute fracture. 2. Post surgical changes to the right knee No evidence for periprosthetic fracture. 3. Moderate degeneration changes of the left knee with osteophyte information j and oint space narro wing. [facility], , 12/19/2024 8:09 PM
[2024-12-19] MEDS: ATORVASTATIN 80 MG TAB PO SCH (23:59)
[2024-12-19] MEDS: METOPROLOL SUCCINATE (ER) 25 MG TAB.ER.24H PO SCH (23:59)
[2024-12-19] MEDS: ASPIRIN 81 MG PO SCH (23:59)
[2024-12-19] MEDS: oxyBUTYnin chloride 5 MG TAB PO SCH (23:59)
[2024-12-20] MEDS: clonazePAM 1 MG TAB PO SCH
[2024-12-20] MEDS: PRIMIDONE 50 MG TAB PO SCH (00:04)
[2024-12-20] MEDS: FINASTERIDE 5 MG TAB PO SCH (09:10)
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
[2024-12-20] MEDS ORDERED: NON FORMULARY DRUG (Naloxone Hcl [Narcan] 4 MG Each) NASAL PRN (12:43)
[2024-12-20] MEDS ORDERED: ALBUTEROL NEBULIZED 2.5 MG/3 ML INHALATION PRN (12:43)
[2024-12-20] MEDS ORDERED: LORATADINE 10 MG TAB PO PRN (12:43)
[2024-12-20] MEDS ORDERED: NON FORMULARY DRUG (Albuterol Inhaler 90 MCG Puff) INHALATION PRN (12:43)
[2024-12-20 13:25] LABS: Basophils # (A) 0.04 10*3/uL (0.00-0.10); Basophils % (A) 0.9 %; Eosinophils # (A) 0.19 10*3/uL (0.04-0.35); Eosinophils % (A) 4.4 %; HCT 21.9 % (39.6-50.0); Lymphocytes # (A) 0.85 10*3/uL (0.90-5.00); Lymphocytes % (A) 19.8 %; MCH 24.8 pg (27.0-32.0); MCHC 31.1 g/dL (32.0-37.0); MCV 79.9 fL (80.0-97.0); Mean Platelet Volume 9.4 fL (9.5-12.2); Monocytes # (A) 0.56 10*3/uL (0.20-1.00); Neutrophils # (A) 2.65 10*3/uL (1.80-7.70); Neutrophils % (A) 61.7 %; Platelet Count 220 10*3/uL (140-440); RBC 2.74 10*6/uL (4.40-5.60); RDW 14.7 % (11.5-14.5)
[2024-12-20 13:30] LABS: HGB 6.8 g/dL (13.0-17.0)
[2024-12-20] MEDS: GABAPENTIN 100 MG CAP PO SCH (17:31)
[2024-12-20] MEDS: SYMBICORT 160-4.5 MCG INHALER INHALATION SCH (19:56)
[2024-12-20] MEDS: SERTRALINE 50 MG TAB PO SCH (21:54)
[2024-12-21] MEDS: MELOXICAM 7.5 MG TAB PO SCH (08:02)
[2024-12-21] MEDS: FUROSEMIDE 20 MG TAB PO SCH (08:02)
[2024-12-21] MEDS: TAMSULOSIN 0.4 MG CAP.ER.24H PO SCH (08:02)
[2024-12-21] MEDS: lisinopriL 5 MG TAB PO SCH (08:03)
[2024-12-21] MEDS: KETOTIFEN 0.025% OPHTH DROPS 5 ML BTL BOTH EYES SCH (08:03)
[2024-12-21] MEDS: CHOLECALCIFEROL 25 MCG (1000 IU) TABLET PO SCH (08:03)
[2024-12-21] MEDS: HYDROcodone/APAP 5-325MG 1 EACH TAB PO PRN (08:05)
[2024-12-21] MEDS ORDERED: MELOXICAM 7.5 MG TAB PO SCH (09:00)
--- NOTE | 2024-12-21 10:34 | P.PN ---
Subjective Progress Note Date: 12/21/24 H&P Date: 12/20/24 Chief Complaint: Fall, poor gait Patient presented to the emergency room last evening with complaint of multiple falls inability to walk patient is awake alert oriented x 3 vital signs are stable patient is currently afebrile, old back injury from the significant gait abnormalities walks with assist device states he is unable to walk fell yesterday and was unable to get up 12/21/2024 status post 1 unit of packed RBCs, repeat hemoglobin pending. Denies bleeding. Denies black tarry stools.staff reports patient has been sneaking home medications, including Neurontin, denies taking Celebrex. evaluated by general surgery, scheduled for EGD today.NPO. PT/OT pending. Denies chest pain, palpitations or shortness of breath. Objective - Vital Signs Vital signs: Vital Signs Temp 98.0 F 12/21/24 07:52 Pulse 74 12/21/24 07:52 Resp 16 12/21/24 07:52 BP 111/66 12/21/24 07:52 Pulse Ox 97 12/21/24 07:52 FiO2 Intake & Output 12/20/24 12/21/24 12/21/24 18:59 06:59 18:59 Intake Total 310 Output Total 100 350 Balance 210 -350 Intake: Blood Product 310 Rc As-1 Unit 310 [id number] Output: Urine 100 350 Other: Voiding Method Toilet Urinal # Voids 2 2 # Bowel Movements 1 1 - Exam General: [Patient awake, alert and oriented times 3, no acute distress.] HEENT: [PERRL. EOMI. No pharyngeal erythema or exudate.] Neck: Supple, no JVD. Cardiac: [Heart regular in rate and rhythm. No S3. No S4. No clicks, rubs. No murmur.] Lungs: [Unlabored, equal air entry, clear to auscultation bilaterally.] Abdomen: [Soft, nontender ,no mass. No organomegaly. Bowel sounds presnt and normoactive in all 4 quadrants.] Extremes: [No edema, no cyanosis, normal pulses] Skin: [Warm and dry no rash.] Neurologic: CN II - XII grossly intact. - Labs CBC & Chem 7: 12/21/24 10:21 12/21/24 10:21 Labs: Abnormal Lab Results - Last 24 Hours (Table) 12/19/24 12/20/24 Range/Units 18:00 12:58 WBC 4.30 L (4.50-10.00) 10*3/uL RBC 2.74 L (4.40-5.60) 10*6/uL Hgb 6.8 L* (13.0-17.0) g/dL Hct 21.9 L (39.6-50.0) % MCV 79.9 L (80.0-97.0) fL MCH 24.8 L (27.0-32.0) pg MCHC 31.1 L (32.0-37.0) g/dL RDW 14.7 H (11.5-14.5) % MPV 9.4 L (9.5-12.2) fL Lymphocytes # 0.85 L (0.90-5.00) 10*3/uL Crossmatch See Detail Assessment and Plan Assessment: (1) Anemia, status posttransfusion 1 unit packed RBC, possible peptic ulcer disease in a patient Celebrex Current Visit: Yes Status: Acute Code(s): D64.9 - ANEMIA, UNSPECIFIED SNOMED Code(s): 871994534 (2) Generalized weakness Current Visit: No Status: Acute Code(s): R53.1 - WEAKNESS SNOMED Code(s): 42581173 (3) History of COPD Current Visit: No Status: Acute Code(s): Z87.09 - PERSONAL HISTORY OF OTHER DISEASES OF THE RESPIRATORY SYSTEM SNOMED Code(s): 262206872 (4) Hyperlipemia Current Visit: No Status: Acute Code(s): E78.5 - HYPERLIPIDEMIA, UNSPECIFIED SNOMED Code(s): 43185248 (5) Hypertension Current Visit: No Status: Acute Code(s): I10 - ESSENTIAL (PRIMARY) HYPERTENSION SNOMED Code(s): 13217657 Plan: Continue on current medication regimen ,monitoring and symptomatic treatment. Repeat labs ordered/pending. NPO, EGD today. PT/OT consults in place. the impression and plan of care has been dictated as directed. : I performed a history and examination of this patient, discussed the same with the dictator. I agree with the dictator's note ,documented as a scribe. Any additional findings or plans will be noted.
[2024-12-21 10:43] LABS: HCT 28.2 % (39.6-50.0); MCH 24.8 pg (27.0-32.0); MCHC 30.5 g/dL (32.0-37.0); MCV 81.3 fL (80.0-97.0); Mean Platelet Volume 9.6 fL (9.5-12.2); Platelet Count 252 10*3/uL (140-440); RBC 3.47 10*6/uL (4.40-5.60); RDW 15.3 % (11.5-14.5); WBC 5.13 10*3/uL (4.50-10.00)
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
[2024-12-21 10:52] LABS: HGB 8.6 g/dL (13.0-17.0)
[2024-12-21 11:01] LABS: African American GFR (CKD) >90 (>60 ml/min/1.73 sqM); Anion Gap 10 mmol/L; Blood Urea Nitrogen 19 mg/dL (9-20); Calcium 8.8 mg/dL (8.4-10.2); Carbon Dioxide 23 mmol/L (22-30); Chloride 105 mmol/L (98-107); Glucose 94 mg/dL (74-99); Non-African American GFR(CKD) >90 (>60 ml/min/1.73 sqM); Sodium 138 mmol/L (137-145)
[2024-12-21] MEDS ORDERED: LIDOCAINE 1% INJ 10MG/ML (20 ML MDV) ONE (15:22)
[2024-12-21] MEDS ORDERED: PROPOFOL 10 MG/ML 20 ML VIAL IV ONE (15:22)
[2024-12-21] MEDS: SODIUM CHLORIDE 0.9% 500 ML 500 ML IV ONE (15:27)
--- NOTE | 2024-12-21 15:58 | P.OP ---
Date of Procedure: 12/21/24 Preoperative Diagnosis: anemia GI bleed Postoperative Diagnosis: paraesophageal hiatal hernia Gastritis Procedure(s) Performed: EGD Anesthesia: MAC Surgeon: Ronni Aviles Pathology: other (antrum, cardia) Condition: stable Disposition: PACU Description of Procedure: patient's placed on the endoscopy table in the lateral position. He received IV sedation. The gastroscope some placed oropharynx passed in the esophagus and stomach. Scope was placed through the pylorus. The first and second portion duodenum appeared normal. Scope back the antrum this. Mildly inflamed. A biopsies performed. The scope was then directed once patient is a largeparaesophageal hiatal hernia. There is evidence of inflammation in the cardia of the stomach. This was biopsied. The distal esophagus appeared normal. Scope withdrawn for patient. It appears that the patient may been bleeding from gastritis.
[2024-12-21] MEDS: PANTOPRAZOLE 40 MG TABLET PO SCH (16:19)
[2024-12-21] MEDS: SODIUM CHLORIDE 0.9% 1,000 ML IV SCH (21:05)
[2024-12-22 07:15] VITALS: RESP 18; TEMP 97.9
[2024-12-22 09:06] LABS: HCT 26.3 % (39.6-50.0); HGB 7.9 g/dL (13.0-17.0); MCH 24.5 pg (27.0-32.0); MCV 81.4 fL (80.0-97.0); Mean Platelet Volume 8.4 fL (9.5-12.2); Platelet Count 261 10*3/uL (140-440); RBC 3.23 10*6/uL (4.40-5.60); RDW 15.5 % (11.5-14.5); WBC 4.41 10*3/uL (4.50-10.00)
--- NOTE | 2024-12-22 12:07 | P.PN ---
Subjective Progress Note Date: 12/22/24 H&P Date: 12/20/24 Chief Complaint: Fall, poor gait Patient presented to the emergency room last evening with complaint of multiple falls inability to walk patient is awake alert oriented x 3 vital signs are stable patient is currently afebrile, old back injury from the significant gait abnormalities walks with assist device states he is unable to walk fell yesterday and was unable to get up 12/21/2024 status post 1 unit of packed RBCs, repeat hemoglobin pending. Denies bleeding. Denies black tarry stools.staff reports patient has been sneaking home medications, including Neurontin, denies taking Celebrex. evaluated by general surgery, scheduled for EGD today.NPO. PT/OT pending. Denies chest pain, palpitations or shortness of breath. 12/22/2024 underwent EGD yesterday reporting paraesophageal hiatal hernia, gastritis. Tolerated procedure well.denies abdominal pain. Positive bowel movements last night, reported non bloody. hemoglobin decreased to 7.9, general surgery discussing potential inpatient colonoscopy. Blood pressures soft, ranging in the 90s to low 100s, mean arterial pressures 70s to 80s.continues on midodrine. denies chest pain, palpitations or shortness of breath. Maintaining O2 sats in the high 90s on room air. Evaluated by PT yesterday reporting steady gait, but impulsive, recommending home care with 24/7 supervision. High risk for falls secondary to impulsiveness. Objective - Vital Signs Vital signs: Vital Signs Temp 97.9 F 12/22/24 06:50 Pulse 77 12/22/24 08:20 Resp 18 12/22/24 08:20 BP 99/61 12/22/24 06:50 Pulse Ox 98 12/22/24 06:50 FiO2 Intake & Output 12/21/24 12/22/24 12/22/24 18:59 06:59 18:59 Intake Total 200 1080 Balance 200 1080 Intake: IV 200 Oral 1080 Other: Voiding Method Toilet Toilet Toilet Urinal Urinal # Voids 4 1 # Bowel Movements 1 - Exam General: [Patient awake, alert and oriented times 3, no acute distress.] HEENT: [PERRL. EOMI. No pharyngeal erythema or exudate.] Neck: Supple, no JVD. Cardiac: [Heart regular in rate and rhythm. No murmur.] Lungs: [Unlabored, equal air entry, clear to auscultation bilaterally.] Abdomen: [Soft, nontender ,no mass. No organomegaly. Bowel sounds presnt and normoactive in all 4 quadrants.] Extremes: [No edema, no cyanosis, normal pulses] Skin: [Warm and dry no rash. Multiple bruises posterior torso, extremities, scalp laceration] Neurologic: CN II - XII grossly intact. - Labs CBC & Chem 7: 12/22/24 08:48 12/21/24 10:21 Labs: Abnormal Lab Results - Last 24 Hours (Table) 12/22/24 Range/Units 08:48 WBC 4.41 L (4.50-10.00) 10*3/uL RBC 3.23 L (4.40-5.60) 10*6/uL Hgb 7.9 L (13.0-17.0) g/dL Hct 26.3 L (39.6-50.0) % MCH 24.5 L (27.0-32.0) pg MCHC 30.0 L (32.0-37.0) g/dL RDW 15.5 H (11.5-14.5) % MPV 8.4 L (9.5-12.2) fL Assessment and Plan Assessment: (1) Anemia, status posttransfusion 1 unit packed RBC. Status post EGD reporting para esophageal hiatal hernia, gastritis. Current Visit: Yes Status: Acute Code(s): D64.9 - ANEMIA, UNSPECIFIED SNOM ED Code(s): 450155219 (2) Generalized weakness Current Visit: No Status: Acute Code(s): R53.1 - WEAKNESS SNOMED Code(s): 24119901 (3) History of COPD Current Visit: No Status: Acute Code(s): Z87.09 - PERSONAL HISTORY OF OTHER DISEASES OF THE RESPIRATORY SYSTEM SNOMED Code(s): 571942021 (4) Hyperlipemia Current Visit: No Status: Acute Code(s): E78.5 - HYPERLIPIDEMIA, UNSPECIFIED SNOMED Code(s): 12629104 (5) Hypertension Current Visit: No Status: Acute Code(s): I10 - ESSENTIAL (PRIMARY) HYPERTENSION SNOMED Code(s): 50446756 Plan: Continue on current medication regimen ,monitoring and symptomatic treatment. Hemoglobin decreased to 7.9, general surgery discussing colonoscopy. Close monitoring of hemoglobin, platelets with repeat labs ordered for a.m. PT recommending home care, 04/03 supervision as patient high risk for falls secondary to impulsiveness. the impression and plan of care has been dictated as directed. : I performed a history and examination of this patient, discussed the same with the dictator. I agree with the dictator's note ,documented as a scribe. Any additional findings or plans will be noted.
--- NOTE | 2024-12-22 13:06 | P.PN ---
Subjective Progress Note Date: 12/22/24 SURGICAL PROGRESS NOTE CHIEF COMPLAINT: Anemia HISTORY OF PRESENT ILLNESS: Patient is status post EGD with results reporting paraesophageal hiatal hernia and gastritis. Patient denies any abdominal pain. Denies any blood in his stools. Hemoglobin 7.9. PHYSICAL EXAM: VITAL SIGNS: Reviewed. GENERAL: Well-developed in no acute distress. ABDOMEN: Soft. Nondistended. Nontender. NEUROLOGIC: Alert and oriented. Cranial nerves II through XII grossly intact. ASSESSMENT: 1. Anemia with chronic GI bleed likely secondary to hiatal hernia and gastritis PLAN: - Continue omeprazole daily - No NSAIDs - Patient can be discharged from surgical standpoint with outpatient follow up Physician [employer] Auditor note has been reviewed by physician. Signing provider agrees with the documented findings, assessment, and plan of care. Objective - Vital Signs Vital signs: Vital Signs Temp 97.9 F 12/22/24 06:50 Pulse 77 12/22/24 08:20 Resp 18 12/22/24 08:20 BP 99/61 12/22/24 06:50 Pulse Ox 98 12/22/24 06:50 FiO2 Intake & Output 12/21/24 12/22/24 12/22/24 18:59 06:59 18:59 Intake Total 200 1080 Balance 200 1080 Intake: IV 200 Oral 1080 Other: Voiding Method Toilet Toilet Toilet Urinal Urinal # Voids 4 1 # Bowel Movements 1 - Labs CBC & Chem 7: 12/22/24 08:48 12/21/24 10:21 Labs: Abnormal Lab Results - Last 24 Hours (Table) 12/22/24 Range/Units 08:48 WBC 4.41 L (4.50-10.00) 10*3/uL RBC 3.23 L (4.40-5.60) 10*6/uL Hgb 7.9 L (13.0-17.0) g/dL Hct 26.3 L (39.6-50.0) % MCH 24.5 L (27.0-32.0) pg MCHC 30.0 L (32.0-37.0) g/dL RDW 15.5 H (11.5-14.5) % MPV 8.4 L (9.5-12.2) fL
[2024-12-22 13:31] LABS: HCT 26.8 % (39.6-50.0); HGB 8.2 g/dL (13.0-17.0); MCHC 30.6 g/dL (32.0-37.0); MCV 81.7 fL (80.0-97.0); Mean Platelet Volume 9.1 fL (9.5-12.2); Platelet Count 305 10*3/uL (140-440); RBC 3.28 10*6/uL (4.40-5.60); RDW 15.5 % (11.5-14.5)
[2024-12-22 13:32] VITALS: PULSE 66
[2024-12-22 13:35] VITALS: BP 111/69
--- NOTE | 2024-12-23 13:34 | P.DS ---
Providers Date of admission: 12/19/24 20:11 Expected date of discharge: 12/22/24 Attending physician: Shabbir Duarte Consults: 12/20/24 12:48 Consult Physician Routine Consulting Provider: Traci Dupree Reason/Comments: Anemia Do you want consulting provider notified?: Yes Primary care physician: [facility] Course: Final Diagnoses: (1) Anemia, status posttransfusion 1 unit packed RBC. Status post EGD reporting para esophageal hiatal hernia, gastritis. Current Visit: Yes Status: Acute Code(s): D64.9 - ANEMIA, UNSPECIFIED SNOMED Code(s): 187524572 (2) Generalized weakness Current Visit: No Status: Acute Code(s): R53.1 - WEAKNESS SNOMED Code(s): 26198028 (3) History of COPD Current Visit: No Status: Acute Code(s): Z87.09 - PERSONAL HISTORY OF OTHER DISEASES OF THE RESPIRATORY SYSTEM SNOMED Code(s): 917589752 (4) Hyperlipemia Current Visit: No Status: Acute Code(s): E78.5 - HYPERLIPIDEMIA, UNSPECIFIED SNOMED Code(s): 59050436 (5) Hypertension Current Visit: No Status: Acute Code(s): I10 - ESSENTIAL (PRIMARY) HYPERTENSION SNOMED Code(s): 89084666 Hospital course:Patient presented to the emergency room last evening with complaint of multiple falls inability to walk patient is awake alert oriented x 3 vital signs are stable patient is currently afebrile, old back injury from the significant gait abnormalities walks with assist device states he is unable to walk fell yesterday and was unable to get up 12/21/2024 status post 1 unit of packed RBCs, repeat hemoglobin pending. Denies bleeding. Denies black tarry stools.staff reports patient has been sneaking home medications, including Neurontin, denies taking Celebrex. evaluated by general surgery, scheduled for EGD today.NPO. PT/OT pending. Denies chest pain, palpitations or shortness of breath. 12/22/2024 underwent EGD yesterday reporting paraesophageal hiatal hernia, gastritis. Tolerated procedure well.denies abdominal pain. Positive bowel movements last night, reported non bloody. hemoglobin decreased to 7.9, general surgery discussing potential inpatient colonoscopy. Blood pressures soft, ranging in the 90s to low 100s, mean arterial pressures 70s to 80s.continues on midodrine. denies chest pain, palpitations or shortness of breath. Maintaining O2 sats in the high 90s on room air. Evaluated by PT yesterday reporting steady gait, but impulsive, recommending home care with 24/7 supervision. High risk for falls secondary to impulsiveness. Hemoglobin decreased to 7.9, general surgery discussing colonoscopy. Close monitoring of hemoglobin, platelets with repeat labs ordered for a.m. PT recommending home care, 24/7 supervision as patient high risk for falls secondary to impulsiveness. Hemoglobin repeated, increased to 8.2, platelets 305. Denies any abdominal pain. Denies chest pain, palpitations or shortness of breath. Denies lightheadedness, dizziness or focal deficits. Patient has been cleared for di pauly by general surgery recommending outpatient colonoscopy, resume aspirin in 24 hours with no NSAIDs and to continue on omeprazole daily. Patient will be discharged home with home care/PT today in a stable condition with guarded prognosis. The impression and plan of care has been dictated as directed. : I performed a history and examination of this patient, discussed the same with the dictator. I agree with the dictator's note ,documented as a scribe. Any additional findings or plans will be noted. Patient Condition at Discharge: Stable Plan - Discharge Summary Discharge Rx Participant: No New Discharge Prescriptions: New Omeprazole [PriLOSEC] 40 mg PO DAILY #90 cap Continue Metoprolol Succinate [Toprol XL] 12.5 mg PO DAILY Primidone [Mysoline] 100 mg PO TID clonazePAM [KlonoPIN] 1 mg PO HS oxyBUTYnin chloride [Ditropan] 5 mg PO BID fentaNYL 25MCG/HR PATCH [Duragesic 25MCG/HR] 1 patch TRANSDERM Q72H Furosemide [Lasix] 20 mg PO AC-BRKFST Atorvastatin Calcium [Lipitor] 80 mg PO HS Tamsulosin HCl [Flomax] 0.4 mg PO DAILY Gabapentin [Neurontin] 100 mg PO TID Albuterol Nebulized [Ventolin Nebulized] 2.5 mg INHALATION RT-QID PRN PRN Reason: Shortness Of Breath Olopatadine HCl [Pataday Once Daily Relief] 1 drop BOTH EYES DAILY Budesonide/Formoterol Fumarate [Symbicort 160-4.5 Mcg Inhaler] 2 puff INHALATION RT-BID Finasteride [Proscar] 5 mg PO DAILY Cholecalciferol (Vitamin D3) [Vitamin D3 (50 Mcg = 2000 Iu)] 50 mcg PO DAILY Sertraline [Zoloft] 50 mg PO HS Naloxone HCl [Narcan] 4 mg NASAL ONCE PRN PRN Reason: Overdose Loratadine [Claritin] 10 mg PO DAILY PRN PRN Reason: Allergy Symptoms Albuterol Inhaler [Ventolin Hfa Inhaler] 2 puff INHALATION RT-Q4H PRN PRN Reason: Shortness Of Breath Memantine HCl 5 PO DAILY Aspirin EC [Ecotrin Low Dose] 162 mg PO DAILY #0 Discontinued lisinopriL [Prinivil] 5 mg PO DAILY Celecoxib [CeleBREX] 100 mg PO BID Discharge Medication List Metoprolol Succinate [Toprol XL] 12.5 mg PO DAILY 01/30/17 [History] Primidone [Mysoline] 100 mg PO TID 12/01/18 [History] clonazePAM [KlonoPIN] 1 mg PO HS 12/01/18 [History] Atorvastatin Calcium [Lipitor] 80 mg PO HS 01/06/19 [History] Furosemide [Lasix] 20 mg PO AC-BRKFST 01/06/19 [History] fentaNYL 25MCG/HR PATCH [Duragesic 25MCG/HR] 1 patch TRANSDERM Q72H 01/06/19 [History] oxyBUTYnin chloride [Ditropan] 5 mg PO BID 01/06/19 [History] Cholecalciferol (Vitamin D3) [Vitamin D3 (50 Mcg = 2000 Iu)] 50 mcg PO DAILY 11/21/23 [History] Finasteride [Proscar] 5 mg PO DAILY 11/21/23 [History] Gabapentin [Neurontin] 100 mg PO TID 11/21/23 [History] Loratadine [Claritin] 10 mg PO DAILY PRN 11/21/23 [History] Naloxone HCl [Narcan] 4 mg NASAL ONCE PRN 11/21/23 [History] Sertraline [Zoloft] 50 mg PO HS 11/21/23 [History] Tamsulosin HCl [Flomax] 0.4 mg PO DAILY 11/21/23 [History] Albuterol Nebulized [Ventolin Nebulized] 2.5 mg INHALATION RT-QID PRN 12/01/24 [History] Olopatadine HCl [Pataday Once Daily Relief] 1 drop BOTH EYES DAILY 07/12/24 [History] Albuterol Inhaler [Ventolin Hfa Inhaler] 2 puff INHALATION RT-Q4H PRN 10/01/24 [History] Budesonide/Formoterol Fumarate [Symbicort 160-4.5 Mcg Inhaler] 2 puff INHALATION RT-BID 10/01/24 [History] Memantine HCl 5 PO DAILY 12/21/24 [History] Aspirin EC [Ecotrin Low Dose] 162 mg PO DAILY #0 12/22/24 [Rx] Omeprazole [PriLOSEC] 40 mg PO DAILY #90 cap 12/22/24 [Rx] Follow up Appointment(s)/Referral(s): Shabbir Duarte Jr, DO [Primary Care Provider] - 12/24/24 9:30 am [facility], [NON-STAFF] - 1-2 Days (Agency will call within 24-48 hours to make an appointment) Ronni Aviles MD [STAFF PHYSICIAN] - 12/29/24 3:50 pm Ambulatory/Diagnostic Orders: Complete Blood Count w/diff [LAB.AMB] Time Frame: 3 Days, Location: None Selected Activity/Diet/Wound Care/Special Instructions: no NSAIDS, KENDY inhibitor on hold, secondary to hypotension, reevaluate outpatient in clinic with PCP Discharge Disposition: HOME WITH HOME HEALTH SERVICES
== END 2024-12-22 18:02 | disposition home health service (06) | DRG 379 ==
LOC: EC 12:43 → 4SSUR 20:11
PROVIDERS: ADMIT Family Medicine; ATTEND Family Medicine
PROC: 30233N1 Transfusion of Nonautologous Red Blood Cells into Peripheral Vein, Percutaneous Approach (ICD-10-PCS; principal; 2024-12-20)
PROC: 0DB68ZX Excision of Stomach, Via Natural or Artificial Opening Endoscopic, Diagnostic (ICD-10-PCS; 2024-12-21)
PROC: 0DB78ZX Excision of Stomach, Pylorus, Via Natural or Artificial Opening Endoscopic, Diagnostic (ICD-10-PCS; 2024-12-21)
DX: K29.71 Gastritis, unspecified, with bleeding (principal); I11.0 Hypertensive heart disease with heart failure; G20.A1 Parkinson's disease without dyskinesia, without mention of fluctuations; D64.9 Anemia, unspecified; J44.9 Chronic obstructive pulmonary disease, unspecified; K25.9 Gastric ulcer, unspecified as acute or chronic, without hemorrhage or perforation; I50.9 Heart failure, unspecified; E78.5 Hyperlipidemia, unspecified; R53.1 Weakness; R29.6 Repeated falls; I25.10 Atherosclerotic heart disease of native coronary artery without angina pectoris; K44.9 Diaphragmatic hernia without obstruction or gangrene; Z79.82 Long term (current) use of aspirin; Z79.899 Other long term (current) drug therapy; Z88.5 Allergy status to narcotic agent; Z79.1 Long term (current) use of non-steroidal anti-inflammatories (NSAID); Z79.51 Long term (current) use of inhaled steroids; Z86.73 Personal history of transient ischemic attack (TIA), and cerebral infarction without residual deficits; Z95.1 Presence of aortocoronary bypass graft
CPT/HCPCS: 36415; 43239; 70450; 71046; 72125; 73521; 80048; 80053; 81003; 82272; 83735; 84484; 85025; 85027; 85610; 85730; 86850; 86900; 86901; 86920; 88305; 93005; 94640; 96360; 96361; 99285

== ENCOUNTER 2024-12-31 11:13 | Emergency (ER) | payer MEDICARE ==
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
[2024-12-31 12:22] LABS: Basophils # (A) 0.04 10*3/uL (0.00-0.10); Basophils % (A) 1.2 %; Eosinophils # (A) 0.18 10*3/uL (0.04-0.35); Eosinophils % (A) 5.5 %; HCT 25.5 % (39.6-50.0); HGB 7.7 g/dL (13.0-17.0); Lymphocytes # (A) 0.58 10*3/uL (0.90-5.00); Lymphocytes % (A) 17.7 %; MCH 24.1 pg (27.0-32.0); MCHC 30.2 g/dL (32.0-37.0); MCV 79.9 fL (80.0-97.0); Mean Platelet Volume 9.2 fL (9.5-12.2); Monocytes # (A) 0.34 10*3/uL (0.20-1.00); Monocytes % (A) 10.4 %; Neutrophils # (A) 2.11 10*3/uL (1.80-7.70); Neutrophils % (A) 64.6 %; Platelet Count 349 10*3/uL (140-440); RBC 3.19 10*6/uL (4.40-5.60); RDW 15.7 % (11.5-14.5); WBC 3.27 10*3/uL (4.50-10.00)
[2024-12-31 12:40] LABS: ALT 12 U/L (4-49); AST 18 U/L (17-59); African American GFR (CKD) >90 (>60 ml/min/1.73 sqM); Albumin 3.8 g/dL (3.5-5.0); Alkaline Phosphatase 63 U/L (38-126); Anion Gap 7 mmol/L; Blood Urea Nitrogen 15 mg/dL (9-20); Calcium 9.2 mg/dL (8.4-10.2); Carbon Dioxide 28 mmol/L (22-30); Chloride 102 mmol/L (98-107); Glucose 96 mg/dL (74-99); Non-African American GFR(CKD) 89 (>60 ml/min/1.73 sqM); Potassium 4.3 mmol/L (3.5-5.1); Sodium 137 mmol/L (137-145); Total Bilirubin 0.3 mg/dL (0.2-1.3); Total Protein 6.2 g/dL (6.3-8.2)
[2024-12-31 15:26] VITALS: BP 143/90; PULSE 81; RESP 16; TEMP 98.1
== END 2024-12-31 16:04 | disposition home or self-care (01) ==
LOC: EC 11:13
DX: D64.9 Anemia, unspecified (principal); Z88.5 Allergy status to narcotic agent
CPT/HCPCS: 36415; 86900; 86901; 80053; 85025; 86850; 86920; 99284; 36430; P9016

== ENCOUNTER 2025-01-14 08:01 | Day surgery (SDC) | payer MEDICARE ==
[~2025-01-14 08:01] MED LIST: LIDOCAINE 1% (10MG/ML) FOR IV START INTRADERMA PRN
[2025-01-14] MEDS: IV FLUID CONTINUATION 1,000 ML IV ONE (08:23)
[2025-01-14 08:30] VITALS: RESP 16; TEMP 97.3
[2025-01-14] MEDS: LACTATED RINGERS 1,000 ML IV SCH (08:38)
[2025-01-14] MEDS ORDERED: PROPOFOL 10 MG/ML 20 ML VIAL IV ONE (09:07)
--- NOTE | 2025-01-14 09:22 | P.OP ---
Date of Procedure: 01/14/25 Preoperative Diagnosis: GI bleed Postoperative Diagnosis: Diverticulosis Internal/external hemorrhoids Procedure(s) Performed: Colonoscopy Anesthesia: MAC Surgeon: Ronni Aviles Pathology: none sent Condition: stable Disposition: PACU Description of Procedure: The patient was placed on the endoscopy table in the lateral position. He received IV sedation. Digital rectal exam was performed. This revealed internal/external hemorrhoids. The flexible colonoscope was then placed patient anus and passed throughout the entire colon. The ileocecal valve was visualized. The cecum, ascending and transverse colon appeared normal. In the descending sigmoid colon there was moderate diverticular changes. The scope was Ruback the rectum this appeared normal. Scope withdrawn through the anus and internal/external hemorrhoids were noted. Presumed the patient may have had bleeding from hemorrhoids or diverticulosis.
[2025-01-14 10:02] VITALS: BP 100/63; PULSE 67
== END 2025-01-14 10:24 | disposition home or self-care (01) ==
LOC: ORWHC2ENDO 08:01
PROVIDERS: ATTEND Surgery
DX: K64.4 Residual hemorrhoidal skin tags (principal); K64.8 Other hemorrhoids; K57.31 Diverticulosis of large intestine without perforation or abscess with bleeding; I11.0 Hypertensive heart disease with heart failure; I50.9 Heart failure, unspecified; I25.10 Atherosclerotic heart disease of native coronary artery without angina pectoris; J44.9 Chronic obstructive pulmonary disease, unspecified; G47.33 Obstructive sleep apnea (adult) (pediatric); N40.0 Benign prostatic hyperplasia without lower urinary tract symptoms; F41.9 Anxiety disorder, unspecified; F32.A Depression, unspecified; K21.9 Gastro-esophageal reflux disease without esophagitis; G20.A1 Parkinson's disease without dyskinesia, without mention of fluctuations; Z95.5 Presence of coronary angioplasty implant and graft; Z88.5 Allergy status to narcotic agent; Z86.73 Personal history of transient ischemic attack (TIA), and cerebral infarction without residual deficits; Z79.51 Long term (current) use of inhaled steroids; Z79.899 Other long term (current) drug therapy
CPT/HCPCS: 45378; J2704